=== PATIENT | male | born 1985 | race Caucasian/White ===

== ENCOUNTER 2017-11-24 07:09 | Emergency (ER) | payer BC, OTHER ==
[~2017-11-24] VITALS: Ht 177.8 cm; Wt 104.3 kg
[~2017-11-24 07:09] MED LIST: ACHD5005; ALBU17AE3 IH; ALBUTEROL MDI; AMOX500C2 PO; AZIT-21 PO; BENZ200C25 PO; CIPR-225 PO; CYCL10TA9 PO; GUAI-555 PO; HYDR-3456 PO; HYDR-690 PO; HYDR-757 PO; MELO-195 PO; MELO7.5T PO; METH4TAB PO; NAPR-243 PO; ONDA4TAB8 SL; ONDA8TAB6 PO; OXYC-197 PO; OXYC1TAB87 PO; PRD20T PO; PROM25TA14 PO; SUMA50TA2 PO; TMSL.4C
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
--- OUTSIDE RECORDS SUMMARY | 2017-11-24 07:18 | XMS REPORT | Continuity of Care Document ---
Author Author [facility] Address Unknown Phone Unavailable Allergies Active Description Code Type Severity Reaction Onset Reported/Identified Relationship to Patient Clinical Status Yes NKANo Known Allergies NKA Miscellaneous Allergy Unknown N/A 07/05/2006 Medications There is no data. Problems Date Dx Coded Attending Type Code Diagnosis Diagnosed By 05/29/2008 528.9 MOUTH PAIN 05/29/2008 528.9 MOUTH PAIN 05/29/2008 528.9 MOUTH PAIN 05/29/2008 528.9 Mouth Pain 05/29/2008 528.9 Mouth Pain 05/29/2008 528.9 Mouth Pain 05/29/2008 528.9 Mouth Pain 05/29/2008 528.9 Mouth Pain 05/29/2008 528.9 Mouth Pain 05/29/2008 528.9 Mouth Pain 05/29/2008 AUSTIN PEREZ APRN 528.9 Mouth Pain 05/29/2008 MARYLIN HILL APRN 528.9 Mouth Pain 05/29/2008 AUSTIN PEREZ APRN 528.9 Mouth Pain 05/29/2008 TUYET DOS SANTOS MD 528.9 Mouth Pain 05/29/2008 JAI HEATH MD 528.9 Mouth Pain 05/29/2008 IGNACIO ALBARADO APRN R 528.9 Mouth Pain 05/29/2008 RADHA TINOCO APRN L 528.9 Mouth Pain 05/29/2008 JANET TREJO APRN S 528.9 Mouth Pain 05/29/2008 MARYLIN HILL APRN 528.9 Mouth Pain 05/29/2008 AUSTIN PEREZ APRN 528.9 Mouth Pain 08/12/2008 558.9 GASTROENTERITIS NONINFECTIOUS 08/12/2008 558.9 GASTROENTERITIS NONINFECTIOUS 08/12/2008 558.9 GASTROENTERITIS NONINFECTIOUS 08/12/2008 558.9 Gastroenteritis Noninfectious 08/12/2008 558.9 Gastroenteritis Noninfectious 08/12/2008 558.9 Gastroenteritis Noninfectious 08/12/2008 558.9 Gastroenteritis Noninfectious 08/12/2008 558.9 Gastroenteritis Noninfectious 08/12/2008 558.9 Gastroenteritis Noninfectious 08/12/2008 558.9 Gastroenteritis Noninfectious 08/12/2008 AUSTIN PEREZ APRN 558.9 Gastroenteritis Noninfectious 08/12/2008 MARYLIN HILL APRN 558.9 Gastroenteritis Noninfectious 08/12/2008 AUSTIN PEREZ APRN 558.9 Gastroenteritis Noninfectious 08/12/2008 TUYET DOS SANTOS MD 558.9 Gastroenteritis Noninfectious 08/12/2008 IVANA LIVINGSTON, JAI Anton 558.9 Gastroenteritis Noninfectious 08/12/2008 PER JOHN[place]ON IGNACIO R 558.9 Gastroenteritis Noninfectious 08/12/2008 EARNEST JOHNSTON, RADHA L 558.9 Gastroenteritis Noninfectious 08/12/2008 NEIL JOHNSTON, JANET S 558.9 Gastroenteritis Noninfectious 08/12/2008 MARYLIN HILL APRN 558.9 Gastroenteritis Noninfectious 08/12/2008 AUSTIN PEREZ APRN 558.9 Gastroenteritis Noninfectious 10/18/2009 465.9 ACUTE UPPER RESPIRATORY INFECTIONS OF UNSPECIFIED SITE 10/18/2009 465.9 ACUTE UPPER RESPIRATORY INFECTIONS OF UNSPECIFIED SITE 10/18/2009 465.9 ACUTE UPPER RESPIRATORY INFECTIONS OF UNSPECIFIED SITE 10/18/2009 465.9 Acute Upper Respiratory Infections Of Unspecified Site 10/18/2009 465.9 Acute Upper Respiratory Infections Of Unspecified Site 10/18/2009 465.9 Acute Upper Respiratory Infections Of Unspecified Site 10/18/2009 465.9 Acute Upper Respiratory Infections Of Unspecified Site 10/18/2009 465.9 Acute Upper Respiratory Infections Of Unspecified Site 10/18/2009 465.9 Acute Upper Respiratory Infections Of Unspecified Site 10/18/2009 465.9 Acute Upper Respiratory Infections Of Unspecified Site 10/18/2009 AUSTIN PEREZ APRN 465.9 Acute Upper Respiratory Infections Of Unspecified Site 10/18/2009 MARYLIN HILL APRN 465.9 Acute Upper Respiratory Infections Of Unspecified Site 10/18/2009 AUSTIN PEREZ APRN 465.9 Acute Upper Respiratory Infections Of Unspecified Site 10/18/2009 TUYET DOS SANTOS MD 465.9 Acute Upper Respiratory Infections Of Unspecified Site 10/18/2009 JAI HEATH MD 465.9 Acute Upper Respiratory Infections Of Unspecified Site 10/18/2009 PER [place] IGNACIO R 465.9 Acute Upper Respiratory Infections Of Unspecified Site 10/18/2009 EARNEST JOHN[place]ON, RADHA L 465.9 Acute Upper Respiratory Infections Of Unspecified Site 10/18/2009 NOEMY TREJO APRNA S 465.9 Acute Upper Respiratory Infections Of Unspecified Site 10/18/2009 MARYLIN HILL APRN R 465.9 Acute Upper Respiratory Infections Of Unspecified Site 10/18/2009 AUSTIN PEREZ APRN 465.9 Acute Upper Respiratory Infections Of Unspecified Site 02/22/2010 729.5 PAIN IN LIMB 02/22/2010 729.5 PAIN IN LIMB 02/22/2010 729.5 PAIN IN LIMB 02/22/2010 729.5 Pain In Limb 02/22/2010 729.5 Pain In Limb 02/22/2010 729.5 Pain In Limb 02/22/2010 729.5 Pain In Limb 02/22/2010 729.5 Pain In Limb 02/22/2010 729.5 Pain In Limb 02/22/2010 729.5 Pain In Limb 02/22/2010 AUSTIN PEREZ APRN 729.5 Pain In Limb 02/22/2010 MARYLIN HILL APRN R 729.5 Pain In Limb 02/22/2010 AUSTIN PEREZ APRN 729.5 Pain In Limb 02/22/2010 TUYET DOS SANTOS MD 729.5 Pain In Limb 02/22/2010 JAI HEATH MD 729.5 Pain In Limb 02/22/2010 PER [place] IGNACIO R 729.5 Pain In Limb 02/22/2010 ROBYN TINOCO APRNA L 729.5 Pain In Limb 02/22/2010 JANET TREJO APRN S 729.5 Pain In Limb 02/22/2010 MARYLIN HILL APRN R 729.5 Pain In Limb 02/22/2010 AUSTIN PREEZ APRN 729.5 Pain In Limb 02/12/2011 380.10 OTITIS EXTERNA 02/12/2011 380.10 OTITIS EXTERNA 02/12/2011 380.10 OTITIS EXTERNA 02/12/2011 380.10 Otitis Externa 02/12/2011 380.10 Otitis Externa 02/12/2011 380.10 Otitis Externa 02/12/2011 380.10 Otitis Externa 02/12/2011 380.10 Otitis Externa 02/12/2011 380.10 Otitis Externa 02/12/2011 380.10 Otitis Externa 02/12/2011 AUSTIN PEREZ APRN 380.10 Otitis Externa 02/12/2011 MARYLIN HILL APRN R 380.10 Otitis Externa 02/12/2011 AUSTIN PEREZ APRN 380.10 Otitis Externa 02/12/2011 TUYET DOS SANTOS MD 380.10 Otitis Externa 02/12/2011 JAI HEATH MD 380.10 Otitis Externa 02/12/2011 PER [place] IGNACIO R 380.10 Otitis Externa 02/12/2011 ELIZABETH TINOCO APRNNYA L 380.10 Otitis Externa 02/12/2011 JANET TREJO APRN S 380.10 Otitis Externa 02/12/2011 MARYLIN HILL APRN R 380.10 Otitis Externa 02/12/2011 AUSTIN PEREZ APRN 380.10 Otitis Externa 03/24/2011 477.9 ALLERGIC RHINITIS 03/24/2011 477.9 ALLERGIC RHINITIS 03/24/2011 477.9 ALLERGIC RHINITIS 03/24/2011 477.9 ALLERGIC RHINITIS 03/24/2011 477.9 ALLERGIC RHINITIS 03/24/2011 477.9 ALLERGIC RHINITIS 03/24/2011 477.9 ALLERGIC RHINITIS 03/24/2011 477.9 ALLERGIC RHINITIS 03/24/2011 477.9 ALLERGIC RHINITIS 03/24/2011 477.9 ALLERGIC RHINITIS 03/24/2011 AUSTIN PEREZ APRN 477.9 ALLERGIC RHINITIS 03/24/2011 MARYLIN HILL APRN R 477.9 ALLERGIC RHINITIS 03/24/2011 AUSTIN PEREZ APRN 477.9 ALLERGIC RHINITIS 03/24/2011 TUYET DOS SANTOS MD 477.9 ALLERGIC RHINITIS 03/24/2011 JAI HEATH MD 477.9 ALLERGIC RHINITIS 03/24/2011 PER [place] IGNACIO R 477.9 ALLERGIC RHINITIS 03/24/2011 EARNEST [place] RADHA L 477.9 ALLERGIC RHINITIS 03/24/2011 NEIL BALDWINN, JANET S 477.9 ALLERGIC RHINITIS 03/24/2011 MARYLIN HILL APRN R 477.9 ALLERGIC RHINITIS 03/24/2011 AUSTIN PEREZ APRN 477.9 ALLERGIC RHINITIS 06/02/2011 Ot 493.90 06/02/2011 Ot 786.05 06/02/2011 Ot 786.07 08/13/2011 053.9 HERPES ZOSTER WITHOUT COMPLICATION 08/13/2011 053.9 HERPES ZOSTER WITHOUT COMPLICATION 08/13/2011 053.9 HERPES ZOSTER WITHOUT COMPLICATION 08/13/2011 053.9 HERPES ZOSTER WITHOUT COMPLICATION 08/13/2011 053.9 HERPES ZOSTER WITHOUT COMPLICATION 08/13/2011 053.9 HERPES ZOSTER WITHOUT COMPLICATION 08/13/2011 053.9 HERPES ZOSTER WITHOUT COMPLICATION 08/13/2011 053.9 HERPES ZOSTER WITHOUT COMPLICATION 08/13/2011 053.9 HERPES ZOSTER WITHOUT COMPLICATION 08/13/2011 053.9 HERPES ZOSTER WITHOUT COMPLICATION 08/13/2011 AUSTIN PEREZ APRN 053.9 HERPES ZOSTER WITHOUT COMPLICATION 08/13/2011 MARYLIN HILL APRN R 053.9 HERPES ZOSTER WITHOUT COMPLICATION 08/13/2011 AUSTIN PEREZ APRN 053.9 HERPES ZOSTER WITHOUT COMPLICATION 08/13/2011 TUYET DOS SANTOS MD 053.9 HERPES ZOSTER WITHOUT COMPLICATION 08/13/2011 IVANA LIVINGSTON, JAI Anton 053.9 HERPES ZOSTER WITHOUT COMPLICATION 08/13/2011 PER BALDWINNIGNACIO R 053.9 HERPES ZOSTER WITHOUT COMPLICATION 08/13/2011 EARNEST CLARIFIER OPERATOR HELPER, RADHA L 053.9 HERPES ZOSTER WITHOUT COMPLICATION 08/13/2011 NEIL BALDWINNJANET S 053.9 HERPES ZOSTER WITHOUT COMPLICATION 08/13/2011 MARYLIN HILL APRN R 053.9 HERPES ZOSTER WITHOUT COMPLICATION 08/13/2011 AUSTIN PEREZ APRN 053.9 HERPES ZOSTER WITHOUT COMPLICATION 09/05/2011 079.99 UNSPECIFIED VIRAL INFECTION 09/05/2011 079.99 UNSPECIFIED VIRAL INFECTION 09/05/2011 079.99 UNSPECIFIED VIRAL INFECTION 09/05/2011 079.99 Unspecified Viral Infection 09/05/2011 079.99 Unspecified Viral Infection 09/05/2011 079.99 Unspecified Viral Infection 09/05/2011 079.99 Unspecified Viral Infection 09/05/2011 079.99 Unspecified Viral Infection 09/05/2011 079.99 Unspecified Viral Infection 09/05/2011 079.99 Unspecified Viral Infection 09/05/2011 AUSTIN PEREZ APRN 079.99 Unspecified Viral Infection 09/05/2011 MARYLIN HILL APRN 079.99 Unspecified Viral Infection 09/05/2011 AUSTIN PEREZ APRN 079.99 Unspecified Viral Infection 09/05/2011 TUYET DOS SANTOS MD 079.99 Unspecified Viral Infection 09/05/2011 JAI HEATH MD 079.99 Unspecified Viral Infection 09/05/2011 IGNACIO ALBARADO APRN R 079.99 Unspecified Viral Infection 09/05/2011 ROBYN TINOCO APRNA L 079.99 Unspecified Viral Infection 09/05/2011 NEIL [place]ON JANET S 079.99 Unspecified Viral Infection 09/05/2011 MARYLIN HILL APRN R 079.99 Unspecified Viral Infection 09/05/2011 AUSTIN PEREZ APRN 079.99 Unspecified Viral Infection 09/09/2011 Ot 924.3 09/09/2011 Ot 959.7 09/09/2011 Ot E000.8 09/09/2011 Ot E001.0 09/09/2011 Ot E849.0 09/09/2011 Ot E928.9 11/27/2011 724.2 LUMBAGO 11/27/2011 724.2 LUMBAGO 11/27/2011 724.2 LUMBAGO 11/27/2011 724.2 LUMBAGO 11/27/2011 724.2 LUMBAGO 11/27/2011 724.2 LUMBAGO 11/27/2011 724.2 LUMBAGO 11/27/2011 724.2 LUMBAGO 11/27/2011 724.2 LUMBAGO 11/27/2011 724.2 LUMBAGO 11/27/2011 AUSTIN PEREZ APRN 724.2 LUMBAGO 11/27/2011 MARYLIN HILL APRN 724.2 LUMBAGO 11/27/2011 AUSTIN PEREZ APRN 724.2 LUMBAGO 11/27/2011 TUYET DOS SANTOS MD 724.2 LUMBAGO 11/27/2011 AJI HEATH MD 724.2 LUMBAGO 11/27/2011 IGNACIO ALBARADO APRN R 724.2 LUMBAGO 11/27/2011 RADHA TINOCO APRN L 724.2 LUMBAGO 11/27/2011 JANET TREJO APRN S 724.2 LUMBAGO 11/27/2011 MARYLIN HILL APRN R 724.2 LUMBAGO 11/27/2011 AUSTIN PEREZ APRN 724.2 LUMBAGO 12/05/2011 Ot 473.9 12/05/2011 Ot 784.0 02/15/2012 719.46 PAIN IN JOINT INVOLVING LOWER LEG 02/15/2012 719.46 PAIN IN JOINT INVOLVING LOWER LEG 02/15/2012 719.46 PAIN IN JOINT INVOLVING LOWER LEG 02/15/2012 719.46 Pain In Joint Involving Lower Leg 02/15/2012 719.46 Pain In Joint Involving Lower Leg 02/15/2012 719.46 Pain In Joint Involving Lower Leg 02/15/2012 719.46 Pain In Joint Involving Lower Leg 02/15/2012 719.46 Pain In Joint Involving Lower Leg 02/15/2012 719.46 Pain In Joint Involving Lower Leg 02/15/2012 719.46 Pain In Joint Involving Lower Leg 02/15/2012 AUSTIN PEREZ APRN 719.46 Pain In Joint Involving Lower Leg 02/15/2012 MARYLIN HILL APRN 719.46 Pain In Joint Involving Lower Leg 02/15/2012 AUSTIN PEREZ APRN 719.46 Pain In Joint Involving Lower Leg 02/15/2012 TUYET DOS SANTOS MD 719.46 Pain In Joint Involving Lower Leg 02/15/2012 JAI HEATH MD 719.46 Pain In Joint Involving Lower Leg 02/15/2012 IGNACIO ALBARADO APRN R 719.46 Pain In Joint Involving Lower Leg 02/15/2012 RADHA TINOCO APRN L 719.46 Pain In Joint Involving Lower Leg 02/15/2012 JANET TREJO APRN S 719.46 Pain In Joint Involving Lower Leg 02/15/2012 MARYLIN HILL APRN 719.46 Pain In Joint Involving Lower Leg 02/15/2012 UASTIN PEREZ APRN 719.46 Pain In Joint Involving Lower Leg 03/28/2012 Ot 592.1 11/21/2012 462 sore throat 11/21/2012 462 sore throat 11/21/2012 462 sore throat 11/21/2012 462 Sore Throat 11/21/2012 462 Sore Throat 11/21/2012 462 Sore Throat 11/21/2012 462 Sore Throat 11/21/2012 462 Sore Throat 11/21/2012 462 Sore Throat 11/21/2012 462 Sore Throat 11/21/2012 AUSTIN PEREZ APRN 462 Sore Throat 11/21/2012 MARYLIN HILL APRN R 462 Sore Throat 11/21/2012 AUSTIN PEREZ APRN 462 Sore Throat 11/21/2012 TUYET DOS SANTOS MD 462 Sore Throat 11/21/2012 IVANA LIVINGSTON, JAI N 462 Sore Throat 11/21/2012 PER [place] IGNACIO R 462 Sore Throat 11/21/2012 MADL VICKIE RADHA L 462 Sore Throat 11/21/2012 NEILALEJANDRO [place] JANET S 462 Sore Throat 11/21/2012 MARYLIN HILL APRN 462 Sore Throat 11/21/2012 AUSTIN PEREZ APRN 462 Sore Throat 11/28/2012 461.9 SINUSITIS ACUTE 11/28/2012 461.9 SINUSITIS ACUTE 11/28/2012 461.9 SINUSITIS ACUTE 11/28/2012 461.9 SINUSITIS ACUTE 11/28/2012 461.9 SINUSITIS ACUTE 11/28/2012 461.9 SINUSITIS ACUTE 11/28/2012 461.9 SINUSITIS ACUTE 11/28/2012 461.9 SINUSITIS ACUTE 11/28/2012 461.9 SINUSITIS ACUTE 11/28/2012 UASTIN PEREZ APRN 461.9 SINUSITIS ACUTE 11/28/2012 MARYLIN HILL APRN R 461.9 SINUSITIS ACUTE 11/28/2012 AUSTIN PEREZ APRN 461.9 SINUSITIS ACUTE 11/28/2012 TUYET DOS SANTOS MD 461.9 SINUSITIS ACUTE 11/28/2012 JAI HEATH MD 461.9 SINUSITIS ACUTE 11/28/2012 IGNACIO ALBARADO APRN R 461.9 SINUSITIS ACUTE 11/28/2012 EARNEST JOHNSTON, RADHA L 461.9 SINUSITIS ACUTE 11/28/2012 NEIL JOHNSTON, JANET S 461.9 SINUSITIS ACUTE 11/28/2012 MARYLIN HILL APRN R 461.9 SINUSITIS ACUTE 11/28/2012 AUSTIN PEREZ APRN T 461.9 SINUSITIS ACUTE 12/16/2012 698.9 UNSPECIFIED PRURITIC DISORDER 12/16/2012 782.1 RASH 12/16/2012 698.9 UNSPECIFIED PRURITIC DISORDER 12/16/2012 782.1 RASH 12/16/2012 698.9 UNSPECIFIED PRURITIC DISORDER 12/16/2012 782.1 RASH 12/16/2012 698.9 UNSPECIFIED PRURITIC DISORDER 12/16/2012 782.1 RASH 12/16/2012 698.9 UNSPECIFIED PRURITIC DISORDER 12/16/2012 782.1 RASH 12/16/2012 698.9 UNSPECIFIED PRURITIC DISORDER 12/16/2012 782.1 RASH 12/16/2012 698.9 UNSPECIFIED PRURITIC DISORDER 12/16/2012 782.1 RASH 12/16/2012 698.9 UNSPECIFIED PRURITIC DISORDER 12/16/2012 782.1 RASH 12/16/2012 AUSTIN PEREZ APRN 698.9 UNSPECIFIED PRURITIC DISORDER 12/16/2012 AUSTIN PEREZ APRN 782.1 RASH 12/16/2012 MARYLIN HILL APRN R 698.9 UNSPECIFIED PRURITIC DISORDER 12/16/2012 MARYLIN HILL APRN R 782.1 RASH 12/16/2012 AUSTIN PEREZ APRN 698.9 UNSPECIFIED PRURITIC DISORDER 12/16/2012 AUSTIN PEREZ APRN 782.1 RASH 12/16/2012 TUYET DOS SANTOS MD 698.9 UNSPECIFIED PRURITIC DISORDER 12/16/2012 TUYET DOS SANTOS MD 782.1 RASH 12/16/2012 JAI HEAHT MD 698.9 UNSPECIFIED PRURITIC DISORDER 12/16/2012 JAI HEATH MD 782.1 RASH 12/16/2012 PER CLARIFIER OPERATOR HELPER, IGNACIO R 698.9 UNSPECIFIED PRURITIC DISORDER 12/16/2012 PER CLARIFIER OPERATOR HELPER, IGNACIO R 782.1 RASH 12/16/2012 MADL CLARIFIER OPERATOR HELPER, RADHA L 698.9 UNSPECIFIED PRURITIC DISORDER 12/16/2012 MADL CLARIFIER OPERATOR HELPER, RADHA L 782.1 RASH 12/16/2012 NEIL CLARIFIER OPERATOR HELPER, JANET S 698.9 UNSPECIFIED PRURITIC DISORDER 12/16/2012 NEIL CLARIFIER OPERATOR HELPER, JANET S 782.1 RASH 12/16/2012 SERGIO CLARIFIER OPERATOR HELPER, MARYLIN R 698.9 UNSPECIFIED PRURITIC DISORDER 12/16/2012 SERGIO BALDWINN, MARYLIN R 782.1 RASH 12/16/2012 AUSTIN PEREZ APRN 698.9 UNSPECIFIED PRURITIC DISORDER 12/16/2012 AUSTIN PEREZ APRN 782.1 RASH 01/05/2013 462 PHARYNGITIS ACUTE 01/05/2013 462 Pharyngitis Acute 01/05/2013 462 Pharyngitis Acute 01/05/2013 462 Pharyngitis Acute 01/05/2013 462 Pharyngitis Acute 01/05/2013 462 Pharyngitis Acute 01/05/2013 AUSTIN PEREZ APRN 462 Pharyngitis Acute 01/05/2013 MARYLIN HILL APRN R 462 Pharyngitis Acute 01/05/2013 AUSTIN PEREZ APRN 462 Pharyngitis Acute 01/05/2013 RAYA LIVINGSTON, TUYET 462 Pharyngitis Acute 01/05/2013 IVANA LIVINGSTON, JAI N 462 Pharyngitis Acute 01/05/2013 PER CLARIFIER OPERATOR HELPER, IGNACIO R 462 Pharyngitis Acute 01/05/2013 EARNEST CLARIFIER OPERATOR HELPER, RADHA L 462 Pharyngitis Acute 01/05/2013 NOEMY TREJO APRNA S 462 Pharyngitis Acute 01/05/2013 MARYLIN HILL APRN R 462 Pharyngitis Acute 01/05/2013 AUSTIN PEREZ APRN 462 Pharyngitis Acute 02/06/2013 Ot 780.2 03/25/2013 FANNIE LIVINGSTON, GWYN T Ot 466.0 03/25/2013 FANNIE LIVINGSTON, GWYN T Ot 786.30 04/23/2013 311 DEPRESSIVE DISORDER NOT ELSEWHERE CLASSIFIED 04/23/2013 790.6 ABNORMAL BLOOD CHEMISTRY 04/23/2013 311 DEPRESSIVE DISORDER NOT ELSEWHERE CLASSIFIED 04/23/2013 790.6 ABNORMAL BLOOD CHEMISTRY 04/23/2013 311 DEPRESSIVE DISORDER NOT ELSEWHERE CLASSIFIED 04/23/2013 790.6 ABNORMAL BLOOD CHEMISTRY 04/23/2013 311 DEPRESSIVE DISORDER NOT ELSEWHERE CLASSIFIED 04/23/2013 790.6 ABNORMAL BLOOD CHEMISTRY 04/23/2013 AUSTIN PEREZ APRN 311 DEPRESSIVE DISORDER NOT ELSEWHERE CLASSIFIED 04/23/2013 AUSTIN PEREZ APRN 790.6 ABNORMAL BLOOD CHEMISTRY 04/23/2013 JAMARCUS HILL APRNIA R 311 DEPRESSIVE DISORDER NOT ELSEWHERE CLASSIFIED 04/23/2013 JAMARCUS HILL APRNIA R 790.6 ABNORMAL BLOOD CHEMISTRY 04/23/2013 AUSTIN PEREZ APRN 311 DEPRESSIVE DISORDER NOT ELSEWHERE CLASSIFIED 04/23/2013 AUSTIN PEREZ APRN 790.6 ABNORMAL BLOOD CHEMISTRY 04/23/2013 TUYET DOS SANTOS MD 311 DEPRESSIVE DISORDER NOT ELSEWHERE CLASSIFIED 04/23/2013 TUYET DOS SANTOS MD 790.6 ABNORMAL BLOOD CHEMISTRY 04/23/2013 JAI HEATH MD N 311 DEPRESSIVE DISORDER NOT ELSEWHERE CLASSIFIED 04/23/2013 JAI HEATH MD 790.6 ABNORMAL BLOOD CHEMISTRY 04/23/2013 PER [place] IGNACIO R 311 DEPRESSIVE DISORDER NOT ELSEWHERE CLASSIFIED 04/23/2013 PER [place] IGNACIO R 790.6 ABNORMAL BLOOD CHEMISTRY 04/23/2013 ROBYN TINOCO APRNA L 311 DEPRESSIVE DISORDER NOT ELSEWHERE CLASSIFIED 04/23/2013 ROBYN TINOCO APRNA L 790.6 ABNORMAL BLOOD CHEMISTRY 04/23/2013 NOEMY TREJO APRNA S 311 DEPRESSIVE DISORDER NOT ELSEWHERE CLASSIFIED 04/23/2013 NOEMY TREJO APRNA S 790.6 ABNORMAL BLOOD CHEMISTRY 04/23/2013 JAMARCUS HILL APRNIA R 311 DEPRESSIVE DISORDER NOT ELSEWHERE CLASSIFIED 04/23/2013 JAMARCUS HILL APRNIA R 790.6 ABNORMAL BLOOD CHEMISTRY 04/23/2013 AUSTIN PEREZ APRN 311 DEPRESSIVE DISORDER NOT ELSEWHERE CLASSIFIED 04/23/2013 AUSTIN PEREZ APRN 790.6 ABNORMAL BLOOD CHEMISTRY 09/28/2013 CHRIS CLARIFIER OPERATOR HELPER, AUSTIN T 383.00 ACUTE MASTOIDITIS WITHOUT COMPLICATIONS 09/28/2013 AUSTIN PEREZ APRN T 719.42 PAIN- ELBOW 09/28/2013 SHAN HILL APRNRICIA R 383.00 ACUTE MASTOIDITIS WITHOUT COMPLICATIONS 09/28/2013 SHAN HILL APRNRICIA R 719.42 PAIN- ELBOW 09/28/2013 AUSTIN PEREZ APRN T 383.00 ACUTE MASTOIDITIS WITHOUT COMPLICATIONS 09/28/2013 AUSTIN PEREZ APRN T 719.42 PAIN- ELBOW 09/28/2013 TUYET DOS SANTOS MD 383.00 ACUTE MASTOIDITIS WITHOUT COMPLICATIONS 09/28/2013 TUYET DOS SANTOS MD 719.42 PAIN- ELBOW 09/28/2013 JAI HEATH MD N 383.00 ACUTE MASTOIDITIS WITHOUT COMPLICATIONS 09/28/2013 JAI HEATH MD N 719.42 PAIN- ELBOW 09/28/2013 PER [place]ST[place], IGNACIO R 383.00 ACUTE MASTOIDITIS WITHOUT COMPLICATIONS 09/28/2013 PER [place] IGNACIO R 719.42 PAIN- ELBOW 09/28/2013 EARNEST [place], RADHA L 383.00 ACUTE MASTOIDITIS WITHOUT COMPLICATIONS 09/28/2013 EARNEST [place], RADHA L 719.42 PAIN- ELBOW 09/28/2013 NEIL [place] JANET S 383.00 ACUTE MASTOIDITIS WITHOUT COMPLICATIONS 09/28/2013 NEIL [place] JANET S 719.42 PAIN- ELBOW 09/28/2013 JAMARCUS HILL APRNIA R 383.00 ACUTE MASTOIDITIS WITHOUT COMPLICATIONS 09/28/2013 MARYLIN HILL APRN R 719.42 PAIN- ELBOW 09/28/2013 AUSTIN PEREZ APRN T 383.00 ACUTE MASTOIDITIS WITHOUT COMPLICATIONS 09/28/2013 AUSTIN PEREZ APRN T 719.42 PAIN- ELBOW 10/08/2013 MARYLIN HILL APRN R 380.4 CERUMEN IMPACTION 10/08/2013 MARYLIN HILL APRN R 787.03 VOMITING ALONE 10/08/2013 AUSTIN PEREZ APRN 380.4 CERUMEN IMPACTION 10/08/2013 AUSTIN PEREZ APRN 787.03 VOMITING ALONE 10/08/2013 TUYET DOS SANTOS MD 380.4 CERUMEN IMPACTION 10/08/2013 TUYET DOS SANTOS MD 787.03 VOMITING ALONE 10/08/2013 JAI HEATH MD N 380.4 CERUMEN IMPACTION 10/08/2013 JAI HEATH MD 787.03 VOMITING ALONE 10/08/2013 PER [place], IGNACIO R 380.4 CERUMEN IMPACTION 10/08/2013 PER [place], IGNACIO R 787.03 VOMITING ALONE 10/08/2013 EARNEST CLARIFIER OPERATOR HELPER, RADHA L 380.4 CERUMEN IMPACTION 10/08/2013 TYL CLARIFIER OPERATOR HELPER, RADHA L 787.03 VOMITING ALONE 10/08/2013 CARINA TREJO APRNNDA S 380.4 CERUMEN IMPACTION 10/08/2013 NOEMY TREJO APRNA S 787.03 VOMITING ALONE 10/08/2013 SHAN HILL APRNRICIA R 380.4 CERUMEN IMPACTION 10/08/2013 JAMARCUS HILL APRNIA R 787.03 VOMITING ALONE 10/08/2013 AUSTIN PEREZ APRN T 380.4 CERUMEN IMPACTION 10/08/2013 AUSTIN PEREZ APRN T 787.03 VOMITING ALONE 11/30/2013 TUYET DOS SANTOS MD 079.99 VIRAL SYNDROME 11/30/2013 JAI HEATH MD N 079.99 VIRAL SYNDROME 11/30/2013 JANELLE ALBARADO APRNINA R 079.99 VIRAL SYNDROME 11/30/2013 RADHA TINOCO APRN L 079.99 VIRAL SYNDROME 11/30/2013 JANET TREJO APRN S 079.99 VIRAL SYNDROME 11/30/2013 JAMARCUS HILL APRNIA R 079.99 VIRAL SYNDROME 11/30/2013 AUSTIN PEREZ APRN 079.99 VIRAL SYNDROME 01/08/2014 JAI HEATH MD N 782.9 OTHER SYMPTOMS INVOLVING SKIN AND INTEGUMENTARY TISSUES 01/08/2014 JAI HEATH MD 784.0 HEADACHE 01/08/2014 JANELLE ALBARADO APRNINA R 782.9 OTHER SYMPTOMS INVOLVING SKIN AND INTEGUMENTARY TISSUES 01/08/2014 JANELLE ALBARADO APRNINA R 784.0 HEADACHE 01/08/2014 RADHA TINOCO APRN L 782.9 OTHER SYMPTOMS INVOLVING SKIN AND INTEGUMENTARY TISSUES 01/08/2014 MADL CLARIFIER OPERATOR HELPER, RADHA L 784.0 HEADACHE 01/08/2014 NEILCARINA BRISENO APRNNDA S 782.9 OTHER SYMPTOMS INVOLVING SKIN AND INTEGUMENTARY TISSUES 01/08/2014 CARINA TREJO APRNNDA S 784.0 HEADACHE 01/08/2014 SHAN HILL APRNRICIA R 782.9 OTHER SYMPTOMS INVOLVING SKIN AND INTEGUMENTARY TISSUES 01/08/2014 MARYLIN HILL APRN R 784.0 HEADACHE 01/08/2014 AUSTIN PEREZ APRN 782.9 OTHER SYMPTOMS INVOLVING SKIN AND INTEGUMENTARY TISSUES 01/08/2014 AUSTIN PEREZ APRN 784.0 HEADACHE 02/05/2014 MOHIT MUNIZ MD Ot 724.5 02/11/2014 JANELLE ALBARADO APRNINA R 847.1 SPRAIN THORACIC REGION 02/11/2014 ROBYN TINOCO APRNA L 847.1 SPRAIN THORACIC REGION 02/11/2014 NOEMY TREJO APRNA S 847.1 SPRAIN THORACIC REGION 02/11/2014 JAMARCUS HILL APRNIA R 847.1 SPRAIN THORACIC REGION 02/11/2014 AUSTIN PEREZ APRN 847.1 SPRAIN THORACIC REGION 04/14/2014 ROBYN TINOCO APRNA L 008.8 INTESTINAL INFECTION DUE TO OTHER ORGANISM NOT ELSEWHERE CLASSIFIED 04/14/2014 NOEMY TREJO APRNA S 008.8 INTESTINAL INFECTION DUE TO OTHER ORGANISM NOT ELSEWHERE CLASSIFIED 04/14/2014 MARYLIN HILL APRN R 008.8 INTESTINAL INFECTION DUE TO OTHER ORGANISM NOT ELSEWHERE CLASSIFIED 04/14/2014 AUSTIN PEREZ APRN 008.8 INTESTINAL INFECTION DUE TO OTHER ORGANISM NOT ELSEWHERE CLASSIFIED 05/22/2014 CARINA TREJO APRNNDA S 462 ACUTE PHARYNGITIS 05/22/2014 JAMARCUS HILL APRNIA R 462 ACUTE PHARYNGITIS 05/22/2014 AUSTIN PEREZ APRN 462 ACUTE PHARYNGITIS 11/22/2014 MARYLIN HILL APRN R 786.2 COUGH 11/22/2014 AUSTIN PEREZ APRN 786.2 COUGH 11/25/2014 MOHIT MUNIZ MD Ot 490 11/25/2014 MOHIT MUNIZ MD Ot 786.2 01/25/2015 Ot 354.2 01/25/2015 Ot 719.41 01/25/2015 Ot 840.9 01/25/2015 Ot E000.8 01/25/2015 Ot E928.9 01/27/2015 AUSTIN PEREZ APRN 461.0 SINUSITIS, ACUTE MAXILLARY 02/07/2015 AUSTIN PEREZ APRN 473.9 SINUSITIS (CHRONIC) 03/05/2015 CATHIE VALENTIN APRN Ot 521.00 03/05/2015 CATHIE VALENTIN APRN Ot 525.9 07/16/2015 Ot 592.1 07/16/2015 Ot 592.9 07/16/2015 IGNACIO ALBARADO CLARIFIER OPERATOR HELPER Ot 724.1 07/16/2015 IGNACIO ALBARADO CLARIFIER OPERATOR HELPER Ot 793.7 07/16/2015 BERTA TORRES LUIZ K Ot 276.52 07/16/2015 LUIZ HAMPTON DO Ot 780.2 07/16/2015 Ot 592.1 07/16/2015 Ot 592.9 07/16/2015 IGNACIO ALBARADO R CLARIFIER OPERATOR HELPER Ot 724.1 07/16/2015 IGNACIO ALBARADO R CLARIFIER OPERATOR HELPER Ot 793.7 08/24/2015 Ot 592.1 08/24/2015 Ot 592.9 08/24/2015 IGNACIO ALBARADO R CLARIFIER OPERATOR HELPER Ot 724.1 08/24/2015 IGNACIO ALBARADO R CLARIFIER OPERATOR HELPER Ot 793.7 09/16/2016 FANNIE LIVINGSTON, GWYN T Ot G43.909 MIGRAINE, UNSP, NOT INTRACTABLE, WITHOUT 09/16/2016 FANNIE LIVINGSTON, GWYN T Ot R11.0 NAUSEA 09/16/2016 FANNIE LIVINGSTON, GWYN T Ot R42 DIZZINESS AND GIDDINESS 09/19/2016 FANNIE LIVINGSTON, GWYN Block Ot G43.909 MIGRAINE, UNSP, NOT INTRACTABLE, WITHOUT 09/19/2016 FANNIE LIVINGSTON, GWYN T Ot R11.0 NAUSEA 09/19/2016 GWYN GRECO MD T Ot R42 DIZZINESS AND GIDDINESS 10/20/2016 CATHIE VALENTIN APRN Ot R51 HEADACHE 10/20/2016 VALENTIN, PETER J CLARIFIER OPERATOR HELPER Ot R55 SYNCOPE AND COLLAPSE 10/25/2016 CATHIE VALENTIN APRN Ot R51 HEADACHE 10/25/2016 CATHIE VALENTIN APRN Ot R55 SYNCOPE AND COLLAPSE 10/07/2017 FANNIE LIVINGSTON, GWYN Block Ot G43.909 MIGRAINE, UNSP, NOT INTRACTABLE, WITHOUT 10/07/2017 GWYN GRECO MD, Ot J45.909 UNSPECIFIED ASTHMA, UNCOMPLICATED 10/07/2017 GWYN GRECO MD, Ot N13.2 HYDRONEPHROSIS WITH RENAL AND URETERAL C 10/07/2017 GWYN GRECO MD, Ot R10.30 LOWER ABDOMINAL PAIN, UNSPECIFIED 10/07/2017 GWYN GRECO MD, Ot Z87.442 PERSONAL HISTORY OF URINARY CALCULI 10/07/2017 GWYN GRECO MD, Ot Z96.0 PRESENCE OF UROGENITAL IMPLANTS Procedures Code Description [place] [id number] STREP A (IN-HOUSE) 11/21/2012 50285 ROUTINE VENIPUNCTURE 04/23/2013 [id number] CMP 04/23/2013 [id number] GFR CALC (RESULT ONLY) 04/23/2013 36492 TSH 04/23/2013 51884 ROUTINE VENIPUNCTURE 05/08/2013 29363 LIPID PANEL 05/08/2013 69153 HEPATITIS PROFILE 05/09/2013 09116 ROUTINE VENIPUNCTURE 05/22/2013 48487 LIVER PANEL (LFT) 05/22/2013 33767 THERAPUTIC INJ SQ/IM 01/08/2014 J1885 TORADOL PER 15 MG, INJ KETOROLAC TROMETHAMINE 01/08/2014 27494 MRI SPINE (THORACIC) W/O CONTRAST 02/11/2014 46637 MRI SPINE (THORACIC) W/ CONTRAST 02/11/2014 13173 INFLUENZA A & B (IN-HOUSE) 11/22/2014 95490 OXIMETRY 11/26/2014 Results Test Result Range Complete blood count (CBC) with automated white blood cell (WBC) differential - 10/20/16 19:11 Blood leukocytes automated count (number/volume) 7.5 10*3/uL 4.3-11.0 Blood erythrocytes automated count (number/volume) 5.89 10*6/uL 4.35-5.85 Venous blood hemoglobin measurement (mass/volume) 15.8 g/dL 13.3-17.7 Blood hematocrit (volume fraction) 47 % 40-54 Automated erythrocyte mean corpuscular volume 81 [foz_us] 80-99 Automated erythrocyte mean corpuscular hemoglobin (mass per erythrocyte) 27 pg 25-34 Automated erythrocyte mean corpuscular hemoglobin concentration measurement ( mass/volume) 33 g/dL 32-36 Automated erythrocyte distribution width ratio 13.7 % 10.0-14.5 Automated blood platelet count (count/volume) 278 10*3/uL 130-400 Automated blood platelet mean volume measurement 10.6 [foz_us] 7.4-10.4 Automated blood neutrophils/100 leukocytes 66 % 42-75 Automated blood lymphocytes/100 leukocytes 23 % 12-44 Blood monocytes/100 leukocytes 9 % 0-12 Automated blood eosinophils/100 leukocytes 2 % 0-10 Automated blood basophils/100 leukocytes 1 % 0-10 Blood neutrophils automated count (number/volume) 5.0 10*3 1.8-7.8 Blood lymphocytes automated count (number/volume) 1.7 10*3 1.0-4.0 Blood monocytes automated count (number/volume) 0.7 10*3 0.0-1.0 Automated eosinophil count 0.1 10*3/uL 0.0-0.3 Automated blood basophil count (count/volume) 0.1 10*3/uL 0.0-0.1 Fibrin D-dimer FEU measurement in platelet poor plasma (mass/volume) - 19:11 Fibrin D-dimer FEU measurement in platelet poor plasma (mass/volume) < ug/mL 0.00-0.49 Comprehensive metabolic panel - 10/20/16 19:11 Serum or plasma sodium measurement (moles/volume) 140 mmol/L 135-145 Serum or plasma potassium measurement (moles/volume) 4.2 mmol/L 3.6-5.0 Serum or plasma chloride measurement (moles/volume) 109 mmol/L 98-107 Carbon dioxide 22 mmol/L 21-32 Serum or plasma anion gap determination (moles/volume) 9 mmol/L 5-14 Serum or plasma urea nitrogen measurement (mass/volume) 12 mg/dL 7-18 Serum or plasma creatinine measurement (mass/volume) 1.04 mg/dL 0.60-1.30 Serum or plasma urea nitrogen/creatinine mass ratio 12 NRG Serum or plasma creatinine measurement with calculation of estimated glomerular filtration rate > NRG Serum or plasma glucose measurement (mass/volume) 106 mg/dL 70-105 Serum or plasma calcium measurement (mass/volume) 9.0 mg/dL 8.5-10.1 Serum or plasma total bilirubin measurement (mass/volume) 0.6 mg/dL 0.1-1.0 Serum or plasma alkaline phosphatase measurement (enzymatic activity/volume) 95 U/L 40-136 Serum or plasma aspartate aminotransferase measurement (enzymatic activity/ volume) 42 U/L 5-34 Serum or plasma alanine aminotransferase measurement (enzymatic activity/volume ) 52 U/L 0-55 Serum or plasma protein measurement (mass/volume) 6.5 g/dL 6.4-8.2 Serum or plasma albumin measurement (mass/volume) 4.2 g/dL 3.2-4.5 Urine drug screening test - 10/20/16 20:35 Urine phencyclidine detection by screening method NEGATIVE NEGATIVE Urine benzodiazepines detection by screening method NEGATIVE NEGATIVE Urine cocaine detection NEGATIVE NEGATIVE Urine amphetamines detection by screening method NEGATIVE NEGATIVE Urine methamphetamine detection by screening method NEGATIVE NEGATIVE Urine cannabinoids detection by screening method NEGATIVE NEGATIVE Urine opiates detection by screening method NEGATIVE NEGATIVE Urine barbiturates detection NEGATIVE NEGATIVE Screening urine tricyclic antidepressants detection NEGATIVE NEGATIVE Urine methadone detection by screening method NEGATIVE NEGATIVE Urine oxycodone detection NEGATIVE NEGATIVE Urine propoxyphene detection NEGATIVE NEGATIVE Complete urinalysis with reflex to culture - 10/20/16 20:35 Urine color determination YELLOW NRG Urine clarity determination CLEAR NRG Urine pH measurement by test strip 8 5-9 Specific gravity of urine by test strip 1.015 1.016- 1.022 Urine protein assay by test strip, semi-quantitative NEGATIVE NEGATIVE Urine glucose detection by automated test strip NEGATIVE NEGATIVE Erythrocytes detection in urine sediment by light microscopy NEGATIVE NEGATIVE Urine ketones detection by automated test strip NEGATIVE NEGATIVE Urine nitrite detection by test strip NEGATIVE NEGATIVE Urine total bilirubin detection by test strip NEGATIVE NEGATIVE Urine urobilinogen measurement by automated test strip (mass/volume) NORMAL NORMAL Urine leukocyte esterase detection by dipstick NEGATIVE NEGATIVE Automated urine sediment erythrocyte count by microscopy (number/high power field) NONE NRG Automated urine sediment leukocyte count by microscopy (number/high power field ) RARE NRG Bacteria detection in urine sediment by light microscopy NEGATIVE NRG Crystals detection in urine sediment by light microscopy NONE NRG Casts detection in urine sediment by light microscopy NONE NRG Mucus detection in urine sediment by light microscopy SMALL NRG Complete urinalysis with reflex to culture NO NRG Complete urinalysis with reflex to culture - 10/04/17 03:06 Urine color determination YELLOW NRG Urine clarity determination CLEAR NRG Urine pH measurement by test strip 6.5 5-9 Specific gravity of urine by test strip 1.010 1.016- 1.022 Urine protein assay by test strip, semi-quantitative 1+ NEGATIVE Urine glucose detection by automated test strip NEGATIVE NEGATIVE Erythrocytes detection in urine sediment by light microscopy 2+ NEGATIVE Urine ketones detection by automated test strip NEGATIVE NEGATIVE Urine nitrite detection by test strip NEGATIVE NEGATIVE Urine total bilirubin detection by test strip NEGATIVE NEGATIVE Urine urobilinogen measurement by automated test strip (mass/volume) NORMAL NORMAL Urine leukocyte esterase detection by dipstick 1+ NEGATIVE Automated urine sediment erythrocyte count by microscopy (number/high power field) [HPF] NRG Automated urine sediment leukocyte count by microscopy (number/high power field ) [HPF] NRG Bacteria detection in urine sediment by light microscopy NEGATIVE NRG Squamous epithelial cells detection in urine sediment by light microscopy RARE NRG Crystals detection in urine sediment by light microscopy NONE NRG Casts detection in urine sediment by light microscopy NONE NRG Mucus detection in urine sediment by light microscopy MODERATE NRG Complete urinalysis with reflex to culture NO NRG Complete blood count (CBC) with automated white blood cell (WBC) differential - 10/04/17 03:14 Blood leukocytes automated count (number/volume) 9.5 10*3/uL 4.3-11.0 Blood erythrocytes automated count (number/volume) 5.35 10*6/uL 4.35-5.85 Venous blood hemoglobin measurement (mass/volume) 14.6 g/dL 13.3-17.7 Blood hematocrit (volume fraction) 44 % 40-54 Automated erythrocyte mean corpuscular volume 82 [foz_us] 80-99 Automated erythrocyte mean corpuscular hemoglobin (mass per erythrocyte) 27 pg 25-34 Automated erythrocyte mean corpuscular hemoglobin concentration measurement ( mass/volume) 34 g/dL 32-36 Automated erythrocyte distribution width ratio 13.5 % 10.0-14.5 Automated blood platelet count (count/volume) 285 10*3/uL 130-400 Automated blood platelet mean volume measurement 10.6 [foz_us] 7.4-10.4 Automated blood neutrophils/100 leukocytes 63 % 42-75 Automated blood lymphocytes/100 leukocytes 25 % 12-44 Blood monocytes/100 leukocytes 11 % 0-12 Automated blood eosinophils/100 leukocytes 2 % 0-10 Automated blood basophils/100 leukocytes 0 % 0-10 Blood neutrophils automated count (number/volume) 5.9 10*3 1.8-7.8 Blood lymphocytes automated count (number/volume) 2.4 10*3 1.0-4.0 Blood monocytes automated count (number/volume) 1.0 10*3 0.0-1.0 Automated eosinophil count 0.2 10*3/uL 0.0-0.3 Automated blood basophil count (count/volume) 0.0 10*3/uL 0.0-0.1 Comprehensive metabolic panel - 10/04/17 03:14 Serum or plasma sodium measurement (moles/volume) 142 mmol/L 135-145 Serum or plasma potassium measurement (moles/volume) 3.5 mmol/L 3.6-5.0 Serum or plasma chloride measurement (moles/volume) 108 mmol/L 98-107 Carbon dioxide 22 mmol/L 21-32 Serum or plasma anion gap determination (moles/volume) 12 mmol/L 5-14 Serum or plasma urea nitrogen measurement (mass/volume) 10 mg/dL 7-18 Serum or plasma creatinine measurement (mass/volume) 1.17 mg/dL 0.60-1.30 Serum or plasma urea nitrogen/creatinine mass ratio 9 NRG Serum or plasma creatinine measurement with calculation of estimated glomerular filtration rate > NRG Serum or plasma glucose measurement (mass/volume) 123 mg/dL 70-105 Serum or plasma calcium measurement (mass/volume) 8.8 mg/dL 8.5-10.1 Serum or plasma total bilirubin measurement (mass/volume) 0.6 mg/dL 0.1-1.0 Serum or plasma alkaline phosphatase measurement (enzymatic activity/volume) 89 U/L 40-136 Serum or plasma aspartate aminotransferase measurement (enzymatic activity/ volume) 22 U/L 5-34 Serum or plasma alanine aminotransferase measurement (enzymatic activity/volume ) 33 U/L 0-55 Serum or plasma protein measurement (mass/volume) 6.7 g/dL 6.4-8.2 Serum or plasma albumin measurement (mass/volume) 4.0 g/dL 3.2-4.5 Lipase - 10/04/17 03:14 Lipase 22 U/L 8-78 Encounters ACCT No. Visit Date/Time Discharge Status Pt. Type Provider Facility Loc./Unit Complaint [id number] 02/07/2015 15:33:00 02/07/2015 23:59:59 CLS Outpatient AUSTIN PEREZ APRN [id number] 11/22/2014 15:34:00 11/22/2014 23:59:59 CLS Outpatient SERGIO JOHNSTON MARYLIN Rodney [id number] 05/22/2014 14:01:00 05/22/2014 23:59:59 CLS Outpatient NOEMY TREJO APRNA S [id number] 04/14/2014 14:02:00 04/14/2014 23:59:59 CLS Outpatient RADHA TINOCO APRN Jessica [id number] 02/11/2014 14:34:00 02/11/2014 23:59:59 CLS Outpatient PER VICKIE IGNACIO Rodney [id number] 01/08/2014 09:39:00 01/08/2014 23:59:59 CLS Outpatient JAI HEATH MD [id number] 11/30/2013 13:56:00 11/30/2013 23:59:59 CLS Outpatient TUYET DOS SANTOS MD [id number] 10/26/2013 11:37:00 10/26/2013 23:59:59 CLS Outpatient AUSTIN PEREZ APRN Umair [id number] 10/08/2013 12:25:00 10/08/2013 23:59:59 CLS Outpatient SERGIO JOHNSTONMARYLIN [id number] 09/28/2013 09:20:00 09/28/2013 23:59:59 CLS Outpatient CHRIS BALDWINN AUSTIN Block [id number] 01/29/2013 13:46:00 01/29/2013 23:59:59 CLS Outpatient [id number] 01/05/2013 11:07:00 01/05/2013 23:59:59 CLS Outpatient [id number] 01/02/2013 10:00:00 01/02/2013 23:59:59 CLS Outpatient [id number] 12/16/2012 16:50:00 12/16/2012 23:59:59 CLS Outpatient [id number] 11/28/2012 15:47:00 11/28/2012 23:59:59 CLS Outpatient [id number] 11/21/2012 13:45:00 11/21/2012 23:59:59 CLS Outpatient [id number] 07/31/2013 14:34:00 Document Registration [id number] 05/22/2013 13:10:00 Document Registration [id number] 05/08/2013 15:08:00 Document Registration [id number] 04/23/2013 13:15:00 Document Registration [id number] 10/04/2017 02:46:00 10/04/2017 07:10:00 DIS Outpatient GWYN GRECO MD [facility] ER KIDNEY PAIN,VOMITING ,ABD PAIN [id number] 10/20/2016 18:58:00 10/20/2016 21:00:00 DIS Emergency CATHIE VALENTIN CLARIFIER OPERATOR HELPER [facility] ER SYNCOPE [id number] 09/16/2016 21:30:00 09/16/2016 23:02:00 DIS Emergency GWYN GRECO MD [facility] ER MIGRAINE, NAUSEA, DIZZY [id number] 07/16/2015 18:02:00 07/16/2015 21:19:00 DIS Emergency LUIZ HAMPTON DO [facility] ER [id number] 03/05/2015 21:22:00 03/05/2015 22:13:00 DIS Emergency CATHIE VALENTIN CLARIFIER OPERATOR HELPER [facility] ER [id number] 11/25/2014 18:01:00 11/25/2014 20:13:00 DIS Emergency MOHIT MUNIZ MD [facility] ER [id number] 02/17/2014 09:10:00 02/17/2014 23:59:59 CLS Outpatient IGNACIO ALBARADO CLARIFIER OPERATOR HELPER [facility] RAD [id number] 02/05/2014 20:34:00 02/05/2014 21:31:00 DIS Emergency MOHIT MUNIZ MD [facility] ER [id number] 03/25/2013 20:11:00 03/25/2013 21:42:00 DIS Emergency GWYN GRECO MD [facility] ER [id number] 07/16/2015 18:01:00 Document Registration [id number] 01/25/2015 20:39:00 Document Registration [id number] 02/06/2013 19:14:00 Document Registration [id number] 04/28/2012 16:12:00 Document Registration [id number] 03/31/2012 13:22:00 Document Registration [id number] 03/27/2012 09:00:00 Document Registration [id number] 12/05/2011 20:52:00 Document Registration [id number] 06/02/2011 01:28:00 Document Registration
[2017-11-24] MEDS ORDERED: cefTRIAXone INJECTION 1,000 MG in NS (IVPB) 50 ML IV ONE (07:45)
[2017-11-24] MEDS ORDERED: LIDOCAINE 1% INJ 50 ML (XYLOCAINE) VIAL ONE (07:52)
--- NOTE | 2017-11-24 07:55 | ED EENT ---
History of Present Illness General Chief Complaint: Ear Problems Stated Complaint: R EAR PAIN Nursing Triage Note: PT CO OF R EAR DRUM FEELS LIKE IT IS GOING TO BUST Source: patient Exam Limitations: no limitations History of Present Illness Time seen by provider: 07:50 Initial Comments The patient is a 31-year-old white male who presents with complaints of the acute onset of right ear pain. He states that he was awakened from sleep this morning with this pain. He has had something of a sore throat. He states that he has acutely lost hearing. He has had ear problems as an adult before. Timing/Duration: abrupt Location: ear (R) Prearrival Treatment: no prearrival treatment Allergies and Home Medications Allergies Coded Allergies: NKANo Known Allergies (Verified Allergy, Unknown, 07/05/06) Home Medications Ciprofloxacin HCl 500 Mg Tablet, 500 MG PO BID, #14 Prescribed by: GWYN العلي on 10/04/17518 Ondansetron 4 Mg Tab.rapdis, 4 MG SL Q4H PRN for NAUSEA/VOMITING-1ST LINE, #10 Prescribed by: GWYN العلي on 10/04/17518 Oxycodone HCl/Acetaminophen 1 Each Tablet, 1 EACH PO Q4H PRN for PAIN-MODERATE TO SEVERE, #14 Prescribed by: GWYN العلي on 10/04/17518 Promethazine HCl 25 Mg Tablet, 25 MG PO Q6H PRN for NAUSEA/VOMITING, #10 Prescribed by: GWYN العلي on 10/04/17518 Review of Systems Constitutional: see HPI Eyes: No Symptoms Reported Ears: See HPI Nose: no symptoms reported Mouth: no symptoms reported Throat: no symptoms reported Respiratory: no symptoms reported Cardiovascular: no symptoms reported Gastrointestinal: no symptoms reported Musculoskeletal: no symptoms reported Skin: no symptoms reported Neurological: No Symptoms Reported Hematologic/Lymphatic: No Symptoms Reported Immunological/Allergic: no symptoms reported Past Ogzjqho-Kdltgb-Tzdtko Hx Patient Social History Alcohol Use: Denies Use Recreational Drug Use: No (SMOKER IN THE HOME) Smoking Status: Never a Smoker Recent Foreign Travel: No Contact w/Someone Who Travel: No Recent Infectious Disease Expo: No Recent Hopitalizations: No Physical Abuse: No Sexual Abuse: No Immunizations Up To Date Tetanus Booster (TDap): Unknown Seasonal Allergies Seasonal Allergies: No Surgeries History of Surgeries: Yes (INGROWN TOENAIL REMOVAL; KIDNEY STONE REMOVAL W/ URETERAL STENT & REMOVAL) Surgeries: Renal Respiratory History of Respiratory Disorde: Yes Respiratory Disorders: Asthma Cardiovascular History of Cardiac Disorders: No Neurological History of Neurological Disord: Yes Neurological Disorders: Headaches /Migraines Reproductive System Hx Reproductive Disorders: No Sexually Transmitted Disease: No HIV/AIDS: No Genitourinary History of Genitourinary Disor: Yes Genitourinary Disorders: Kidney Stones Gastrointestinal History of Gastrointestinal Di: No Musculoskeletal History of Musculoskeletal Dis: No Endocrine History of Endocrine Disorders: No HEENT History of HEENT Disorders: No Cancer History of Cancer: No Psychosocial History of Psychiatric Problem: No Suicide Risk Score: 0 Integumentary History of Skin or Integumenta: No Blood Transfusions History of Blood Disorders: No Adverse Reaction to a Blood Tr: No Family Medical History Significant Family History: Diabetes, Psychiatric Problems Physical Exam Vital Signs Vital Sign - Last 12Hours 11/24/17 07:31 Temp 96.2 Pulse 85 Resp 18 B/P (MAP) 147/94 (111) Pulse Ox 98 General Appearance: WD/WN, no apparent distress, mild distress, moderate distress, severe distress, cachetic Eyes: bilateral eye normal inspection Ears: right ear erythema, right ear swelling, right ear tenderness, right ear TM dull, right ear TM red, right ear TM bulging Nose: normal inspection Mouth/Throat: normal mouth inspection, pharynx normal Neck: full range of motion Cardiovascular: normal peripheral pulses, regular rate, rhythm, no edema, no gallop, no JVD, no murmur Respiratory: chest non-tender, lungs clear, normal breath sounds, no respiratory distress, no accessory muscle use Neurologic/Psychiatric: 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 Decision time for Depature: 08:00 Referrals: [facility] (PCP/Family) Primary Care Physician Patient Instructions: Ear Infections (Otitis Media) (DC) Add. Discharge Instructions: All discharge instructions reviewed with patient and/or family. Voiced understanding. Take Augmentin as directed. Use skan-cke-ldhzqjp decongestant such as Zyrtec to decrease swelling and improved drainage BONITA NUNN MD Nov 24, 2017 07:55
[2017-11-24] MEDS ORDERED: AMOX-358 PO (08:05)
[2017-11-24 08:09] VITALS: BP 147/94
[2017-11-24] MEDS ORDERED: LIDOCAINE 1% INJ 20 ML (XYLOCAINE) VIAL INJ ONE (08:15)
[2017-11-24] MEDS ORDERED: cefTRIAXone 1 GM (ROCEPHIN) VIAL IM SCH (09:00)
== END 2017-11-24 08:09 | disposition home or self-care (01) ==
LOC: EDUNIT# 07:09 → ER 07:11
DX: H66.91 Otitis media, unspecified, right ear (principal); J45.909 Unspecified asthma, uncomplicated; G43.909 Migraine, unspecified, not intractable, without status migrainosus; Z96.0 Presence of urogenital implants; Z87.442 Personal history of urinary calculi
CPT/HCPCS: 99284

== ENCOUNTER 2018-01-02 02:02 | Emergency (ER) | payer BC ==
[~2018-01-02] VITALS: Ht 177.8 cm; Wt 108.0 kg
[~2018-01-02 02:02] MED LIST changes: +AMOX-358 PO
--- NOTE | 2018-01-02 02:20 | ED EENT ---
History of Present Illness General Stated Complaint: BUG IN EAR Source: patient Exam Limitations: no limitations History of Present Illness Date Seen by Provider: Jan 02, 2018 Time Seen by Provider: 02:10 Initial Comments This 32-year-old man presents to the emergency room with what he believes to be an insect or bug of some kind in the right ear. He thinks it may have fallen out in route to the hospital. However, he still has a sensation of something in the ear and wishes to have it evaluated. Allergies and Home Medications Allergies Coded Allergies: PETERANo Known Allergies (Verified Allergy, Unknown, 07/05/06) Home Medications Amoxicillin/Potassium Clav 1 Each Tablet, 1 EACH PO ttwice a day, #14 Prescribed by: BONITA NUNN on 11/24/17 0805 Ciprofloxacin HCl 500 Mg Tablet, 500 MG PO BID, #14 Prescribed by: GWYN العلي on 10/04/17 0519 Ondansetron 4 Mg Tab.rapdis, 4 MG SL Q4H PRN for NAUSEA/VOMITING-1ST LINE, #10 Prescribed by: GWYN العلي on 10/04/17 0519 Oxycodone HCl/Acetaminophen 1 Each Tablet, 1 EACH PO Q4H PRN for PAIN-MODERATE TO SEVERE, #14 Prescribed by: GWYN العلي on 10/04/17 0519 Promethazine HCl 25 Mg Tablet, 25 MG PO Q6H PRN for NAUSEA/VOMITING, #10 Prescribed by: GWYN العلي on 10/04/17 0519 Review of Systems Constitutional: no symptoms reported Eyes: No Symptoms Reported Ears: See HPI Nose: no symptoms reported Mouth: no symptoms reported Throat: no symptoms reported Neurological: No Symptoms Reported Past Zsclcqy-Qhfgzz-Ijnonc Hx Patient Social History Recent Foreign Travel: No Contact w/Someone Who Travel: No Recent Hopitalizations: No Immunizations Up To Date Tetanus Booster (TDap): Unknown Seasonal Allergies Seasonal Allergies: No Surgeries History of Surgeries: Yes (INGROWN TOENAIL REMOVAL; KIDNEY STONE REMOVAL W/ URETERAL STENT & REMOVAL) Surgeries: Renal Respiratory History of Respiratory Disorde: Yes Respiratory Disorders: Asthma Cardiovascular History of Cardiac Disorders: No Neurological History of Neurological Disord: Yes Neurological Disorders: Headaches /Migraines Reproductive System Hx Reproductive Disorders: No Sexually Transmitted Disease: No HIV/AIDS: No Genitourinary History of Genitourinary Disor: Yes Genitourinary Disorders: Kidney Stones Gastrointestinal History of Gastrointestinal Di: No Musculoskeletal History of Musculoskeletal Dis: No Endocrine History of Endocrine Disorders: No HEENT History of HEENT Disorders: No Cancer History of Cancer: No Psychosocial History of Psychiatric Problem: No Integumentary History of Skin or Integumenta: No Blood Transfusions History of Blood Disorders: No Adverse Reaction to a Blood Tr: No Family Medical History Significant Family History: Diabetes, Psychiatric Problems Physical Exam Vital Signs Vital Signs - First Documented 01/02/18 02:05 Temp 98.0 Pulse 96 Resp 20 B/P (MAP) 116/82 (93) Pulse Ox 97 O2 Delivery Room Air General Appearance: WD/WN, no apparent distress Ears: right ear TM normal, left ear other (left TM obscured by cerumen impaction), bilateral ear auricle normal, bilateral ear canal normal 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 There was no significant inflammation or irritation noted. Left ear was noted to have cerumen impaction. Departure Impression Impression: Primary Impression: Ear foreign body Qualified Codes: T16.1XXA - Foreign body in right ear, initial encounter Additional Impression: Cerumen impaction Qualified Codes: H61.22 - Impacted cerumen, left ear Disposition: 01 HOME, SELF-CARE Condition: Improved Departure-Patient Inst. Decision time for Depature: :18 Referrals: [facility] [place] Primary Care Physician Patient Instructions: Ear Wax Impaction Add. Discharge Instructions: There are no foreign bodies in your right ear at this time. Please allow the ear to rest and do not place anything in the ear. Symptoms should gradually improve. If symptoms worsen, return to care with your primary care provider or an ENT provider. You may use an pscs-vmm-rqlztpj earwax removal products such as Debrox for removal of the wax in your left ear. Alternatively, you may have your primary care provider or ENT provider flush the wax out in the clinic. GWYN GRECO MD Jan 02, 2018 02:20
[2018-01-02 02:25] VITALS: BP 116/82
--- OUTSIDE RECORDS SUMMARY | 2018-01-05 04:19 | XMS REPORT | Continuity of Care Document ---
Author Author [facility] of [facility] C[facility] of [facility] Address Unknown Phone Unavailable Allergies Active Description [...] AUSTIN PEREZ APRN 729.5 Pain In Limb 02/12/2011 380.10 [...] HILL APRN R 380.10 Otitis Externa 02/12/2011 ASUTIN PEREZ APRN 380.10 Otitis Externa 03/24/2011 477.9 [...] 053.9 HERPES ZOSTER WITHOUT COMPLICATION 08/13/2011 EARNEST SURGEON/PRESIDENT, RADHA L 053.9 HERPES ZOSTER WITHOUT COMPLICATION [...] TUYET DOS SANTOS MD 724.2 LUMBAGO 11/27/2011 JAI HEATH MD 724.2 LUMBAGO 11/27/2011 IGNACIO ALBARADO [...] SINUSITIS ACUTE 11/28/2012 461.9 SINUSITIS ACUTE 11/28/2012 AUSTIN PEREZ APRN 461.9 SINUSITIS ACUTE 11/28/2012 MARYLIN [...] DOS SANTOS MD 782.1 RASH 12/16/2012 JAI HEATH MD 698.9 UNSPECIFIED PRURITIC DISORDER 12/16/2012 JAI HEATH MD 782.1 RASH 12/16/2012 PER SURGEON/PRESIDENT, IGNACIO R 698.9 UNSPECIFIED PRURITIC DISORDER 12/16/2012 PER SURGEON/PRESIDENT, IGNACIO R 782.1 RASH 12/16/2012 MADL SURGEON/PRESIDENT, RADHA L 698.9 UNSPECIFIED PRURITIC DISORDER 12/16/2012 MADL SURGEON/PRESIDENT, RADHA L 782.1 RASH 12/16/2012 NEIL SURGEON/PRESIDENT, JANET S 698.9 UNSPECIFIED PRURITIC DISORDER 12/16/2012 NEIL SURGEON/PRESIDENT, JANET S 782.1 RASH 12/16/2012 SERGIO SURGEON/PRESIDENT, MARYLIN R 698.9 UNSPECIFIED PRURITIC DISORDER 12/16/2012 [...] JAI N 462 Pharyngitis Acute 01/05/2013 PER SURGEON/PRESIDENT, IGNACIO R 462 Pharyngitis Acute 01/05/2013 EARNEST SURGEON/PRESIDENT, RADHA L 462 Pharyngitis Acute 01/05/2013 NOEMY [...] APRN 790.6 ABNORMAL BLOOD CHEMISTRY 09/28/2013 CHRIS SURGEON/PRESIDENT, AUSTIN T 383.00 ACUTE MASTOIDITIS WITHOUT COMPLICATIONS [...] IGNACIO R 787.03 VOMITING ALONE 10/08/2013 EARNEST SURGEON/PRESIDENT, RADHA L 380.4 CERUMEN IMPACTION 10/08/2013 TYL SURGEON/PRESIDENT, RADHA L 787.03 VOMITING ALONE 10/08/2013 CARINA TREJO APRNNDA S 380.4 CERUMEN IMPACTION 10/08/2013 NOEMY TREJO APRNA S 787.03 VOMITING ALONE 10/08/2013 SHAN HILL APRNRICIA R 380.4 CERUMEN IMPACTION 10/08/2013 JAMARCSU HILL APRNIA R 787.03 VOMITING ALONE 10/08/2013 [...] INVOLVING SKIN AND INTEGUMENTARY TISSUES 01/08/2014 MADL SURGEON/PRESIDENT, RDAHA L 784.0 HEADACHE 01/08/2014 NEILCARINA BRISENO APRNNDA [...] 592.1 07/16/2015 Ot 592.9 07/16/2015 IGNACIO ALBARADO SURGEON/PRESIDENT Ot 724.1 07/16/2015 IGNACIO ALBARADO SURGEON/PRESIDENT Ot 793.7 07/16/2015 BERTA TORRES LUIZ K Ot 276.52 07/16/2015 LUIZ HAMPTON DO Ot 780.2 07/16/2015 Ot 592.1 07/16/2015 Ot 592.9 07/16/2015 IGNACIO ALBARDAO R SURGEON/PRESIDENT Ot 724.1 07/16/2015 IGNACIO ALBARADO R SURGEON/PRESIDENT Ot 793.7 08/24/2015 Ot 592.1 08/24/2015 Ot 592.9 08/24/2015 IGNACIO ALBARADO R SURGEON/PRESIDENT Ot 724.1 08/24/2015 IGNACIO ALBARADO R SURGEON/PRESIDENT Ot 793.7 09/16/2016 FANNIE LIVINGSTON, GWYN T [...] Ot R51 HEADACHE 10/20/2016 VALENTIN, PETER J SURGEON/PRESIDENT Ot R55 SYNCOPE AND COLLAPSE 10/25/2016 CATHIE VALENTIN SURGEON/PRESIDENT Ot R51 HEADACHE 10/25/2016 CATHIE VALENTIN SURGEON/PRESIDENT Ot R55 SYNCOPE AND COLLAPSE 10/04/2017 GWYN GRECO MD Ot G43.909 MIGRAINE, UNSP, NOT INTRACTABLE, WITHOUT 10/04/2017 GWYN GRECO MD Ot J45.909 UNSPECIFIED ASTHMA, UNCOMPLICATED 10/04/2017 GWYN GRECO MD Ot N13.2 HYDRONEPHROSIS WITH RENAL AND URETERAL C 10/04/2017 GWYN GRECO MD Ot R10.30 LOWER ABDOMINAL PAIN, UNSPECIFIED 10/04/2017 GWYN GRECO MD Ot Z87.442 PERSONAL HISTORY OF URINARY CALCULI 10/04/2017 GWYN GRECO MD Ot Z96.0 PRESENCE OF UROGENITAL IMPLANTS 10/07/2017 GWYN GRECO MD Ot G43.909 MIGRAINE, UNSP, NOT INTRACTABLE, WITHOUT 10/07/2017 GWYN GRECO MD Ot J45.909 UNSPECIFIED ASTHMA, UNCOMPLICATED 10/07/2017 GWYN GRECO MD Ot N13.2 HYDRONEPHROSIS WITH RENAL AND URETERAL C 10/07/2017 GWYN GRECO MD Ot R10.30 LOWER ABDOMINAL PAIN, UNSPECIFIED 10/07/2017 GWYN GRECO MD Ot Z87.442 PERSONAL HISTORY OF URINARY CALCULI 10/07/2017 GWYN GRECO MD Ot Z96.0 PRESENCE OF UROGENITAL IMPLANTS 11/24/2017 BONITA NUNN MD Ot G43.909 MIGRAINE, UNSP, NOT INTRACTABLE, WITHOUT 11/24/2017 BONITA NUNN MD Ot H66.91 OTITIS MEDIA, UNSPECIFIED, RIGHT EAR 11/24/2017 BONITA NUNN MD Ot H92.01 OTALGIA, RIGHT EAR 11/24/2017 BNOITA NUNN MD Ot J45.909 UNSPECIFIED ASTHMA, UNCOMPLICATED 11/24/2017 BONITA NUNN MD Ot Z87.442 PERSONAL HISTORY OF URINARY CALCULI 11/24/2017 BONITA NUNN MD Ot Z96.0 PRESENCE OF UROGENITAL IMPLANTS 12/01/2017 BONITA NUNN MD Ot G43.909 MIGRAINE, UNSP, NOT INTRACTABLE, WITHOUT 12/01/2017 BONITA NUNN MD Ot H66.91 OTITIS MEDIA, UNSPECIFIED, RIGHT EAR 12/01/2017 BONITA NUNN MD Ot H92.01 OTALGIA, RIGHT EAR 12/01/2017 BONITA NUNN MD Ot J45.909 UNSPECIFIED ASTHMA, UNCOMPLICATED 12/01/2017 BONITA NUNN MD Ot Z87.442 PERSONAL HISTORY OF URINARY CALCULI 12/01/2017 BONITA NUNN MD Ot Z96.0 PRESENCE OF UROGENITAL IMPLANTS Procedures Code Description [place] [address] STREP A (IN-HOUSE) 11/21/2012 72617 ROUTINE VENIPUNCTURE 04/23/2013 09113 CMP 04/23/2013 7995767 GFR CALC (RESULT ONLY) 04/23/2013 77337 TSH 04/23/2013 65669 ROUTINE VENIPUNCTURE 05/08/2013 05513 LIPID PANEL 05/08/2013 59953 HEPATITIS PROFILE 05/09/2013 99629 ROUTINE VENIPUNCTURE 05/22/2013 17970 LIVER PANEL (LFT) 05/22/2013 36824 THERAPUTIC INJ SQ/IM 01/08/2014 J1885 TORADOL PER 15 MG, INJ KETOROLAC TROMETHAMINE 01/08/2014 25318 MRI SPINE (THORACIC) W/O CONTRAST 02/11/2014 39020 MRI SPINE (THORACIC) W/ CONTRAST 02/11/2014 50459 INFLUENZA A & B (IN-HOUSE) 11/22/2014 59470 OXIMETRY 11/26/2014 Results Test Result Range Complete [...] Status Pt. Type Provider Facility Loc./Unit Complaint [id number] 02/07/2015 15:33:00 02/07/2015 23:59:59 CLS Outpatient AUSTIN PEREZ APRN [id number] 11/22/2014 15:34:00 11/22/2014 23:59:59 CLS Outpatient MARYLIN HILL APRN Rashaun [id number] 05/22/2014 14:01:00 05/22/2014 23:59:59 CLS Outpatient JANET TREJO APRN S [id number] 04/14/2014 14:02:00 04/14/2014 23:59:59 CLS Outpatient RADHA TINOCO APRN [id number] 02/11/2014 14:34:00 02/11/2014 23:59:59 CLS Outpatient PER VICKIE IGNACIO Rodney [id number] 01/08/2014 09:39:00 01/08/2014 23:59:59 CLS Outpatient JAI HEATH MD [id number] 11/30/2013 13:56:00 11/30/2013 23:59:59 CLS Outpatient TUYET DOS SANTOS MD [id number] 10/26/2013 11:37:00 10/26/2013 23:59:59 CLS Outpatient AUSTIN PEREZ APRN [id number] 10/08/2013 12:25:00 10/08/2013 23:59:59 CLS Outpatient MARYLIN HILL APRN Rashaun [id number] 09/28/2013 09:20:00 09/28/2013 23:59:59 CLS Outpatient AUSTIN PEREZ APRN [id number] 01/29/2013 13:46:00 01/29/2013 23:59:59 CLS Outpatient [id number] 01/05/2013 11:07:00 01/05/2013 23:59:59 CLS Outpatient [id number] 01/02/2013 10:00:00 01/02/2013 23:59:59 CLS Outpatient [id number] 12/16/2012 16:50:00 12/16/2012 23:59:59 CLS Outpatient [id number] 11/28/2012 15:47:00 11/28/2012 23:59:59 CLS Outpatient [id number] 11/21/2012 13:45:00 11/21/2012 23:59:59 CLS Outpatient [id number] 07/31/2013 14:34:00 Document Registration [id number] 05/22/2013 13:10:00 Document Registration [id number] 05/08/2013 15:08:00 Document Registration [id number] 04/23/2013 13:15:00 Document Registration [id number] 01/02/2018 02:04:00 01/02/2018 02:25:00 DIS Emergency GWYN GRECO MD [facility] ER BUG IN EAR [id number] 11/24/2017 07:11:00 11/24/2017 08:09:00 DIS Emergency BONITA NUNN MD [facility] ER R EAR PAIN [id number] 10/04/2017 02:46:00 10/04/2017 07:10:00 DIS Emergency GWYN GRECO MD [facility] ER KIDNEY PAIN,VOMITING, ABD PAIN [id number] 10/20/2016 18:58:00 10/20/2016 21:00:00 DIS Emergency CATHIE VALENTIN APRN [facility] ER SYNCOPE [id number] 09/16/2016 21:30:00 09/16/2016 23:02:00 DIS Emergency GWYN GRECO MD [facility] ER MIGRAINE, NAUSEA, DIZZY [id number] 07/16/2015 18:02:00 07/16/2015 21:19:00 DIS Emergency LUIZ HAMPTON DO [facility] ER [id number] 03/05/2015 21:22:00 03/05/2015 22:13:00 DIS Emergency CATHIE VALENTIN APRN [facility] ER [id number] 11/25/2014 18:01:00 11/25/2014 20:13:00 DIS Emergency MOHIT MUNIZ MD [facility] ER [id number] 02/17/2014 09:10:00 02/17/2014 23:59:59 CLS Outpatient IGNACIO ALBARADO APRN [facility] RAD [id number] 02/05/2014 20:34:00 02/05/2014 21:31:00 DIS Emergency MOHIT MUNIZ MD [facility] ER [id number] 03/25/2013 20:11:00 03/25/2013 21:42:00 DIS Emergency FANNIE LIVINGSTON, GWYN [facility] [id number] 07/16/2015 18:01:00 Document Registration [id number] 01/25/2015 20:39:00 Document Registration [id number] 02/06/2013 19:14:00 Document Registration [id number] 04/28/2012 16:12:00 Document Registration [id number] 03/31/2012 13:22:00 Document Registration [id number] 03/27/2012 09:00:00 Document Registration [id number] 12/05/2011 20:52:00 Document Registration [id number] 06/02/2011 01:28:00 Document Registration
== END 2018-01-02 02:25 | disposition home or self-care (01) ==
LOC: EDUNIT# 02:02 → ER 02:04
DX: T16.1XXA Foreign body in right ear, initial encounter (principal); H61.22 Impacted cerumen, left ear; J45.909 Unspecified asthma, uncomplicated; Z96.0 Presence of urogenital implants; Z88.1 Allergy status to other antibiotic agents; Z87.442 Personal history of urinary calculi
CPT/HCPCS: 99282

== ENCOUNTER 2020-05-16 10:49 | Emergency (ER) | payer BC ==
[~2020-05-16] VITALS: Ht 177 cm; Wt 117.0 kg
[~2020-05-16 10:49] MED LIST changes: -OXYC-197 PO
--- NOTE | 2020-05-16 11:01 | ED Cough/URI ---
General Stated Complaint: SOA Source: patient Exam Limitations: no limitations History of Present Illness Date Seen by Provider: May 16, 2020 Time Seen by Provider: 11:01 Initial Comments 34-year-old male presents with some shortness of breath. Patient reports he feels that he is having a hard time catching his breath this morning patient reports a history of asthma. They tried inhaler this morning with no relief. Patient reports COVID exposure couple weeks ago and has been tested but is unsure of the result. Patient has some mild cough with expiration. He denies any fever, chills, nausea, vomiting, loss of smell, chest pain or any other systemic complaints. Allergies and Home Medications Allergies Coded Allergies: PETERANo Known Allergies (Verified Allergy, Unknown, 07/05/06) Home Medications Albuterol Sulfate 1 Puff Puff, 2 PUFF INH Q4H 1 PUFF = 90 MCG Prescribed by: JAN VIGIL on 05/16/20 1234 Dexamethasone 4 Mg Tablet, 10 MG PO ONCE please take on evening of 05/17/2020 Prescribed by: JAN VIGIL on 05/16/20 1234 Patient Home Medication List Home Medication List Reviewed: Yes Review of Systems Review of Systems Constitutional: No chills, No fever, No weakness Respiratory: cough, short of breath, wheezing Cardiovascular: No chest pain, No palpitations Gastrointestinal: No abdominal pain, No nausea, No vomiting Musculoskeletal: no symptoms reported Skin: no symptoms reported Past Kzclyhz-Giwmma-Iyzzkd Hx Past Med/Social Hx: Reviewed Nursing Past Med/Soc Hx Patient Social History Recent Hopitalizations: No Immunizations Up To Date Tetanus Booster (TDap): Unknown Seasonal Allergies Seasonal Allergies: No Past Medical History Surgeries: Yes (INGROWN TOENAIL REMOVAL; KIDNEY STONE REMOVAL W/ URETERAL STENT & REMOVAL) Renal Respiratory: Yes Asthma Cardiac: No Neurological: Yes Headaches /Migraines Reproductive Disorders: No Sexually Transmitted Disease: No HIV/AIDS: No Genitourinary: Yes Kidney Stones Gastrointestinal: No Musculoskeletal: No Endocrine: No HEENT: No Cancer: No Psychosocial: No Integumentary: No Blood Disorders: No Adverse Reaction/Blood Tranf: No Family Medical History Diabetes, Psychiatric Problems Physical Exam Vital Signs - First Documented 05/16/20 10:53 Temp 36.5 Pulse 83 Resp 18 B/P (MAP) 154/106 (122) Pulse Ox 98 Capillary Refill : Height: 5'10.00" Weight: 238lbs. 0oz. 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 as tested, alert, normal mood/affect, oriented x 3 Skin: normal color, warm/dry Focused Exam Lactate Level 05/16/20 11:35: Lactic Acid Level 1.03 Lactic Acid Level Laboratory Tests Test 05/16/20 11:35 Lactic Acid Level 1.03 MMOL/L (0.50-2.00) Progress/Results/Core Measures Suspected Sepsis SIRS Temperature: Pulse: Respiratory Rate: Laboratory Tests 05/16/20 11:35: White Blood Count 7.2 Blood Pressure / Mean: 05/16/20 11:35: Lactic Acid Level 1.03 Laboratory Tests 05/16/20 11:35: Creatinine 1.04, INR Comment 0.9, Platelet Count 215, Total Bilirubin 0.5 Results/Orders Lab Results Laboratory Tests Test 05/16/20 11:35 Range/Units White Blood Count 7.2 4.3-11.0 10^3/uL Red Blood Count 5.32 4.35-5.85 10^6/uL Hemoglobin 14.4 13.3-17.7 G/DL Hematocrit 43 40-54 % Mean Corpuscular Volume 82 80-99 FL Mean Corpuscular Hemoglobin 27 25-34 PG Mean Corpuscular Hemoglobin Concent 33 32-36 G/DL Red Cell Distribution Width 14.1 10.0-14.5 % Platelet Count 215 130-400 10^3/uL Mean Platelet Volume 10.1 7.4-10.4 FL Neutrophils (%) (Auto) 57 42-75 % Lymphocytes (%) (Auto) 28 12-44 % Monocytes (%) (Auto) 11 0-12 % Eosinophils (%) (Auto) 4 0-10 % Basophils (%) (Auto) 0 0-10 % Neutrophils # (Auto) 4.1 1.8-7.8 X 10^3 Lymphocytes # (Auto) 2.0 1.0-4.0 X 10^3 Monocytes # (Auto) 0.8 0.0-1.0 X 10^3 Eosinophils # (Auto) 0.3 0.0-0.3 10^3/uL Basophils # (Auto) 0.0 0.0-0.1 10^3/uL Prothrombin Time 12.9 12.2-14.7 SEC INR Comment 0.9 0.8-1.4 Activated Partial Thromboplast Time 30 24-35 SEC Fibrinogen 306 221-496 MG/DL Sodium Level 140 135-145 MMOL/L Potassium Level 4.0 3.6-5.0 MMOL/L Chloride Level 107 98-107 MMOL/L Carbon Dioxide Level 24 21-32 MMOL/L Anion Gap 9 5-14 MMOL/L Blood Urea Nitrogen 13 7-18 MG/DL Creatinine 1.04 0.60-1.30 MG/DL Estimat Glomerular Filtration Rate > 60 BUN/Creatinine Ratio 13 Glucose Level 97 70-105 MG/DL Lactic Acid Level 1.03 0.50-2.00 MMOL/L Calcium Level 9.0 8.5-10.1 MG/DL Corrected Calcium 8.6 8.5-10.1 MG/DL Total Bilirubin 0.5 0.1-1.0 MG/DL Aspartate Amino Transf (AST/SGOT) 53 H 5-34 U/L Alanine Aminotransferase (ALT/SGPT) 84 H 0-55 U/L Alkaline Phosphatase 112 40-136 U/L Lactate Dehydrogenase 190 125-220 U/L Troponin I < 0.028 <0.028 NG/ML C-Reactive Protein High Sensitivity 0.34 0.00-0.50 MG/DL Total Protein 7.9 6.4-8.2 GM/DL Albumin 4.5 3.2-4.5 GM/DL My Orders Orders - VIGIL,JAN L DO Vital Signs: Every 4 Hours (Or (05/16/20 11:03) Monitor-Rhythm Ecg Trace Only (05/16/20 11:03) Cbc With Automated Diff (05/16/20 11:03) Comprehensive Metabolic Panel (05/16/20 11:03) Ferritin (05/16/20 11:03) LDH (05/16/20 11:03) Hs C Reactive Protein (05/16/20 11:03) Troponin I (05/16/20 11:03) Lactic Acid Analyzer (05/16/20 11:03) Protime With Inr (05/16/20 11:03) Partial Thromboplastin Time (05/16/20 11:03) Fibrinogen (05/16/20 11:03) Ekg Tracing (05/16/20 11:03) Chest 1 View, Ap/Pa Only (05/16/20 11:03) Acetaminophen Tablet/Caplet (Tylenol T (05/16/20 11:15) Albuterol/Ipra Inhalation Soln (Duoneb I (05/16/20 11:15) Magnesium 1 Gm/100 Ml Ivpb (Magnesium Tomlinson (05/16/20 11:15) Dexamethasone Injection (Decadron Inject (05/16/20 11:30) Medications Given in ED Current Medications Medications Dose Ordered Sig/Kalpesh Route Start Time Stop Time Status Last Admin Dose Admin Acetaminophen 650 mg ONCE ONCE PO 05/16/20 11:15 05/16/20 11:16 DC 05/16/20 11:44 650 MG Albuterol/ Ipratropium 3 ml ONCE PRN IH 05/16/20 11:15 05/16/20 12:52 DC 05/16/20 11:25 3 ML Dexamethasone Sodium Phosphate 10 mg ONCE ONCE IV 05/16/20 11:30 05/16/20 11:31 DC 05/16/20 11:44 10 MG Vital Signs/I&O 05/16/20 05/16/20 10:53 12:52 Temp 36.5 Pulse 83 73 Resp 18 18 B/P (MAP) 154/106 (122) 136/89 Pulse Ox 98 97 Capillary Refill : Progress Note : Progress Note Patient's outpatient COVID testing was negative. His symptoms seem much more consistent with an early onset of acute asthma exacerbation. I will give him a new inhaler since his other one was over a year old. Also give him dexamethasone 10 mg that he should take tomorrow evening since he was given a previous dose in the ER. Patient is stable and discharged home. He should follow-up with her primary care provider in a couple days for recheck and return to the ER as n eeded Diagnostic Imaging Diagonstic Imaging: Xray Plain Films/CT/US/NM/MRI: chest Comments [facility] [place], [place] NAME: [facility] REC#: [id number] PT STATUS: REG ER : 1985 PHYSICIAN: JAN VIGIL DO ADMIT DATE: 05/16/20/ER Signed Date of Exam:05/16/20 CHEST 1 VIEW, AP/PA ONLY EXAMINATION: Chest 1 view HISTORY: Shortness of breath COMPARISON: None available. FINDINGS: The lungs are clear without edema or pneumonia. No pleural effusion or pneumothorax. Heart size is normal. IMPRESSION: 1. Clear lungs. Dictated by: Departure Impression Primary Impression: Asthma exacerbation Qualified Codes: J45.901 - Unspecified asthma with (acute) exacerbation Disposition: HOME, SELF-CARE Condition: Stable Departure-Patient Inst. Referrals: [facility] [place] (PCP/Family) Primary Care Physician Patient Instructions: Avoiding Asthma Triggers, Asthma, Adult (DC) Add. Discharge Instructions: Follow-up with your primary care provider in 3-4 days for recheck of symptoms Scripts Dexamethasone (Dexamethasone) 4 Mg Tablet 10 MG PO ONCE, #3 TAB please take on evening of 05/17/2020 Prov: JAN VIGIL DO 05/16/20 Albuterol Sulfate (VENTOLIN HFA) 1 Puff Puff 2 PUFF INH Q4H, #1 INHALER 1 PUFF = 90 MCG Prov: JAN VIGIL DO 05/16/20 JAN VIGIL DO May 16, 2020 11:01
[2020-05-16] MEDS ORDERED: ACETAMINOPHEN 325 MG TABLET PO ONE (11:15)
[2020-05-16] MEDS ORDERED: RT-ALBUTEROL/IPRATROPIUM 3 ML (DUONEB) VIAL IH PRN (11:15)
[2020-05-16] MEDS ORDERED: DEXAMETHASONE 4 MG/ML SDV (DECADRON) IV ONE (11:30)
[2020-05-16 11:46] LABS: BASOPHILS % (AUTO) 0 % (0-10); EOSINOPHILS # (AUTO) 0.3 10^3/uL (0.0-0.3); EOSINOPHILS % (AUTO) 4 % (0-10); HEMATOCRIT 43 % (40-54); HEMOGLOBIN 14.4 G/DL (13.3-17.7); LYMPHOCYTES % (AUTO) 28 % (12-44); MEAN CORPUSCULAR HEMOGLOBIN 27 PG (25-34); MEAN CORPUSCULAR HGB CONC 33 G/DL (32-36); MEAN CORPUSCULAR VOLUME 82 FL (80-99); MEAN PLATELET VOLUME 10.1 FL (7.4-10.4); MONOCYTES # (AUTO) 0.8 X 10^3 (0.0-1.0); MONOCYTES % (AUTO) 11 % (0-12); NEUTROPHILS # (AUTO) 4.1 X 10^3 (1.8-7.8); NEUTROPHILS % (AUTO) 57 % (42-75); PLATELET COUNT 215 10^3/uL (130-400); RED CELL DISTRIBUTION WIDTH 14.1 % (10.0-14.5); WHITE BLOOD COUNT 7.2 10^3/uL (4.3-11.0)
[2020-05-16] MEDS: MAGNESIUM 1 GM/100 ML IVPB 100 ML IV SCH ×2 (11:54→12:05)
--- OUTSIDE RECORDS SUMMARY | 2020-05-16 11:58 | XMS REPORT ---
Author Author [place] patient care associate [facility] pick[facility] Address [address] [address] Care Team Providers Care Staff Radiation Therapist Name Role Phone AUSTIN PEREZ Unavailable Unavailable NEIL, JANET Unavailable Unavailable TUYET DOS SANTOS Unavailable Unavailable AUSTIN PEREZ Unavailable NO, LOCAL PHYSICIAN Unavailable Unavailable SANDRA BERNAL Unavailable Unavailable ALENA OMER Unavailable Unavailable RENETTA BURNETT Unavailable Unavailable NO, LOCAL PHYSICIAN Unavailable Unavailable NANDA TURCIOS Unavailable TUYET DOS SANTOS Unavailable NEIL, JANET Unavailable MADL, RADHA Unavailable MADL, RADHA Unavailable PHILIPP WELLS Unavailable NEIL, JANET Unavailable TUYET DOS SANTOS Unavailable [facility] Unavailable [facility] Unavailable TUYET DOS SANTOS Unavailable AUSTIN PEREZ Unavailable MADL, RADHA Unavailable NEIL, JANET Unavailable TUYET DOS SANTOS Unavailable MADL, RADHA Unavailable AUSTIN PEREZ Unavailable KELSY JASON Unavailable AUSTIN PEREZ Unavailable MADL, RADHA Unavailable PHILIPP [place] Unavailable AUSTIN PEREZ Unavailable TUYET DOS SANTOS Unavailable NAA RENEE BERNARD Unavailable KELSY JASON Unavailable KELSY JASON Unavailable NAA RENEEBERNARD Unavailable CHRIS AUSTIN Unavailable FANNIE LIVINGSTON, GWYN Block Unavailable Unavailable AUSTIN PEREZ Unavailable Migration, Doctor Unavailable Unavailable Migration, Doctor Unavailable Unavailable Migration, Doctor Unavailable Unavailable Migration, Doctor Unavailable Unavailable AUSTIN PEREZ Unavailable Unavailable Migration, Doctor Unavailable Unavailable Migration, Doctor Unavailable Unavailable EDOUARD LIVINGSTON, BONITA Majano Unavailable Unavailable NEIL, JANET Unavailable AUSTIN PEREZ Unavailable NEIL, JANET Unavailable MADCARINA LopezRADHA Unavailable zzSANCHEZ, IGNACIO Unavailable NEIL, JNAET Unavailable JAI HEATH Unavailable zzSANCHEZ, IGNACIO Unavailable zzRAJOTTE, LOULOU Unavailable SHAN HILLRICIA Unavailable NANDA TURCIOS Unavailable Unavailable TUYET DOS SANTOS Unavailable zzRAJOTTE, LOULOU Unavailable SHAN HILLRICIA Unavailable Unavailable Unavailable SERGIO MARYLIN Unavailable Unavailable Unavailable Unavailable Unavailable Unavailable Unavailable Unavailable Unavailable Unavailable Unavailable Allergies Normalized Allergy Reported Date of Reaction(s) Care Provider Facility Allergy Type classification allergen Allergy Onset MA (2 Unclassified NKANo Known 07-05-2006 - no information ARABELLA NICHOLS Not Available sources.) Allergies FANNIE ([id number]) Medications Current Medications Medication Ingredient Drug Dose Dates Status Sig Sig Care Class(es) (Normalized) (Original) Provid er erythromyci erythromyci Macrolide, 06-03-20 Active no Erythr omycin no n 0.005 n Macrolide 18 - information 5 MG/GM name mg/mg Translation Antimicrobi 06-13-20 Ophthalmic ophthalmic s: [ al 18 Four times a ointment (1 Erythromyci day 1 source.) n 5 MG/GM] application 6h May, May, 10 day(s) Active no Flonase 50 no 1 02-08-20 Active take 1 Flonase 5 0 no information mcg/actuati information spray( 15 spray(s) mcg/ac tuatio name (1 source.) on s) nasal route n 1 sprays twice daily by Nasal route 2 times per day in each nostril Jan, Active gentamicin gentamicin Aminoglycos 0.3 % 01-24-20 Active no Gentak 0.3 % no sulfate sulfate joshua 18 - information Ophthalmic name (long-term) 0.003 (long-term) Antibacteri 01-31-20 Twice a day mg/mg Translation al 18 1 ophthalmic s: [ Gentak application ointment (1 0.3 %] 12h Jan, source.) 2017Jan, 07 days Active no Gentamicin no 0.3 % 05-19-20 Active no Gentamici n no information Sulfate 0.3 information 18 information Sulfat e 0.3 name (2 % % Ophthalmic sources.) Twice a day 1 application 12h Apr, 7 days Active 0.3 % 05-19-2018 Active no Gentamic no name inform in ation Sulfate 0.3 % Ophthalm ic Twice a day 1 applicat ion h Apr, 07 days Active no Neomycin-Po no 10-26-20 Active no Neomycin-Dhruv no information lymyxin-HC information 13 information ymyxin- HC name (1 source.) 3.5-10,000- 3.5-10,000-1 1 mg-unit/mL-% mg-unit/mL- 2 drop by % Otic route 4 times per day for 7 day(s) Oct, Active silver silver Sulfonamide 10 05-21-20 Active no Silvaden e 1 no sulfADIAZIN sulfADIAZIN Antibacteri mg/mL 17 - information % E xternally name E 10 mg/ml E al 05-31-20 Once a day 1 topical Translation 17 application cream (1 s: [ to affected source.) Silvadene 1 area 24h 27 %] Apr, 2017 7 May, 2017 10 days Active sulfamethox sulfamethox Dihydrofola 01-24-20 Active no Bactr im DS no azole 800 azole / te 18 - information 800-160 MG nam e mg / trimethopri Reductase 01-29-20 Orally Twice trimethopri m Inhibitor 18 a day 1 m 160 mg Translation Antibacteri tablet 12h oral tablet s: [ al, Jan, (1 source.) Bactrim DS Sulfonamide Jan, 800-160 MG] Antimicrobi 05 days al Active Completed/Discontinued Medications Medication Ingredient Drug Dose Dates Status Sig Sig Care Class(es) (Normalized) (Original) Provid er amitriptyli amitriptyli Tricyclic 50 mg 01-20-20 Suspende no Amitriptylin no ne ne Antidepress 18 d information e HCl 50 mg name hydrochlori Translation ant Orally Once de 50 mg s: [ a day 1 oral tablet Amitriptyli tablet 24h (8 ne HCl 50 Dec, sources.) mg, 30 day(s) Amitriptyli Not-Taking ne HCl 50 mg] Problems Active Problems Problem Normalized Date Last Normalized Normalized Provider Fa cility Classification Problem(s) Recorded Problem Problem Sta tus Duration Other upper Allergic Chronic Active [facility] respiratory rhinitis due [facility] disease (20 to pollen [address] of [facility] sources.) Translations: [place] ([address]) [ - Seasonal allergic rhinitis due to pollen J30.1, - Seasonal allergic rhinitis due to pollen J30.1] Other upper Allergic Chronic Active [facility] respiratory rhinitis, [facility] disease (20 unspecified [address] of [facility] sources.) Translations: [place] ([address]) [ - Allergic rhinitis J30.9, - Allergic rhinitis J30.9] Other and Benign Episodic Active [facility] unspecified lipomatous [facility] [place] [address] of [facility] neoplasm (20 skin and [place] ([address]26) sources.) subcutaneous tissue of trunk Translations: [ - Lipoma of torso D17.1, - Lipoma of torso D17.1] Genitourinary Dysuria Episodic Active JANET NEIL Comm bokeelia symptoms and Translations: [address] [place] [address] ill-defined [ - Dysuria of [facility] conditions (12 R30.0] [place] ([address]) sources.) Other ear and Impacted Episodic Active JANET NEIL Comm unity sense organ cerumen, [id number] disorders (16 ear of [facility] sources.) Translations: [place] () [ - Impacted cerumen of left ear H61.22] Abdominal pain Lower Episodic Active JANET NEIL Com munity (13 sources.) abdominal [address] [place] [address] pain, of [facility] unspecified [place] ([address]) Translations: [ - Abdominal pain R10.9] Other and Melanocytic Episodic Active [facility] unspecified nevi of trunk [facility] benign Translations: [address] of [facility] neoplasm (20 [ - [place] ([address]) sources.) Melanocytic nevus of trunk D22.5, - Melanocytic nevus of trunk D22.5] NEGATED Migraine, Chronic Active no name no informati on no unspecified, information (1 not source.) intractable, without status migrainosus Other ear and Otalgia, right Episodic Active BONITA ODGERS [facility] Via sense organ ear , [facility] [place] disorders (20 Translations: Hospital - sources.) [ - Otalgia of [place] right ear () H92.01, - Otalgia of right ear H92.01] Residual Other general Episodic Active JAI IVANA Comm unity codes; symptoms and [address] [place] [address] unclassified signs of [facility] (8 sources.) Translations: [place] ([address]) [ - Flu-like symptoms R68.89] Other upper Other seasonal Chronic Active KELSY Commu nity respiratory allergic [facility] disease (20 rhinitis [address] of [facility] sources.) Translations: [place] ([address]) [ - Acute seasonal allergic rhinitis, unspecified trigger J30.2, - Acute seasonal allergic rhinitis, unspecified trigger J30.2] Genitourinary Presence of Chronic Active BONITA [facility]ERS [facility] Via symptoms and urogenital , [facility] [place] ill-defined implants Hospital - conditions (9 [place] sources.) ([address]) NEGATED Presence of Chronic Active no name no informa tion no urogenital information (1 implants source.) Other upper Seasonal Chronic Active [facility] respiratory allergic [facility] disease (4 rhinitis [address] of [facility] sources.) Translations: [place] (07826) [ Acute seasonal allergic rhinitis, unspecified trigger, Acute seasonal allergic rhinitis, unspecified trigger] Other Sunburn, Episodic Active [facility] inflammatory unspecified [facility] condition of Translations: [address] of [facility] skin (20 [ - Sunburn [place] ([address]) sources.) L55.9, - Sunburn L55.9] NEGATED Unspecified Chronic Active no name no informa tion no asthma, information (1 uncomplicated source.) Past or Other Problems Problem Normalized Date Last Normalized Normalized Provider Fa cility Classification Problem(s) Recorded Problem Problem Sta tus Duration Other injuries Foreign body no information no information no na me no information and conditions in right ear, due to initial external encounter causes (4 sources.) Other diseases Hydronephrosis Episodic Completed GWYN No t Available of kidney and with renal and BRUEGGEMANN , (22186) ureters (1 ureteral MD source.) calculous obstruction NEGATED Hydronephrosis Episodic Completed no name no info rmation no with renal and information (1 ureteral source.) calculous obstruction NEGATED Lower Episodic Completed no name no informatio n no abdominal information (1 pain, source.) unspecified NEGATED Personal Episodic Completed no name no informatio n no history of information (1 urinary source.) calculi Procedures Procedure Normalized Procedure Procedure Result Performer Facility Date 11-22-2014 Iaadiadoo influenza no information no name [facility] (14818) 12-18-2017 Ketorolac tromethamine no information no name [facility] (34534) 01-08-2014 Ketorolac tromethamine no information no name [facility] (39295) 02-24-2014 Mri spinal canal no information no name [facility] thoracic w/contrast [facility] (47737) 02-11-2014 Mri spinal canal no information no name [facility] thoracic w/o contrast [facility] (25654) 11-22-2014 Noninvasive ear/pulse no information [facility] single deter [facility] (67282) 12-18-2017 Ther/proph/diag inj, no information no name [facility] hospital sc/im [facility] (32169) 01-08-2014 Therapeutic no information no name [facility] H ealth prophylactic/dx [facility] injection subq/[facility] (02456) Immunizations Normalized Immunization Date Notes Care Provider Facili ty Immunization TORADOL (IM) 60 12-18-2017 - no information KELSY Velasco [facility] MG/2ML (UP TO 15 MG) 12-18-2017 [id number] [facility] Translations: [ [place] () TORADOL (IM) 60 MG/2ML (UP TO 15 MG)] Results Test Name Value Interpretation Reference Range Date Time Fa cility (Normalized) (Normalized) (Medline Reference) not yet categorized on 2020-04-04 Control neg~neg~+ (no code) [facility] (00870) Exp date 02/22/2021 (no code) [facility] (23848) Exp date neg~+~410c11~03/ (no code) [facility] (60932) Lot # [id number] (no code) [facility] (47348) not yet categorized on 2019-07-06 BLO Negative (no code) [facility] (32996) KET 07/2019~sl (no code) [facility] cloudy~yellow~no [facility] ne~negative~nega [facility] tive~negative (45976) Lot # [id number] (no code) [facility] (46231) SG 1.025 (no code) [facility] (84958) URO 0.2 (no code) [facility] (06213) laboratory on 2019-07-06 Bacteria SEE NOTE (no code) [facility] identified Cx [facility] Nom (U) [facility] (55314) pH (Bld) 5.5 [pH] (no code) 7.38 - 7.42 [pH] [facility] (51947) Protein (U) Negative (no code) 0 - 20 mg/dL [facility] [Mass/Vol] [facility] (69862) Vital Signs Vital Sign Value Interpretation Reference Date Time Care Prov ider Facility (Normalized) (Normalized) Range BMI (Body Mass 34.75 kg/m2 (no code) 15 - 25 kg/m2 10-23-2018 W HELEN PEREZ Community Index) 11:00-[address] [place] [address] (23588) BMI (Body Mass 34.52 kg/m2 (no code) 15 - 25 kg/m2 05-19-2018 N CATHERINE SONMORE Community Index) 20:35-[address] ([address]676) BMI (Body Mass 33.97 kg/m2 (no code) 15 - 25 kg/m2 05-05-2018 KR ISTIN Community Index) 17:00-[address] ([address]14) BMI (Body Mass 34.46 kg/m2 (no code) 15 - 25 kg/m2 04-01-2018 KR ISTIN Community Index) 20:40-[address] (58586) BMI (Body Mass 34.26 kg/m2 (no code) 15 - 25 kg/m2 03-13-2018 N CATHERINE JACOME Community Index) 15:10-[address] (61853) BMI (Body Mass 33.97 kg/m2 (no code) 15 - 25 kg/m2 02-10-2018 D YAW DOS SANTOS Community Index) 12:20-[address] [place] [address] (89447) BMI (Body Mass 34.29 kg/m2 (no code) 15 - 25 kg/m2 01-23-2018 TA LOWELL TINOCO Community Index) 08:10-[address] [place] [address] (52097) BMI (Body Mass 35.01 kg/m2 (no code) 15 - 25 kg/m2 01-20-2018 W HELEN PEREZ Community Index) 17:20-[address] [place] [address] (11237) BMI (Body Mass 33.72 kg/m2 (no code) 15 - 25 kg/m2 12-18-2017 KR ISTIN Community Index) 15:15-[address] (34521) BMI (Body Mass 34.98 kg/m2 (no code) 15 - 25 kg/m2 05-21-2017 LY NNETTE Community Index) 18:15-[address] (32724) Body height 177.8 cm (no code) cm 11-22-2014 MARYLIN Com munity 15:34-[address] [place] [address] (62025) Body height 177.8 cm (no code) cm 04-14-2014 RADHA TINOCO Community 16:02-[address] [place] [address] (60798) Body height 177.8 cm (no code) cm 02-11-2014 IGNACIO Com munity 15:34-[address] (15096) Body height 177.8 cm (no code) cm 01-08-2014 JAI HEATH [facility] 10:39-[address] [place] [address] (64238) Body height 177.8 cm (no code) cm 11-30-2013 LOULOU Com munity 13:56-[address] (31647) Body height 177.8 cm (no code) cm 10-08-2013 MARYLIN Com munity 12:25-[address] [place] [address] (Other Phone: of [facility] ) [place] (22407) Body 98.1 [degF] (no code) 97.8 - 99.0 10-23-2018 AUSTIN DAN Community Temperature [degF] 11:00-[address] [place] [address] (50395) Body 98 [degF] (no code) 97.8 - 99.0 05-19-2018 BERNARD Garcia Community Temperature [degF] 20:35-[address] [place] [address] (49938) Body 97.7 [degF] (no code) 97.8 - 99.0 05-05-2018 KELSY Community Temperature [degF] 17:00-0400 CAS[place] [phone] [facility] (22920) Body 97.9 [degF] (no code) 97.8 - 99.0 04-01-2018 [facility] [degF] 20:40-0400 [facility] [address] [facility] (53398) Body 97.5 [degF] (no code) 97.8 - 99.0 03-13-2018 BERNARD [facility] Community Temperature [degF] 15:10-0400 [facility] [address] [facility] (91682) Body 97.9 [degF] (no code) 97.8 - 99.0 02-10-2018 TUYET BAKER [facility] Community Temperature [degF] 12:20-0400 62386 [facility] (48762) Body 96.8 [degF] (no code) 97.8 - 99.0 01-23-2018 RADHALOWELL CRAWFORD Community Temperature [degF] 08:10-0500 13759 [facility] (62055) Body 97.9 [degF] (no code) 97.8 - 99.0 01-20-2018 [facility] Community Temperature [degF] 17:20-0500 07364 [facility] (50396) Body 97.9 [degF] (no code) 97.8 - 99.0 12-18-2017 [facility] Temperature [degF] 15:15-0500 [facility] [address] [facility] (69006) Body 98 [degF] (no code) 97.8 - 99.0 05-21-2017 PHILIPP Velasco [facility] Temperature [degF] 18:15-0400 [facility] [address] [facility] (18004) Body 98.1 [degF] (no code) 97.8 - 99.0 02-07-2015 [facility] Community Temperature [degF] 16:33-0400 [address] [facility] (86106) Body 97.9 [degF] (no code) 97.8 - 99.0 01-27-2015 JANET BRISENO Community Temperature [degF] 18:19-0500 45865 [facility] (12046) Body 98.9 [degF] (no code) 97.8 - 99.0 11-22-2014 MARYLIN [facility] temperature [degF] 15:34-0500 SERGIO [address] [facility] (53637) Body 98.3 [degF] (no code) 97.8 - 99.0 05-22-2014 JANET BRISENO [facility] Temperature [degF] 16:01-0400 [address] [facility] (38455) Body 98 [degF] (no code) 97.8 - 99.0 04-14-2014 [facility] temperature [degF] 16:02-0400 02306 Health Cente r [facility] (15837) Body 97.5 [degF] (no code) 97.8 - 99.0 02-11-2014 IGNACIO [facility] temperature [degF] 15:34-0400 [facility] [address] [facility] (44770) Body 97.5 [degF] (no code) 97.8 - 99.0 01-08-2014 JAI EN [facility] temperature [degF] 10:39-0500 93595 Health Cente r [facility] (01454) Body 98.4 [degF] (no code) 97.8 - 99.0 11-30-2013 LOULOU [facility] temperature [degF] 13:56-0500 [facility] Health Cente r [id number] [place] [address] (96305) Body 97.8 [degF] (no code) 97.8 - 99.0 10-08-2013 [facility] temperature [degF] 12:25-0500 SERGIO 14785 Health Ce nter (Other Phone: of [facility] (96887) Body weight 110.82 kg (no code) kg 02-07-2015 [facility] 16:33-0400 [address] [facility] (88817) Body weight 113.4 kg (no code) kg 01-27-2015 JANET DAHL [facility] 18:19-0500 054[address] [facility] (03982) Body weight 109.82 kg (no code) kg 11-22-2014 MARYLIN Co mmunity 15:34-[address] [place] [address] (48606) Body weight 106.96 kg (no code) kg 05-22-2014 JANET ALLEN Community 16:010400 97455 Health Center [facility] (80037) Body weight 105.69 kg (no code) kg 04-14-2014 RADHA TINOCO Community 16:02040 08059 Health [facility] (88334) Body weight 106.6 kg (no code) kg 02-11-2014 IGNACIO Com munity 15:34-[address] (13514) Body weight 103.42 kg (no code) kg 01-08-2014 JAI Jeffrey Community 10:39-[address] [place] [address] (53502) Body weight 104.89 kg (no code) kg 11-30-2013 LOULOU Co mmunity 13:56-[address] (19853) Body weight 101.06 kg (no code) kg 10-08-2013 MARYLIN Co mmunity 12:25-[address] [place] [address] (Other Phone: of [facility] (11889) Height 177.8 cm (no code) cm 10-23-2018 AUSTIN PEREZ Co mmunity 11:000500 [address] [place] [address] (02105) Height 177.8 cm (no code) cm 05-19-2018 BERNARD Mack ommunity 20:35-0400 VÍCTOR [address] [place] [address] (52108) Height 177.8 cm (no code) cm 05-05-2018 KELSY Commun ity 17:00-[address] [place] [id number] ([address]) Height 177.8 cm (no code) cm 04-01-2018 KELSY Commun ity 20:40-[address] (84626) Height 177.8 cm (no code) cm 03-13-2018 BERNARD NAA Mack ommunity 15:10-[address] (65930) Height 177.8 cm (no code) cm 02-10-2018 TUYET Mack ommunity 12:20-[address] [place] [address] (85714) Height 177.8 cm (no code) cm 01-23-2018 RADHA TINOCO [facility] munity 08:10-[address] [place] [address] (20061) Height 177.8 cm (no code) cm 01-20-2018 AUSTIN Velasco mmunity 17:20-[address] [place] [address] (54037) Height 177.8 cm (no code) cm 12-18-2017 KELSY [facility] ity 15:15-0500 [place] [id number] [facility] (42796) Height 177.8 cm (no code) cm 05-21-2017 PHILIPP [facility] ity 18:15-[address] (39278) Height 177.8 cm (no code) cm 02-07-2015 AUSTIN Velasco mmunity 16:33-[address] [place] [address] (76355) Height 177.8 cm (no code) cm 01-27-[address] [facility] 18:19-[address] [place] [address] (12598) Height 177.8 cm (no code) cm 05-22-[address] [facility] 16:01-[address] [place] [address] (64539) Pulse Oximetry 95 % (no code) 95 - 100 % 10-23-2018 AUSTIN PEREZ [facility] 11:00-[address] [place] [address] (53295) Pulse Oximetry 0 % (no code) 95 - 100 % 02-10-2018 TUYET HECK [facility] 12:20-[address] [place] [address] (74689) Weight 109.86 kg (no code) kg 10-23-2018 AUSTIN Mack ommunity 11:00-[address] [place] [address] (62534) Weight 109.14 kg (no code) kg 05-19-2018 [facility] 20:35-[address] (44601) Weight 107.41 kg (no code) kg 05-05-2018 KELSY Commu nity 17:00-[address] (93120) Weight 108.95 kg (no code) kg 04-01-2018 KELSY Commu nity 20:40-[address] (15771) Weight 108.32 kg (no code) kg 03-13-2018 [facility] 15:10-[address] (60968) Weight 107.41 kg (no code) kg 02-10-2018 [facility] 12:20-[address] [place] [address] (67380) Weight 108.41 kg (no code) kg 01-23-2018 RADHA TINOCO Co mmunity 08:100500 [address] [place] [address] (76374) Weight 110.68 kg (no code) kg 01-20-2018 AUSTIN [facility] 17:20-[address] [place] [address] (36944) Weight 106.6 kg (no code) kg 12-18-2017 KELSY Aguilera ity 15:15-[address] (86065) Weight 110.59 kg (no code) kg 05-21-2017 PHILIPP Ginette nity 18:15-[address] (54092) Interventions No Information Plan of Treatment The data below is from unstructured sources Discharge Date 09/16/16 11:02pm Disposition 01 HOME, SELF-CARE Condition at Discharge Improved Instructions/Education Provided Migr feng Headache (ED) Prescriptions See Medication Section Referrals NO,LOCAL PHYSICIAN - [facility] Physician Additional Instructions/Education Di ssolve Zofran under your tongue every 4 hours as needed for nausea. Drink plenty of clear liquids. You may take ibuprofen up to 800 mg 8 hours and Benadryl (diphenhydramine) to aid with headache control. Rest in a quiet, calm dark environment for the rest of the night. Return to care if symptoms worsen. All discharge instructions reviewed with patient and/or family. Voiced understanding. Discharge Date 07/16/15 9:19pm Disposition 01 HOME, SELF-CARE Condition at Discharge Improved Instructions/Education Provided Dehy dration (ED) Syncope (ED) Forms Provided Work/School Release F orm Prescriptions See Medication Section Referrals NO,LOCAL PHYSICIAN - [facility] Additional Instructions/Education LO TS OF CLEAR LIQUIDS--WATER, BROTH, JELLO, GATORADE SLOW POSITION CHANGES FOLLOW UP WITH YOUR DR ON SATURDAY IF NO BETTER RETURN TO ER IF SYMPTOMS WORSEN All discharge instructions reviewed with patient and/or family. Voiced understanding. Activity Details Follow Up prn Reason: Activity Details Follow Up if not improving with PCP or reg follow up Reason: Activity Details Follow Up regular appt with Gordo Akins son: Discharge Date 11/24/17 8:09am Disposition 01 HOME, SELF-CARE Condition at Discharge Stable/Unchan ged Instructions/Education Provided Ear Infections (Otitis Media) (DC) Prescriptions See Medication Section Referrals [facility] Order Date: Primary Care Physician Address: [address] [address] Additional Instructions/Education Al l discharge instructions reviewed with patient and/or family. Voiced understanding. Take Augmentin as directed. Use [id number] decongestant such as Zyrtec to decrease swelling and improved drainage Discharge Date 10/04/17 7:10am Disposition 01 HOME, SELF-CARE Condition at Discharge Improved Instructions/Education Provided Juliana sosa Stones in Adults Forms Provided Work Release Form Prescriptions See Medication Section Referrals [facility] Order Date: Primary Care Physician Address: [address] [place] [address] Additional Instructions/Education Fo llow-up with your primary care provider or a urologist soon as possible. Drink plenty of clear liquids. Strain your urine and bring any stones collected with you to your follow-up appointment. Use your pain medication as prescribed. Dissolve Zofran (ondansetron) under the tongue as prescribed for primary control of nausea and vomiting. Use Phenergan (promethazine) as prescribed for backup nausea control. Complete your antibiotics as prescribed to prevent urinary tract infection. Return to the emergency room if symptoms worsen. All discharge instructions reviewed with patient and/or family. Voiced understanding. Discharge Date 01/02/18 2:25am Disposition 01 HOME, SELF-CARE Condition at Discharge Improved Instructions/Education Provided Ear Wax Impaction Prescriptions See Medication Section Referrals [facility] Order Date: Primary Care Physician Address: [facility] [address] [place] [address] Additional Instructions/Education Th ere are no foreign bodies in your right ear at this time. Please allow the ear to rest and do not place anything in the ear. Symptoms should gradually improve. If symptoms worsen, return to care with your primary care provider or an ENT provider. You may use an dhon-ufp-eglkisp earwax removal products such as Debrox for removal of the wax in your left ear. Alternatively, you may have your primary care provider or ENT provider flush the wax out in the clinic. Activity Details Follow Up 1 Week, prn Reason: Goals No Information Social History The data below is from unstructured sources History Response Recorde d Date/Time Hx Family Cancer N 03/27 9:00am History Response Recorde d Date/Time Alcohol Use Denies Use 0 03/25/13 8:13pm Recreational Drug Use N 03/25/13 8:13pm Functional Status The data below is from unstructured sources Query Response Date Atif rded Patient Orientation Person Place Time Situation September 16, 2016 9:33pm

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
--- OUTSIDE RECORDS SUMMARY | 2020-05-16 11:59 | XMS REPORT ---
Author Author Juan DOS SANTOS Organization [facility] Address [address] [place] [address] Care Team Providers Care Painter Supervisor Name Role Phone TUYET DOS SANTOS Unavailable PROBLEMS Type Condition ICD9-CM Code RCS65-TX Code Onset Dates Condition S tatus SNOMED Code Problem Migraine headache G43.909 Active 37 396356 Problem Seasonal allergic rhinitis due to pollen J30.1 Active 67312848 Problem History of kidney stones Z87.442 Activ e [id number] Problem Mild intermittent asthma without complication J45. 20 Active 680269083 Problem Depressive disorder F32.9 Active 90412096 ALLERGIES No Information ENCOUNTERS Encounter Location Date Diagnosis [facility] [address] [place] [id number] Jan, Viral gastroenteritis A08.4 [facility] [address] [place] [address] Dec, Flu-like symptoms R68.89 [facility] [address] [place] [address] Dec, Viral gastroenteritis A08.4 [facility] [address] [place] [address] Nov, Hordeolum externum of left l ower eyelid H00.015 [facility] [address] [place] [address] Sep, Viral upper respiratory trac t infection J06.9 and Impacted cerumen of left ear H61.22 [facility] [address] [place], [place] [id number] [address] [place] [address] Sep, Non-recurrent acute suppurat venkata otitis media of right ear without spontaneous rupture of tympanic membrane H66.001 [facility] [address] [address] 13 Jun, 2019 Diarrhea, unspecified type R 19.7 [facility] [address] [address] Jun, Abdominal pain R10.9 and Dys uria R30.0 [facility] [address] [address] Apr, Diarrhea of presumed infecti ous origin R19.7 [facility] [address] [address] Apr, Gastroenteritis and colitis, viral A08.4 [facility] [address] [address] March, Non-intractable vomiting wit h nausea, unspecified vomiting type R11.2 [facility] [address] [address] Feb, Viral gastroenteritis A08.4 [facility] [address] [address] Dec, Viral upper respiratory trac t infection J06.9 [facility] [address] [address] Nov, Acute gastroenteritis K52.9 [facility] [address] [address] Nov, Migraine headache G43.909 an d Acute seasonal allergic rhinitis, unspecified trigger J30.2 [facility] [address] [address] Oct, Stye, left H00.016 [place] [address] [address] Sep, Viral URI J06.9 [facility] [address] [address] May, [facility] [place] [address] [address] Apr, Hordeolum externum of left l ower eyelid H00.015 [facility] [place] [address] [address] Apr, Viral gastroenteritis A08.4 [facility] [place] [address] [address] March, Viral illness B34.9 [facility] [place] [address] [address] Feb, Vomiting, intractability of vomiting not specified, presence of nausea not specified, unspecified vomiting type R11.10 [place] [address] [address] Jan, Acute nasopharyngitis J00 [facility] [place] [address] [address] Jan, Acute follicular conjunctivi tis of left eye H10.012 [place] [address] [address] Dec, Migraine without aura and wi thout status migrainosus, not intractable G43.009 [facility] [place] [address] [address] Nov, Migraine without aura and wi thout status migrainosus, not intractable G43.009 [place] [address] [address] Nov, Otalgia of right ear H92.01 [place] [address] [address] Oct, Migraine headache G43.909 an d Acute non-recurrent maxillary sinusitis J01.00 [place] [address] [place] [address] [place] [address] Sep, Other viral agents as the ca use of diseases classified elsewhere B97.89 and Acute upper respiratory infection, unspecified J06.9 [place] [address] [address] [place] [id number] [address] [place] [address] Sep, Swelling of left eyelid H02. 846 [place] [address] [address] Sep, Migraine headache G43.909 an d Migraine without aura and without status migrainosus, not intractable G43.009 [facility] [address] [address] Aug, Pharyngitis due to other org anism J02.8 and Oral candidiasis B37.[address] [address] Aug, Sore throat J02.9 and Acute seasonal allergic rhinitis, unspecified trigger J30.2 [place] [address] [address] Jul, Acute upper respiratory infe ction, unspecified J06.9 [place] [address] [address] Jun, Seasonal allergic rhinitis d ue to pollen J30.1 and Dysfunction of left eustachian tube H69.82 [facility] [place] [address] [address] Jun, Strain of right shoulder, in itial encounter S46.911A [place] [address] [address] May, Migraine with aura and witho ut status migrainosus, not intractable G43.109 [facility] [place] [address] [address] Apr, Sunburn L55.9 [facility] [address] [id number] [address] [place] [address] 19 Apr, 2017 Gastroenteritis K52.9 [facility] [address] [facility] [id number] [address] [place] [address] Apr, Acute left-sided thoracic ba ck pain M54.6 [facility] [address] [facility] [id number] [address] [place] [address] March, Migraine without aura and wi thout status migrainosus, not intractable G43.009 [facility] [address] [facility] [id number] [address] [place] [address] March, Intractable migraine without aura and with status migrainosus G43.011 [facility] [address] [facility] [id number] [address] [place] [address] Feb, Depressive disorder F32.9 an d Gastroenteritis K52.9 [facility] [address] [facility] [id number] [address] [place] [address] Jan, Migraine headache G43.909 [facility] [address] [facility] [id number] [address] [place] [address] Jan, Migraine without aura and wi thout status migrainosus, not intractable G43.009 [facility] [address] [facility] [id number] [address] [place] [address] 07 Dec, 2016 Migraine without aura and wi thout status migrainosus, not intractable G43.009 [facility] [address] [facility] [id number] [address] [place] [address] Nov, Diarrhea, unspecified type R 19.7 [facility] [address] [facility] [id number] [address] [place] [address] Nov, Asthma with acute exacerbati on in adult J45.901 and Upper respiratory tract infection, unspecified type J06.9 [facility] [address] [facility] [id number] [address] [place] [address] Nov, [facility] [address] [address] 10 Nov, 2016 Acute non-recurrent maxillar y sinusitis J01.00 [place] [address] [address] 04 Nov, 2016 Viral syndrome B34.9 [place] [address] [address] Nov, Dermatitis L30.9 [facility] [place] [address] [address] Oct, Gastroenteritis K52.9 [place] [address] [address] 07 Oct, 2016 Sore throat (viral) J02.9 an d Migraine without aura and without status migrainosus, not intractable G43.009 [place] [address] [address] Sep, Frequent headaches R51 and 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 [facility] [place] [address] [address] Sep, Seasonal allergic rhinitis d ue to pollen J30.1 and Acute non-recurrent maxillary sinusitis J01.00 [place] [address] [address] Aug, Migraine headache G43.909 [place] [address] [address] Aug, Encounter to establish care Z76.89 ; Migraine without aura and without status migrainosus, not intractable G43.009 and Melanocytic nevus of trunk D22.5 [place] [address] [address] Aug, [place] [address] [address] Jul, Chronic gastritis without bl eeding, unspecified gastritis type K29.50 [place] [address] [facility] [id number] [address] [place] [address] Jul, Cough R05 [facility] [address] [facility] [id number] [address] [place] [address] May, Gastritis without bleeding, unspecified chronicity, unspecified gastritis type K29.70 [facility] [address] [facility] [id number] [address] [place] [address] May, Gastroenteritis K52.9 [facility] [address] [facility] [id number] [address] [place] [address] May, Left acute otitis media H66. 92 [place] [address] [address] [facility] [id number] [address] [place] [address] Apr, Depressive disorder F32.9 [place] [address] [address] [place] [id number] [address] [place] [address] Apr, Otitis media with effusion, left H65.92 [place] [address] [place] [id number] [address] [place] [address] Apr, Migraine headache G43.909 [place] [address] [address] [place] [id number] [address] [place] [address] Apr, Depressive disorder F32.9 an d Adjustment disorder with depressed mood F43.21 [place] [address] [address] [place] [id number] [address] [place] [address] March, Depressive disorder F32.9 an d Adjustment disorder with depressed mood F43.21 [place] [address] [address] [place] [id number] [address] [place] [address] March, Adjustment disorder with dep ressed mood F43.21 [place] [address] [address] [place] [id number] [address] [place] [address] March, Adjustment disorder with dep ressed mood F43.21 [place] [address] [address] [place] [id number] [address] [place] [address] Dec, Migraine headache G43.909 [facility] [address] [facility] [id number] [address] [place] [address] Oct, Middle ear effusion H65.90 a nd Migraine headache G43.909 [facility] [address] [id number] [address] [place] [address] Oct, Allergic rhinitis J30.9 [facility] [address] [facility] [id number] [address] [place] [address] Oct, URI (upper respiratory infec tion) J06.9 [facility] [address] [facility] [id number] [address] [place] [address] Jul, Major depression 296.20 ; An xiety, generalized 300.02 and No condition on [place] II V71.09 [facility] [address] [place] [id number] [address] [place] [address] Jun, Routine adult health [facility] V70.0 [facility] [address] [facility] [id number] [place] [address] Jun, Major depression 296.20 ; No condition on [place] II V71.09 and No condition on axis III V71.09 [facility] [address] [facility] [id number] [address] [place] [address] May, Major depressive disorder, r ecurrent episode, severe 296.33 [facility] [id number] [place] [id number] Apr, Dental examination V72.2 [facility] [address] [facility] [id number] [place] [id number] Apr, Dental examination V72.2 [facility] [address] [facility] [id number] [address] [place] [address] 14 Feb, 2015 [facility] [address] [facility] [id number] [address] [place] [address] Feb, [facility] [address] [place] [id number] [place] [address] Jan, [facility] [address] [id number] [address] [place] [address], [place] [address] Jan, [facility] [address] [id number] [address] [place] [address], [place] [address] Jan, [facility] [address] [id number] [address] [place] [address], [place] [address] Jan, [facility] [address] [id number] [address] [place] [address], [place] [address] Oct, [facility] [address] [id number] [address] [place] [address], [place] [address] Oct, [facility] [address] [id number] [address] [place] [address], [place] [address] Apr, [facility] [address] [id number] [address] [place] [address], [place] [address] Apr, [facility] [address] [id number] [address] [place] [address], [place] [address] March, [facility] [address] [id number] [address] [place] [address], [place] [address] March, [facility] [address] [id number] [address] [place] [address], [place] [address] Feb, [facility] [address] [id number] [address] [place] [address], [place] [address] Feb, [facility] [address] [id number] [address] [place] [address], [place] [address] Feb, [facility] [address] [id number] [address] [place] [address], [place] [address] Feb, [facility] [address] [id number] [address] [place] [address], [place] [address] Feb, [facility] [address] [id number] [address] [place] [address], [place] [address] Jan, [facility] [address] [id number] [address] [place] [address], [place] [address] Jan, [facility] [address] [id number] [address] [place] [address], [place] [address] Dec, [facility] [address] [id number] [address] [place] [address], [place] [address] Dec, [facility] [address] [id number] [address] [place] [address], [place] [address] Nov, [facility] [address] [id number] [address] [place] [address], [place] [address] Nov, [facility] [address] [id number] [address] [place] [address], [place] [address] Nov, [facility] [address] [id number] [address] [place] [address], [place] [address] Nov, [facility] [address] [id number] [address] [place] [address], [place] [address] Nov, [facility] [address] [id number] [address] [place] [address], [place] [address] Nov, [facility] [address] [id number] [address] [place] [address], [place] [address] Oct, [facility] [address] [id number] [address] [place] [address], [place] [address] Oct, [facility] [address] [id number] [address] [place] [address], [place] [address] Sep, [facility] [address] [id number] [address] [place] [address], [place] [address] Sep, [facility] [address] [id number] [address] [place] [address], [place] [address] Sep, [facility] [address] [id number] [address] [place] [address], [place] [address] Sep, [facility] [address] [id number] [address] [place] [address] [address] Jul, [facility] [address] [id number] [address] [place] [address], [place] [address] May, [facility] [address] [id number] [address] [place] [address], [place] [address] May, [facility] [address] [id number] [address] [place] [address], [place] [address] Apr, [facility] [address] [id number] [address] [place] [address], [place] [address] Apr, [facility] [address] [id number] [address] [place] [address], [place] [address] Apr, [facility] [address] [id number] [address] [place] [address], [place] [address] Apr, [facility] [address] [id number] [address] [place] [address], [place] [address] March, [facility] [address] [id number] [address] [place] [address], [place] [address] Jan, [facility] [address] [id number] [address] [place] [address], [place] [address] Dec, [facility] [address] [id number] [address] [place] [address], [place] [address] Dec, [facility] [address] [id number] [address] [place] [address], [place] [address] Nov, [facility] [address] [id number] [address] [place] [address], [place] [address] Nov, [facility] [address] [id number] [address] [place] [address], [place] [address] Oct, [facility] [address] [id number] [address] [place] [address], [place] [address] Oct, [facility] [address] [id number] [address] [place] [address], [place] [address] Sep, [facility] [address] [id number] [address] [place] [address] Jan, [facility] [address] [facility] [id number] [address] [place] [address] Nov, [facility] [address] [facility] [id number] [address] [place] [address] Aug, [facility] [address] [facility] [id number] [address] [place] [address] Aug, [facility] [address] [facility] [id number] [address] [place] [address] Jul, [facility] [address] [facility] [id number] [address] [place] [address] Sep, IMMUNIZATIONS No Known Immunizations SOCIAL HISTORY Never Assessed REASON FOR VISIT PLAN OF CARE VITAL SIGNS MEDICATIONS No Known Medications RESULTS No Results PROCEDURES No Known [...]
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
--- OUTSIDE RECORDS SUMMARY | 2020-05-16 11:59 | XMS REPORT ---
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 20 Active 561941480 Problem Depressive disorder F32.9 Active 16373176 ALLERGIES No Information ENCOUNTERS Encounter Location Date Diagnosis [facility] [address] [place] [address] Jan, Viral gastroenteritis A08.4 [facility] [address] [place] [address] Dec, Flu-like symptoms R68.89 [facility] [address] [place] [address] Dec, Viral gastroenteritis A08.4 [facility] [address] [place] [address] Nov, Hordeolum externum of left l ower eyelid H00.015 [facility] [address] [place] [address] Sep, Viral upper respiratory trac t infection J06.9 and Impacted cerumen of left ear H61.22 [facility] [address] [place], [place] [id number] [address] [place] [address] Sep, Non-recurrent acute suppurat venkata otitis media of right ear without spontaneous rupture of tympanic membrane H66.001 [facility] Formerly named [facility] [address] [address] Jun, Diarrhea, unspecified type R 19.7 [facility] Formerly named [facility] [address] [address] Jun, Abdominal pain R10.9 and Dys uria R30.0 [facility] Formerly named [facility] [address] [address] Apr, Diarrhea of presumed infecti ous origin R19.7 [facility] Formerly named [facility] [address] [address] Apr, Gastroenteritis and colitis, viral A08.4 [facility] Formerly named [facility] [address] [address] March, Non-intractable vomiting wit h nausea, unspecified vomiting type R11.2 [facility] Formerly named [facility] [address] [address] Feb, Viral gastroenteritis A08.4 [facility] Formerly named [facility] [address] [address] Dec, Viral upper respiratory trac t infection J06.9 [facility] [place] [address] [address] Nov, Acute gastroenteritis K52.9 [facility] Formerly named [facility] [address] [address] Nov, Migraine headache G43.909 an d Acute seasonal allergic rhinitis, unspecified trigger J30.2 [facility] Formerly named [facility] [address] [address] Oct, Stye, left H00.016 [place] [address] [address] [id number] [place] [address] Sep, Viral URI J06.9 [place] [address] [address] May, [facility] [place] [address] [address] Apr, Hordeolum externum of left l ower eyelid H00.015 [facility] WALK IN [place] [address] [address] Apr, Viral gastroenteritis A08.4 [facility] WALK IN [place] [address] [address] March, Viral illness B34.9 [facility] WALK IN [address] [address] Feb, Vomiting, intractability of vomiting not specified, presence of nausea not specified, unspecified vomiting type R11.10 [place] [address] [address] Jan, Acute nasopharyngitis J00 [facility] WALK [place] [address] [address] Jan, Acute follicular conjunctivi tis of left eye H10.012 [place] [address] [address] Dec, Migraine without aura and without status migrainosus, not intractable G43.009 [facility] WALK [place] [address] [address] Nov, Migraine without aura and wi thout status migrainosus, not intractable G43.009 [place] [address] [address] Nov, Otalgia of right ear H92.01 [place] [address] [address] Oct, Migraine headache G43.909 and Acute non- recurrent maxillary sinusitis J01.00 [place] [address] [address] Sep, Other viral agents as the cause of disea ses classified elsewhere B97.89 and Acute upper respiratory infection, unspecified J06.[address] [address] Sep, Swelling of left eyelid H02.846 [place] [address] [address] 07 Sep, 2017 Migraine headache G43.909 and Migraine w ithout aura and without status migrainosus, not intractable G43.009 [facility] [address] [address] Aug, Pharyngitis due to other org anism J02.8 and Oral candidiasis B37.[address] [address] Aug, Sore throat J02.9 and Acute seasonal all ergic rhinitis, unspecified trigger J30.[address] [address] Jul, Acute upper respiratory infection, unspe cified J06.[address] [address] Jun, Seasonal allergic rhinitis due to pollen J30.1 and Dysfunction of left eustachian tube H69.82 [facility] WALK IN [place] [id number] [place] [address] Jun, Strain of right shoulder, in itial encounter S46.911A [address] [address] May, Migraine with aura and without status mi grainosus, not intractable G43.109 [facility] [address] [address] Apr, Sunburn L55.9 [facility] WALK IN [address] [address] Apr, Gastroenteritis K52.9 [place] [address] [address] Apr, Acute left-sided thoracic back pain M54. 6 [place] [address] [address] March, Migraine without aura and without status migrainosus, not intractable G43.009 [place] [address] [address] March, Intractable migraine without aura and wi th status migrainosus G43.011 [place] [address] [address] Feb, Depressive disorder F32.9 and Gastroente ritis K52.9 [place] [address] [address] Jan, Migraine headache G43.909 [place] [address] [address] Jan, Migraine without aura and without status migrainosus, not intractable G43.009 [place] [address] [address] Dec, Migraine without aura and without status migrainosus, not intractable G43.009 [place] [address] [address] Nov, Diarrhea, unspecified type R19.7 [place] [address] [address] Nov, Asthma with acute exacerbation in adult J45.901 and Upper respiratory tract infection, unspecified type J06.9 [place] [address] [address] Nov, [place] [address] [address] Nov, Acute non-recurrent maxillary sinusitis J01.00 [place] [address] [address] Nov, Viral syndrome B34.9 [place] [address] [address] Nov, Dermatitis L30.9 [facility] [address] [facility] [id number] [address] [place] [address] Oct, Gastroenteritis K52.9 [place] [address] [address] Oct, Sore throat (viral) J02.9 [facility] without status migrainosus, not intractable G43.009 [place] [address] [address] Sep, Frequent headaches R51 and 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 [facility] WALK IN [facility] [address] [facility] [id number] [address] [place] [address] Sep, Seasonal allergic rhinitis d ue to pollen J30.1 and Acute non-recurrent maxillary sinusitis J01.00 [place] [address] [address] Aug, Migraine headache G43.909 [place] [address] [address] Aug, Encounter to establish care Z76.89 ; Prashanth sudhakar without aura and without status migrainosus, not intractable G43.009 and Melanocytic nevus of trunk D22.5 [place] [address] [address] Aug, [place] [address] [address] Jul, Chronic gastritis without bleeding, unsp ecified gastritis type K29.50 [place] [address] [address] Jul, Cough R05 [place] [address] [address] May, Gastritis without bleeding, unspecified chronicity, unspecified gastritis type K29.70 [facility] [address] [facility] [id number] [place] [address] 14 May, 2016 Gastroenteritis K52.9 [facility] WALK IN [facility] [address] [facility] [id number] [address] [place] [address] May, Left acute otitis media H66. 92 [place] [address] [address] Apr, Depressive disorder F32.9 [facility] [address] [address] Apr, Otitis media with effusion, left H65.92 [place] [address] [address] Apr, Migraine headache G43.909 [place] [address] [address] Apr, Depressive disorder F32.9 and Adjustment disorder with depressed mood F43.21 [place] [address] [address] March, Depressive disorder F32.9 and Adjustment disorder with depressed mood F43.21 [place] [address] [address] March, Adjustment disorder with depressed mood F43.21 [place] [address] [address] March, Adjustment disorder with depressed mood F43.21 [place] [address] [address] Dec, Migraine headache G43.909 [place] [address] [address] Oct, Middle ear effusion H65.90 and Migraine headache G43.909 [facility]ARE [address] [place] [id number] [address] [place] [address] Oct, Allergic rhinitis J30.9 [facility] [address] [address] Oct, URI (upper respiratory infection) J06.9 [facility] [address] [address] Jul, Major depression 296.20 ; Anxiety, gener alized 300.02 and No condition on Col[place] II V71.09 [facility] [address] [address] Jun, Routine adult health maintenance V70.0 [facility] [address] [address] Jun, Major depression 296.20 ; No condition o n Col[place] II V71.09 and No condition on axis III V71.09 [facility] [address] [address] May, Major depressive disorder, recurrent epi sode, severe 296.33 [facility] [address] [id number] Apr, Dental examination V72.2 [facility] [address] [id number] Apr, Dental examination V72.2 [facility] [address] [address] 14 Feb, 2015 [facility] [address] [address] Feb, [facility] [address] [address] Jan, [facility] [address] [address] Jan, [facility] [address] [address] Jan, [facility] [address] [address] Jan, [facility] [address] [address] Oct, [facility] [address] [facility] [place] [address] Oct, [facility] [address] [id number] [place] [address] Apr, [facility] [address] [id number] [place] [address] Apr, [facility] [address] [id number] [place] [address] March, [facility] [address] [id number] [place] [address] March, [facility] [address] [id number] [place] [address] Feb, [facility] [address] [id number] [place] [address] Feb, [facility] [address] [id number] [place] [address] Feb, [facility] [address] [id number] [place] [address] Feb, [facility] [address] [id number] [place] [address] Feb, [facility] [address] [id number] [place] [address] Jan, [facility] [address] [id number] [place] [address] Jan, [facility] [address] [id number] [place] [address] Dec, [facility] [address] [id number] [place] [address] Dec, [facility] [address] [id number] [place] [address] Nov, [facility] [address] [id number] [place] [address] Nov, [facility] [address] [id number] [place] [address] Nov, [facility] [address] [id number] [place] [address] Nov, [facility] [address] [id number] [place] [address] Nov, [facility] [address] [id number] [place] [address] Nov, [facility] [address] [id number] [place] [address] Oct, [facility] [address] [id number] [place] [address] Oct, [facility] [address] [id number] [place] [address] Sep, [facility] [address] [id number] [place] [address] Sep, [facility] [address] [id number] [place] [address] Sep, [facility] [address] [id number] [place] [address] Sep, [facility] [address] [id number] [place] [address] Jul, [facility] [address] [id number] [place] [address] May, [facility] [address] [id number] [place] [address] May, [facility] [address] [id number] [place] [address] Apr, [facility] [address] [id number] [place] [address] Apr, [facility] [address] [id number] [place] [address] Apr, [facility] [address] [id number] [place] [address] Apr, [facility] [address] [place] [id number] [place] [address] March, [facility] [address] [place] [id number] [place] [address] Jan, [facility] [address] [place] [id number] [place] [address] Dec, [facility] [address] [place] [id number] [place] [address] Dec, [facility] [address] [place] [id number] [place] [address] Nov, [facility] [address] [place] [id number] [place] [address] Nov, [facility] [address] [place] [id number] [place] [address] Oct, [facility] [address] [place] [id number] [place] [address] Oct, [facility] [address] [place] [id number] [place] [address] Sep, [facility] [address] [place] [id number] [place] [address] Jan, [facility] [address] [place] [id number] [place] [address] Nov, [facility] [address] [place] [id number] [place] [address] Aug, [facility] [address] [place] [id number] [place] [address] Aug, [facility] [address] [place] [id number] [place] [address] Jul, [facility] [address] [place] [id number] [place] [address] Sep, IMMUNIZATIONS No Known Immunizations SOCIAL HISTORY [...]
--- OUTSIDE RECORDS SUMMARY | 2020-05-16 11:59 | XMS REPORT ---
Author Author Juan Miller Organization [facility] Address [address] [place] [address] Care Team Providers Care Property Utilization Manager Name Role Phone LOULOU Miller Unavailable PROBLEMS Type Condition ICD9-CM Code VCO47-XH Code Onset Dates Condition S tatus SNOMED Code Problem Migraine headache G43.909 Active 37 754040 Problem Seasonal allergic rhinitis due to pollen J30.1 Active 81945245 Problem History of kidney stones Z87.442 Activ e 415132496 Problem Mild intermittent asthma without complication J45. 20 Active 175212248 Problem Depressive disorder F32.9 Active [id number] ALLERGIES No Information ENCOUNTERS Encounter Location Date Diagnosis [facility] [address] [place], [place] [id number] [address] [place] [address] Jan, Viral gastroenteritis A08.4 [facility] [address] [place] [address] Dec, Flu-like symptoms R68.89 [facility] [address] [place] [address] Dec, Viral gastroenteritis A08.4 [facility] [address] [place] [address] Nov, Hordeolum externum of left l ower eyelid H00.015 [facility] [address] [place] [address] Sep, Viral upper respiratory trac t infection J06.9 and Impacted cerumen of left ear H61.22 [facility] [address] [place], [place] [id number] [address] [place] [address] Sep, Non-recurrent acute suppurat venkata otitis media of right ear without spontaneous rupture of tympanic membrane H66.001 [facility] [address] [address] 13 Jun, 2019 Diarrhea, unspecified type R 19.7 [facility] [address] [address] Jun, Abdominal pain R10.9 and Dys uria R30.0 [facility] [address] [place] [address] Apr, Diarrhea of presumed infecti ous origin R19.7 [facility] [address] [place] [address] Apr, Gastroenteritis and colitis, viral A08.4 [facility] [address] [place] [address] March, Non-intractable vomiting wit h nausea, unspecified vomiting type R11.2 [facility] [address] [address] Feb, Viral gastroenteritis A08.4 [facility] [address] [place] [address] Dec, Viral upper respiratory trac t infection J06.9 [facility] [address] [address] Nov, Acute gastroenteritis K52.9 [facility] [address] [address] Nov, Migraine headache G43.909 an d Acute seasonal allergic rhinitis, unspecified trigger J30.2 [facility] [address] [place] [address] Oct, Stye, left H00.016 [place] [address] [address] Sep, Viral URI J06.9 [place] [address] [address] May, [facility] [place] [address] [address] Apr, Hordeolum externum of left l ower eyelid H00.015 [facility] [place] [address] [address] Apr, Viral gastroenteritis A08.4 [facility] IN [place] [address] [address] March, Viral illness B34.9 [facility] [place] [address] [address] Feb, Vomiting, intractability of vomiting not specified, presence of nausea not specified, unspecified vomiting type R11.10 [place] [address] [address] Jan, Acute nasopharyngitis J00 [facility] [place] [address] [address] Jan, Acute follicular conjunctivi tis of left eye H10.012 [place] [address] [address] Dec, Migraine without aura and wi thout status migrainosus, not intractable G43.009 [facility] [place] [address] [address] Nov, Migraine without aura and wi thout status migrainosus, not intractable G43.009 [place] [address] [address] Nov, Otalgia of right ear H92.01 [place] [address] [address] Oct, Migraine headache G43.909 an d Acute non-recurrent maxillary sinusitis J01.00 [place] [address] [address] [place] [id number] [address] [place] [address] Sep, Other viral agents as the ca use of diseases classified elsewhere B97.89 and Acute upper respiratory infection, unspecified J06.9 [place] [address] [address] [place] [id number] [address] [place] [address] Sep, Swelling of left eyelid H02. 846 [place] [address] [address] Sep, Migraine headache G43.909 an d Migraine without aura and without status migrainosus, not intractable G43.009 [facility] [address] [address] Aug, Pharyngitis due to other org anism J02.8 and Oral candidiasis B37.[address] [address] Aug, Sore throat J02.9 and Acute seasonal allergic rhinitis, unspecified trigger J30.2 [place] [address] [address] Jul, Acute upper respiratory infe ction, unspecified J06.9 [place] [address] [address] Jun, Seasonal allergic rhinitis d ue to pollen J30.1 and Dysfunction of left eustachian tube H69.82 [facility] [place] [address] [address] Jun, Strain of right shoulder, in itial encounter S46.911A [place] [address] [address] May, Migraine with aura and witho ut status migrainosus, not intractable G43.109 [facility] [place] [address] [address] Apr, Sunburn L55.9 [facility] [address] [facility] [id number] [address] [place] [address] Apr, Gastroenteritis K52.9 [facility] [address] [facility] [id number] [address] [place] [address] Apr, Acute left-sided thoracic ba ck pain M54.6 [facility] [address] [facility] [id number] [address] [place] [address] March, Migraine without aura and wi thout status migrainosus, not intractable G43.009 [facility] [address] [facility] [id number] [address] [place] [address] March, Intractable migraine without aura and with status migrainosus G43.011 [facility] [address] [facility] [id number] [address] [place] [address] Feb, Depressive disorder F32.9 an d Gastroenteritis K52.9 [facility] [address] [facility] [id number] [address] [place] [address] Jan, Migraine headache G43.909 [facility] [address] [facility] [id number] [address] [place] [address] Jan, Migraine without aura and wi thout status migrainosus, not intractable G43.009 [facility] [address] [facility] [id number] [address] [place] [address] Dec, Migraine without aura and wi thout status migrainosus, not intractable G43.009 [facility] [address] [facility] [id number] [address] [place] [address] Nov, Diarrhea, unspecified type R 19.7 [facility] [address] [facility] [id number] [address] [place] [address] Nov, Asthma with acute exacerbati on in adult J45.901 and Upper respiratory tract infection, unspecified type J06.9 [facility] [address] [facility] [id number] [address] [place] [address] Nov, [place] [address] [id number] [place] [address] Nov, Acute non-recurrent maxillar y sinusitis J01.00 [place] [address] [id number] [place] [address] 04 Nov, 2016 Viral syndrome B34.9 [place] [address] [address] Nov, Dermatitis L30.9 [facility] [place] [address] [address] Oct, Gastroenteritis K52.9 [place] [address] [address] 07 Oct, 2016 Sore throat (viral) J02.9 an d Migraine without aura and without status migrainosus, not intractable G43.009 [place] [address] [address] Sep, Frequent headaches R51 and 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 [facility] [place] [address] [address] Sep, Seasonal allergic rhinitis d ue to pollen J30.1 and Acute non-recurrent maxillary sinusitis J01.00 [place] [address] [address] Aug, Migraine headache G43.909 [place] [address] [address] Aug, Encounter to [facility] care Z76.89 ; Migraine without aura and without status migrainosus, not intractable G43.009 and Melanocytic nevus of trunk D22.5 [place] [address] [address] Aug, [place] [address] [address] Jul, Chronic gastritis without bl eeding, unspecified gastritis type K29.50 [facility] [address] [facility] [id number] [address] [place] [address] Jul, Cough R05 [facility] [address] [facility] [id number] [address] [place] [address] May, Gastritis without bleeding, unspecified chronicity, unspecified gastritis type K29.70 [facility] [address] [facility] [id number] [address] [place] [address] May, Gastroenteritis K52.9 [facility] [address] [facility] [id number] [address] [place] [address] May, Left acute otitis media H66. 92 [place] [address] [address] [facility] [id number] [address] [place] [address] Apr, Depressive disorder F32.9 [place] [address] [address] [place] [id number] [address] [place] [address] Apr, Otitis media with effusion, left H65.92 [place] [address] [address] [place] [id number] [address] [place] [address] Apr, Migraine headache G43.909 [place] [address] [address] [place] [id number] [address] [place] [address] Apr, Depressive disorder F32.9 an d Adjustment disorder with depressed mood F43.21 [place] [address] [address] [place] [id number] [address] [place] [address] March, Depressive disorder F32.9 an d Adjustment disorder with depressed mood F43.21 [place] [address] [address] [facility] [id number] [address] [place] [address] March, Adjustment disorder with dep ressed mood F43.21 [place] [address] [address] [place] [id number] [address] [place] [address] March, Adjustment disorder with dep ressed mood F43.21 [place] [address] [address] [place] [id number] [address] [place] [address] 10 Dec, 2015 Migraine headache G43.909 [facility] [address] [facility] [id number] [address] [place] [address] Oct, Middle ear effusion H65.90 a nd Migraine headache G43.909 [facility] [address] [facility] [id number] [address] [place] [address] Oct, Allergic rhinitis J30.9 [facility] [address] [facility] [id number] [address] [place] [address] Oct, URI (upper respiratory infec tion) J06.9 [facility] [address] [place] [id number] [place] [address] Jul, Major depression 296.20 ; An xiety, generalized 300.02 and No condition on Kimper II V71.09 [facility] [address] [place] [id number] [address] [place] [address] Jun, [facility] V70.0 [facility] [address] [facility] [id number] [place] [address] Jun, Major depression 296.20 ; No condition on Kimper II V71.09 and No condition on axis III V71.09 [facility] [address] [place] [id number] [address] [place] [address] May, Major depressive disorder, r ecurrent episode, severe 296.33 [facility] [address] [place] [id number] [address] [place] [id number] Apr, Dental examination V72.2 [facility] [address] [facility] [id number] [address] [place] [id number] Apr, Dental examination V72.2 [facility] [address] [facility] [id number] [address] [place] [address] Feb, [facility] [address] [facility] [id number] [address] [place] [address] Feb, [facility] [address] [id number] [address] [place] [address], [place] [address] 16 Jan, 2015 [facility] [address] [id number] [address] [place] [address], [place] [address] 16 Jan, 2015 [facility] [address] [id number] [address] [place] [address], [place] [address] Jan, [facility] [address] [id number] [address] [place] [address], [place] [address] Jan, [facility] [address] [id number] [address] [place] [address], [place] [address] Oct, [facility] [address] [id number] [address] [place] [address], [place] [address] Oct, [facility] [address] [id number] [address] [place] [address], [place] [address] Apr, [facility] [address] [id number] [address] [place] [address], [place] [address] Apr, [facility] [address] [id number] [address] [place] [address], [place] [address] March, [facility] [address] [id number] [address] [place] [address], [place] [address] March, [facility] [address] [id number] [address] [place] [address], [place] [address] Feb, [facility] [address] [id number] [address] [place] [address], [place] [address] Feb, [facility] [address] [id number] [address] [place] [address], [place] [address] Feb, [facility] [address] [id number] [address] [place] [address], [place] [address] Feb, [facility] [address] [id number] [address] [place] [address], [place] [address] Feb, [facility] [address] [id number] [address] [place] [address], [place] [address] Jan, [facility] [address] [id number] [address] [place] [address], [place] [address] Jan, [facility] [address] [id number] [address] [place] [address], [place] [address] Dec, [facility] [address] [id number] [address] [place] [address], [place] [address] Dec, [facility] [address] [id number] [address] [place] [address], [place] [address] Nov, [facility] [address] [id number] [address] [place] [address], [place] [address] Nov, [facility] [address] [id number] [address] [place] [address], [place] [address] Nov, [facility] [address] [id number] [address] [place] [address], [place] [address] Nov, [facility] [address] [id number] [address] [place] [address], [place] [address] Nov, [facility] [address] [id number] [address] [place] [address], [place] [address] Nov, [facility] [address] [id number] [address] [place] [address] Oct, [facility] [address] [id number] [address] [place] [address] Oct, [facility] [address] [id number] [address] [place] [address] Sep, [facility] [address] [id number] [address] [place] [address], [place] [address] Sep, [facility] [address] [id number] [address] [place] [address], [place] [address] Sep, [facility] [address] [id number] [address] [place] [address] Sep, [facility] [address] [id number] [address] [place] [address] 06 Jul, 2013 [facility] [address] [id number] [address] [place] [address], [place] [address] May, [facility] [address] [id number] [address] [place] [address], [place] [address] May, [facility] [address] [id number] [address] [place] [address], [place] [address] Apr, [facility] [address] [id number] [address] [place] [address], [place] [address] Apr, [facility] [address] [id number] [address] [place] [address], [place] [address] Apr, [facility] [address] [id number] [address] [place] [address], [place] [address] Apr, [facility] [address] [id number] [address] [place] [address], [place] [address] March, [facility] [address] [id number] [address] [place] [address], [place] [address] Jan, [facility] [address] [id number] [address] [place] [address], [place] [address] Dec, [facility] [address] [id number] [address] [place] [address], [place] [address] Dec, [facility] [address] [id number] [address] [place] [address], [place] [address] Nov, [facility] [address] [id number] [address] [place] [address], [place] [address] Nov, [facility] [address] [id number] [address] [place] [address], [place] [address] Oct, [facility] [address] [id number] [address] [place] [address], [place] [address] Oct, [facility] [address] [id number] [address] [place] [address], [place] [address] Sep, [facility] [address] [facility] [id number] [address] [place] [address] Jan, [facility] [address] [facility] [id number] [address] [place] [address] Nov, [facility] [address] [facility] [id number] [address] [place] [address] Aug, [facility] [address] [facility] [id number] [address] [place] [address] Aug, [facility] [address] [facility] [id number] [address] [place] [address] Jul, [facility] [address] [facility] [id number] [address] [place] [address] Sep, IMMUNIZATIONS No Known Immunizations SOCIAL HISTORY Never Assessed REASON FOR VISIT PLAN OF CARE VITAL SIGNS Height 70 in 2013-11-30 Weight 231.25 lbs 2013-11-30 Temperature 98.4 degrees Fahrenheit 2013-11-30 Heart Rate 80 bpm 2013-11-30 Respiratory Rate 20 2013-11-30 Blood pressure systolic 110 mmHg 2013-11-30 Blood pressure diastolic 61 mmHg 2013-11-30 MEDICATIONS No Known Medications RESULTS No Results [...]
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
--- OUTSIDE RECORDS SUMMARY | 2020-05-16 12:00 | XMS REPORT ---
Author Author Juan TRJEO Organization [facility] Address [address] [place] [address] Care Team Providers Care Pier Hand Helper Name Role Phone JANET TREJO Unavailable PROBLEMS Type Condition ICD9-CM Code SZH04-WQ Code Onset Dates Condition S tatus SNOMED Code Problem Migraine headache G43.909 Active 37 097532 Problem Seasonal allergic rhinitis due to pollen J30.1 Active 05075311 Problem History of kidney stones Z87.442 Activ e 452264543 Problem Mild intermittent asthma without complication J45. 20 Active 542918024 Problem Depressive disorder F32.9 Active [id number] ALLERGIES No Information ENCOUNTERS Encounter Location Date Diagnosis [facility] [address] [place] [address] 05 Dec, 2019 Viral gastroenteritis A08.4 [facility] [address] [place] [address] Nov, Hordeolum externum of left l ower eyelid H00.015 [facility] [address] [place], [place] [id number] [address] [place] [address] Sep, Viral upper respiratory trac t infection J06.9 and Impacted cerumen of left ear H61.22 [facility] [address] [place], [place] [id number] [address] [place] [address] 18 Sep, 2019 Non-recurrent acute suppurat venkata otitis media of right ear without spontaneous rupture of tympanic membrane H66.001 [facility] [address] [place] [id number] [address] [place] [address] Jun, Diarrhea, unspecified type R 19.7 [facility] [address] [place] [id number] [address] [place] [address] Jun, Abdominal pain R10.9 and Dys uria R30.0 [facility] [address] [place] [address] Apr, Diarrhea of presumed infecti ous origin R19.7 [facility] [address] [place] [address] Apr, Gastroenteritis and colitis, viral A08.4 [facility] [address] [place] [address] March, Non-intractable vomiting wit h nausea, unspecified vomiting type R11.2 [facility] [address] [place] [address] Feb, Viral gastroenteritis A08.4 [facility] [address] [address] Dec, Viral upper respiratory trac t infection J06.9 [facility] [address] [place] [address] Nov, Acute gastroenteritis K52.9 [facility] [address] [address] Nov, Migraine headache G43.909 an d Acute seasonal allergic rhinitis, unspecified trigger J30.2 [facility] [address] [address] Oct, Stye, left H00.016 [place] [address] [address] [place] [id number] [place] [address] Sep, Viral URI J06.[address] [address] May, [facility] [address] [address] Apr, Hordeolum externum of left l ower eyelid H00.015 [facility] [address] [place] [id number] [address] [place] [address] Apr, Viral gastroenteritis A08.4 [facility] [place] [address] [address] March, Viral illness B34.9 [facility] [place] [address] [address] Feb, Vomiting, intractability of vomiting not specified, presence of nausea not specified, unspecified vomiting type R11.10 [place] [address] [address] Jan, Acute nasopharyngitis J00 [facility] [place] [address] [address] Jan, Acute follicular conjunctivi tis of left eye H10.012 [place] [address] [address] Dec, Migraine without aura and without status migrainosus, not intractable G43.009 [facility] [place] [address] [address] Nov, Migraine without aura and wi thout status migrainosus, not intractable G43.009 [place] [address] [address] Nov, Otalgia of right ear H92.01 [place] [address] [address] Oct, Migraine headache G43.909 and Acute non- recurrent maxillary sinusitis J01.00 [place] [address] [address] Sep, Other viral agents as the cause of disea ses classified elsewhere B97.89 and Acute upper respiratory infection, unspecified J06.9 [place] [address] [address] Sep, Swelling of left eyelid H02.846 [place] [address] [address] 07 Sep, 2017 Migraine headache G43.909 and Migraine w ithout aura and without status migrainosus, not intractable G43.009 [facility] [address] [address] 18 Aug, 2017 Pharyngitis due to other org anism J02.8 and Oral candidiasis B37.0 [place] [address] [address] Aug, Sore throat J02.9 and Acute seasonal all ergic rhinitis, unspecified trigger J30.[address] [address] Jul, Acute upper respiratory infection, unspe cified J06.[address] [address] Jun, Seasonal allergic rhinitis due to pollen J30.1 and Dysfunction of left eustachian tube H69.82 [facility] [address] [address] Jun, Strain of right shoulder, in itial encounter S46.911A [address] [address] May, Migraine with aura and without status mi grainosus, not intractable G43.109 [facility] [address] [address] Apr, Sunburn L55.9 [facility] [address] [address] Apr, Gastroenteritis K52.9 [place] [address] [address] Apr, Acute left-sided thoracic back pain M54. 6 [place] [address] [address] March, Migraine without aura and without status migrainosus, not intractable G43.009 [facility] [address] [address] March, Intractable migraine without aura and wi th status migrainosus G43.011 [facility] [address] [address] Feb, Depressive disorder F32.9 and Gastroente ritis K52.9 [place] [address] [address] Jan, Migraine headache G43.909 [place] [address] [address] Jan, Migraine without aura and without status migrainosus, not intractable G43.009 [place] [address] [address] Dec, Migraine without aura and without status migrainosus, not intractable G43.009 [facility] [address] [address] Nov, Diarrhea, unspecified type R19.7 [place] [address] [address] Nov, Asthma with acute exacerbation in adult J45.901 and Upper respiratory tract infection, unspecified type J06.9 [place] [address] [address] Nov, [facility] [address] [address] Nov, Acute non-recurrent maxillary sinusitis J01.00 [place] [address] [address] Nov, Viral syndrome B34.9 [facility] [address] [address] Nov, Dermatitis L30.9 [facility] [address] [facility] [id number] [address] [place] [address] Oct, Gastroenteritis K52.9 [place] [address] [address] Oct, Sore throat (viral) J02.9 and Migraine w ithout aura and without status migrainosus, not intractable G43.009 [place] [address] [address] Sep, Frequent headaches R51 and 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 [facility] [address] [address] Sep, Seasonal allergic rhinitis d ue to pollen J30.1 and Acute non-recurrent maxillary sinusitis J01.00 [place] [address] [address] Aug, Migraine headache G43.[address] [address] Aug, Encounter to establish care Z76.89 ; Prashanth sudhakar without aura and without status migrainosus, not intractable G43.009 and Melanocytic nevus of trunk D22.5 [place] [address] [address] Aug, [place] [address] [address] Jul, Chronic gastritis without bleeding, unsp ecified gastritis type K29.50 [place] [address] [address] Jul, Cough R05 [place] [address] [address] May, Gastritis without bleeding, unspecified chronicity, unspecified gastritis type K29.70 [facility] [place] [id number] [place] [address] May, Gastroenteritis K52.9 [facility] [address] [address] May, Left acute otitis media H66. 92 [facility] [address] [address] Apr, Depressive disorder F32.9 [facility] [address] [address] Apr, Otitis media with effusion, left H65.92 [facility] [address] [address] Apr, Migraine headache G43.909 [place] [address] [address] Apr, Depressive disorder F32.9 and Adjustment disorder with depressed mood F43.21 [place] [address] [address] March, Depressive disorder F32.9 and Adjustment disorder with depressed mood F43.21 [place] [address] [address] March, Adjustment disorder with depressed mood F43.21 [place] [address] [address] March, Adjustment disorder with depressed mood F43.21 [place] [address] [address] Dec, Migraine headache G43.909 [facility] [address] [address] Oct, Middle ear effusion H65.90 and Migraine headache G43.909 [facility] IN [facility] [address] [facility] [id number] [address] [place] [address] Oct, Allergic rhinitis J30.9 [facility] [address] [address] Oct, URI (upper respiratory infection) J06.9 [facility] [address] [address] Jul, Major depression 296.20 ; Anxiety, gener alized 300.02 and No condition on Edmond II V71.09 [facility] [address] [address] Jun, Routine adult health maintenance V70.0 [facility] [address] [address] Jun, Major depression 296.20 ; No condition o n Edmond II V71.09 and No condition on axis III V71.09 [facility] [address] [address] May, Major depressive disorder, recurrent epi sode, severe 296.33 [facility] [address] [id number] Apr, 2015 Dental examination V72.2 [facility] [address] [id number] Apr, Dental examination V72.2 [facility] [address] [address] 14 Feb, 2015 [facility] [address] [address] 13 Feb, 2015 [facility] [address] [address] 16 Jan, 2015 [facility] [address] [address] 16 Jan, 2015 [facility] [address] [address] Jan, [facility] [address] [address] 05 Jan, 2015 [facility] [address] [address] Oct, [facility] [address] [address] Oct, [facility] [address] [address] Apr, [facility] [address] [address] Apr, [facility] [address] [facility] [id number] [place] [address] March, [facility] [address] [id number] [place] [address] March, [facility] [address] [id number] [place] [address] Feb, [facility] [address] [id number] [place] [address] Feb, [facility] [address] [id number] [place] [address] Feb, [facility] [address] [id number] [place] [address] Feb, [facility] [address] [id number] [place] [address] Feb, [facility] [address] [id number] [place] [address] Jan, [facility] [address] [id number] [place] [address] Jan, [facility] [address] [id number] [place] [address] Dec, [facility] [address] [id number] [place] [address] Dec, [facility] [address] [id number] [place] [address] Nov, [facility] [address] [id number] [place] [address] Nov, [facility] [address] [id number] [place] [address] Nov, [facility] [address] [id number] [place] [address] Nov, [facility] [address] [id number] [place] [address] Nov, [facility] [address] [id number] [place] [address] Nov, [facility] [address] [id number] [place] [address] Oct, [facility] [address] [id number] [place] [address] Oct, [facility] [address] [id number] [place] [address] Sep, [facility] [address] [id number] [place] [address] Sep, [facility] [address] [id number] [place] [address] Sep, [facility] [address] [id number] [place] [address] Sep, [facility] [address] [id number] [place] [address] Jul, [facility] [address] [id number] [place] [address] May, [facility] [address] [id number] [place] [address] May, [facility] [address] [id number] [place] [address] Apr, [facility] [address] [id number] [place] [address] Apr, [facility] [address] [id number] [place] [address] Apr, [facility] [address] [id number] [place] [address] Apr, [facility] [address] [id number] [place] [address] March, [facility] [address] [id number] [place] [address] Jan, [facility] [address] [id number] [place] [address] Dec, [facility] [address] [id number] [place] [address] Dec, [facility] [address] [id number] [place] [address] Nov, [facility] [address] [id number] [place] [address] Nov, [facility] [address] [place] [id number] [place] [address] Oct, [facility] [address] [id number] [place] [address] Oct, [facility] [address] [place] [id number] [place] [address] Sep, [facility] [address] [id number] [place] [address] Jan, [facility] [address] [place] [id number] [place] [address] Nov, [facility] [address] [id number] [place] [address] Aug, [facility] [address] [place] [id number] [place] [address] Aug, [facility] [address] [id number] [place] [address] Jul, [facility] [address] [place] [id number] [place] [address] Sep, IMMUNIZATIONS No Known Immunizations SOCIAL HISTORY [...]
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
--- OUTSIDE RECORDS SUMMARY | 2020-05-16 12:00 | XMS REPORT ---
Author Author EARNEST Juanwander LIMRADHA Organization [facility] Address [address] [place] [address] Care Team Providers Care Rug Sample Beveler Name Role Phone RADHA TINOCO Unavailable PROBLEMS Type Condition ICD9-CM Code [id number] Code Onset Dates Condition S tatus SNOMED Code Problem Migraine headache G43.909 Active 37 484851 Problem Seasonal allergic rhinitis due to pollen J30.1 Active 01083710 Problem History of kidney stones Z87.442 Activ e 534377760 Problem Mild intermittent asthma without complication J45. 20 Active 445363576 Problem Depressive disorder F32.9 Active 66581360 ALLERGIES No Information ENCOUNTERS Encounter Location Date Diagnosis [facility] [address] [place] [id number] Nov, Hordeolum externum of left l ower eyelid H00.015 [facility] [address] [place] [address] Sep, Viral upper respiratory trac t infection J06.9 and Impacted cerumen of left ear H61.22 [facility] [address] [place], [place] [id number] [address] [place] [address] 18 Sep, 2019 Non-recurrent acute suppurat venkata otitis media of right ear without spontaneous rupture of tympanic membrane H66.001 [facility] [address] [place] [address] Jun, Diarrhea, unspecified type R 19.7 [facility] [address] [place] [address] 12 Jun, 2019 Abdominal pain R10.9 and Dys uria R30.0 [facility] [address] [place] [address] Apr, Diarrhea of presumed infecti ous origin R19.7 [facility] [address] [address] Apr, Gastroenteritis and colitis, viral A08.4 [facility] [address] [address] March, Non-intractable vomiting wit h nausea, unspecified vomiting type R11.2 [facility] [address] [address] Feb, Viral gastroenteritis A08.4 [facility] [address] [address] Dec, Viral upper respiratory trac t infection J06.9 [facility] [address] [place] [address] Nov, Acute gastroenteritis K52.9 [facility] [address] [address] Nov, Migraine headache G43.909 an d Acute seasonal allergic rhinitis, unspecified trigger J30.2 [facility] [address] [address] Oct, Stye, left H00.016 [place] [address] [address] Sep, Viral URI J06.9 [place] [address] [address] May, [facility] [address] [address] Apr, Hordeolum externum of left l ower eyelid H00.015 [facility] [address] [address] Apr, Viral gastroenteritis A08.4 [facility] N [place] [id number] [place] [address] March, Viral illness B34.9 [facility] [place] [address] [address] Feb, Vomiting, intractability of vomiting not specified, presence of nausea not specified, unspecified vomiting type R11.10 [place] [address] [address] Jan, Acute nasopharyngitis J00 [facility] [place] [address] [address] [place] [id number] [place] [address] Jan, Acute follicular conjunctivi tis of left eye H10.012 [place] [address] [address] Dec, Migraine without aura and without status migrainosus, not intractable G43.009 [facility] [place] [address] [address] Nov, Migraine without aura and wi thout status migrainosus, not intractable G43.009 [place] [address] [address] Nov, Otalgia of right ear H92.01 [place] [address] [address] Oct, Migraine headache G43.909 and Acute non- recurrent maxillary sinusitis J01.00 [place] [address] [address] Sep, Other viral agents as the cause of disea ses classified elsewhere B97.89 and Acute upper respiratory infection, unspecified J06.9 [place] [address] [address] Sep, Swelling of left eyelid H02.846 [place] [address] [address] 07 Sep, 2017 Migraine headache G43.909 and Migraine w ithout aura and without status migrainosus, not intractable G43.009 [facility] [place] [address] [address] [place] [id number] [place] [address] Aug, Pharyngitis due to other org anism J02.8 and Oral candidiasis B37.0 [place] [address] [address] Aug, Sore throat J02.9 and Acute seasonal all ergic rhinitis, unspecified trigger J30.2 [place] [address] [address] Jul, Acute upper respiratory infection, unspe cified J06.9 [place] [address] [address] Jun, Seasonal allergic rhinitis due to pollen J30.1 and Dysfunction of left eustachian tube H69.82 [facility] [place] [address] [address] Jun, Strain of right shoulder, in itial encounter S46.911A [place] [address] [address] May, Migraine with aura and without status mi grainosus, not intractable G43.109 [facility] [place] [address] [address] Apr, Sunburn L55.9 [facility] [place] [address] [address] Apr, Gastroenteritis K52.9 [place] [address] [address] Apr, Acute left-sided thoracic back pain M54. 6 [place] [address] [address] March, Migraine without aura and without status migrainosus, not intractable G43.009 [place] [address] [address] March, Intractable migraine without aura and wi th status migrainosus G43.011 [place] [address] [address] Feb, Depressive disorder F32.9 and Gastroente ritis K52.9 [place] [address] [address] Jan, Migraine headache G43.909 [place] [address] [address] Jan, Migraine without aura and without status migrainosus, not intractable G43.009 [place] [address] [address] Dec, Migraine without aura and without status migrainosus, not intractable G43.009 [place] [address] [address] Nov, Diarrhea, unspecified type R19.7 [place] [address] [address] Nov, Asthma with acute exacerbation in adult J45.901 and Upper respiratory tract infection, unspecified type J06.9 [place] [address] [address] Nov, [place] [address] [address] Nov, Acute non-recurrent maxillary sinusitis J01.00 [place] [address] [address] Nov, Viral syndrome B34.9 [facility] [address] [address] Nov, Dermatitis L30.9 [facility] [address] [facility] [id number] [address] [place] [address] Oct, Gastroenteritis K52.9 [facility] [address] [address] Oct, Sore throat (viral) J02.9 and Migraine w ithout aura and without status migrainosus, not intractable G43.009 [place] [address] [address] Sep, Frequent headaches R51 and 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 [facility] N [address] [address] Sep, Seasonal allergic rhinitis d ue to pollen J30.1 and Acute non-recurrent maxillary sinusitis J01.00 [place] [address] [address] Aug, Migraine headache G43.909 [place] [address] [address] Aug, Encounter to establish care Z76.89 ; Prashanth sudhakar without aura and without status migrainosus, not intractable G43.009 and Melanocytic nevus of trunk D22.5 [place] [address] [address] Aug, [place] [address] [address] Jul, Chronic gastritis without bleeding, unsp ecified gastritis type K29.50 [place] [address] [address] Jul, Cough R05 [place] [address] [address] May, Gastritis without bleeding, unspecified chronicity, unspecified gastritis type K29.70 [facility] N [place] [id number] [place] [address] May, Gastroenteritis K52.9 [facility] [place] [address] [address] [place] [id number] [place] [address] 05 May, 2016 Left acute otitis media H66. 92 [place] [address] [address] Apr, Depressive disorder F32.9 [place] [address] [address] Apr, Otitis media with effusion, left H65.92 [place] [address] [address] Apr, Migraine headache G43.909 [place] [address] [address] Apr, Depressive disorder F32.9 and Adjustment disorder with depressed mood F43.21 [place] [address] [address] March, Depressive disorder F32.9 and Adjustment disorder with depressed mood F43.21 [place] [address] [address] March, Adjustment disorder with depressed mood F43.21 [place] [address] [address] March, Adjustment disorder with depressed mood F43.21 [place] [address] [address] Dec, Migraine headache G43.909 [place] [address] [address] Oct, Middle ear effusion H65.90 and Migraine headache G43.909 [facility] IN [facility] [address] [facility] [id number] [address] [place] [address] Oct, Allergic rhinitis J30.9 [facility] [address] [address] Oct, URI (upper respiratory infection) J06.9 [place] [address] [address] Jul, Major depression 296.20 ; Anxiety, gener alized 300.02 and No condition on [place] II V71.09 [place] [address] [address] Jun, Routine adult health maintenance V70.0 [facility] [address] [place] [id number] [place] [address] Jun, Major depression 296.20 ; No condition o n [place] II V71.09 and No condition on axis III V71.09 [facility] [address] [place] [id number] [place] [address] May, Major depressive disorder, recurrent epi sode, severe 296.33 [facility] [address] [id number] Apr, 2015 Dental examination V72.2 [facility] [address] [id number] Apr, Dental examination V72.2 [facility] [address] [address] Feb, [facility] [address] [address] Feb, [facility] [address] [address] Jan, [facility] [address] [address] Jan, [facility] [address] [address] Jan, [facility] [address] [address] Jan, [facility] [address] [address] Oct, [facility] [address] [address] Oct, [facility] [address] [address] Apr, [facility] [address] [address] Apr, [facility] [address] [address] March, [facility] [address] [id number] [place] [address] March, [facility] [address] [id number] [place] [address] Feb, [facility] [address] [id number] [place] [address] Feb, [facility] [address] [id number] [place] [address] Feb, [facility] [address] [facility] [id number] [place] [address] Feb, [facility] [address] [id number] [place] [address] Feb, [facility] [address] [id number] [place] [address] Jan, [facility] [address] [id number] [place] [address] Jan, [facility] [address] [id number] [place] [address] Dec, [facility] [address] [id number] [place] [address] Dec, [facility] [address] [id number] [place] [address] Nov, [facility] [address] [id number] [place] [address] Nov, [facility] [address] [id number] [place] [address] Nov, [facility] [address] [id number] [place] [address] Nov, [facility] [address] [id number] [place] [address] Nov, [facility] [address] [id number] [place] [address] Nov, [facility] [address] [id number] [place] [address] Oct, [facility] [address] [id number] [place] [address] Oct, [facility] [address] [id number] [place] [address] Sep, [facility] [address] [id number] [place] [address] Sep, [facility] [address] [id number] [place] [address] Sep, [facility] [address] [id number] [place] [address] Sep, [facility] [address] [id number] [place] [address] Jul, [facility] [address] [id number] [place] [address] May, [facility] [address] [id number] [place] [address] May, [facility] [address] [id number] [place] [address] Apr, [facility] [address] [id number] [place] [address] Apr, [facility] [address] [id number] [place] [address] Apr, [facility] [address] [id number] [place] [address] Apr, [facility] [address] [id number] [place] [address] March, [facility] [address] [id number] [place] [address] Jan, [facility] [address] [id number] [place] [address] Dec, [facility] [address] [id number] [place] [address] 08 Dec, 2012 [facility] [address] [id number] [place] [address] Nov, [facility] [address] [id number] [place] [address] Nov, [facility] [address] [id number] [place] [address] Oct, [facility] [address] [id number] [place] [address] Oct, [facility] [address] [place] [id number] [place] [address] Sep, [facility] [address] [id number] [place] [address] Jan, [facility] [address] [id number] [place] [address] Nov, [facility] [address] [id number] [place] [address] Aug, [facility] [address] [place] [id number] [place] [address] Aug, [facility] [address] [id number] [place] [address] Jul, [facility] [address] [id number] [place] [address] Sep, IMMUNIZATIONS No Known Immunizations SOCIAL HISTORY Never Assessed REASON FOR VISIT PLAN OF CARE VITAL SIGNS Height 70 in 2014-04-14 Weight 233 lbs 2014-04-14 Temperature 98 degrees Fahrenheit 2014-04-14 Heart Rate 80 bpm 2014-04-14 Respiratory Rate 18 2014-04-14 Blood pressure systolic 138 mmHg 2014-04-14 Blood pressure diastolic 80 mmHg 2014-04-14 MEDICATIONS No Known Medications RESULTS No Results [...]
--- NOTE | 2020-05-16 12:01 | Diagnostic Imaging Report ---
EXAMINATION: Chest 1 view HISTORY: Shortness of breath COMPARISON: None available. FINDINGS: The lungs are clear without edema or pneumonia. No pleural effusion or pneumothorax. Heart size is normal. IMPRESSION: 1. Clear lungs. Dictated by: Dictated on workstation # [id number]
--- OUTSIDE RECORDS SUMMARY | 2020-05-16 12:01 | XMS REPORT ---
Author Author Juan Gomez Doctor Organization [facility] Address Unknown Phone Unavailable Care Team Providers Care Bounty Hunter Name Role Phone Migration, Doctor Unavailable Unavailable PROBLEMS Type Condition ICD9-CM Code BSA43-DU Code Onset Dates Condition S tatus SNOMED Code Problem Migraine headache G43.909 Active 37 046967 Problem Seasonal allergic rhinitis due to pollen J30.1 Active 77216186 Problem History of kidney stones Z87.442 Activ e 350303436 Problem Mild intermittent asthma without complication J45. 20 Active 114569386 Problem Depressive disorder F32.9 Active [id number] ALLERGIES No Information ENCOUNTERS Encounter Location Date Diagnosis [facility] [address] [address] March, Non-intractable vomiting wit h nausea, unspecified vomiting type R11.2 [facility] [address] [address] Feb, Viral gastroenteritis A08.4 [facility] [address] [address] Dec, Viral upper respiratory trac t infection J06.9 [facility] [address] [place] [address] Nov, Acute gastroenteritis K52.9 [facility] [address] [address] Nov, Migraine headache G43.909 an d Acute seasonal allergic rhinitis, unspecified trigger J30.2 [facility] [address] [address] Oct, Stye, left H00.016 [facility] [address] [address] Sep, Viral URI J06.9 [place] [address] [address] May, [facility] [place] [address] [address] Apr, Hordeolum externum of left l ower eyelid H00.015 [facility] IN [place] [address] [address] Apr, Viral gastroenteritis A08.4 [facility] [place] [address] [address] March, Viral illness B34.9 [facility] [place] [address] [address] Feb, Vomiting, intractability of vomiting not specified, presence of nausea not specified, unspecified vomiting type R11.10 [place] [address] [address] Jan, Acute nasopharyngitis J00 [facility] [place] [address] [address] Jan, Acute follicular conjunctivi tis of left eye H10.012 [place] [address] [address] Dec, Migraine without aura and wi thout status migrainosus, not intractable G43.009 [facility] [place] [address] [address] Nov, Migraine without aura and wi thout status migrainosus, not intractable G43.009 [place] [address] [address] Nov, Otalgia of right ear H92.01 [place] [address] [address] Oct, Migraine headache G43.909 an d Acute non-recurrent maxillary sinusitis J01.00 [place] [address] [address] [facility] [id number] [address] [place] [address] Sep, Other viral agents as the ca use of diseases classified elsewhere B97.89 and Acute upper respiratory infection, unspecified J06.9 [place] [address] [address] [facility] [id number] [address] [place] [address] Sep, Swelling of left eyelid H02. 846 [place] [address] [address] Sep, Migraine headache G43.909 an d Migraine without aura and without status migrainosus, not intractable G43.009 [facility] [place] [address] [address] Aug, Pharyngitis due to other org anism J02.8 and Oral candidiasis B37.0 [place] [address] [address] Aug, Sore throat J02.9 and Acute seasonal allergic rhinitis, unspecified trigger J30.2 [place] [address] [address] Jul, Acute upper respiratory infe ction, unspecified J06.9 [place] [address] [address] Jun, Seasonal allergic rhinitis d ue to pollen J30.1 and Dysfunction of left eustachian tube H69.82 [facility] [place] [address] [address] [place] [id number] [address] [place] [address] Jun, Strain of right shoulder, in itial encounter S46.911A [place] [address] [address] May, Migraine with aura and witho ut status migrainosus, not intractable G43.109 [facility] [place] [address] [address] [place] [id number] [place] [address] Apr, Sunburn L55.9 [facility] [address] [facility] [id number] [address] [place] [address] Apr, Gastroenteritis K52.9 [facility] [address] [facility] [id number] [address] [place] [address] Apr, Acute left-sided thoracic ba ck pain M54.6 [facility] [address] [facility] [id number] [address] [place] [address] March, Migraine without aura and wi thout status migrainosus, not intractable G43.009 [facility] [address] [facility] [id number] [address] [place] [address] March, Intractable migraine without aura and with status migrainosus G43.011 [facility] [address] [facility] [id number] [address] [place] [address] Feb, Depressive disorder F32.9 an d Gastroenteritis K52.9 [facility] [address] [facility] [id number] [address] [place] [address] Jan, Migraine headache G43.909 [facility] [address] [facility] [id number] [address] [place] [address] Jan, Migraine without aura and wi thout status migrainosus, not intractable G43.009 [facility] [address] [facility] [id number] [address] [place] [address] 07 Dec, 2016 Migraine without aura and wi thout status migrainosus, not intractable G43.009 [facility] [address] [facility] [id number] [address] [place] [address] Nov, Diarrhea, unspecified type R 19.7 [facility] [address] [facility] [id number] [address] [place] [address] 18 Nov, 2016 Asthma with acute exacerbati on in adult J45.901 and Upper respiratory tract infection, unspecified type J06.9 [facility] [address] [place] [id number] [address] [place] [address] Nov, [facility] [id number] [place] [address] Nov, Acute non-recurrent maxillar y sinusitis J01.00 [place] [address] [address] [place] [id number] [address] [place] [address] 04 Nov, 2016 Viral syndrome B34.9 [place] [address] [address] Nov, Dermatitis L30.9 [facility] [address] [address] Oct, Gastroenteritis K52.9 [place] [address] [address] 07 Oct, 2016 Sore throat (viral) J02.9 an d Migraine without aura and without status migrainosus, not intractable G43.009 [place] [address] [address] Sep, Frequent headaches R51 and 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 [facility] [place] [address] [address] Sep, Seasonal allergic rhinitis d ue to pollen J30.1 and Acute non-recurrent maxillary sinusitis J01.00 [place] [address] [address] Aug, Migraine headache G43.909 [place] [address] [address] Aug, Encounter to establish care Z76.89 ; Migraine without aura and without status migrainosus, not intractable G43.009 and Melanocytic nevus of trunk D22.5 [place] [address] [address] [place] [id number] [address] [place] [address] Aug, [place] [address] [address] Jul, Chronic gastritis without bl eeding, unspecified gastritis type K29.50 [facility] [address] [id number] [address] [place] [address] Jul, Cough R05 [facility] [address] [id number] [address] [place] [address] May, Gastritis without bleeding, unspecified chronicity, unspecified gastritis type K29.70 [facility] IN [facility] [address] [id number] [address] [place] [address] May, Gastroenteritis K52.9 [facility] IN [facility] [address] [facility] [id number] [address] [place] [address] May, Left acute otitis media H66. 92 [place] [address] [address] [facility] [id number] [address] [place] [address] Apr, Depressive disorder F32.9 [place] [address] [address] [facility] [id number] [address] [place] [address] Apr, Otitis media with effusion, left H65.92 [place] [address] [facility] [id number] [address] [place] [address] 16 Apr, 2016 Migraine headache G43.909 [place] [address] [address] [facility] [id number] [address] [place] [address] Apr, Depressive disorder F32.9 an d Adjustment disorder with depressed mood F43.21 [place] [address] [id number] [address] [place] [address] March, Depressive disorder F32.9 an d Adjustment disorder with depressed mood F43.21 [place] [address] [id number] [address] [place] [address] March, Adjustment disorder with dep ressed mood F43.21 [place] [address] [address] [facility] [id number] [address] [place] [address] March, Adjustment disorder with dep ressed mood F43.21 [place] [address] [address] [facility] [id number] [address] [place] [address] 10 Dec, 2015 Migraine headache G43.909 [facility] [address] [facility] [id number] [address] [place] [address] Oct, Middle ear effusion H65.90 a nd Migraine headache G43.909 [facility] [address] [facility] [id number] [address] [place] [address] Oct, Allergic rhinitis J30.9 [facility] [address] [facility] [id number] [address] [place] [address] Oct, URI (upper respiratory infec tion) J06.9 [facility] [address] [place] [id number] [place] [address] Jul, Major depression 296.20 ; An xiety, generalized 300.02 and No condition on Hazen II V71.09 [facility] [address] [place] [id number] [place] [address] Jun, Routine adult health [facility] ance V70.0 [facility] [address] [place] [id number] [place] [address] Jun, Major depression 296.20 ; No condition on Hazen II V71.09 and No condition on axis III V71.09 [facility] [address] [place] [id number] [address] [place] [address] May, Major depressive disorder, r ecurrent episode, severe 296.33 [facility] [id number] [place] [id number] Apr, Dental examination V72.2 [facility] [address] [facility] [id number] [place] [id number] Apr, Dental examination V72.2 [facility] [address] [facility] [id number] [address] [place] [address] Feb, [facility] [address] [facility] [id number] [address] [place] [address] Feb, [facility] [address] [id number] [facility] [place] [address] 16 Jan, 2014 [facility] [address] [id number] [address] [place] [address], [place] [address] 16 Jan, 2015 [facility] [address] [id number] [address] [place] [address], [place] [address] 05 Jan, 2014 [facility] [address] [id number] [address] [place] [address], [place] [address] 05 Jan, 2014 [facility] [address] [id number] [address] [place] [address], [place] [address] Oct, [facility] [address] [id number] [address] [place] [address], [place] [address] Oct, [facility] [address] [id number] [address] [place] [address], [place] [address] Apr, [facility] [address] [id number] [address] [place] [address], [place] [address] Apr, [facility] [address] [id number] [address] [place] [address], [place] [address] March, [facility] [address] [id number] [address] [place] [address], [place] [address] March, [facility] [address] [id number] [address] [place] [address], [place] [address] Feb, [facility] [address] [id number] [address] [place] [address], [place] [address] Feb, [facility] [address] [id number] [address] [place] [address], [place] [address] Feb, [facility] [address] [id number] [address] [place] [address], [place] [address] Feb, [facility] [address] [id number] [address] [place] [address], [place] [address] Feb, [facility] [address] [id number] [address] [place] [address], [place] [address] Jan, [facility] [address] [id number] [address] [place] [address], [place] [address] Jan, [facility] [address] [id number] [address] [place] [address], [place] [address] Dec, [facility] [address] [id number] [address] [place] [address], [place] [address] Dec, [facility] [address] [id number] [address] [place] [address], [place] [address] Nov, [facility] [address] [id number] [address] [place] [address], [place] [address] Nov, [facility] [address] [id number] [address] [place] [address], [place] [address] Nov, [facility] [address] [id number] [address] [place] [address], [place] [address] Nov, [facility] [address] [id number] [address] [place] [address], [place] [address] Nov, [facility] [address] [id number] [address] [place] [address], [place] [address] Nov, [facility] [address] [id number] [address] [place] [address], [place] [address] Oct, [facility] [address] [id number] [address] [place] [address], [place] [address] Oct, [facility] [address] [id number] [address] [place] [address], [place] [address] Sep, [facility] [address] [id number] [address] [place] [address], [place] [address] Sep, [facility] [address] [id number] [address] [place] [address], [place] [address] Sep, [facility] [address] [id number] [address] [place] [address], [place] [address] Sep, [facility] [address] [id number] [address] [place] [address], [place] [address] 06 Jul, 2013 [facility] [address] [id number] [address] [place] [address], [place] [address] May, [facility] [address] [id number] [address] [place] [address], [place] [address] May, [facility] [address] [id number] [address] [place] [address], [place] [address] Apr, [facility] [address] [id number] [address] [place] [address], [place] [address] Apr, [facility] [address] [id number] [address] [place] [address], [place] [address] Apr, [facility] [address] [id number] [address] [place] [address], [place] [address] Apr, [facility] [address] [id number] [address] [place] [address], [place] [address] March, [facility] [address] [id number] [address] [place] [address], [place] [address] Jan, [facility] [address] [id number] [address] [place] [address], [place] [address] Dec, [facility] [address] [id number] [address] [place] [address], [place] [address] Dec, [facility] [address] [id number] [address] [place] [address], [place] [address] Nov, [facility] [address] [id number] [address] [place] [address], [place] [address] Nov, [facility] [address] [id number] [address] [place] [address], [place] [address] Oct, [facility] [address] [id number] [address] [place] [address], [place] [address] Oct, [facility] [address] [id number] [address] [place] [address], [place] [address] Sep, [facility] [address] [facility] [id number] [address] [place] [address] Jan, [facility] [address] [facility] [id number] [address] [place] [address] Nov, [facility] [address] [facility] [id number] [address] [place] [address] Aug, [facility] [address] [facility] [id number] [address] [place] [address] Aug, [facility] [address] [facility] [id number] [address] [place] [address] Jul, [facility] [address] [facility] [id number] [address] [place] [address] Sep, IMMUNIZATIONS No Known Immunizations SOCIAL HISTORY Never Assessed REASON FOR VISIT EMR-[facility] PLAN OF CARE VITAL SIGNS MEDICATIONS No [...]
--- OUTSIDE RECORDS SUMMARY | 2020-05-16 12:01 | XMS REPORT ---
Author Author Juan Gomez Doctor Organization [facility] Address Unknown Phone Unavailable Care Team Providers Care Database Administrator Name Role Phone Migration, Doctor Unavailable Unavailable PROBLEMS Type Condition ICD9-CM Code [id number] Code Onset Dates Condition S tatus SNOMED Code Problem Migraine headache G43.909 Active 37 942910 Problem Seasonal allergic rhinitis due to pollen J30.1 Active 85396596 Problem History of kidney stones Z87.442 Activ e 142139152 Problem Mild intermittent asthma without complication J45. 20 Active 822757309 Problem Depressive disorder F32.9 Active [id number] ALLERGIES No Information ENCOUNTERS Encounter Location Date Diagnosis [facility] [address] [address] March, Non-intractable vomiting wit h nausea, unspecified vomiting type R11.2 [facility] [address] [address] Feb, Viral gastroenteritis A08.4 [facility] [address] [address] Dec, Viral upper respiratory trac t infection J06.9 [facility] [address] [place] [address] Nov, Acute gastroenteritis K52.9 [facility] [address] [address] Nov, Migraine headache G43.909 an d Acute seasonal allergic rhinitis, unspecified trigger J30.2 [facility] [address] [address] Oct, Stye, left H00.016 [facility] [address] [address] Sep, Viral URI J06.9 [place] [address] [address] May, [facility] [place] [address] [address] Apr, Hordeolum externum of left l ower eyelid H00.015 [facility] [place] [address] [address] Apr, Viral gastroenteritis A08.4 [facility] [place] [address] [address] March, Viral illness B34.9 [facility] [place] [address] [address] Feb, Vomiting, intractability of vomiting not specified, presence of nausea not specified, unspecified vomiting type R11.10 [place] [address] [address] Jan, Acute nasopharyngitis J00 [facility] [place] [address] [address] Jan, Acute follicular conjunctivi tis of left eye H10.012 [place] [address] [address] Dec, Migraine without aura and wi thout status migrainosus, not intractable G43.009 [facility] [place] [address] [address] Nov, Migraine without aura and wi thout status migrainosus, not intractable G43.009 [place] [address] [address] Nov, Otalgia of right ear H92.01 [place] [address] [address] Oct, Migraine headache G43.909 an d Acute non-recurrent maxillary sinusitis J01.00 [place] [address] [facility] [id number] [address] [place] [address] Sep, Other viral agents as the ca use of diseases classified elsewhere B97.89 and Acute upper respiratory infection, unspecified J06.9 [place] [address] [facility] [id number] [address] [place] [address] Sep, Swelling of left eyelid H02. 846 [place] [address] [address] Sep, Migraine headache G43.909 an d Migraine without aura and without status migrainosus, not intractable G43.009 [facility] [place] [address] [address] Aug, Pharyngitis due to other org anism J02.8 and Oral candidiasis B37.0 [place] [address] [address] Aug, Sore throat J02.9 and Acute seasonal allergic rhinitis, unspecified trigger J30.2 [place] [address] [address] Jul, Acute upper respiratory infe ction, unspecified J06.9 [place] [address] [address] Jun, Seasonal allergic rhinitis d ue to pollen J30.1 and Dysfunction of left eustachian tube H69.82 [facility] [place] [address] [address] [place] [id number] [address] [place] [address] Jun, Strain of right shoulder, in itial encounter S46.911A [place] [address] [address] May, Migraine with aura and witho ut status migrainosus, not intractable G43.109 [facility] [place] [address] [address] [place] [id number] [place] [address] Apr, Sunburn L55.9 [facility] [address] [facility] [id number] [address] [place] [address] Apr, Gastroenteritis K52.9 [facility] [address] [facility] [id number] [address] [place] [address] Apr, Acute left-sided thoracic ba ck pain M54.6 [facility] [address] [facility] [id number] [address] [place] [address] March, Migraine without aura and wi thout status migrainosus, not intractable G43.009 [facility] [address] [facility] [id number] [address] [place] [address] March, Intractable migraine without aura and with status migrainosus G43.011 [facility] [address] [facility] [id number] [address] [place] [address] Feb, Depressive disorder F32.9 an d Gastroenteritis K52.9 [facility] [address] [facility] [id number] [address] [place] [address] Jan, Migraine headache G43.909 [facility] [address] [facility] [id number] [address] [place] [address] Jan, Migraine without aura and wi thout status migrainosus, not intractable G43.009 [facility] [address] [facility] [id number] [address] [place] [address] 07 Dec, 2016 Migraine without aura and wi thout status migrainosus, not intractable G43.009 [facility] [address] [facility] [id number] [address] [place] [address] Nov, Diarrhea, unspecified type R 19.7 [facility] [address] [facility] [id number] [address] [place] [address] 18 Nov, 2016 Asthma with acute exacerbati on in adult J45.901 and Upper respiratory tract infection, unspecified type J06.9 [facility] [address] [place] [id number] [address] [place] [address] Nov, [facility] [id number] [place] [address] Nov, Acute non-recurrent maxillar y sinusitis J01.00 [place] [address] [address] [place] [id number] [address] [place] [address] 04 Nov, 2016 Viral syndrome B34.9 [place] [address] [address] Nov, Dermatitis L30.9 [facility] [address] [address] Oct, Gastroenteritis K52.9 [place] [address] [address] 07 Oct, 2016 Sore throat (viral) J02.9 an d Migraine without aura and without status migrainosus, not intractable G43.009 [place] [address] [address] Sep, Frequent headaches R51 and 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 [facility] [place] [address] [address] Sep, Seasonal allergic rhinitis d ue to pollen J30.1 and Acute non-recurrent maxillary sinusitis J01.00 [place] [address] [address] Aug, Migraine headache G43.909 [place] [address] [address] Aug, Encounter to establish care Z76.89 ; Migraine without aura and without status migrainosus, not intractable G43.009 and Melanocytic nevus of trunk D22.5 [place] [address] [address] [place] [id number] [address] [place] [address] Aug, [place] [address] [address] Jul, Chronic gastritis without bl eeding, unspecified gastritis type K29.50 [facility] [address] [id number] [address] [place] [address] Jul, Cough R05 [facility] [address] [id number] [address] [place] [address] May, Gastritis without bleeding, unspecified chronicity, unspecified gastritis type K29.70 [facility] [address] [id number] [address] [place] [address] May, Gastroenteritis K52.9 [facility] [address] [facility] [id number] [address] [place] [address] May, Left acute otitis media H66. 92 [place] [address] [address] [facility] [id number] [address] [place] [address] Apr, Depressive disorder F32.9 [place] [address] [address] [facility] [id number] [address] [place] [address] Apr, Otitis media with effusion, left H65.92 [place] [address] [facility] [id number] [address] [place] [address] 16 Apr, 2016 Migraine headache G43.909 [place] [address] [address] [facility] [id number] [address] [place] [address] Apr, Depressive disorder F32.9 an d Adjustment disorder with depressed mood F43.21 [place] [address] [id number] [address] [place] [address] March, Depressive disorder F32.9 an d Adjustment disorder with depressed mood F43.21 [place] [address] [id number] [address] [place] [address] March, Adjustment disorder with dep ressed mood F43.21 [place] [address] [facility] [id number] [address] [place] [address] March, Adjustment disorder with dep ressed mood F43.21 [place] [address] [address] [facility] [id number] [address] [place] [address] 10 Dec, 2015 Migraine headache G43.909 [facility] [address] [facility] [id number] [address] [place] [address] Oct, Middle ear effusion H65.90 a nd Migraine headache G43.909 [facility] [address] [facility] [id number] [address] [place] [address] Oct, Allergic rhinitis J30.9 [facility] [address] [facility] [id number] [address] [place] [address] Oct, URI (upper respiratory infec tion) J06.9 [facility] [address] [place] [id number] [place] [address] Jul, Major depression 296.20 ; An xiety, generalized 300.02 and No condition on Verona II V71.09 [facility] [address] [place] [id number] [place] [address] Jun, Routine adult health [facility] ance V70.0 [facility] [address] [place] [id number] [place] [address] Jun, Major depression 296.20 ; No condition on Verona II V71.09 and No condition on axis III V71.09 [facility] [address] [place] [id number] [address] [place] [address] May, Major depressive disorder, r ecurrent episode, severe 296.33 [facility] [id number] [place] [id number] Apr, Dental examination V72.2 [facility] [address] [facility] [id number] [place] [id number] Apr, Dental examination V72.2 [facility] [address] [facility] [id number] [address] [place] [address] Feb, [facility] [address] [facility] [id number] [address] [place] [address] Feb, [facility] [address] [id number] [facility] [place] [address] 16 Jan, 2014 [facility] [address] [id number] [address] [place] [address], [place] [address] 16 Jan, 2015 [facility] [address] [id number] [address] [place] [address], [place] [address] 05 Jan, 2014 [facility] [address] [id number] [address] [place] [address], [place] [address] 05 Jan, 2014 [facility] [address] [id number] [address] [place] [address], [place] [address] Oct, [facility] [address] [id number] [address] [place] [address], [place] [address] Oct, [facility] [address] [id number] [address] [place] [address], [place] [address] Apr, [facility] [address] [id number] [address] [place] [address], [place] [address] Apr, [facility] [address] [id number] [address] [place] [address], [place] [address] March, [facility] [address] [id number] [address] [place] [address], [place] [address] March, [facility] [address] [id number] [address] [place] [address], [place] [address] Feb, [facility] [address] [id number] [address] [place] [address], [place] [address] Feb, [facility] [address] [id number] [address] [place] [address], [place] [address] Feb, [facility] [address] [id number] [address] [place] [address], [place] [address] Feb, [facility] [address] [id number] [address] [place] [address], [place] [address] Feb, [facility] [address] [id number] [address] [place] [address], [place] [address] Jan, [facility] [address] [id number] [address] [place] [address], [place] [address] Jan, [facility] [address] [id number] [address] [place] [address], [place] [address] Dec, [facility] [address] [id number] [address] [place] [address], [place] [address] Dec, [facility] [address] [id number] [address] [place] [address], [place] [address] Nov, [facility] [address] [id number] [address] [place] [address], [place] [address] Nov, [facility] [address] [id number] [address] [place] [address], [place] [address] Nov, [facility] [address] [id number] [address] [place] [address], [place] [address] Nov, [facility] [address] [id number] [address] [place] [address], [place] [address] Nov, [facility] [address] [id number] [address] [place] [address], [place] [address] Nov, [facility] [address] [id number] [address] [place] [address], [place] [address] Oct, [facility] [address] [id number] [address] [place] [address], [place] [address] Oct, [facility] [address] [id number] [address] [place] [address], [place] [address] Sep, [facility] [address] [id number] [address] [place] [address], [place] [address] Sep, [facility] [address] [id number] [address] [place] [address], [place] [address] Sep, [facility] [address] [id number] [address] [place] [address], [place] [address] Sep, [facility] [address] [id number] [address] [place] [address], [place] [address] 06 Jul, 2013 [facility] [address] [id number] [address] [place] [address], [place] [address] May, [facility] [address] [id number] [address] [place] [address], [place] [address] May, [facility] [address] [id number] [address] [place] [address], [place] [address] Apr, [facility] [address] [id number] [address] [place] [address], [place] [address] Apr, [facility] [address] [id number] [address] [place] [address], [place] [address] Apr, [facility] [address] [id number] [address] [place] [address], [place] [address] Apr, [facility] [address] [id number] [address] [place] [address], [place] [address] March, [facility] [address] [id number] [address] [place] [address], [place] [address] Jan, [facility] [address] [id number] [address] [place] [address], [place] [address] Dec, [facility] [address] [id number] [address] [place] [address], [place] [address] Dec, [facility] [address] [id number] [address] [place] [address], [place] [address] Nov, [facility] [address] [id number] [address] [place] [address], [place] [address] Nov, [facility] [address] [id number] [address] [place] [address], [place] [address] Oct, [facility] [address] [id number] [address] [place] [address], [place] [address] Oct, [facility] [address] [id number] [address] [place] [address], [place] [address] Sep, [facility] [address] [facility] [id number] [address] [place] [address] Jan, [facility] [address] [facility] [id number] [address] [place] [address] Nov, [facility] [address] [facility] [id number] [address] [place] [address] Aug, [facility] [address] [facility] [id number] [address] [place] [address] Aug, [facility] [address] [facility] [id number] [address] [place] [address] Jul, [facility] [address] [facility] [id number] [address] [place] [address] Sep, IMMUNIZATIONS No Known Immunizations SOCIAL HISTORY Never Assessed REASON FOR VISIT EMR-[facility] PLAN OF CARE VITAL SIGNS MEDICATIONS No [...]
--- OUTSIDE RECORDS SUMMARY | 2020-05-16 12:01 | XMS REPORT ---
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 20 Active 477812662 Problem Depressive disorder F32.9 Active 84681517 ALLERGIES No Information ENCOUNTERS Encounter Location Date Diagnosis [facility] [address] [place] [address] Nov, Hordeolum externum of left l ower eyelid H00.015 [facility] [address] [place] [address] Sep, Viral upper respiratory trac t infection J06.9 and Impacted cerumen of left ear H61.22 [facility] [address] [place], [place] [id number] [address] [place] [address] 18 Sep, 2019 Non-recurrent acute suppurat venkata otitis media of right ear without spontaneous rupture of tympanic membrane H66.001 [facility] [address] [place], [place] [id number] [address] [place] [address] Jun, Diarrhea, unspecified type R 19.7 [facility] [address] [place] [address] Jun, Abdominal pain R10.9 and Dys uria R30.0 [facility] [address] [place] [address] Apr, Diarrhea of presumed infecti ous origin R19.7 [facility] [address] [address] Apr, Gastroenteritis and colitis, viral A08.4 [facility] [address] [address] March, Non-intractable vomiting wit h nausea, unspecified vomiting type R11.2 [facility] [address] [address] Feb, Viral gastroenteritis A08.4 [facility] [address] [address] Dec, Viral upper respiratory trac t infection J06.9 [facility] [address] [place] [address] Nov, Acute gastroenteritis K52.9 [facility] [address] [address] Nov, Migraine headache G43.909 an d Acute seasonal allergic rhinitis, unspecified trigger J30.2 [facility] [address] [address] Oct, Stye, left H00.016 [place] [address] [address] Sep, Viral URI J06.9 [place] [address] [address] May, [facility] [address] [address] Apr, Hordeolum externum of left l ower eyelid H00.015 [facility] [address] [address] Apr, Viral gastroenteritis A08.4 [facility] N [place] [id number] [address] [place] [address] March, Viral illness B34.9 [facility] [place] [address] [address] Feb, Vomiting, intractability of vomiting not specified, presence of nausea not specified, unspecified vomiting type R11.10 [place] [address] [address] Jan, Acute nasopharyngitis J00 [facility] [place] [address] [address] [place] [id number] [address] [place] [address] Jan, Acute follicular conjunctivi tis of left eye H10.012 [place] [address] [address] Dec, Migraine without aura and without status migrainosus, not intractable G43.009 [facility] [place] [address] [address] Nov, Migraine without aura and wi thout status migrainosus, not intractable G43.009 [place] [address] [address] Nov, Otalgia of right ear H92.01 [place] [address] [address] Oct, Migraine headache G43.909 and Acute non- recurrent maxillary sinusitis J01.00 [place] [address] [address] Sep, Other viral agents as the cause of disea ses classified elsewhere B97.89 and Acute upper respiratory infection, unspecified J06.9 [place] [address] [address] Sep, Swelling of left eyelid H02.846 [place] [address] [address] 07 Sep, 2017 Migraine headache G43.909 and Migraine w ithout aura and without status migrainosus, not intractable G43.009 [facility] [place] [address] [address] [place] [id number] [place] [address] Aug, Pharyngitis due to other org anism J02.8 and Oral candidiasis B37.0 [place] [address] [address] Aug, Sore throat J02.9 and Acute seasonal all ergic rhinitis, unspecified trigger J30.2 [place] [address] [address] Jul, Acute upper respiratory infection, unspe cified J06.9 [place] [address] [address] Jun, Seasonal allergic rhinitis due to pollen J30.1 and Dysfunction of left eustachian tube H69.82 [facility] [place] [address] [address] Jun, Strain of right shoulder, in itial encounter S46.911A [place] [address] [address] May, Migraine with aura and without status mi grainosus, not intractable G43.109 [facility] [place] [address] [address] Apr, Sunburn L55.9 [facility] [place] [address] [address] Apr, Gastroenteritis K52.9 [place] [address] [address] Apr, Acute left-sided thoracic back pain M54. 6 [place] [address] [address] March, Migraine without aura and without status migrainosus, not intractable G43.009 [place] [address] [address] March, Intractable migraine without aura and wi th status migrainosus G43.011 [place] [address] [address] Feb, Depressive disorder F32.9 and Gastroente ritis K52.9 [place] [address] [address] Jan, Migraine headache G43.909 [place] [address] [address] Jan, Migraine without aura and without status migrainosus, not intractable G43.009 [place] [address] [address] Dec, Migraine without aura and without status migrainosus, not intractable G43.009 [place] [address] [address] Nov, Diarrhea, unspecified type R19.7 [place] [address] [address] Nov, Asthma with acute exacerbation in adult J45.901 and Upper respiratory tract infection, unspecified type J06.9 [place] [address] [address] Nov, [place] [address] [address] Nov, Acute non-recurrent maxillary sinusitis J01.00 [place] [address] [address] Nov, Viral syndrome B34.9 [facility] [address] [address] Nov, Dermatitis L30.9 [facility] [address] [facility] [id number] [address] [place] [address] Oct, Gastroenteritis K52.9 [facility] [address] [address] Oct, Sore throat (viral) J02.9 and Migraine w ithout aura and without status migrainosus, not intractable G43.009 [place] [address] [address] Sep, Frequent headaches R51 and 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 [address] [address] Sep, Seasonal allergic rhinitis d ue to pollen J30.1 and Acute non-recurrent maxillary sinusitis J01.00 [place] [address] [address] Aug, Migraine headache G43.909 [place] [address] [address] Aug, Encounter to establish care Z76.89 ; Prashanth sudhakar without aura and without status migrainosus, not intractable G43.009 and Melanocytic nevus of trunk D22.5 [place] [address] [address] Aug, [place] [address] [address] Jul, Chronic gastritis without bleeding, unsp ecified gastritis type K29.50 [place] [address] [address] Jul, Cough R05 [place] [address] [address] May, Gastritis without bleeding, unspecified chronicity, unspecified gastritis type K29.70 [facility] N [place] [id number] [place] [address] May, Gastroenteritis K52.9 [facility] [place] [address] [address] [place] [id number] [place] [address] 05 May, 2016 Left acute otitis media H66. 92 [place] [address] [address] Apr, Depressive disorder F32.9 [place] [address] [address] Apr, Otitis media with effusion, left H65.92 [place] [address] [address] Apr, Migraine headache G43.909 [place] [address] [address] Apr, Depressive disorder F32.9 and Adjustment disorder with depressed mood F43.21 [place] [address] [address] March, Depressive disorder F32.9 and Adjustment disorder with depressed mood F43.21 [place] [address] [address] March, Adjustment disorder with depressed mood F43.21 [place] [address] [address] March, Adjustment disorder with depressed mood F43.21 [place] [address] [address] Dec, Migraine headache G43.909 [place] [address] [address] Oct, Middle ear effusion H65.90 and Migraine headache G43.909 [facility] [address] [facility] [id number] [address] [place] [address] Oct, Allergic rhinitis J30.9 [facility] [address] [address] Oct, URI (upper respiratory infection) J06.9 [place] [address] [address] Jul, Major depression 296.20 ; Anxiety, gener alized 300.02 and No condition on [place] II V71.09 [place] [address] [address] Jun, Routine adult health maintenance V70.0 [facility] [address] [place] [id number] [place] [address] Jun, Major depression 296.20 ; No condition o n [place] II V71.09 and No condition on axis III V71.09 [facility] [address] [place] [id number] [place] [address] May, Major depressive disorder, recurrent epi sode, severe 296.33 [facility] [address] [id number] Apr, 2015 Dental examination V72.2 [facility] [address] [id number] Apr, Dental examination V72.2 [facility] [address] [address] Feb, [facility] [address] [address] Feb, [facility] [address] [address] Jan, [facility] [address] [address] Jan, [facility] [address] [address] Jan, [facility] [address] [address] Jan, [facility] [address] [address] Oct, [facility] [address] [address] Oct, [facility] [address] [address] Apr, [facility] [address] [address] Apr, [facility] [address] [address] March, [facility] [address] [id number] [place] [address] March, [facility] [address] [id number] [place] [address] Feb, [facility] [address] [id number] [place] [address] Feb, [facility] [address] [id number] [place] [address] Feb, [facility] [address] [facility] [id number] [place] [address] Feb, [facility] [address] [id number] [place] [address] Feb, [facility] [address] [id number] [place] [address] Jan, [facility] [address] [id number] [place] [address] Jan, [facility] [address] [id number] [place] [address] Dec, [facility] [address] [id number] [place] [address] Dec, [facility] [address] [id number] [place] [address] Nov, [facility] [address] [id number] [place] [address] Nov, [facility] [address] [id number] [place] [address] Nov, [facility] [address] [id number] [place] [address] Nov, [facility] [address] [id number] [place] [address] Nov, [facility] [address] [id number] [place] [address] Nov, [facility] [address] [id number] [place] [address] Oct, [facility] [address] [id number] [place] [address] Oct, [facility] [address] [id number] [place] [address] Sep, [facility] [address] [id number] [place] [address] Sep, [facility] [address] [id number] [place] [address] Sep, [facility] [address] [id number] [place] [address] Sep, [facility] [address] [id number] [place] [address] Jul, [facility] [address] [id number] [place] [address] May, [facility] [address] [id number] [place] [address] May, [facility] [address] [id number] [place] [address] Apr, [facility] [address] [id number] [place] [address] Apr, [facility] [address] [id number] [place] [address] Apr, [facility] [address] [id number] [place] [address] Apr, [facility] [address] [id number] [place] [address] March, [facility] [address] [id number] [place] [address] Jan, [facility] [address] [id number] [place] [address] Dec, [facility] [address] [id number] [place] [address] 08 Dec, 2012 [facility] [address] [id number] [place] [address] Nov, [facility] [address] [id number] [place] [address] Nov, [facility] [address] [id number] [place] [address] Oct, [facility] [address] [id number] [place] [address] Oct, [facility] [address] [place] [id number] [place] [address] Sep, [facility] [address] [id number] [place] [address] Jan, [facility] [address] [id number] [place] [address] Nov, [facility] [address] [id number] [place] [address] Aug, [facility] [address] [place] [id number] [place] [address] Aug, [facility] [address] [id number] [place] [address] Jul, [facility] [address] [id number] [place] [address] Sep, IMMUNIZATIONS No Known Immunizations SOCIAL HISTORY Never Assessed REASON FOR VISIT PLAN OF CARE VITAL SIGNS Height 70 in 2014-05-22 Weight 235.8 lbs 2014-05-22 Temperature 98.3 degrees Fahrenheit 2014-05-22 Heart Rate 72 bpm 2014-05-22 Respiratory Rate 18 2014-05-22 Blood pressure systolic 130 mmHg 2014-05-22 Blood pressure diastolic 84 mmHg 2014-05-22 MEDICATIONS No Known Medications RESULTS No Results [...]
--- OUTSIDE RECORDS SUMMARY | 2020-05-16 12:01 | XMS REPORT ---
Author Author Juan Gomez Doctor Organization [facility] Address Unknown Phone Unavailable Care Team Providers Care Color Receiver Name Role Phone Migration, Doctor Unavailable Unavailable PROBLEMS Type Condition ICD9-CM Code AQG84-IP Code Onset Dates Condition S tatus SNOMED Code Problem Migraine headache G43.909 Active 37 597025 Problem Seasonal allergic rhinitis due to pollen J30.1 Active 60485815 Problem History of kidney stones Z87.442 Activ e 585688107 Problem Mild intermittent asthma without complication J45. 20 Active 862377424 Problem Depressive disorder F32.9 Active 51787051 ALLERGIES No Information ENCOUNTERS Encounter Location Date Diagnosis [facility] [address] [address] Feb, Viral gastroenteritis A08.4 [facility] [address] [address] Dec, Viral upper respiratory trac t infection J06.9 [facility] [address] [place] [id number] [address] [place] [address] Nov, Acute gastroenteritis K52.9 [facility] [address] [place] [id number] [address] [place] [address] Nov, Migraine headache G43.909 an d Acute seasonal allergic rhinitis, unspecified trigger J30.2 [facility] [address] [place] [id number] [address] [place] [address] Oct, Stye, left H00.016 [facility] [address] [place] [id number] [address] [place] [address] Sep, Viral URI J06.9 [facility] [address] [place] [id number] [address] [place] [address] May, [facility] [address] [address] Apr, Hordeolum externum of left l ower eyelid H00.015 [facility] [place] [address] [address] Apr, Viral gastroenteritis A08.4 [facility] [place] [address] [address] March, Viral illness B34.9 [facility] [place] [address] [address] Feb, Vomiting, intractability of vomiting not specified, presence of nausea not specified, unspecified vomiting type R11.10 [place] [address] [address] Jan, Acute nasopharyngitis J00 [facility] [place] [address] [address] Jan, Acute follicular conjunctivi tis of left eye H10.012 [place] [address] [address] Dec, Migraine without aura and wi thout status migrainosus, not intractable G43.009 [facility] [place] [address] [address] Nov, Migraine without aura and wi thout status migrainosus, not intractable G43.009 [place] [address] [address] Nov, Otalgia of right ear H92.01 [place] [address] [address] Oct, Migraine headache G43.909 an d Acute non-recurrent maxillary sinusitis J01.00 [place] [address] [address] Sep, Other viral agents as the ca use of diseases classified elsewhere B97.89 and Acute upper respiratory infection, unspecified J06.9 [place] [address] [address] Sep, Swelling of left eyelid H02. 846 [place] [address] [address] 07 Sep, 2017 Migraine headache G43.909 an d Migraine without aura and without status migrainosus, not intractable G43.009 [facility] [place] [address] [address] Aug, Pharyngitis due to other org anism J02.8 and Oral candidiasis B37.0 [place] [address] [address] Aug, Sore throat J02.9 and Acute seasonal allergic rhinitis, unspecified trigger J30.2 [place] [address] [address] Jul, Acute upper respiratory infe ction, unspecified J06.9 [place] [address] [address] Jun, Seasonal allergic rhinitis d ue to pollen J30.1 and Dysfunction of left eustachian tube H69.82 [facility] [place] [address] [address] Jun, Strain of right shoulder, in itial encounter S46.911A [place] [address] [address] May, Migraine with aura and witho ut status migrainosus, not intractable G43.109 [facility] [place] [address] [address] Apr, Sunburn L55.9 [facility] [place] [address] [address] Apr, Gastroenteritis K52.9 [place] [address] [address] [facility] [place] [place] [id number] [address] [place] [address] 12 Apr, 2017 Acute left-sided thoracic ba ck pain M54.6 [place] [address] [address] [facility] [place] [id number] [address] [place] [address] March, Migraine without aura and wi thout status migrainosus, not intractable G43.009 [place] [address] [address] [facility] [place] [id number] [address] [place] [address] March, Intractable migraine without aura and with status migrainosus G43.011 [place] [address] [address] [facility] [place] [id number] [address] [place] [address] Feb, Depressive disorder F32.9 an d Gastroenteritis K52.9 [place] [address] [place] [id number] [address] [place] [address] Jan, Migraine headache G43.909 [place] [address] [place] [id number] [address] [place] [address] Jan, Migraine without aura and wi thout status migrainosus, not intractable G43.009 [place] [address] [place] [id number] [address] [place] [address] 07 Dec, 2016 Migraine without aura and wi thout status migrainosus, not intractable G43.009 [place] [address] [place] [id number] [address] [place] [address] Nov, Diarrhea, unspecified type R 19.7 [place] [address] [place] [id number] [address] [place] [address] Nov, Asthma with acute exacerbati on in adult J45.901 and Upper respiratory tract infection, unspecified type J06.9 [place] [address] [facility] [place] [id number] [address] [place] [address] Nov, [place] [address] [place] [id number] [address] [place] [address] Nov, Acute non-recurrent maxillar y sinusitis J01.00 [facility] [address] [facility] [place] [id number] [address] [place] [address] Nov, Viral syndrome B34.9 [place] [address] [place] [id number] [address] [place] [address] Nov, Dermatitis L30.9 [facility] [address] [place] [id number] [place] [address] Oct, Gastroenteritis K52.9 [place] [address] [address] Oct, Sore throat (viral) J02.9 an d Migraine without aura and without status migrainosus, not intractable G43.009 [place] [address] [address] Sep, Frequent headaches R51 and 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 [facility] [address] [address] Sep, Seasonal allergic rhinitis d ue to pollen J30.1 and Acute non-recurrent maxillary sinusitis J01.00 [place] [address] [address] Aug, Migraine headache G43.909 [place] [address] [address] Aug, Encounter to establish care Z76.89 ; Migraine without aura and without status migrainosus, not intractable G43.009 and Melanocytic nevus of trunk D22.5 [place] [address] [place] [address] Aug, [place] [address] [address] Jul, Chronic gastritis without bl eeding, unspecified gastritis type K29.50 [place] [address] [address] Jul, Cough R05 [facility] [address] [facility] [place] [place] [id number] [address] [place] [address] May, Gastritis without bleeding, unspecified chronicity, unspecified gastritis type K29.70 [facility] [address] [facility] [place] [place] [id number] [address] [place] [address] 14 May, 2016 Gastroenteritis K52.9 [facility] [address] [facility] [place] [place] [id number] [address] [place] [address] 05 May, 2016 Left acute otitis media H66. 92 [facility] [address] [facility] [place] [id number] [address] [place] [address] Apr, Depressive disorder F32.9 [place] [address] [facility] [place] [id number] [address] [place] [address] Apr, Otitis media with effusion, left H65.92 [place] [address] [place] [id number] [address] [place] [address] 16 Apr, 2016 Migraine headache G43.909 [place] [address] [facility] [place] [id number] [address] [place] [address] Apr, Depressive disorder F32.9 an d Adjustment disorder with depressed mood F43.21 [place] [address] [facility] [place] [id number] [address] [place] [address] March, Depressive disorder F32.9 an d Adjustment disorder with depressed mood F43.21 [place] [address] [facility] [place] [id number] [address] [place] [address] March, Adjustment disorder with dep ressed mood F43.21 [place] [address] [facility] [place] [id number] [address] [place] [address] March, Adjustment disorder with dep ressed mood F43.21 [place] [address] [place] [id number] [address] [place] [address] Dec, Migraine headache G43.909 [place] [address] [place] [id number] [address] [place] [address] Oct, Middle ear effusion H65.90 a nd Migraine headache G43.909 [facility] [address] [facility] [place] [place] [id number] [address] [place] [address] Oct, Allergic rhinitis J30.9 [facility] [address] [facility] [place] [place] [id number] [address] [place] [address] Oct, URI (upper respiratory infec tion) J06.9 [facility] [address] [facility] [place] [place] [id number] [address] [place] [address] Jul, Major depression 296.20 ; An xiety, generalized 300.02 and No condition on Kennard II V71.09 [facility] [address] [place] [id number] [place] [address] Jun, Routine [facility] ance V70.0 [facility] [address] [address] Jun, Major depression 296.20 ; No condition on Kennard II V71.09 and No condition on axis III V71.09 [facility] [address] [address] May, Major depressive disorder, r ecurrent episode, severe 296.33 [facility] [id number] [place] [id number] Apr, Dental examination V72.2 [facility] [address] [id number] Apr, Dental examination V72.2 [facility] [address] [place] [address] Feb, [facility] [address] [place] [id number] [place] [address] Feb, [facility] [address] [place] [id number] [address] [place] [address] 16 Jan, 2015 [facility] [address] [place] [id number] [place] [address] Jan, [facility] [address] [id number] [address] [place] [address], [place] [address] Jan, [facility] [address] [id number] [address] [place] [address], [place] [address] Jan, [facility] [address] [id number] [address] [place] [address], [place] [address] Oct, [facility] [address] [id number] [address] [place] [address], [place] [address] Oct, [facility] [address] [id number] [address] [place] [address], [place] [address] Apr, [facility] [address] [id number] [address] [place] [address], [place] [address] Apr, [facility] [address] [id number] [address] [place] [address], [place] [address] March, [facility] [address] [id number] [address] [place] [address], [place] [address] March, [facility] [address] [id number] [address] [place] [address], [place] [address] Feb, [facility] [address] [id number] [address] [place] [address], [place] [address] Feb, [facility] [address] [id number] [address] [place] [address], [place] [address] Feb, [facility] [address] [id number] [address] [place] [address], [place] [address] Feb, [facility] [address] [id number] [address] [place] [address], [place] [address] Feb, [facility] [address] [id number] [address] [place] [address], [place] [address] Jan, [facility] [address] [id number] [address] [place] [address], [place] [address] Jan, [facility] [address] [id number] [address] [place] [address], [place] [address] 14 Dec, 2013 [facility] [address] [id number] [address] [place] [address], [place] [address] 14 Dec, 2013 [facility] [address] [id number] [address] [place] [address], [place] [address] Nov, [facility] [address] [id number] [address] [place] [address], [place] [address] Nov, [facility] [address] [id number] [address] [place] [address], [place] [address] Nov, [facility] [address] [id number] [address] [place] [address], [place] [address] Nov, [facility] [address] [id number] [address] [place] [address], [place] [address] Nov, [facility] [address] [id number] [address] [place] [address], [place] [address] Nov, [facility] [address] [id number] [address] [place] [address], [place] [address] Oct, [facility] [address] [id number] [address] [place] [address], [place] [address] Oct, [facility] [address] [id number] [address] [place] [address], [place] [address] Sep, [facility] [address] [id number] [address] [place] [address], [place] [address] Sep, [facility] [address] [id number] [address] [place] [address], [place] [address] Sep, [facility] [address] [id number] [address] [place] [address], [place] [address] Sep, [facility] [address] [id number] [address] [place] [address], [place] [address] Jul, [facility] [address] [id number] [address] [place] [address], [place] [address] May, [facility] [address] [id number] [address] [place] [address], [place] [address] May, [facility] [address] [id number] [address] [place] [address], [place] [address] Apr, [facility] [address] [id number] [address] [place] [address], [place] [address] 15 Apr, 2013 [facility] [address] [id number] [address] [place] [address], [place] [address] 14 Apr, 2013 [facility] [address] [id number] [address] [place] [address], [place] [address] Apr, [facility] [address] [id number] [address] [place] [address], [place] [address] March, [facility] [address] [id number] [address] [place] [address], [place] [address] Jan, [facility] [address] [id number] [address] [place] [address], [place] [address] Dec, [facility] [address] [id number] [address] [place] [address], [place] [address] Dec, [facility] [address] [id number] [address] [place] [address], [place] [address] Nov, [facility] [address] [id number] [address] [place] [address], [place] [address] Nov, [facility] [address] [id number] [address] [place] [address], [place] [address] Oct, [facility] [address] [id number] [address] [place] [address], [place] [address] Oct, [facility] [address] [id number] [address] [place] [address], [place] [address] Sep, [facility] [address] [id number] [address] [place] [address], [place] [address] Jan, [facility] [address] [id number] [address] [place] [address] Nov, [facility] [address] [facility] [place] [place] [id number] [address] [place] [address] Aug, [facility] [address] [facility] [id number] [address] [place] [address] Aug, [facility] [address] [facility] [id number] [address] [place] [address] Jul, [facility] [address] [facility] [id number] [address] [place] [address] Sep, IMMUNIZATIONS No Known Immunizations SOCIAL HISTORY Never Assessed REASON FOR VISIT EMR-[facility] [place] PLAN OF CARE VITAL SIGNS MEDICATIONS No [...]
--- OUTSIDE RECORDS SUMMARY | 2020-05-16 12:01 | XMS REPORT ---
Author Author Juan TREJO Organization [facility] Address [address] [place] [address] Care Team Providers Care Tack Welder Name Role Phone JANET TREJO Unavailable PROBLEMS Type Condition ICD9-CM Code BQR67-IC Code Onset Dates Condition S tatus SNOMED Code Problem Migraine headache G43.909 Active 37 569342 Problem Seasonal allergic rhinitis due to pollen J30.1 Active 82167614 Problem History of kidney stones Z87.442 Activ e 331063033 Problem Mild intermittent asthma without complication J45. 20 Active 464577320 Problem Depressive disorder F32.9 Active 70442303 ALLERGIES No Information ENCOUNTERS Encounter Location Date Diagnosis [facility] [address] [place] [address] Apr, Diarrhea of presumed infecti ous origin R19.7 [facility] [address] [place] [address] Apr, Gastroenteritis and colitis, viral A08.4 [facility] [address] [place] [address] March, Non-intractable vomiting wit h nausea, unspecified vomiting type R11.2 [facility] [address] [place] [address] Feb, Viral gastroenteritis A08.4 [facility] [address] [place] [address] Dec, Viral upper respiratory trac t infection J06.9 [facility] [address] [place], [place] [address] [place] [address] Nov, Acute gastroenteritis K52.9 [facility] [address] [address] Nov, Migraine headache G43.909 an d Acute seasonal allergic rhinitis, unspecified trigger J30.2 [facility] [address] [address] Oct, Stye, left H00.016 [place] [address] [address] Sep, Viral URI J06.9 [place] [address] [address] May, [facility] [address] [address] Apr, Hordeolum externum of left l ower eyelid H00.015 [facility] [address] [address] Apr, Viral gastroenteritis A08.4 [facility] [place] [address] [address] March, Viral illness B34.9 [facility] IN [address] [address] Feb, Vomiting, intractability of vomiting not specified, presence of nausea not specified, unspecified vomiting type R11.10 [place] [address] [address] Jan, Acute nasopharyngitis J00 [facility] N [address] [address] Jan, Acute follicular conjunctivi tis of left eye H10.012 [place] [address] [address] Dec, Migraine without aura and wi thout status migrainosus, not intractable G43.009 [facility] [place] [address] [address] Nov, Migraine without aura and wi thout status migrainosus, not intractable G43.009 [place] [address] [address] Nov, Otalgia of right ear H92.01 [place] [address] [place] [id number] [place] [address] Oct, Migraine headache G43.909 an d Acute non-recurrent maxillary sinusitis J01.00 [place] [address] [address] Sep, Other viral agents as the ca use of diseases classified elsewhere B97.89 and Acute upper respiratory infection, unspecified J06.9 [place] [address] [address] Sep, Swelling of left eyelid H02. 846 [place] [address] [address] Sep, Migraine headache G43.909 an d Migraine without aura and without status migrainosus, not intractable G43.009 [facility] [address] [address] Aug, Pharyngitis due to other org anism J02.8 and Oral candidiasis B37.0 [place] [address] [address] Aug, Sore throat J02.9 and Acute seasonal allergic rhinitis, unspecified trigger J30.2 [place] [address] [address] Jul, Acute upper respiratory infe ction, unspecified J06.9 [place] [address] [place] [id number] [place] [address] Jun, Seasonal allergic rhinitis d ue to pollen J30.1 and Dysfunction of left eustachian tube H69.82 [facility]ALK IN [facility] [address] [place] [address] [place] [address] 08 Jun, 2017 Strain of right shoulder, in itial encounter S46.911A [facility] [address] [facility] [id number] [address] [place] [address] May, Migraine with aura and witho ut status migrainosus, not intractable G43.109 [facility] [address] [facility] [id number] [address] [place] [address] Apr, Sunburn L55.9 [facility] [address] [id number] [address] [place] [address] Apr, Gastroenteritis K52.9 [facility] [address] [facility] [id number] [address] [place] [address] Apr, Acute left-sided thoracic ba ck pain M54.6 [place] [address] [facility] [id number] [address] [place] [address] March, Migraine without aura and wi thout status migrainosus, not intractable G43.009 [facility] [address] [facility] [id number] [address] [place] [address] March, Intractable migraine without aura and with status migrainosus G43.011 [facility] [address] [facility] [id number] [address] [place] [address] Feb, Depressive disorder F32.9 an d Gastroenteritis K52.9 [facility] [address] [facility] [id number] [address] [place] [address] Jan, Migraine headache G43.909 [facility] [address] [facility] [id number] [address] [place] [address] Jan, Migraine without aura and wi thout status migrainosus, not intractable G43.009 [facility] [address] [facility] [id number] [address] [place] [address] 07 Dec, 2016 Migraine without aura and wi thout status migrainosus, not intractable G43.009 [facility] [address] [address] Nov, Diarrhea, unspecified type R 19.7 [place] [address] [address] 18 Nov, 2016 Asthma with acute exacerbati on in adult J45.901 and Upper respiratory tract infection, unspecified type J06.9 [place] [address] [address] Nov, [place] [address] [address] Nov, Acute non-recurrent maxillar y sinusitis J01.00 [place] [address] [address] Nov, Viral syndrome B34.9 [place] [address] [address] Nov, Dermatitis L30.9 [facility] WALK IN [place] [address] [address] Oct, Gastroenteritis K52.9 [place] [address] [address] Oct, Sore throat (viral) J02.9 an d Migraine without aura and without status migrainosus, not intractable G43.009 [place] [address] [address] Sep, Frequent headaches R51 and 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 [facility] WALK IN [place] [address] [address] Sep, Seasonal allergic rhinitis d ue to pollen J30.1 and Acute non-recurrent maxillary sinusitis J01.00 [place] [address] [place] [id number] [place] [address] Aug, Migraine headache G43.909 [place] [address] [place] [address] 18 Aug, 2016 Encounter to establish care Z76.89 ; Migraine without aura and without status migrainosus, not intractable G43.009 and Melanocytic nevus of trunk D22.5 [place] [address] [place] [id number] [address] [place] [address] Aug, [place] [address] [address] Jul, Chronic gastritis without bl eeding, unspecified gastritis type K29.50 [place] [address] [address] Jul, Cough R05 [place] [address] [address] May, Gastritis without bleeding, unspecified chronicity, unspecified gastritis type K29.70 [facility] WALK IN [place] [address] [address] 14 May, 2016 Gastroenteritis K52.9 [facility] WALK IN [place] [address] [address] 05 May, 2016 Left acute otitis media H66. 92 [place] [address] [address] 23 Apr, 2016 Depressive disorder F32.9 [place] [address] [address] Apr, Otitis media with effusion, left H65.92 [place] [address] [address] 16 Apr, 2016 Migraine headache G43.909 [place] [address] [address] 09 Apr, 2016 Depressive disorder F32.9 an d Adjustment disorder with depressed mood F43.21 [place] [address] [place] [id number] [address] [place] [address] March, Depressive disorder F32.9 an d Adjustment disorder with depressed mood F43.21 [facility] [address] [place] [address] March, Adjustment disorder with dep ressed mood F43.21 [facility] [address] [place] [id number] [address] [place] [address] March, Adjustment disorder with dep ressed mood F43.21 [facility] [address] [address] 10 Dec, [address] [facility] [address] [address] Oct, Middle ear effusion H65.90 a nd Migraine headache G43.909 [facility] WALK IN [facility] [address] [address] Oct, Allergic rhinitis J30.9 [facility] [address] [address] Oct, URI (upper respiratory infec tion) J06.9 [facility] [address] [address] Jul, Major depression 296.20 ; An xiety, generalized 300.02 and No condition on [place] II V71.09 [facility] [address] [address] Jun, Routine adult health mainten ance V70.0 [facility] [address] [address] Jun, Major depression 296.20 ; No condition on [place] II V71.09 and No condition on axis III V71.09 [facility] [address] [place] [id number] [address] [place] [address] May, Major depressive disorder, r ecurrent episode, severe 296.33 [facility] [address] [place] [id number] Apr, Dental examination V72.2 [facility] [address] [id number] [address] [place] [id number] 10 Apr, 2015 Dental examination V72.2 [facility] [address] [id number] [address] [place] [address] 14 Feb, 2015 [facility] [address] [id number] [address] [place] [address], [place] [address] 13 Feb, 2015 [facility] [address] [id number] [address] [place] [address], [place] [address] 16 Jan, 2015 [facility] [address] [id number] [address] [place] [address], [place] [address] Jan, [facility] [address] [id number] [address] [place] [address], [place] [address] Jan, [facility] [address] [id number] [address] [place] [address] Jan, [facility] [address] [id number] [address] [place] [address] Oct, [facility] [address] [id number] [address] [place] [address], [place] [address] Oct, [facility] [address] [id number] [address] [place] [address], [place] [address] Apr, [facility] [address] [id number] [address] [place] [address], [place] [address] Apr, [facility] [address] [id number] [address] [place] [address] March, [facility] [address] [id number] [address] [place] [address] March, [facility] [address] [id number] [address] [place] [address] Feb, [facility] [address] [id number] [address] [place] [address] Feb, [facility] [place] [facility] [address] [id number] [address] [place] [address], [place] [address] Feb, [facility] [address] [id number] [address] [place] [address], [place] [address] Feb, [facility] [place] [facility] [address] [id number] [address] [place] [address], [place] [address] Feb, [facility] [address] [id number] [address] [place] [address], [place] [address] Jan, [facility] [address] [id number] [address] [place] [address], [place] [address] Jan, [facility] [address] [id number] [address] [place] [address], [place] [address] Dec, [facility] [address] [id number] [address] [place] [address], [place] [address] Dec, [facility] [address] [id number] [address] [place] [address], [place] [address] Nov, [facility] [address] [id number] [address] [place] [address], [place] [address] Nov, [facility] [address] [id number] [address] [place] [address], [place] [address] Nov, [facility] [address] [id number] [address] [place] [address], [place] [address] Nov, [facility] [address] [id number] [address] [place] [address], [place] [address] Nov, [facility] [address] [id number] [address] [place] [address], [place] [address] Nov, [facility] [place] [facility] [address] [id number] [address] [place] [address], [place] [address] Oct, [facility] [place] [facility] [address] [id number] [address] [place] [address], [place] [address] Oct, [facility] [place] [facility] [address] [id number] [address] [place] [address], [place] [address] 14 Sep, 2013 [facility] [address] [id number] [address] [place] [address], [place] [address] 14 Sep, 2013 [facility] [address] [id number] [address] [place] [address], [place] [address] 04 Sep, 2013 [facility] [address] [id number] [address] [place] [address], [place] [address] Sep, [facility] [address] [id number] [address] [place] [address], [place] [address] 06 Jul, 2013 [facility] [address] [id number] [address] [place] [address], [place] [address] May, [facility] [address] [id number] [address] [place] [address], [place] [address] May, [facility] [address] [id number] [address] [place] [address], [place] [address] Apr, [facility] [address] [id number] [address] [place] [address], [place] [address] 15 Apr, 2013 [facility] [address] [id number] [address] [place] [address], [place] [address] Apr, [facility] [address] [id number] [address] [place] [address], [place] [address] Apr, [facility] [address] [id number] [address] [place] [address], [place] [address] March, [facility] [address] [id number] [address] [place] [address], [place] [address] Jan, [facility] [address] [id number] [address] [place] [address], [place] [address] Dec, [facility] [place] [facility] [address] [id number] [address] [place] [address], [place] [address] 08 Dec, 2012 [facility] [address] [id number] [address] [place] [address], [place] [address] Nov, [facility] [place] [facility] [address] [id number] [address] [place] [address] Nov, [facility] [address] [id number] [address] [place] [address] Oct, [facility] [address] [id number] [address] [place] [address] Oct, [facility] [address] [id number] [address] [place] [address] Sep, [facility] [address] [id number] [address] [place] [address] Jan, [facility] [address] [id number] [address] [place] [address] Nov, [facility] [address] [id number] [address] [place] [address] Aug, [facility] [address] [id number] [address] [place] [address] Aug, [facility] [address] [id number] [address] [place] [address] Jul, [facility] [address] [id number] [address] [place] [address] Sep, IMMUNIZATIONS No Known Immunizations SOCIAL HISTORY Never Assessed REASON FOR VISIT PLAN OF CARE VITAL SIGNS Height 70 in 2015-01-27 Weight 250 lbs 2015-01-27 Temperature 97.9 degrees Fahrenheit 2015-01-27 Heart Rate 90 bpm 2015-01-27 Respiratory Rate 18 2015-01-27 Blood pressure systolic 130 mmHg 2015-01-27 Blood pressure diastolic 74 mmHg 2015-01-27 MEDICATIONS No Known Medications RESULTS No Results [...]
--- OUTSIDE RECORDS SUMMARY | 2020-05-16 12:01 | XMS REPORT ---
Author Author Juan PEREZ Organization [facility] Address [address] [place] [address] Care Team Providers Care Bulb Assembler Name Role Phone AUSTIN PEREZ Unavailable PROBLEMS Type Condition ICD9-CM Code XRH15-TY Code Onset Dates Condition S tatus SNOMED Code Problem Migraine headache G43.909 Active 37 282266 Problem Seasonal allergic rhinitis due to pollen J30.1 Active 71556069 Problem History of kidney stones Z87.442 Activ e 239255562 Problem Mild intermittent asthma without complication J45. 20 Active 743646570 Problem Depressive disorder F32.9 Active 15270690 ALLERGIES No Information ENCOUNTERS Encounter Location Date Diagnosis [facility] [address] [place] [phone] Apr, Diarrhea of presumed infecti ous origin R19.7 [facility] [address] [place] [phone] Apr, Gastroenteritis and colitis, viral A08.4 [facility] [address] [place] [phone] March, Non-intractable vomiting wit h nausea, unspecified vomiting type R11.2 [facility] [address] [place] [address] Feb, Viral gastroenteritis A08.4 [facility] [address] [place] [phone] Dec, Viral upper respiratory trac t infection J06.9 [facility] [address] [place], [place] [id number] [address] [place] [phone] Nov, Acute gastroenteritis K52.9 [facility] [address] [place] [phone] Nov, Migraine headache G43.909 an d Acute seasonal allergic rhinitis, unspecified trigger J30.2 [facility] [address] [address] Oct, Stangi, left H00.016 [place] [address] [address] Sep, Viral URI J06.9 [place] [address] [address] May, [facility] [address] [address] Apr, Hordeolum externum of left l ower eyelid H00.015 [facility] [address] [address] Apr, Viral gastroenteritis A08.4 [facility] [place] [address] [address] March, Viral illness B34.9 [facility] [address] [address] Feb, Vomiting, intractability of vomiting not specified, presence of nausea not specified, unspecified vomiting type R11.10 [place] [address] [address] Jan, Acute nasopharyngitis J00 [facility] [place] [address] [address] Jan, Acute follicular conjunctivi tis of left eye H10.012 [place] [address] [address] Dec, Migraine without aura and wi thout status migrainosus, not intractable G43.009 [facility] [address] [address] Nov, Migraine without aura and wi thout status migrainosus, not intractable G43.009 [place] [address] [address] [place] [id number] [place] [address] Nov, Otalgia of right ear H92.01 [place] [address] [address] [place] [id number] [address] [place] [address] Oct, Migraine headache G43.909 an d Acute non-recurrent maxillary sinusitis J01.00 [place] [address] [address] Sep, Other viral agents as the ca use of diseases classified elsewhere B97.89 and Acute upper respiratory infection, unspecified J06.9 [place] [address] [address] Sep, Swelling of left eyelid H02. 846 [place] [address] [address] Sep, Migraine headache G43.909 an d Migraine without aura and without status migrainosus, not intractable G43.009 [facility] [address] [address] Aug, Pharyngitis due to other org anism J02.8 and Oral candidiasis B37.0 [place] [address] [address] [place] [id number] [place] [address] Aug, Sore throat J02.9 and Acute seasonal allergic rhinitis, unspecified trigger J30.2 [place] [address] [address] [place] [id number] [place] [phone] Jul, Acute upper respiratory infe ction, unspecified J06.9 [place] [address] [address] [place] [id number] [place] [address] Jun, Seasonal allergic rhinitis d ue to pollen J30.1 and Dysfunction of left eustachian tube H69.82 [facility] [address] [place] [id number] [place] [address] Jun, Strain of right shoulder, in itial encounter S46.911A [facility] [address] [id number] [address] [place] [address] May, Migraine with aura and witho ut status migrainosus, not intractable G43.109 [facility] [address] [id number] [address] [place] [address] Apr, Sunburn L55.9 [facility] [address] [id number] [address] [place] [phone] Apr, Gastroenteritis K52.9 [facility] [address] [facility] [id number] [address] [place] [address] Apr, Acute left-sided thoracic ba ck pain M54.6 [place] [address] [address] [facility] [id number] [address] [place] [address] March, Migraine without aura and wi thout status migrainosus, not intractable G43.009 [facility] [address] [id number] [address] [place] [phone] March, Intractable migraine without aura and with status migrainosus G43.011 [facility] [address] [facility] [id number] [address] [place] [phone] Feb, Depressive disorder F32.9 an d Gastroenteritis K52.9 [facility] [address] [facility] [id number] [address] [place] [address] Jan, Migraine headache G43.909 [facility] [address] [facility] [id number] [address] [place] [phone] Jan, Migraine without aura and wi thout status migrainosus, not intractable G43.009 [facility] [address] [facility] [id number] [address] [place] [id number] 07 Dec, 2016 Migraine without aura and wi thout status migrainosus, not intractable G43.009 [facility] [address] [facility] [id number] [address] [place] [address] Nov, Diarrhea, unspecified type R 19.7 [place] [address] [address] 18 Nov, 2016 Asthma with acute exacerbati on in adult J45.901 and Upper respiratory tract infection, unspecified type J06.9 [place] [address] [address] [place] [address] Nov, [place] [address] [address] Nov, Acute non-recurrent maxillar y sinusitis J01.00 [place] [address] [address] 04 Nov, 2016 Viral syndrome B34.9 [place] [address] [address] Nov, Dermatitis L30.9 [facility] [place] [address] [address] Oct, Gastroenteritis K52.9 [place] [address] [address] 07 Oct, 2016 Sore throat (viral) J02.9 an d Migraine without aura and without status migrainosus, not intractable G43.009 [place] [address] [address] Sep, Frequent headaches R51 and 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 [facility] [address] [place] [id number] [address] [place] [address] 07 Sep, 2016 Seasonal allergic rhinitis d ue to pollen J30.1 and Acute non-recurrent maxillary sinusitis J01.00 [place] [address] [address] [place] [id number] [address] [place] [id number] 27 Aug, 2016 Migraine headache G43.909 [place] [address] [address] Aug, Encounter to establish care Z76.89 ; Migraine without aura and without status migrainosus, not intractable G43.009 and Melanocytic nevus of trunk D22.5 [place] [address] [address] [facility] [id number] [address] [place] [phone] Aug, [place] [address] [address] [facility] [id number] [address] [place] [phone] Jul, Chronic gastritis without bl eeding, unspecified gastritis type K29.50 [place] [address] [address] [facility] [id number] [address] [place] [id number] 06 Jul, 2016 Cough R05 [place] [address] [address] [place] [id number] [address] [place] [address] May, Gastritis without bleeding, unspecified chronicity, unspecified gastritis type K29.70 [facility] [address] [place] [id number] [address] [place] [phone] 14 May, 2016 Gastroenteritis K52.9 [facility] [place] [address] [place] [id number] [address] [place] [phone] 05 May, 2016 Left acute otitis media H66. 92 [place] [address] [address] [place] [id number] [address] [place] [phone] 23 Apr, 2016 Depressive disorder F32.9 [place] [address] [address] [place] [id number] [address] [place] [phone] Apr, Otitis media with effusion, left H65.92 [place] [address] [address] [place] [id number] [address] [place] [id number] 16 Apr, 2016 Migraine headache G43.909 [place] [address] [address] [place] [id number] [address] [place] [id number] 09 Apr, 2016 Depressive disorder F32.9 an d Adjustment disorder with depressed mood F43.21 [place] [address] [address] [place] [id number] [address] [place] [address] March, Depressive disorder F32.9 an d Adjustment disorder with depressed mood F43.21 [facility] [address] [place] [id number] [address] [place] [phone] March, Adjustment disorder with dep ressed mood F43.21 [facility] [address] [place] [id number] [address] [place] [phone] March, Adjustment disorder with dep ressed mood F43.21 [facility] [address] [address] 10 Dec, 2015 Migraine headache G43.909 [facility] [address] [place] [id number] [place] [address] Oct, Middle ear effusion H65.90 a nd Migraine headache G43.909 [facility] [address] [place] [id number] [place] [address] Oct, Allergic rhinitis J30.9 [facility] [address] [address] Oct, URI (upper respiratory infec tion) J06.9 [facility] [address] [address] Jul, Major depression 296.20 ; An xiety, generalized 300.02 and No condition on Ucon II V71.09 [place] [address] [address] Jun, Routine adult health [facility] ance V70.0 [facility] [address] [address] Jun, Major depression 296.20 ; No condition on Ucon II V71.09 and No condition on axis III V71.09 [place] [address] [address] May, Major depressive disorder, r ecurrent episode, severe 296.33 [facility] [address] [place] [id number] [place] [id number] Apr, Dental examination V72.2 [facility] [address] [id number] [address] [place] [id number] 10 Apr, 2015 Dental examination V72.2 [facility] [address] [id number] [address] [place] [address], [place] [address] 14 Feb, 2015 [facility] [address] [id number] [address] [place] [address], [place] [address] Feb, [facility] [address] [id number] [address] [place] [id number] 16 Jan, 2015 [facility] [address] [id number] [address] [place] [address], [place] [address] Jan, [facility] [address] [id number] [address] [place] [address] Jan, [facility] [address] [id number] [address] [place] [address], [place] [address] Jan, [facility] [address] [id number] [address] [place] [phone] Oct, [facility] [address] [id number] [address] [place] [phone] Oct, [facility] [address] [id number] [address] [place] [phone] Apr, [facility] [address] [id number] [address] [place] [id number] Apr, [facility] [address] [id number] [address] [place] [phone] March, [facility] [address] [id number] [address] [place] [address], [place] [address] March, [facility] [address] [id number] [address] [place] [id number] Feb, [facility] [address] [id number] [address] [place] [address], [place] [address] Feb, [facility] [address] [id number] [address] [place] [address], [place] [address] Feb, [facility] [address] [id number] [address] [place] [address], [place] [address] Feb, [facility] [address] [id number] [address] [place] [address], [place] [address] Feb, [facility] [address] [id number] [address] [place] [address], [place] [address] Jan, [facility] [address] [id number] [address] [place] [address], [place] [address] Jan, [facility] [address] [id number] [address] [place] [address], [place] [address] Dec, [facility] [address] [id number] [address] [place] [address], [place] [address] Dec, [facility] [address] [id number] [address] [place] [address], [place] [address] Nov, [facility] [address] [id number] [address] [place] [address], [place] [address] Nov, [facility] [address] [id number] [address] [place] [address], [place] [address] Nov, [facility] [address] [id number] [address] [place] [address], [place] [address] Nov, [facility] [address] [id number] [address] [place] [address], [place] [address] Nov, [facility] [address] [id number] [address] [place] [address], [place] [address] Nov, [facility] [address] [id number] [address] [place] [address], [place] [address] Oct, [facility] [address] [id number] [address] [place] [address], [place] [address] Oct, [facility] [address] [id number] [address] [place] [address], [place] [address] Sep, [facility] [address] [id number] [address] [place] [address], [place] [address] 14 Sep, 2013 [facility] [address] [id number] [address] [place] [address], [place] [address] 04 Sep, 2013 [facility] [address] [id number] [address] [place] [address], [place] [address] 04 Sep, 2013 [facility] [address] [id number] [address] [place] [address], [place] [address] 06 Jul, 2013 [facility] [address] [id number] [address] [place] [address], [place] [address] May, [facility] [address] [id number] [address] [place] [address], [place] [address] May, [facility] [address] [id number] [address] [place] [address], [place] [address] Apr, [facility] [address] [id number] [address] [place] [address], [place] [address] 15 Apr, 2013 [facility] [address] [id number] [address] [place] [address], [place] [address] Apr, [facility] [address] [id number] [address] [place] [address], [place] [address] Apr, [facility] [address] [id number] [address] [place] [address], [place] [address] March, [facility] [address] [id number] [address] [place] [address], [place] [address] Jan, [facility] [address] [id number] [address] [place] [address], [place] [address] Dec, [facility] [address] [id number] [address] [place] [address], [place] [address] 08 Dec, 2012 [facility] [address] [id number] [address] [place] [address], [place] [address] Nov, [facility] [address] [id number] [address] [place] [address] Nov, [facility] [address] [id number] [address] [place] [address] Oct, [facility] [address] [id number] [address] [place] [phone] Oct, [facility] [address] [id number] [address] [place] [phone] Sep, [facility] [address] [id number] [address] [place] [phone] Jan, [facility] [address] [id number] [address] [place] [phone] Nov, [facility] [address] [id number] [address] [place] [id number] Aug, [facility] [address] [id number] [address] [place] [phone] Aug, [facility] [address] [id number] [address] [place] [phone] Jul, [facility] [address] [id number] [address] [place] [phone] Sep, IMMUNIZATIONS No Known Immunizations SOCIAL HISTORY Never Assessed REASON FOR VISIT PLAN OF CARE VITAL SIGNS Height 70 in 2015-02-07 Weight 244.31 lbs 2015-02-07 Temperature 98.1 degrees Fahrenheit 2015-02-07 Heart Rate 80 bpm 2015-02-07 Respiratory Rate 18 2015-02-07 Blood pressure systolic 124 mmHg 2015-02-07 Blood pressure diastolic 74 mmHg 2015-02-07 MEDICATIONS No Known Medications RESULTS No Results [...]
--- OUTSIDE RECORDS SUMMARY | 2020-05-16 12:02 | XMS REPORT ---
Author Author Juan Gomez Doctor Organization [facility] Address Unknown Phone Unavailable Care Team Providers Care Viscose Department Worker Name Role Phone Migration, Doctor Unavailable Unavailable PROBLEMS Type Condition ICD9-CM Code FGL80-CZ Code Onset Dates Condition S tatus SNOMED Code Problem Migraine headache G43.909 Active 37 670759 Problem Seasonal allergic rhinitis due to pollen J30.1 Active 19479605 Problem History of kidney stones Z87.442 Activ e [id number] Problem Mild intermittent asthma without complication J45. 20 Active [id number] Problem Depressive disorder F32.9 Active [id number] ALLERGIES No Information ENCOUNTERS Encounter Location Date Diagnosis [facility] [address] [address] Dec, Viral upper respiratory trac t infection J06.9 [facility] [address] [place] [id number] [address] [place] [address] Nov, Acute gastroenteritis K52.9 [facility] [address] [place] [id number] [address] [place] [address] Nov, Migraine headache G43.909 an d Acute seasonal allergic rhinitis, unspecified trigger J30.2 [facility] [address] [place] [id number] [place] [address] Oct, Stye, left H00.016 [facility] [address] [place] [id number] [address] [place] [address] Sep, Viral URI J06.9 [facility] [address] [place] [id number] [address] [place] [address] May, [facility] [address] [place] [id number] [address] [place] [address] Apr, Hordeolum externum of left l ower eyelid H00.015 [facility] [address] [address] Apr, Viral gastroenteritis A08.4 [facility] [place] [address] [address] March, Viral illness B34.9 [facility] [place] [address] [address] Feb, Vomiting, intractability of vomiting not specified, presence of nausea not specified, unspecified vomiting type R11.10 [place] [address] [address] Jan, Acute nasopharyngitis J00 [facility] [place] [address] [address] Jan, Acute follicular conjunctivi tis of left eye H10.012 [place] [address] [address] Dec, Migraine without aura and wi thout status migrainosus, not intractable G43.009 [facility] [place] [address] [address] Nov, Migraine without aura and wi thout status migrainosus, not intractable G43.009 [place] [address] [address] Nov, Otalgia of right ear H92.01 [place] [address] [address] Oct, Migraine headache G43.909 an d Acute non-recurrent maxillary sinusitis J01.00 [place] [address] [address] Sep, Other viral agents as the ca use of diseases classified elsewhere B97.89 and Acute upper respiratory infection, unspecified J06.9 [place] [address] [address] Sep, Swelling of left eyelid H02. 846 [place] [address] [place] [address] Sep, Migraine headache G43.909 an d Migraine without aura and without status migrainosus, not intractable G43.009 [facility] [place] [address] [address] Aug, Pharyngitis due to other org anism J02.8 and Oral candidiasis B37.0 [place] [address] [address] Aug, Sore throat J02.9 and Acute seasonal allergic rhinitis, unspecified trigger J30.2 [place] [address] [address] Jul, Acute upper respiratory infe ction, unspecified J06.9 [place] [address] [address] Jun, Seasonal allergic rhinitis d ue to pollen J30.1 and Dysfunction of left eustachian tube H69.82 [facility] [place] [address] [address] Jun, Strain of right shoulder, in itial encounter S46.911A [place] [address] [address] May, Migraine with aura and witho ut status migrainosus, not intractable G43.109 [facility] [place] [address] [address] Apr, Sunburn L55.9 [facility] [place] [address] [address] Apr, Gastroenteritis K52.9 [place] [address] [address] Apr, Acute left-sided thoracic ba ck pain M54.6 [facility] [address] [facility] [id number] [address] [place] [address] March, Migraine without aura and wi thout status migrainosus, not intractable G43.009 [facility] [address] [facility] [id number] [address] [place] [address] March, Intractable migraine without aura and with status migrainosus G43.011 [facility] [address] [facility] [id number] [address] [place] [address] Feb, Depressive disorder F32.9 an d Gastroenteritis K52.9 [facility] [address] [facility] [id number] [address] [place] [address] Jan, Migraine headache G43.909 [place] [address] [facility] [id number] [address] [place] [address] Jan, Migraine without aura and wi thout status migrainosus, not intractable G43.009 [facility] [address] [facility] [id number] [address] [place] [address] Dec, Migraine without aura and wi thout status migrainosus, not intractable G43.009 [facility] [address] [facility] [id number] [address] [place] [address] Nov, Diarrhea, unspecified type R 19.7 [place] [address] [facility] [id number] [address] [place] [address] Nov, Asthma with acute exacerbati on in adult J45.901 and Upper respiratory tract infection, unspecified type J06.9 [facility] [address] [facility] [id number] [address] [place] [address] Nov, [place] [address] [facility] [id number] [address] [place] [address] Nov, Acute non-recurrent maxillar y sinusitis J01.00 [place] [address] [address] 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 [facility] [place] [address] [address] 07 Sep, 2016 Seasonal allergic rhinitis d ue to pollen J30.1 and Acute non-recurrent maxillary sinusitis J01.00 [place] [address] [address] Aug, Migraine headache G43.909 [place] [address] [address] 18 Aug, 2016 Encounter to establish care Z76.89 ; Migraine without aura and without status migrainosus, not intractable G43.009 and Melanocytic nevus of trunk D22.5 [place] [address] [address] Aug, [place] [address] [address] Jul, Chronic gastritis without bl eeding, unspecified gastritis type K29.50 [place] [address] [address] [place] [id number] [address] [place] [address] Jul, Cough R05 [place] [address] [address] May, Gastritis without bleeding, unspecified chronicity, unspecified gastritis type K29.70 [facility] [address] [facility] [id number] [address] [place] [address] 14 May, 2016 Gastroenteritis K52.9 [facility] IN [facility] [address] [facility] [id number] [address] [place] [address] May, Left acute otitis media H66. 92 [facility] [address] [facility] [id number] [address] [place] [address] Apr, Depressive disorder F32.9 [facility] [address] [facility] [id number] [address] [place] [address] Apr, Otitis media with effusion, left H65.92 [facility] [address] [place] [id number] [place] [address] Apr, Migraine headache G43.909 [place] [address] [place] [id number] [place] [address] Apr, Depressive disorder F32.9 an d Adjustment disorder with depressed mood F43.21 [facility] [address] [facility] [id number] [address] [place] [address] March, Depressive disorder F32.9 an d Adjustment disorder with depressed mood F43.21 [place] [address] [facility] [id number] [address] [place] [address] March, Adjustment disorder with dep ressed mood F43.21 [place] [address] [facility] [id number] [address] [place] [address] March, Adjustment disorder with dep ressed mood F43.21 [place] [address] [facility] [id number] [address] [place] [address] Dec, Migraine headache G43.909 [facility] [address] [facility] [id number] [address] [place] [address] Oct, Middle ear effusion H65.90 a nd Migraine headache G43.909 [facility] IN [facility] [address] [facility] [id number] [address] [place] [address] 07 Oct, 2015 Allergic rhinitis J30.9 [facility] [address] [facility] [id number] [address] [place] [address] Oct, URI (upper respiratory infec tion) J06.9 [facility] [address] [facility] [id number] [address] [place] [address] 22 Jul, 2015 Major depression 296.20 ; An xiety, generalized 300.02 and No condition on Nubieber II V71.09 [facility] [address] [facility] [id number] [address] [place] [address] Jun, Routine adult health mainten ance V70.0 [facility] [address] [address] Jun, Major depression 296.20 ; No condition on Nubieber II V71.09 and No condition on axis III V71.09 [facility] [address] [address] May, Major depressive disorder, r ecurrent episode, severe 296.33 [facility] [address] [place] [id number] 17 Apr, 2015 Dental examination V72.2 [facility] [id number] [place] [id number] 10 Apr, 2015 Dental examination V72.2 [facility] [address] [place] [address] 14 Feb, 2015 [facility] [address] [place] [id number] [place] [address] Feb, [facility] [address] [address] 16 Jan, 2015 [facility] [address] [place] [id number] [address] [place] [address] 16 Jan, 2015 [facility] [address] [address] Jan, [facility] [address] [id number] [address] [place] [address], [place] [address] Jan, [facility] [address] [id number] [address] [place] [address], [place] [address] Oct, [facility] [address] [id number] [address] [place] [address], [place] [address] Oct, [facility] [address] [id number] [address] [place] [address], [place] [address] Apr, [facility] [address] [id number] [address] [place] [address], [place] [address] Apr, [facility] [address] [id number] [address] [place] [address], [place] [address] March, [facility] [address] [id number] [address] [place] [address], [place] [address] March, [facility] [address] [id number] [address] [place] [address], [place] [address] Feb, [facility] [address] [id number] [address] [place] [address], [place] [address] Feb, [facility] [address] [id number] [address] [place] [address], [place] [address] Feb, [facility] [address] [id number] [address] [place] [address], [place] [address] Feb, [facility] [address] [id number] [address] [place] [address], [place] [address] Feb, [facility] [address] [id number] [address] [place] [address], [place] [address] Jan, [facility] [address] [id number] [address] [place] [address], [place] [address] Jan, [facility] [address] [id number] [address] [place] [address], [place] [address] Dec, [facility] [address] [id number] [address] [place] [address], [place] [address] 14 Dec, 2013 [facility] [address] [id number] [address] [place] [address], [place] [address] Nov, [facility] [address] [id number] [address] [place] [address], [place] [address] Nov, [facility] [address] [id number] [address] [place] [address], [place] [address] Nov, [facility] [address] [id number] [address] [place] [address], [place] [address] Nov, [facility] [address] [id number] [address] [place] [address], [place] [address] Nov, [facility] [address] [id number] [address] [place] [address], [place] [address] Nov, [facility] [address] [id number] [address] [place] [address], [place] [address] Oct, [facility] [address] [id number] [address] [place] [address], [place] [address] Oct, [facility] [address] [id number] [address] [place] [address], [place] [address] Sep, [facility] [address] [id number] [address] [place] [address], [place] [address] Sep, [facility] [address] [id number] [address] [place] [address], [place] [address] Sep, [facility] [address] [id number] [address] [place] [address], [place] [address] Sep, [facility] [address] [id number] [address] [place] [address], [place] [address] Jul, [facility] [address] [id number] [address] [place] [address], [place] [address] May, [facility] [address] [id number] [address] [place] [address], [place] [address] May, [facility] [address] [id number] [address] [place] [address], [place] [address] 28 Apr, 2013 [facility] [address] [id number] [address] [place] [address], [place] [address] 15 Apr, 2013 [facility] [address] [id number] [address] [place] [address], [place] [address] 14 Apr, 2013 [facility] [address] [id number] [address] [place] [address], [place] [address] Apr, [facility] [address] [id number] [address] [place] [address], [place] [address] March, [facility] [address] [id number] [address] [place] [address], [place] [address] Jan, [facility] [address] [id number] [address] [place] [address], [place] [address] Dec, [facility] [address] [id number] [address] [place] [address], [place] [address] Dec, [facility] [address] [id number] [address] [place] [address], [place] [address] Nov, [facility] [address] [id number] [address] [place] [address], [place] [address] Nov, [facility] [address] [id number] [address] [place] [address], [place] [address] Oct, [facility] [address] [id number] [address] [place] [address], [place] [address] Oct, [facility] [address] [id number] [address] [place] [address], [place] [address] Sep, [facility] [address] [id number] [address] [place] [address], [place] [address] Jan, [facility] [address] [id number] [address] [place] [address], [place] [address] Nov, [facility] [address] [id number] [address] [address] Aug, [facility] [address] [facility] [id number] [address] [place] [address] Aug, [facility] [address] [facility] [id number] [address] [place] [address] Jul, [facility] [address] [facility] [id number] [address] [place] [address] Sep, IMMUNIZATIONS No Known Immunizations SOCIAL HISTORY Never Assessed REASON FOR VISIT EMR-[facility] [place] PLAN OF CARE VITAL SIGNS MEDICATIONS [...]
--- OUTSIDE RECORDS SUMMARY | 2020-05-16 12:02 | XMS REPORT ---
Author Author Juan Gomez Doctor Organization [facility] Address Unknown Phone Unavailable Care Team Providers Care Security Solutions Engineer Name Role Phone Migration, Doctor Unavailable Unavailable PROBLEMS Type Condition ICD9-CM Code MPY33-AR Code Onset Dates Condition S tatus SNOMED Code Problem Migraine headache G43.909 Active 37 912750 Problem Seasonal allergic rhinitis due to pollen J30.1 Active 52858577 Problem History of kidney stones Z87.442 Activ e 490676649 Problem Mild intermittent asthma without complication J45. 20 Active 769886187 Problem Depressive disorder F32.9 Active [id number] ALLERGIES No Information ENCOUNTERS Encounter Location Date Diagnosis [facility] [address] [address] Feb, Viral gastroenteritis A08.4 [facility] [address] [address] Dec, Viral upper respiratory trac t infection J06.9 [facility] [address] [place] [id number] [place] [address] Nov, Acute gastroenteritis K52.9 [facility] [address] [place] [id number] [place] [address] Nov, Migraine headache G43.909 an d Acute seasonal allergic rhinitis, unspecified trigger J30.2 [facility] [address] [place] [id number] [place] [address] Oct, Stye, left H00.016 [facility] [address] [place] [id number] [place] [address] Sep, Viral URI J06.9 [facility] [address] [place] [id number] [place] [address] May, [facility] [address] [address] Apr, Hordeolum externum of left l ower eyelid H00.015 [facility] [place] [address] [address] Apr, Viral gastroenteritis A08.4 [facility] [place] [address] [address] March, Viral illness B34.9 [facility] [place] [address] [address] Feb, Vomiting, intractability of vomiting not specified, presence of nausea not specified, unspecified vomiting type R11.10 [place] [address] [address] Jan, Acute nasopharyngitis J00 [facility] IN [place] [address] [address] Jan, Acute follicular conjunctivi tis of left eye H10.012 [place] [address] [address] Dec, Migraine without aura and wi thout status migrainosus, not intractable G43.009 [facility] [place] [address] [address] Nov, Migraine without aura and wi thout status migrainosus, not intractable G43.009 [place] [address] [address] Nov, Otalgia of right ear H92.01 [place] [address] [address] Oct, Migraine headache G43.909 an d Acute non-recurrent maxillary sinusitis J01.00 [place] [address] [address] Sep, Other viral agents as the ca use of diseases classified elsewhere B97.89 and Acute upper respiratory infection, unspecified J06.9 [place] [address] [address] Sep, Swelling of left eyelid H02. 846 [place] [address] [address] 07 Sep, 2017 Migraine headache G43.909 an d Migraine without aura and without status migrainosus, not intractable G43.009 [facility] [place] [address] [address] Aug, Pharyngitis due to other org anism J02.8 and Oral candidiasis B37.0 [place] [address] [address] Aug, Sore throat J02.9 and Acute seasonal allergic rhinitis, unspecified trigger J30.2 [place] [address] [address] Jul, Acute upper respiratory infe ction, unspecified J06.9 [place] [address] [address] Jun, Seasonal allergic rhinitis d ue to pollen J30.1 and Dysfunction of left eustachian tube H69.82 [facility] [place] [address] [address] Jun, Strain of right shoulder, in itial encounter S46.911A [place] [address] [address] May, Migraine with aura and witho ut status migrainosus, not intractable G43.109 [facility] [place] [address] [address] Apr, Sunburn L55.9 [facility] IN [place] [address] [address] Apr, Gastroenteritis K52.9 [place] [address] [address] [facility] [id number] [address] [place] [address] 12 Apr, 2017 Acute left-sided thoracic ba ck pain M54.6 [place] [address] [address] [facility] [id number] [address] [place] [address] March, Migraine without aura and wi thout status migrainosus, not intractable G43.009 [place] [address] [address] [facility] [id number] [address] [place] [address] March, Intractable migraine without aura and with status migrainosus G43.011 [place] [address] [address] [facility] [id number] [address] [place] [address] Feb, Depressive disorder F32.9 an d Gastroenteritis K52.9 [place] [address] [place] [id number] [place] [address] Jan, Migraine headache G43.909 [place] [address] [place] [id number] [place] [address] Jan, Migraine without aura and wi thout status migrainosus, not intractable G43.009 [place] [address] [place] [id number] [place] [address] 07 Dec, 2016 Migraine without aura and wi thout status migrainosus, not intractable G43.009 [place] [address] [place] [id number] [place] [address] Nov, Diarrhea, unspecified type R 19.7 [place] [address] [place] [id number] [place] [address] Nov, Asthma with acute exacerbati on in adult J45.901 and Upper respiratory tract infection, unspecified type J06.9 [place] [address] [facility] [id number] [address] [place] [address] Nov, [place] [address] [place] [id number] [place] [address] Nov, Acute non-recurrent maxillar y sinusitis J01.00 [facility] [address] [facility] [id number] [address] [place] [address] Nov, Viral syndrome B34.9 [place] [address] [place] [id number] [place] [address] Nov, Dermatitis L30.9 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 WALK IN [facility] [address] [address] Sep, Seasonal allergic rhinitis d ue to pollen J30.1 and Acute non-recurrent maxillary sinusitis J01.00 [place] [address] [address] Aug, Migraine headache G43.909 [place] [address] [address] Aug, Encounter to establish care Z76.89 ; Migraine without aura and without status migrainosus, not intractable G43.009 and Melanocytic nevus of trunk D22.5 [place] [address] [place] [address] Aug, [place] [address] [address] Jul, Chronic gastritis without bl eeding, unspecified gastritis type K29.50 [place] [address] [address] Jul, Cough R05 [facility] [address] [facility] [id number] [address] [place] [address] May, Gastritis without bleeding, unspecified chronicity, unspecified gastritis type K29.70 [facility] [address] [facility] [id number] [address] [place] [address] 14 May, 2016 Gastroenteritis K52.9 [facility] [address] [facility] [id number] [address] [place] [address] 05 May, 2016 Left acute otitis media H66. 92 [facility] [address] [facility] [id number] [address] [place] [address] Apr, Depressive disorder F32.9 [place] [address] [address] [facility] [id number] [address] [place] [address] Apr, Otitis media with effusion, left H65.92 [place] [address] [place] [id number] [place] [address] 16 Apr, 2016 Migraine headache G43.909 [place] [address] [facility] [id number] [address] [place] [address] Apr, Depressive disorder F32.9 an d Adjustment disorder with depressed mood F43.21 [place] [address] [address] [facility] [id number] [address] [place] [address] March, Depressive disorder F32.9 an d Adjustment disorder with depressed mood F43.21 [place] [address] [facility] [id number] [address] [place] [address] March, Adjustment disorder with dep ressed mood F43.21 [place] [address] [facility] [id number] [address] [place] [address] March, Adjustment disorder with dep ressed mood F43.21 [place] [address] [address] [place] [id number] [place] [address] Dec, Migraine headache G43.909 [place] [address] [place] [id number] [place] [address] Oct, Middle ear effusion H65.90 a nd Migraine headache G43.909 [facility] [address] [facility] [id number] [address] [place] [address] Oct, Allergic rhinitis J30.9 [facility] [address] [facility] [id number] [address] [place] [address] Oct, URI (upper respiratory infec tion) J06.9 [facility] [address] [facility] [id number] [address] [place] [address] Jul, Major depression 296.20 ; An xiety, generalized 300.02 and No condition on Phoenix II V71.09 [facility] [address] [place] [id number] [place] [address] Jun, Routine adult health [facility] ance V70.0 [facility] [address] [address] Jun, Major depression 296.20 ; No condition on Phoenix II V71.09 and No condition on axis III V71.09 [facility] [address] [address] May, Major depressive disorder, r ecurrent episode, severe 296.33 [facility] [address] [place] [id number] Apr, Dental examination V72.2 [facility] [address] [id number] Apr, Dental examination V72.2 [facility] [address] [place] [address] Feb, [facility] [address] [place] [id number] [place] [address] Feb, [facility] [address] [place] [id number] [place] [address] 16 Jan, 2015 [facility] [address] [place] [id number] [place] [address] Jan, [facility] [address] [id number] [address] [place] [address], [place] [address] Jan, [facility] [address] [id number] [address] [place] [address], [place] [address] Jan, [facility] [address] [id number] [address] [place] [address], [place] [address] Oct, [facility] [address] [id number] [address] [place] [address], [place] [address] Oct, [facility] [address] [id number] [address] [place] [address], [place] [address] Apr, [facility] [address] [id number] [address] [place] [address], [place] [address] Apr, [facility] [address] [id number] [address] [place] [address], [place] [address] March, [facility] [address] [id number] [address] [place] [address], [place] [address] March, [facility] [address] [id number] [address] [place] [address], [place] [address] Feb, [facility] [address] [id number] [address] [place] [address], [place] [address] Feb, [facility] [address] [id number] [address] [place] [address], [place] [address] Feb, [facility] [address] [id number] [address] [place] [address], [place] [address] Feb, [facility] [address] [id number] [address] [place] [address], [place] [address] Feb, [facility] [address] [id number] [address] [place] [address], [place] [address] Jan, [facility] [address] [id number] [address] [place] [address], [place] [address] Jan, [facility] [address] [id number] [address] [place] [address], [place] [address] 14 Dec, 2013 [facility] [address] [id number] [address] [place] [address], [place] [address] 14 Dec, 2013 [facility] [address] [id number] [address] [place] [address], [place] [address] Nov, [facility] [address] [id number] [address] [place] [address], [place] [address] Nov, [facility] [address] [id number] [address] [place] [address], [place] [address] Nov, [facility] [address] [id number] [address] [place] [address], [place] [address] Nov, [facility] [address] [id number] [address] [place] [address], [place] [address] Nov, [facility] [address] [id number] [address] [place] [address], [place] [address] Nov, [facility] [address] [id number] [address] [place] [address], [place] [address] Oct, [facility] [address] [id number] [address] [place] [address], [place] [address] Oct, [facility] [address] [id number] [address] [place] [address], [place] [address] Sep, [facility] [address] [id number] [address] [place] [address], [place] [address] Sep, [facility] [address] [id number] [address] [place] [address], [place] [address] Sep, [facility] [address] [id number] [address] [place] [address], [place] [address] Sep, [facility] [address] [id number] [address] [place] [address], [place] [address] Jul, [facility] [address] [id number] [address] [place] [address], [place] [address] May, [facility] [address] [id number] [address] [place] [address], [place] [address] May, [facility] [address] [id number] [address] [place] [address], [place] [address] Apr, [facility] [address] [id number] [address] [place] [address], [place] [address] 15 Apr, 2013 [facility] [address] [id number] [address] [place] [address], [place] [address] 14 Apr, 2013 [facility] [address] [id number] [address] [place] [address], [place] [address] Apr, [facility] [address] [id number] [address] [place] [address], [place] [address] March, [facility] [address] [id number] [address] [place] [address], [place] [address] Jan, [facility] [address] [id number] [address] [place] [address], [place] [address] Dec, [facility] [address] [id number] [address] [place] [address], [place] [address] Dec, [facility] [address] [id number] [address] [place] [address], [place] [address] Nov, [facility] [address] [id number] [address] [place] [address], [place] [address] Nov, [facility] [address] [id number] [address] [place] [address], [place] [address] Oct, [facility] [address] [id number] [address] [place] [address], [place] [address] Oct, [facility] [address] [id number] [address] [place] [address], [place] [address] Sep, [facility] [address] [id number] [address] [place] [address], [place] [address] Jan, [facility] [address] [id number] [address] [place] [address] Nov, [facility] [address] [facility] [id number] [address] [place] [address] Aug, [facility] [address] [facility] [id number] [address] [place] [address] Aug, [facility] [address] [facility] [id number] [address] [place] [address] Jul, [facility] [address] [facility] [id number] [address] [place] [address] Sep, IMMUNIZATIONS No Known Immunizations SOCIAL HISTORY Never Assessed REASON FOR VISIT [facility] PLAN OF CARE VITAL SIGNS MEDICATIONS Medication Instructions Dosage Frequency Start Date End Date Duration S tatus Flonase 50 mcg/actuation 1 sprays by Tony al route 2 times per day in each nostril Jan, Active Augmentin 875-125 mg take 1 tablet by oral route every 12 hours for 14 day(s) Nov, Active PredniSONE 20 mg 2 tablet by Oral route 1 time per day for 5 day(s) Jan, Active Proventil by Inhalation route PRN Oct, Active Amoxicillin 500 mg 1 capsule by Oral route 3 times per day for 10 days Dec, Active Eghvkxxw-Afzkyasck-OJ 3.5-10,000-1 mg-unit/mL-% 2 drop by Otic route 4 times per day for 7 day(s) Oct, Active RESULTS No Results PROCEDURES No Known procedures [...]
--- OUTSIDE RECORDS SUMMARY | 2020-05-16 12:02 | XMS REPORT ---
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 20 Active 085339316 Problem History of kidney stones Z87.442 Activ e 552617328 Problem Depressive disorder F32.9 Active 27260552 Problem Acute seasonal allergic rhinitis, unspecified trigger J30.2 Active 257085015 Problem Migraine with aura and without status migrainosu s, not intractable G43.109 Active 9079496 Problem Seasonal allergic rhinitis due to pollen J30.1 Active 78918279 Problem Migraine without aura and without status migrain osus, not intractable G43.009 Active 339947096 Problem Intractable migraine without aura and with status migr ainosus G43.011 Active 693556127 Problem Asthma with acute exacerbation in adult J45.901 Active 059064295 ALLERGIES No Known Allergies ENCOUNTERS Encounter Location Date Diagnosis [facility] [id number] [place] [address] May, [facility] [id number] [address] [place] [address] Apr, Hordeolum externum of left l ower eyelid H00.015 [facility] [address] [place] [address] Apr, Viral gastroenteritis A08.4 [facility] [address] [place], [place] [id number] [address] [place] [address] March, Viral illness B34.9 [facility] [id number] [place] [address] Feb, Vomiting, intractability of vomiting not specified, presence of nausea not specified, unspecified vomiting type R11.10 [place] [address] [address] Jan, Acute nasopharyngitis J00 [facility] [place] [address] [address] Jan, Acute follicular conjunctivi tis of left eye H10.012 [place] [address] [address] Dec, Migraine without aura and wi thout status migrainosus, not intractable G43.009 [facility] [place] [address] [address] Nov, Migraine without aura and wi thout status migrainosus, not intractable G43.009 [place] [address] [address] Nov, Otalgia of right ear H92.01 [place] [address] [address] Oct, Migraine headache G43.909 an d Acute non-recurrent maxillary sinusitis J01.00 [place] [address] [address] Sep, Other viral agents as the ca use of diseases classified elsewhere B97.89 and Acute upper respiratory infection, unspecified J06.9 [place] [address] [address] Sep, Swelling of left eyelid H02. 846 [place] [address] [address] 07 Sep, 2017 Migraine headache G43.909 an d Migraine without aura and without status migrainosus, not intractable G43.009 [facility] [place] [address] [place] [address] Aug, Pharyngitis due to other org anism J02.8 and Oral candidiasis B37.0 [place] [address] [place] [address] Aug, Sore throat J02.9 and Acute seasonal allergic rhinitis, unspecified trigger J30.2 [place] [address] [address] Jul, Acute upper respiratory infe ction, unspecified J06.9 [place] [address] [address] Jun, Seasonal allergic rhinitis d ue to pollen J30.1 and Dysfunction of left eustachian tube H69.82 [facility] [place] [address] [address] Jun, Strain of right shoulder, in itial encounter S46.911A [place] [address] [address] May, Migraine with aura and witho ut status migrainosus, not intractable G43.109 [facility] [place] [address] [address] Apr, Sunburn L55.9 [facility] [place] [address] [address] Apr, Gastroenteritis K52.9 [place] [address] [address] Apr, Acute left-sided thoracic ba ck pain M54.6 [place] [address] [address] March, Migraine without aura and wi thout status migrainosus, not intractable G43.009 [place] [address] [address] March, Intractable migraine without aura and with status migrainosus G43.011 [facility] [address] [facility] [id number] [address] [place] [address] Feb, Depressive disorder F32.9 an d Gastroenteritis K52.9 [facility] [address] [facility] [id number] [address] [place] [address] Jan, Migraine headache G43.909 [place] [address] [address] [facility] [id number] [address] [place] [address] Jan, Migraine without aura and wi thout status migrainosus, not intractable G43.009 [place] [address] [address] [facility] [id number] [address] [place] [address] 07 Dec, 2016 Migraine without aura and wi thout status migrainosus, not intractable G43.009 [place] [address] [place] [id number] [address] [place] [address] Nov, Diarrhea, unspecified type R 19.7 [place] [address] [place] [id number] [address] [place] [address] 18 Nov, 2016 Asthma with acute exacerbati on in adult J45.901 and Upper respiratory tract infection, unspecified type J06.9 [place] [address] [place] [id number] [address] [place] [address] 11 Nov, 2016 [place] [address] [place] [address] 10 Nov, 2016 Acute non-recurrent maxillar y sinusitis J01.00 [facility] [address] [place] [id number] [address] [place] [address] Nov, Viral syndrome B34.9 [place] [address] [place] [id number] [address] [place] [address] Nov, Dermatitis L30.9 [facility] [address] [id number] [address] [place] [address] Oct, Gastroenteritis K52.9 [facility] [address] [id number] [place] [address] Oct, Sore throat (viral) J02.9 an d Migraine without aura and without status migrainosus, not intractable G43.009 [place] [address] [place] [id number] [place] [address] Sep, Frequent headaches R51 and 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 [facility] [address] [address] Sep, Seasonal allergic rhinitis d ue to pollen J30.1 and Acute non-recurrent maxillary sinusitis J01.00 [place] [address] [address] Aug, Migraine headache G43.909 [place] [address] [address] Aug, Encounter to establish care Z76.89 ; Migraine without aura and without status migrainosus, not intractable G43.009 and Melanocytic nevus of trunk D22.5 [place] [address] [address] Aug, [place] [address] [address] Jul, Chronic gastritis without bl eeding, unspecified gastritis type K29.50 [place] [address] [address] Jul, Cough R05 [place] [address] [place] [id number] [place] [address] May, Gastritis without bleeding, unspecified chronicity, unspecified gastritis type K29.70 [facility] [address] [place] [id number] [place] [address] May, Gastroenteritis K52.9 [facility] N [address] [address] May, Left acute otitis media H66. 92 [facility] [address] [facility] [id number] [address] [place] [address] Apr, Depressive disorder F32.9 [facility] [address] [facility] [id number] [address] [place] [address] Apr, Otitis media with effusion, left H65.92 [facility] [address] [id number] [address] [place] [address] Apr, Migraine headache G43.909 [facility] [address] [facility] [id number] [address] [place] [address] Apr, Depressive disorder F32.9 an d Adjustment disorder with depressed mood F43.21 [facility] [address] [address] March, Depressive disorder F32.9 an d Adjustment disorder with depressed mood F43.21 [facility] [id number] [place] [address] March, Adjustment disorder with dep ressed mood F43.21 [facility] [address] [address] March, Adjustment disorder with dep ressed mood F43.21 [facility] [id number] [place] [address] Dec, Migraine headache G43.909 [facility] [address] [place] [address] Oct, Middle ear effusion H65.90 a nd Migraine headache G43.909 [facility] [address] [facility] [id number] [address] [place] [address] Oct, Allergic rhinitis J30.9 [facility] [address] [place] [id number] [address] [place] [address] Oct, URI (upper respiratory infec tion) J06.9 [facility] [id number] [place] [address] Jul, Major depression 296.20 ; An xiety, generalized 300.02 and No condition on [place] II V71.09 [facility] [address] [id number] [address] [place] [address] Jun, Routine adult health [facility] rajeev V70.0 [facility] [address] [id number] [address] [place] [address] Jun, Major depression 296.20 ; No condition on [place] II V71.09 and No condition on axis III V71.09 [facility] [address] [id number] [address] [place] [address] May, Major depressive disorder, r ecurrent episode, severe 296.33 [facility] [address] [id number] [address] [place] [id number] Apr, Dental examination V72.2 [facility] [address] [id number] [place] [id number] Apr, Dental examination V72.2 [facility] [address] [id number] [address] [place] [address] Feb, [facility] [address] [id number] [address] [place] [address] Feb, [facility] [address] [id number] [address] [place] [address] Jan, [facility] [address] [id number] [address] [place] [address] Jan, [facility] [address] [id number] [address] [place] [address] Jan, [facility] [address] [id number] [address] [place] [address] Jan, [facility] [address] [id number] [address] [place] [address] Oct, [facility] [address] [id number] [address] [place] [address] [place] [address] Oct, [facility] [address] [id number] [address] [place] [address], [place] [address] Apr, [facility] [address] [id number] [address] [place] [address], [place] [address] Apr, [facility] [address] [id number] [address] [place] [address], [place] [address] March, [facility] [address] [id number] [address] [place] [address], [place] [address] March, [facility] [address] [id number] [address] [place] [address], [place] [address] Feb, [facility] [address] [id number] [address] [place] [address], [place] [address] Feb, [facility] [address] [id number] [address] [place] [address], [place] [address] Feb, [facility] [address] [id number] [address] [place] [address], [place] [address] Feb, [facility] [address] [id number] [address] [place] [address], [place] [address] Feb, [facility] [address] [id number] [address] [place] [address], [place] [address] Jan, [facility] [address] [id number] [address] [place] [address], [place] [address] Jan, [facility] [address] [id number] [address] [place] [address], [place] [address] Dec, [facility] [address] [id number] [address] [place] [address], [place] [address] Dec, [facility] [address] [id number] [address] [place] [address], [place] [address] Nov, [facility] [address] [id number] [address] [place] [address], [place] [address] Nov, [facility] [address] [id number] [address] [place] [address], [place] [address] Nov, [facility] [address] [id number] [address] [place] [address], [place] [address] Nov, [facility] [address] [id number] [address] [place] [address], [place] [address] Nov, [facility] [address] [id number] [address] [place] [address], [place] [address] Nov, [facility] [address] [id number] [address] [place] [address], [place] [address] Oct, [facility] [address] [id number] [address] [place] [address], [place] [address] Oct, [facility] [address] [id number] [address] [place] [address], [place] [address] Sep, [facility] [address] [id number] [address] [place] [address], [place] [address] Sep, [facility] [address] [id number] [address] [place] [address], [place] [address] Sep, [facility] [address] [id number] [address] [place] [address], [place] [address] Sep, [facility] [address] [id number] [address] [place] [address], [place] [address] Jul, [facility] [address] [id number] [address] [place] [address], [place] [address] May, [facility] [address] [id number] [address] [place] [address], [place] [address] May, [facility] [address] [id number] [address] [place] [address], [place] [address] Apr, [facility] [address] [id number] [address] [place] [address], [place] [address] Apr, [facility] [address] [id number] [address] [place] [address], [place] [address] 14 Apr, 2013 [facility] [address] [id number] [address] [place] [address], [place] [address] Apr, [facility] [address] [id number] [address] [place] [address], [place] [address] March, [facility] [address] [id number] [address] [place] [address], [place] [address] Jan, [facility] [address] [id number] [address] [place] [address], [place] [address] Dec, [facility] [address] [id number] [address] [place] [address], [place] [address] Dec, [facility] [address] [id number] [address] [place] [address], [place] [address] Nov, [facility] [address] [id number] [address] [place] [address], [place] [address] Nov, [facility] [address] [id number] [address] [place] [address], [place] [address] Oct, [facility] [address] [id number] [address] [place] [address], [place] [address] Oct, [facility] [address] [id number] [address] [place] [address], [place] [address] Sep, [facility] [address] [id number] [address] [place] [address], [place] [address] Jan, [facility] [address] [id number] [address] [place] [address], [place] [address] Nov, [facility] [address] [id number] [address] [place] [address], [place] [address] Aug, [facility] [address] [id number] [address] [place] [address], [place] [address] Aug, [facility] [address] [id number] [address] [place] [address], [place] [address] Jul, [facility] [address] [id number] [address] [place] [address] Sep, IMMUNIZATIONS No Known Immunizations SOCIAL HISTORY Never Assessed REASON FOR VISIT red sore area on the left side of his eye for a week. kbullsusie PLAN OF CARE Activity Details Follow Up prn Reason: VITAL SIGNS Height 70 in 2018-05-19 Weight 240.6 lbs 2018-05-19 Temperature 98.0 degrees Fahrenheit 2018-05-19 Heart Rate 80 bpm 2018-05-19 Respiratory Rate 20 2018-05-19 BMI 34.52 kg/m2 2018-05-19 Blood pressure systolic 120 mmHg 2018-05-19 Blood pressure diastolic 68 mmHg 2018-05-19 MEDICATIONS Medication Instructions Dosage Frequency Start Date End Date Duration S tatus Amitriptyline HCl 50 mg Orally Once a day 1 tablet 24h Dec, 30 day(s) Not-Taking Imitrex 100 mg Orally Once a day 1 tablet as needed 24h Dec, Active ZyrTEC Active Gentamicin Sulfate 0.3 % Ophthalmic Twice a day 1 application 12h Apr, 07 days Active RESULTS No Results PROCEDURES No Known [...]
--- OUTSIDE RECORDS SUMMARY | 2020-05-16 12:02 | XMS REPORT ---
Author Author Juan JASON Organization [facility] Address [address] [place] [address] Care Team Providers Care Brewer Helper Name Role Phone KELSY JASON Unavailable PROBLEMS Type Condition ICD9-CM Code WFB14-VF Code Onset Dates Condition S tatus SNOMED Code Problem Migraine headache G43.909 Active 37 792244 Problem Mild intermittent asthma without complication J45. 20 Active 403659222 Problem History of kidney stones Z87.442 Activ e 124875836 Problem Depressive disorder F32.9 Active 30303711 Problem Acute seasonal allergic rhinitis, unspecified trigger J30.2 Active 165381378 Problem Migraine with aura and without status migrainosu s, not intractable G43.109 Active 1741205 Problem Seasonal allergic rhinitis due to pollen J30.1 Active 86787447 Problem Migraine without aura and without status migrain osus, not intractable G43.009 Active 624726766 Problem Intractable migraine without aura and with status migr ainosus G43.011 Active 854172338 Problem Asthma with acute exacerbation in adult J45.901 Active 798866790 ALLERGIES No Known Allergies ENCOUNTERS Encounter Location Date Diagnosis [facility] [place] [address] [place] [id number] [address] [place] [address] May, [facility] [id number] [address] [place] [address] Apr, Hordeolum externum of left l ower eyelid H00.015 [facility] [id number] [address] [place] [address] Apr, Viral gastroenteritis A08.4 [facility] [id number] [address] [place] [address] March, Viral illness B34.9 [facility] [address] [address] Feb, Vomiting, intractability of vomiting not specified, presence of nausea not specified, unspecified vomiting type R11.10 [place] [address] [address] Jan, Acute nasopharyngitis J00 [facility] [place] [address] [address] Jan, Acute follicular conjunctivi tis of left eye H10.012 [place] [address] [address] Dec, Migraine without aura and wi thout status migrainosus, not intractable G43.009 [facility] [place] [address] [address] Nov, Migraine without aura and wi thout status migrainosus, not intractable G43.009 [place] [address] [address] Nov, Otalgia of right ear H92.01 [place] [address] [address] Oct, Migraine headache G43.909 an d Acute non-recurrent maxillary sinusitis J01.00 [place] [address] [address] Sep, Other viral agents as the ca use of diseases classified elsewhere B97.89 and Acute upper respiratory infection, unspecified J06.9 [place] [address] [address] Sep, Swelling of left eyelid H02. 846 [place] [address] [address] 07 Sep, 2017 Migraine headache G43.909 an d Migraine without aura and without status migrainosus, not intractable G43.009 [facility] [place] [address] [place] [address] [place] [address] 18 Aug, 2017 Pharyngitis due to other org anism J02.8 and Oral candidiasis B37.0 [place] [address] [address] Aug, Sore throat J02.9 and Acute seasonal allergic rhinitis, unspecified trigger J30.2 [place] [address] [address] Jul, Acute upper respiratory infe ction, unspecified J06.9 [place] [address] [address] Jun, Seasonal allergic rhinitis d ue to pollen J30.1 and Dysfunction of left eustachian tube H69.82 [facility] [place] [address] [address] Jun, Strain of right shoulder, in itial encounter S46.911A [place] [address] [address] May, Migraine with aura and witho ut status migrainosus, not intractable G43.109 [facility] [place] [address] [address] Apr, Sunburn L55.9 [facility] [place] [address] [address] Apr, Gastroenteritis K52.9 [place] [address] [address] Apr, Acute left-sided thoracic ba ck pain M54.6 [place] [address] [address] March, Migraine without aura and wi thout status migrainosus, not intractable G43.009 [place] [address] [address] March, Intractable migraine without aura and with status migrainosus G43.011 [facility] [place] [address] [facility] [id number] [address] [place] [address] Feb, Depressive disorder F32.9 an d Gastroenteritis K52.9 [facility] [place] [address] [facility] [id number] [address] [place] [address] Jan, Migraine headache G43.909 [place] [address] [facility] [id number] [address] [place] [address] Jan, Migraine without aura and wi thout status migrainosus, not intractable G43.009 [place] [address] [facility] [id number] [address] [place] [address] 07 Dec, 2016 Migraine without aura and wi thout status migrainosus, not intractable G43.009 [place] [address] [place] [id number] [place] [address] Nov, Diarrhea, unspecified type R 19.7 [place] [address] [facility] [id number] [address] [place] [address] 18 Nov, 2016 Asthma with acute exacerbati on in adult J45.901 and Upper respiratory tract infection, unspecified type J06.9 [place] [address] [place] [id number] [place] [address] Nov, [place] [address] [place] [address] Nov, Acute non-recurrent maxillar y sinusitis J01.00 [facility] [place] [address] [facility] [id number] [address] [place] [address] Nov, Viral syndrome B34.9 [place] [address] [place] [id number] [place] [address] 02 Nov, 2016 Dermatitis L30.9 [facility] [address] [facility] [id number] [address] [place] [address] Oct, Gastroenteritis K52.9 [facility] [place] [address] [address] Oct, Sore throat (viral) J02.9 an d Migraine without aura and without status migrainosus, not intractable G43.009 [place] [address] [address] Sep, Frequent headaches R51 and 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 [facility] [address] [address] Sep, Seasonal allergic rhinitis d ue to pollen J30.1 and Acute non-recurrent maxillary sinusitis J01.00 [place] [address] [address] Aug, Migraine headache G43.909 [place] [address] [address] Aug, Encounter to establish care Z76.89 ; Migraine without aura and without status migrainosus, not intractable G43.009 and Melanocytic nevus of trunk D22.5 [place] [address] [address] Aug, [place] [address] [address] Jul, Chronic gastritis without bl eeding, unspecified gastritis type K29.50 [place] [address] [address] Jul, Cough R05 [place] [address] [place] [id number] [place] [address] May, Gastritis without bleeding, unspecified chronicity, unspecified gastritis type K29.70 [facility] N [address] [place] [address] May, Gastroenteritis K52.9 [facility] N [address] [address] 05 Yohannes, 2016 Left acute otitis media H66. 92 [facility] [place] [address] [facility] [id number] [address] [place] [address] 23 Apr, 2016 Depressive disorder F32.9 [facility] [place] [address] [facility] [id number] [address] [place] [address] Apr, Otitis media with effusion, left H65.92 [facility] [place] [address] [facility] [id number] [address] [place] [address] 16 Apr, 2016 Migraine headache G43.909 [facility] [place] [address] [facility] [id number] [address] [place] [address] Apr, Depressive disorder F32.9 an d Adjustment disorder with depressed mood F43.21 [facility] [place] [address] [id number] [place] [address] March, Depressive disorder F32.9 an d Adjustment disorder with depressed mood F43.21 [facility] [place] [address] [place] [address] March, Adjustment disorder with dep ressed mood F43.21 [facility] [place] [address] [place] [address] March, Adjustment disorder with dep ressed mood F43.21 [facility] [place] [address] [place] [id number] [address] [place] [address] Dec, Migraine headache G43.909 [facility] [place] [address] [place] [id number] [place] [address] Oct, Middle ear effusion H65.90 a nd Migraine headache G43.909 [facility] [address] [facility] [id number] [address] [place] [address] Oct, Allergic rhinitis J30.9 [facility] [place] [address] [facility] [id number] [address] [place] [address] Oct, URI (upper respiratory infec tion) J06.9 [facility] [place] [address] [id number] [place] [address] Jul, Major depression 296.20 ; An xiety, generalized 300.02 and No condition on [place] II V71.09 [facility] [place] [address] [id number] [address] [place] [address] Jun, Routine adult health [facility] rajeev V70.0 [facility] [place] [address] [id number] [address] [place] [address] Jun, Major depression 296.20 ; No condition on [place] II V71.09 and No condition on axis III V71.09 [facility] [place] [address] [id number] [address] [place] [address] May, Major depressive disorder, r ecurrent episode, severe 296.33 [facility] [address] [id number] [address] [place] [id number] Apr, Dental examination V72.2 [facility] [address] [id number] [address] [place] [id number] Apr, Dental examination V72.2 [facility] [place] [address] [id number] [address] [place] [address] Feb, [facility] [place] [address] [id number] [address] [place] [address] Feb, [facility] [place] [address] [id number] [address] [place] [address] Jan, [facility] [place] [address] [id number] [address] [place] [address] Jan, [facility] [place] [address] [id number] [address] [place] [address] Jan, [facility] [place] [address] [id number] [address] [place] [address] Jan, [facility] [place] [address] [id number] [address] [place] [address] Oct, [facility] [place] [address] [id number] [address] [place] [address] Oct, [facility] [address] [id number] [address] [place] [address], [place] [address] Apr, [facility] [address] [id number] [address] [place] [address], [place] [address] Apr, [facility] [address] [id number] [address] [place] [address], [place] [address] March, [facility] [address] [id number] [address] [place] [address], [place] [address] March, [facility] [address] [id number] [address] [place] [address], [place] [address] Feb, [facility] [address] [id number] [address] [place] [address], [place] [address] Feb, [facility] [address] [id number] [address] [place] [address], [place] [address] Feb, [facility] [address] [id number] [address] [place] [address], [place] [address] Feb, [facility] [address] [id number] [address] [place] [address], [place] [address] Feb, [facility] [address] [id number] [address] [place] [address], [place] [address] Jan, [facility] [address] [id number] [address] [place] [address], [place] [address] Jan, [facility] [address] [id number] [address] [place] [address], [place] [address] Dec, [facility] [address] [id number] [address] [place] [address], [place] [address] Dec, [facility] [address] [id number] [address] [place] [address], [place] [address] Nov, [facility] [address] [id number] [address] [place] [address], [place] [address] Nov, [facility] [address] [id number] [address] [place] [address], [place] [address] Nov, [facility] [address] [id number] [address] [place] [address], [place] [address] Nov, [facility] [address] [id number] [address] [place] [address], [place] [address] Nov, [facility] [address] [id number] [address] [place] [address], [place] [address] Nov, [facility] [address] [id number] [address] [place] [address], [place] [address] Oct, [facility] [address] [id number] [address] [place] [address], [place] [address] Oct, [facility] [address] [id number] [address] [place] [address], [place] [address] Sep, [facility] [address] [id number] [address] [place] [address], [place] [address] Sep, [facility] [address] [id number] [address] [place] [address], [place] [address] Sep, [facility] [address] [id number] [address] [place] [address], [place] [address] Sep, [facility] [address] [id number] [address] [place] [address], [place] [address] Jul, [facility] [address] [id number] [address] [place] [address], [place] [address] May, [facility] [address] [id number] [address] [place] [address], [place] [address] May, [facility] [address] [id number] [address] [place] [address], [place] [address] Apr, [facility] [address] [id number] [address] [place] [address], [place] [address] 15 Apr, 2013 [facility] [address] [id number] [address] [place] [address], [place] [address] 14 Apr, 2013 [facility] [address] [id number] [address] [place] [address], [place] [address] Apr, [facility] [address] [id number] [address] [place] [address], [place] [address] March, [facility] [address] [id number] [address] [place] [address], [place] [address] Jan, [facility] [address] [id number] [address] [place] [address], [place] [address] Dec, [facility] [address] [id number] [address] [place] [address], [place] [address] Dec, [facility] [address] [id number] [address] [place] [address], [place] [address] Nov, [facility] [address] [id number] [address] [place] [address], [place] [address] Nov, [facility] [address] [id number] [address] [place] [address], [place] [address] Oct, [facility] [address] [id number] [address] [place] [address], [place] [address] Oct, [facility] [address] [id number] [address] [place] [address], [place] [address] Sep, [facility] [address] [id number] [address] [place] [address], [place] [address] Jan, [facility] [address] [id number] [address] [place] [address], [place] [address] Nov, [facility] [address] [id number] [address] [place] [address], [place] [address] Aug, [facility] [address] [id number] [address] [place] [address], [place] [address] Aug, [facility] [address] [id number] [address] [place] [address], [place] [address] Jul, [facility] [address] [id number] [address] [place] [address] Sep, IMMUNIZATIONS No Known Immunizations SOCIAL HISTORY Never Assessed REASON FOR VISIT Vomiting Pt c/o vomiting since 3 AM, states he has been able to hold some water down [facility]ZZ[facility] Walker PLAN OF CARE Activity Details Follow Up prn Reason: VITAL SIGNS Height 70 in 2018-05-05 Weight 236.8 lbs 2018-05-05 Temperature 97.7 degrees Fahrenheit 2018-05-05 Heart Rate 88 bpm 2018-05-05 Respiratory Rate 20 2018-05-05 BMI 33.97 kg/m2 2018-05-05 Blood pressure systolic 118 mmHg 2018-05-05 Blood pressure diastolic 60 mmHg 2018-05-05 MEDICATIONS Medication Instructions Dosage Frequency Start Date End Date Duration S tatus Amitriptyline HCl 50 mg Orally Once a day 1 tablet 24h Dec, 30 day(s) Not-Taking Imitrex 100 mg Orally Once a day 1 tablet as needed 24h Dec, Active ZyrTEC Active RESULTS No Results PROCEDURES No Known [...]
--- OUTSIDE RECORDS SUMMARY | 2020-05-16 12:02 | XMS REPORT ---
Author Author Juan PEREZ Organization [facility] Address [address] [place] [address] Care Team Providers Care Sprinkler Helper Name Role Phone AUSTIN PEREZ Unavailable PROBLEMS Type Condition ICD9-CM Code EDH04-OO Code Onset Dates Condition S tatus SNOMED Code Problem Migraine headache G43.909 Active 37 395845 Problem Mild intermittent asthma without complication J45. 20 Active 367757888 Problem History of kidney stones Z87.442 Activ e 338344392 Problem Depressive disorder F32.9 Active 38255243 Problem Acute seasonal allergic rhinitis, unspecified trigger J30.2 Active 515144394 Problem Migraine with aura and without status migrainosu s, not intractable G43.109 Active 6702809 Problem Seasonal allergic rhinitis due to pollen J30.1 Active 73621341 Problem Migraine without aura and without status migrain osus, not intractable G43.009 Active 601734369 Problem Intractable migraine without aura and with status migr ainosus G43.011 Active 538033961 Problem Asthma with acute exacerbation in adult J45.901 Active 073005139 ALLERGIES No Information ENCOUNTERS Encounter Location Date Diagnosis [facility] [address] [place] [id number] [place] [id number] May, [facility] [address] [place] [address] Apr, Hordeolum externum of left l ower eyelid H00.015 [facility] WALK IN [facility] [address] [id number] [place] [address] Apr, Viral gastroenteritis A08.4 [facility] [address] [id number] [place] [address] March, Viral illness B34.9 [facility] WALK IN [facility] [address] [address] Feb, Vomiting, intractability of vomiting not specified, presence of nausea not specified, unspecified vomiting type R11.10 [place] [address] [address] Jan, Acute nasopharyngitis J00 [facility] WALK IN [place] [address] [address] Jan, Acute follicular conjunctivi tis of left eye H10.012 [place] [address] [address] Dec, Migraine without aura and wi thout status migrainosus, not intractable G43.009 [facility] IN [place] [address] [address] Nov, Migraine without aura and wi thout status migrainosus, not intractable G43.009 [place] [address] [address] Nov, Otalgia of right ear H92.01 [place] [address] [address] Oct, Migraine headache G43.909 an d Acute non-recurrent maxillary sinusitis J01.00 [place] [address] [address] Sep, Other viral agents as the ca use of diseases classified elsewhere B97.89 and Acute upper respiratory infection, unspecified J06.9 [place] [address] [address] Sep, Swelling of left eyelid H02. 846 [place] [address] [address] 07 Sep, 2017 Migraine headache G43.909 an d Migraine without aura and without status migrainosus, not intractable G43.009 [facility] [place] [address] [address] Aug, Pharyngitis due to other org anism J02.8 and Oral candidiasis B37.0 [place] [address] [place] [id number] [place] [address] Aug, Sore throat J02.9 and Acute seasonal allergic rhinitis, unspecified trigger J30.2 [place] [address] [address] Jul, Acute upper respiratory infe ction, unspecified J06.9 [place] [address] [place] [id number] [place] [address] Jun, Seasonal allergic rhinitis d ue to pollen J30.1 and Dysfunction of left eustachian tube H69.82 [facility] WALK IN [place] [address] [address] Jun, Strain of right shoulder, in itial encounter S46.911A [place] [address] [address] May, Migraine with aura and witho ut status migrainosus, not intractable G43.109 [facility] WALK IN [place] [address] [address] Apr, Sunburn L55.9 [facility]ALK IN [place] [address] [place] [id number] [place] [address] Apr, Gastroenteritis K52.9 [place] [address] [address] Apr, Acute left-sided thoracic ba ck pain M54.6 [place] [address] [place] [id number] [place] [address] March, Migraine without aura and wi thout status migrainosus, not intractable G43.009 [place] [address] [place] [id number] [place] [address] March, Intractable migraine without aura and with status migrainosus G43.011 [facility] [address] [facility] [id number] [address] [place] [address] 13 Feb, 2017 Depressive disorder F32.9 an d Gastroenteritis K52.9 [facility] [address] [facility] [id number] [address] [place] [address] 30 Jan, 2017 Migraine headache G43.909 [facility] [address] [facility] [id number] [address] [place] [address] 13 Jan, 2017 Migraine without aura and wi thout status migrainosus, not intractable G43.009 [facility] [address] [facility] [id number] [address] [place] [address] 07 Dec, 2016 Migraine without aura and wi thout status migrainosus, not intractable G43.009 [place] [address] [facility] [id number] [address] [place] [address] Nov, Diarrhea, unspecified type R 19.7 [facility] [address] [facility] [id number] [address] [place] [address] 18 Nov, 2016 Asthma with acute exacerbati on in adult J45.901 and Upper respiratory tract infection, unspecified type J06.9 [place] [address] [facility] [id number] [address] [place] [address] Nov, [place] [address] [facility] [id number] [address] [place] [phone] 10 Nov, 2016 Acute non-recurrent maxillar y sinusitis J01.00 [facility] [address] [facility] [id number] [address] [place] [id number] 04 Nov, 2016 Viral syndrome B34.9 [facility] [address] [place] [id number] [place] [address] 02 Nov, 2016 Dermatitis L30.9 [facility] [address] 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 [facility] [place] [address] [address] Sep, Seasonal allergic rhinitis d ue to pollen J30.1 and Acute non-recurrent maxillary sinusitis J01.00 [place] [address] [address] Aug, Migraine headache G43.909 [place] [address] [address] Aug, Encounter to [facility] care Z76.89 ; Migraine without aura and without status migrainosus, not intractable G43.009 and Melanocytic nevus of trunk D22.5 [place] [address] [address] Aug, [place] [address] [address] Jul, Chronic gastritis without bl eeding, unspecified gastritis type K29.50 [place] [address] [place] [id number] [place] [address] Jul, Cough R05 [place] [address] [place] [id number] [place] [address] May, Gastritis without bleeding, unspecified chronicity, unspecified gastritis type K29.70 [facility] [place] [address] [place] [id number] [place] [address] 14 May, 2016 Gastroenteritis K52.9 [facility] [address] [address] 05 May, 2016 Left acute otitis media H66. 92 [place] [address] [facility] [id number] [address] [place] [address] 23 Apr, 2016 Depressive disorder F32.9 [facility] [address] [facility] [id number] [address] [place] [address] Apr, Otitis media with effusion, left H65.92 [facility] [address] [facility] [id number] [address] [place] [address] 16 Apr, 2016 Migraine headache G43.909 [place] [address] [facility] [id number] [address] [place] [address] 09 Apr, 2016 Depressive disorder F32.9 an d Adjustment disorder with depressed mood F43.21 [place] [address] [facility] [id number] [address] [place] [address] March, Depressive disorder F32.9 an d Adjustment disorder with depressed mood F43.21 [place] [address] [place] [address] March, Adjustment disorder with dep ressed mood F43.21 [place] [address] [place] [id number] [place] [address] March, Adjustment disorder with dep ressed mood F43.21 [facility] [address] [place] [id number] [place] [address] 10 Dec, 2015 Migraine headache G43.909 [facility] [address] [place] [id number] [place] [address] Oct, Middle ear effusion H65.90 a nd Migraine headache G43.909 [facility] [address] [facility] [id number] [address] [place] [address] Oct, Allergic rhinitis J30.9 [facility] [address] [facility] [id number] [address] [place] [address] Oct, URI (upper respiratory infec tion) J06.9 [facility] [address] [facility] [id number] [address] [place] [address] Jul, Major depression 296.20 ; An xiety, generalized 300.02 and No condition on Elim II V71.09 [facility] [address] [id number] [address] [place] [phone] Jun, [facility] V70.0 [facility] [address] [id number] [address] [place] [address] Jun, Major depression 296.20 ; No condition on Elim II V71.09 and No condition on axis III V71.09 [facility] [address] [id number] [address] [place] [phone] May, Major depressive disorder, r ecurrent episode, severe 296.33 [facility] [address] [id number] [address] [place] [id number] Apr, Dental examination V72.2 [facility] [address] [id number] [address] [place] [id number] Apr, Dental examination V72.2 [facility] [address] [id number] [address] [place] [phone] Feb, [facility] [address] [id number] [address] [place] [phone] Feb, [facility] [address] [id number] [address] [place] [phone] Jan, [facility] [address] [id number] [address] [place] [phone] Jan, [facility] [address] [id number] [address] [place] [phone] Jan, [facility] [address] [id number] [address] [place] [id number] Jan, [facility] [address] [id number] [address] [place] [phone] Oct, [facility] [address] [id number] [address] [place] [id number] Oct, [facility] [address] [id number] [address] [place] [address], [place] [address] Apr, [facility] [address] [id number] [address] [place] [address], [place] [address] Apr, [facility] [address] [id number] [address] [place] [address], [place] [address] March, [facility] [address] [id number] [address] [place] [address], [place] [address] March, [facility] [address] [id number] [address] [place] [address], [place] [address] Feb, [facility] [address] [id number] [address] [place] [address], [place] [address] Feb, [facility] [address] [id number] [address] [place] [address], [place] [address] Feb, [facility] [address] [id number] [address] [place] [address], [place] [address] Feb, [facility] [address] [id number] [address] [place] [address], [place] [address] Feb, [facility] [address] [id number] [address] [place] [address], [place] [address] Jan, [facility] [address] [id number] [address] [place] [address], [place] [address] Jan, [facility] [address] [id number] [address] [place] [address], [place] [address] Dec, [facility] [address] [id number] [address] [place] [address], [place] [address] Dec, [facility] [address] [id number] [address] [place] [address], [place] [address] Nov, [facility] [address] [id number] [address] [place] [address], [place] [address] Nov, [facility] [address] [id number] [address] [place] [address], [place] [address] Nov, [facility] [address] [id number] [address] [place] [address], [place] [address] Nov, [facility] [address] [id number] [address] [place] [address], [place] [address] Nov, [facility] [address] [id number] [address] [place] [address], [place] [address] Nov, [facility] [address] [id number] [address] [place] [address], [place] [address] Oct, [facility] [address] [id number] [address] [place] [address], [place] [address] Oct, [facility] [address] [id number] [address] [place] [address], [place] [address] Sep, [facility] [address] [id number] [address] [place] [address], [place] [address] Sep, [facility] [address] [id number] [address] [place] [address], [place] [address] Sep, [facility] [address] [id number] [address] [place] [address], [place] [address] Sep, [facility] [address] [id number] [address] [place] [address], [place] [address] Jul, [facility] [address] [id number] [address] [place] [address], [place] [address] May, [facility] [address] [id number] [address] [place] [address], [place] [address] May, [facility] [address] [id number] [address] [place] [address], [place] [address] Apr, [facility] [address] [id number] [address] [place] [address], [place] [address] Apr, [facility] [address] [id number] [address] [place] [address], [place] [address] Apr, [facility] [address] [id number] [address] [place] [address], [place] [address] 10 Apr, 2013 [facility] [address] [id number] [address] [place] [address], [place] [address] March, [facility] [address] [id number] [address] [place] [address], [place] [address] Jan, [facility] [address] [id number] [address] [place] [address], [place] [address] Dec, [facility] [address] [id number] [address] [place] [address], [place] [address] Dec, [facility] [address] [id number] [address] [place] [address], [place] [address] Nov, [facility] [address] [id number] [address] [place] [address], [place] [address] Nov, [facility] [address] [id number] [address] [place] [address], [place] [address] Oct, [facility] [address] [id number] [address] [place] [address], [place] [address] Oct, [facility] [address] [id number] [address] [place] [address], [place] [address] Sep, [facility] [address] [id number] [address] [place] [address], [place] [address] Jan, [facility] [address] [id number] [address] [place] [address] Nov, [facility] [address] [id number] [address] [place] [address], [place] [address] Aug, [facility] [address] [id number] [address] [place] [address], [place] [address] Aug, [facility] [address] [id number] [address] [place] [address], [place] [address] Jul, [facility] [address] [id number] [address] [place] [address] Sep, IMMUNIZATIONS No Known Immunizations SOCIAL HISTORY Never Assessed REASON FOR VISIT Requests return call PLAN OF CARE VITAL SIGNS MEDICATIONS Medication Instructions Dosage Frequency Start Date End Date Duration S tatus Erythromycin 5 MG/GM Ophthalmic Four times a day 1 application 6h May, May, 10 day(s) Active RESULTS No Results PROCEDURES No Known [...]
--- OUTSIDE RECORDS SUMMARY | 2020-05-16 12:02 | XMS REPORT ---
Author Author Juan Gomez Doctor Organization [facility] Address Unknown Phone Unavailable Care Team Providers Care Aircraft Part Assembler Name Role Phone Migration, Doctor Unavailable Unavailable PROBLEMS Type Condition ICD9-CM Code IFI10-DH Code Onset Dates Condition S tatus SNOMED Code Problem Migraine headache G43.909 Active 37 624990 Problem Seasonal allergic rhinitis due to pollen J30.1 Active 14086478 Problem History of kidney stones Z87.442 Activ e 938110258 Problem Mild intermittent asthma without complication J45. 20 Active 710151163 Problem Depressive disorder F32.9 Active 13373326 ALLERGIES No Information ENCOUNTERS Encounter Location Date Diagnosis [facility] [address] [address] Feb, Viral gastroenteritis A08.4 [facility] [address] [address] Dec, Viral upper respiratory trac t infection J06.9 [facility] [address] [place] [id number] [place] [address] Nov, Acute gastroenteritis K52.9 [facility] [address] [place] [id number] [place] [address] Nov, Migraine headache G43.909 an d Acute seasonal allergic rhinitis, unspecified trigger J30.2 [facility] [address] [place] [id number] [address] [place] [address] Oct, Stye, left H00.016 [facility] [address] [place] [id number] [address] [place] [address] Sep, Viral URI J06.9 [facility] [address] [place] [id number] [address] [place] [address] May, [facility] [address] [address] Apr, Hordeolum externum of left l ower eyelid H00.015 [facility] WALK [place] [address] [address] Apr, Viral gastroenteritis A08.4 [facility] WALK IN [place] [address] [address] March, Viral illness B34.9 [facility] [place] [address] [address] Feb, Vomiting, intractability of vomiting not specified, presence of nausea not specified, unspecified vomiting type R11.10 [place] [address] [address] Jan, Acute nasopharyngitis J00 [facility] [place] [address] [address] Jan, Acute follicular conjunctivi tis of left eye H10.012 [place] [address] [address] Dec, Migraine without aura and wi thout status migrainosus, not intractable G43.009 [facility] [place] [address] [address] Nov, Migraine without aura and wi thout status migrainosus, not intractable G43.009 [place] [address] [address] Nov, Otalgia of right ear H92.01 [place] [address] [address] Oct, Migraine headache G43.909 an d Acute non-recurrent maxillary sinusitis J01.00 [place] [address] [address] Sep, Other viral agents as the ca use of diseases classified elsewhere B97.89 and Acute upper respiratory infection, unspecified J06.9 [place] [address] [address] Sep, Swelling of left eyelid H02. 846 [place] [address] [address] 07 Sep, 2017 Migraine headache G43.909 an d Migraine without aura and without status migrainosus, not intractable G43.009 [facility] [place] [address] [address] Aug, Pharyngitis due to other org anism J02.8 and Oral candidiasis B37.0 [place] [address] [address] Aug, Sore throat J02.9 and Acute seasonal allergic rhinitis, unspecified trigger J30.2 [place] [address] [address] Jul, Acute upper respiratory infe ction, unspecified J06.9 [place] [address] [address] Jun, Seasonal allergic rhinitis d ue to pollen J30.1 and Dysfunction of left eustachian tube H69.82 [facility] WALK IN [place] [address] [address] Jun, Strain of right shoulder, in itial encounter S46.911A [place] [address] [address] May, Migraine with aura and witho ut status migrainosus, not intractable G43.109 [facility] WALK [place] [address] [address] Apr, Sunburn L55.9 [facility] WALK IN [place] [address] [address] Apr, Gastroenteritis K52.9 [place] [address] [address] [facility] [id number] [address] [place] [address] 12 Apr, 2017 Acute left-sided thoracic ba ck pain M54.6 [place] [address] [address] [facility] [id number] [address] [place] [address] March, Migraine without aura and wi thout status migrainosus, not intractable G43.009 [place] [address] [address] [facility] [id number] [address] [place] [address] March, Intractable migraine without aura and with status migrainosus G43.011 [place] [address] [address] [facility] [id number] [address] [place] [address] Feb, Depressive disorder F32.9 an d Gastroenteritis K52.9 [place] [address] [place] [id number] [address] [place] [address] Jan, Migraine headache G43.909 [place] [address] [place] [id number] [place] [address] Jan, Migraine without aura and wi thout status migrainosus, not intractable G43.009 [place] [address] [place] [id number] [address] [place] [address] 07 Dec, 2016 Migraine without aura and wi thout status migrainosus, not intractable G43.009 [place] [address] [place] [id number] [address] [place] [address] Nov, Diarrhea, unspecified type R 19.7 [place] [address] [place] [id number] [address] [place] [address] Nov, Asthma with acute exacerbati on in adult J45.901 and Upper respiratory tract infection, unspecified type J06.9 [place] [address] [address] [facility] [id number] [address] [place] [address] Nov, [place] [address] [place] [id number] [address] [place] [address] Nov, Acute non-recurrent maxillar y sinusitis J01.00 [facility] [address] [facility] [id number] [address] [place] [address] Nov, Viral syndrome B34.9 [place] [address] [place] [id number] [place] [address] Nov, Dermatitis L30.9 [facility] WALK IN [facility] [address] [place] [id number] [place] [address] Oct, Gastroenteritis K52.9 [place] [address] [address] Oct, Sore throat (viral) J02.9 an d Migraine without aura and without status migrainosus, not intractable G43.009 [place] [address] [address] Sep, Frequent headaches R51 and 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 [facility] WALK IN [facility] [address] [address] Sep, Seasonal allergic rhinitis d ue to pollen J30.1 and Acute non-recurrent maxillary sinusitis J01.00 [place] [address] [address] Aug, Migraine headache G43.909 [place] [address] [address] Aug, Encounter to establish care Z76.89 ; Migraine without aura and without status migrainosus, not intractable G43.009 and Melanocytic nevus of trunk D22.5 [place] [address] [place] [address] Aug, [place] [address] [address] Jul, Chronic gastritis without bl eeding, unspecified gastritis type K29.50 [place] [address] [address] Jul, Cough R05 [facility] [address] [facility] [id number] [address] [place] [address] May, Gastritis without bleeding, unspecified chronicity, unspecified gastritis type K29.70 [facility] [address] [facility] [id number] [address] [place] [address] 14 May, 2016 Gastroenteritis K52.9 [facility] [address] [facility] [id number] [address] [place] [address] 05 May, 2016 Left acute otitis media H66. 92 [facility] [address] [facility] [id number] [address] [place] [address] Apr, Depressive disorder F32.9 [place] [address] [address] [facility] [id number] [address] [place] [address] Apr, Otitis media with effusion, left H65.92 [place] [address] [place] [id number] [place] [address] 16 Apr, 2016 Migraine headache G43.909 [place] [address] [facility] [id number] [address] [place] [address] Apr, Depressive disorder F32.9 an d Adjustment disorder with depressed mood F43.21 [place] [address] [facility] [id number] [address] [place] [address] March, Depressive disorder F32.9 an d Adjustment disorder with depressed mood F43.21 [place] [address] [facility] [id number] [address] [place] [address] March, Adjustment disorder with dep ressed mood F43.21 [place] [address] [facility] [id number] [address] [place] [address] March, Adjustment disorder with dep ressed mood F43.21 [place] [address] [place] [id number] [address] [place] [address] Dec, Migraine headache G43.909 [place] [address] [place] [id number] [address] [place] [address] Oct, Middle ear effusion H65.90 a nd Migraine headache G43.909 [facility] [address] [facility] [id number] [address] [place] [address] Oct, Allergic rhinitis J30.9 [facility] [address] [facility] [id number] [address] [place] [address] Oct, URI (upper respiratory infec tion) J06.9 [facility] [address] [facility] [id number] [address] [place] [address] Jul, Major depression 296.20 ; An xiety, generalized 300.02 and No condition on [place] II V71.09 [facility] [address] [place] [id number] [place] [address] Jun, Routine adult health [facility] ance V70.0 [facility] [address] [address] Jun, Major depression 296.20 ; No condition on [place] II V71.09 and No condition on axis III V71.09 [facility] [address] [address] May, Major depressive disorder, r ecurrent episode, severe 296.33 [facility] [id number] [place] [id number] Apr, Dental examination V72.2 [facility] [address] [id number] Apr, Dental examination V72.2 [facility] [address] [place] [address] Feb, [facility] [address] [place] [id number] [place] [address] Feb, [facility] [address] [place] [id number] [address] [place] [address] 16 Jan, 2015 [facility] [address] [place] [id number] [place] [address] Jan, [facility] [address] [id number] [address] [place] [address], [place] [address] Jan, [facility] [address] [id number] [address] [place] [address], [place] [address] Jan, [facility] [address] [id number] [address] [place] [address], [place] [address] Oct, [facility] [address] [id number] [address] [place] [address], [place] [address] Oct, [facility] [address] [id number] [address] [place] [address], [place] [address] Apr, [facility] [address] [id number] [address] [place] [address], [place] [address] Apr, [facility] [address] [id number] [address] [place] [address], [place] [address] March, [facility] [address] [id number] [address] [place] [address], [place] [address] March, [facility] [address] [id number] [address] [place] [address], [place] [address] Feb, [facility] [address] [id number] [address] [place] [address], [place] [address] Feb, [facility] [address] [id number] [address] [place] [address], [place] [address] Feb, [facility] [address] [id number] [address] [place] [address], [place] [address] Feb, [facility] [address] [id number] [address] [place] [address], [place] [address] Feb, [facility] [address] [id number] [address] [place] [address], [place] [address] Jan, [facility] [address] [id number] [address] [place] [address], [place] [address] Jan, [facility] [address] [id number] [address] [place] [address], [place] [address] 14 Dec, 2013 [facility] [address] [id number] [address] [place] [address], [place] [address] 14 Dec, 2013 [facility] [address] [id number] [address] [place] [address], [place] [address] Nov, [facility] [address] [id number] [address] [place] [address], [place] [address] Nov, [facility] [address] [id number] [address] [place] [address], [place] [address] Nov, [facility] [address] [id number] [address] [place] [address], [place] [address] Nov, [facility] [address] [id number] [address] [place] [address], [place] [address] Nov, [facility] [address] [id number] [address] [place] [address], [place] [address] Nov, [facility] [address] [id number] [address] [place] [address], [place] [address] Oct, [facility] [address] [id number] [address] [place] [address], [place] [address] Oct, [facility] [address] [id number] [address] [place] [address], [place] [address] Sep, [facility] [address] [id number] [address] [place] [address], [place] [address] Sep, [facility] [address] [id number] [address] [place] [address], [place] [address] Sep, [facility] [address] [id number] [address] [place] [address], [place] [address] Sep, [facility] [address] [id number] [address] [place] [address], [place] [address] Jul, [facility] [address] [id number] [address] [place] [address], [place] [address] May, [facility] [address] [id number] [address] [place] [address], [place] [address] May, [facility] [address] [id number] [address] [place] [address], [place] [address] Apr, [facility] [address] [id number] [address] [place] [address], [place] [address] 15 Apr, 2013 [facility] [address] [id number] [address] [place] [address], [place] [address] 14 Apr, 2013 [facility] [address] [id number] [address] [place] [address], [place] [address] Apr, [facility] [address] [id number] [address] [place] [address], [place] [address] March, [facility] [address] [id number] [address] [place] [address], [place] [address] Jan, [facility] [address] [id number] [address] [place] [address], [place] [address] Dec, [facility] [address] [id number] [address] [place] [address], [place] [address] Dec, [facility] [address] [id number] [address] [place] [address], [place] [address] Nov, [facility] [address] [id number] [address] [place] [address], [place] [address] Nov, [facility] [address] [id number] [address] [place] [address], [place] [address] Oct, [facility] [address] [id number] [address] [place] [address], [place] [address] Oct, [facility] [address] [id number] [address] [place] [address], [place] [address] Sep, [facility] [address] [id number] [address] [place] [address], [place] [address] Jan, [facility] [address] [id number] [address] [place] [address] Nov, [facility] [address] [facility] [id number] [address] [place] [address] Aug, [facility] [address] [facility] [id number] [address] [place] [address] Aug, [facility] [address] [facility] [id number] [address] [place] [address] Jul, [facility] [address] [facility] [id number] [address] [place] [address] Sep, IMMUNIZATIONS No Known Immunizations SOCIAL HISTORY Never Assessed REASON FOR [place]ISIT [place] [place] VITAL SIGNS MEDICATIONS No [...]
[2020-05-16 12:03] LABS: ALBUMIN 4.5 GM/DL (3.2-4.5); CHLORIDE 107 MMOL/L (98-107); SODIUM 140 MMOL/L (135-145)
--- OUTSIDE RECORDS SUMMARY | 2020-05-16 12:03 | XMS REPORT ---
Author Author Juan DOS SANTOS Organization [facility] Address [address] [place] [address] Care Team Providers Care Domestic Helper Name Role Phone TUYET DOS SANTOS Unavailable PROBLEMS Type Condition ICD9-CM Code HWC84-NA Code Onset Dates Condition S tatus SNOMED Code Problem Migraine headache G43.909 Active 37 318666 Problem Mild intermittent asthma without complication J45. 20 Active 576678273 Problem History of kidney stones Z87.442 Activ e 059601611 Problem Depressive disorder F32.9 Active 23885832 Problem Acute seasonal allergic rhinitis, unspecified trigger J30.2 Active 076748521 Problem Migraine with aura and without status migrainosu s, not intractable G43.109 Active 5766879 Problem Seasonal allergic rhinitis due to pollen J30.1 Active 54296948 Problem Migraine without aura and without status migrain osus, not intractable G43.009 Active 828637789 Problem Intractable migraine without aura and with status migr ainosus G43.011 Active 995755195 Problem Asthma with acute exacerbation in adult J45.901 Active 274143508 ALLERGIES No Known Allergies ENCOUNTERS Encounter Location Date Diagnosis [facility] [address] [id number] [address] [place] [address] May, [facility] [address] [id number] [address] [place] [address] Apr, Hordeolum externum of left l ower eyelid H00.015 [facility] [address] [id number] [address] [place] [address] Apr, Viral gastroenteritis A08.4 [facility] [address] [place] [id number] [address] [place] [address] March, Viral illness B34.9 [facility] [address] [address] Feb, Vomiting, intractability of vomiting not specified, presence of nausea not specified, unspecified vomiting type R11.10 [place] [address] [address] Jan, Acute nasopharyngitis J00 [facility] [place] [address] [address] Jan, Acute follicular conjunctivi tis of left eye H10.012 [place] [address] [address] Dec, Migraine without aura and wi thout status migrainosus, not intractable G43.009 [facility] [place] [address] [address] Nov, Migraine without aura and wi thout status migrainosus, not intractable G43.009 [place] [address] [address] Nov, Otalgia of right ear H92.01 [place] [address] [address] Oct, Migraine headache G43.909 an d Acute non-recurrent maxillary sinusitis J01.00 [place] [address] [address] Sep, Other viral agents as the ca use of diseases classified elsewhere B97.89 and Acute upper respiratory infection, unspecified J06.9 [place] [address] [address] Sep, Swelling of left eyelid H02. 846 [place] [address] [address] 07 Sep, 2017 Migraine headache G43.909 an d Migraine without aura and without status migrainosus, not intractable G43.009 [facility] [place] [address] [place] [address] 18 Aug, 2017 Pharyngitis due to other org anism J02.8 and Oral candidiasis B37.0 [place] [address] [address] [place] [id number] [place] [address] 03 Aug, 2017 Sore throat J02.9 and Acute seasonal allergic rhinitis, unspecified trigger J30.2 [place] [address] [address] Jul, Acute upper respiratory infe ction, unspecified J06.9 [place] [address] [address] Jun, Seasonal allergic rhinitis d ue to pollen J30.1 and Dysfunction of left eustachian tube H69.82 [facility] [place] [address] [address] Jun, Strain of right shoulder, in itial encounter S46.911A [place] [address] [address] May, Migraine with aura and witho ut status migrainosus, not intractable G43.109 [facility] [place] [address] [address] Apr, Sunburn L55.9 [facility] [place] [address] [place] [address] Apr, Gastroenteritis K52.9 [place] [address] [place] [id number] [place] [address] Apr, Acute left-sided thoracic ba ck pain M54.6 [place] [address] [place] [id number] [place] [address] March, Migraine without aura and wi thout status migrainosus, not intractable G43.009 [place] [address] [place] [id number] [place] [address] March, Intractable migraine without aura and with status migrainosus G43.011 [facility] [address] [facility] [id number] [address] [place] [address] Feb, Depressive disorder F32.9 an d Gastroenteritis K52.9 [facility] [address] [facility] [id number] [address] [place] [address] Jan, Migraine headache G43.909 [place] [address] [facility] [id number] [address] [place] [address] 13 Jan, 2017 Migraine without aura and wi thout status migrainosus, not intractable G43.009 [place] [address] [facility] [id number] [address] [place] [address] 07 Dec, 2016 Migraine without aura and wi thout status migrainosus, not intractable G43.009 [place] [address] [place] [id number] [address] [place] [address] Nov, Diarrhea, unspecified type R 19.7 [facility] [address] [place] [id number] [place] [address] Nov, Asthma with acute exacerbati on in adult J45.901 and Upper respiratory tract infection, unspecified type J06.9 [place] [address] [place] [id number] [address] [place] [address] Nov, [place] [address] [place] [id number] [address] [place] [address] Nov, Acute non-recurrent maxillar y sinusitis J01.00 [facility] [address] [facility] [id number] [address] [place] [address] Nov, Viral syndrome B34.9 [place] [address] [place] [id number] [address] [place] [address] Nov, Dermatitis L30.9 [facility] [address] [facility] [id number] [address] [place] [address] Oct, Gastroenteritis K52.9 [facility] [address] [id number] [address] [place] [address] Oct, Sore throat (viral) J02.9 an d Migraine without aura and without status migrainosus, not intractable G43.009 [place] [id number] [address] Sep, Frequent headaches R51 and 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 [facility] [address] [address] Sep, Seasonal allergic rhinitis d ue to pollen J30.1 and Acute non-recurrent maxillary sinusitis J01.00 [place] [address] [address] Aug, Migraine headache G43.909 [place] [address] [address] Aug, Encounter to establish care Z76.89 ; Migraine without aura and without status migrainosus, not intractable G43.009 and Melanocytic nevus of trunk D22.5 [place] [address] [address] Aug, [place] [address] [address] Jul, Chronic gastritis without bl eeding, unspecified gastritis type K29.50 [place] [address] [address] Jul, Cough R05 [place] [address] [address] May, Gastritis without bleeding, unspecified chronicity, unspecified gastritis type K29.70 [facility] [address] [address] May, Gastroenteritis K52.9 [facility] [address] 05 May, 2016 Left acute otitis media H66. 92 [facility] [address] [facility] [id number] [address] [place] [address] 23 Apr, 2016 Depressive disorder F32.9 [facility] [address] [facility] [id number] [address] [place] [address] 20 Apr, 2016 Otitis media with effusion, left H65.92 [facility] [address] [facility] [id number] [address] [place] [address] 16 Apr, 2016 Migraine headache G43.909 [facility] [address] [facility] [id number] [address] [place] [address] 09 Apr, 2016 Depressive disorder F32.9 an d Adjustment disorder with depressed mood F43.21 [facility] [address] [facility] [id number] [address] [place] [address] March, Depressive disorder F32.9 an d Adjustment disorder with depressed mood F43.21 [facility] [address] [place] [address] March, Adjustment disorder with dep ressed mood F43.21 [facility] [address] [place] [address] March, Adjustment disorder with dep ressed mood F43.21 [facility] [address] [place] [id number] [address] [place] [address] 10 Dec, 2015 Migraine headache G43.909 [facility] [address] [place] [id number] [address] [place] [address] Oct, Middle ear effusion H65.90 a nd Migraine headache G43.909 [facility] [address] [facility] [id number] [address] [place] [address] Oct, Allergic rhinitis J30.9 [facility] [address] [facility] [id number] [address] [place] [address] Oct, URI (upper respiratory infec tion) J06.9 [facility] [address] [place] [id number] [address] [place] [address] Jul, Major depression 296.20 ; An xiety, generalized 300.02 and No condition on Bethel II V71.09 [facility] [address] [id number] [address] [place] [address] Jun, Routine adult health [facility] rajeev V70.0 [facility] [address] [id number] [address] [place] [address] Jun, Major depression 296.20 ; No condition on Bethel II V71.09 and No condition on axis III V71.09 [facility] [address] [id number] [address] [place] [address] May, Major depressive disorder, r ecurrent episode, severe 296.33 [facility] [address] [id number] [address] [place] [id number] Apr, Dental examination V72.2 [facility] [address] [id number] [address] [place] [id number] Apr, Dental examination V72.2 [facility] [address] [id number] [address] [place] [address] Feb, [facility] [address] [id number] [address] [place] [address] Feb, [facility] [address] [id number] [address] [place] [address] Jan, [facility] [address] [id number] [address] [place] [address] Jan, [facility] [address] [id number] [address] [place] [address] Jan, [facility] [address] [id number] [address] [place] [address] Jan, [facility] [address] [id number] [address] [place] [address] Oct, [facility] [address] [id number] [address] [place] [address] Oct, [facility] [address] [id number] [address] [place] [address], [place] [address] Apr, [facility] [address] [id number] [address] [place] [address], [place] [address] Apr, [facility] [address] [id number] [address] [place] [address], [place] [address] March, [facility] [address] [id number] [address] [place] [address], [place] [address] March, [facility] [address] [id number] [address] [place] [address], [place] [address] Feb, [facility] [address] [id number] [address] [place] [address], [place] [address] Feb, [facility] [address] [id number] [address] [place] [address], [place] [address] Feb, [facility] [address] [id number] [address] [place] [address], [place] [address] Feb, [facility] [address] [id number] [address] [place] [address], [place] [address] Feb, [facility] [address] [id number] [address] [place] [address], [place] [address] Jan, [facility] [address] [id number] [address] [place] [address], [place] [address] Jan, [facility] [place] [facility] [address] [id number] [address] [place] [address], [place] [address] Dec, [facility] [address] [id number] [address] [place] [address], [place] [address] Dec, [facility] [place] [facility] [address] [id number] [address] [place] [address], [place] [address] Nov, [facility] [place] [facility] [address] [id number] [address] [place] [address], [place] [address] Nov, [facility] [place] [facility] [address] [id number] [address] [place] [address], [place] [address] Nov, [facility] [address] [id number] [address] [place] [address], [place] [address] Nov, [facility] [address] [id number] [address] [place] [address], [place] [address] Nov, [facility] [address] [id number] [address] [place] [address], [place] [address] Nov, [facility] [address] [id number] [address] [place] [address], [place] [address] Oct, [facility] [address] [id number] [address] [place] [address], [place] [address] Oct, [facility] [address] [id number] [address] [place] [address], [place] [address] Sep, [facility] [address] [id number] [address] [place] [address], [place] [address] Sep, [facility] [address] [id number] [address] [place] [address], [place] [address] Sep, [facility] [address] [id number] [address] [place] [address], [place] [address] Sep, [facility] [address] [id number] [address] [place] [address], [place] [address] Jul, [facility] [address] [id number] [address] [place] [address], [place] [address] May, [facility] [address] [id number] [address] [place] [address], [place] [address] May, [facility] [address] [id number] [address] [place] [address], [place] [address] Apr, [facility] [address] [id number] [address] [place] [address], [place] [address] Apr, [facility] [address] [id number] [address] [place] [address], [place] [address] 14 Apr, 2013 [facility] [address] [id number] [address] [place] [address], [place] [address] Apr, [facility] [address] [id number] [address] [place] [address], [place] [address] March, [facility] [address] [id number] [address] [place] [address], [place] [address] Jan, [facility] [address] [id number] [address] [place] [address], [place] [address] Dec, [facility] [address] [id number] [address] [place] [address], [place] [address] Dec, [facility] [address] [id number] [address] [place] [address], [place] [address] Nov, [facility] [address] [id number] [address] [place] [address], [place] [address] Nov, [facility] [address] [id number] [address] [place] [address], [place] [address] Oct, [facility] [address] [id number] [address] [place] [address], [place] [address] Oct, [facility] [address] [id number] [address] [place] [address], [place] [address] Sep, [facility] [address] [id number] [address] [place] [address], [place] [address] Jan, [facility] [address] [id number] [address] [place] [address], [place] [address] Nov, [facility] [address] [id number] [address] [place] [address], [place] [address] Aug, [facility] [place] [facility] [address] [id number] [address] [place] [address], [place] [address] Aug, [facility] [address] [id number] [address] [place] [address], [place] [address] Jul, [facility] [address] [id number] [facility] [place] [address] Sep, IMMUNIZATIONS No Known Immunizations SOCIAL HISTORY Never Assessed REASON FOR VISIT Cough, with nasal congestion, sore thrat and headache, sty on left eye and right shoulder pain-Malik PRECIADO PLAN OF CARE Activity Details Follow Up prn Reason: VITAL SIGNS Height 70 in 2018-02-10 Weight 236.8 lbs 2018-02-10 Temperature 97.9 degrees Fahrenheit 2018-02-10 Heart Rate 76 bpm 2018-02-10 Respiratory Rate 18 2018-02-10 Oximetry on room air:96 % 2018-02-10 BMI 33.97 kg/m2 2018-02-10 Blood pressure systolic 120 mmHg 2018-02-10 Blood pressure diastolic 82 mmHg 2018-02-10 MEDICATIONS Medication Instructions Dosage Frequency Start Date End Date Duration S tatus Imitrex 100 mg Orally Once a day 1 tablet as needed 24h Dec, Active Benzonatate 200 mg Orally Three times a day, prn cough 1 capsule Jan, Jan, 05 days Active Amitriptyline HCl 50 mg Orally Once a day 1 tablet 24h Dec, 30 day(s) Active RESULTS No Results PROCEDURES No [...]
--- OUTSIDE RECORDS SUMMARY | 2020-05-16 12:03 | XMS REPORT ---
Author Author Juan PEREZ Organization 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 20 Active 593820121 Problem History of kidney stones Z87.442 Activ e 571623847 Problem Depressive disorder F32.9 Active 45374773 Problem Acute seasonal allergic rhinitis, unspecified trigger J30.2 Active 824137212 Problem Migraine with aura and without status migrainosu s, not intractable G43.109 Active 7880584 Problem Seasonal allergic rhinitis due to pollen J30.1 Active 97372331 Problem Migraine without aura and without status migrain osus, not intractable G43.009 Active 425230414 Problem Intractable migraine without aura and with status migr ainosus G43.011 Active 009946560 Problem Asthma with acute exacerbation in adult J45.901 Active 035620827 ALLERGIES No Known Allergies ENCOUNTERS Encounter Location Date Diagnosis [facility] [address] [facility] [id number] [address] [place] [address] March, Viral illness B34.9 [facility] [address] [place] [id number] [address] [place] [address] Feb, Vomiting, intractability of vomiting not specified, presence of nausea not specified, unspecified vomiting type R11.10 [facility] [address] [facility] [id number] [address] [place] [address] Jan, Acute nasopharyngitis J00 [facility] [address] [place] [id number] [address] [place] [address] Jan, Acute follicular conjunctivi tis of left eye H10.012 [facility] [address] [place] [id number] [address] [place] [address] Dec, Migraine without aura and wi thout status migrainosus, not intractable G43.009 [facility] [address] [place] [id number] [address] [place] [address] Nov, Migraine without aura and wi thout status migrainosus, not intractable G43.009 [place] [address] [address] Nov, Otalgia of right ear H92.01 [place] [address] [address] Oct, Migraine headache G43.909 an d Acute non-recurrent maxillary sinusitis J01.00 [place] [address] [address] Sep, Other viral agents as the ca use of diseases classified elsewhere B97.89 and Acute upper respiratory infection, unspecified J06.9 [place] [address] [address] Sep, Swelling of left eyelid H02. 846 [place] [address] [address] Sep, Migraine headache G43.909 an d Migraine without aura and without status migrainosus, not intractable G43.009 [facility] [address] [address] Aug, Pharyngitis due to other org anism J02.8 and Oral candidiasis B37.0 [place] [address] [address] Aug, Sore throat J02.9 and Acute seasonal allergic rhinitis, unspecified trigger J30.2 [place] [address] [address] Jul, Acute upper respiratory infe ction, unspecified J06.9 [facility] [address] [facility] [id number] [address] [place] [address] Jun, Seasonal allergic rhinitis d ue to pollen J30.1 and Dysfunction of left eustachian tube H69.82 [facility] [address] [facility] [id number] [address] [place] [address] Jun, Strain of right shoulder, in itial encounter S46.911A [facility] [address] [facility] [id number] [address] [place] [address] May, Migraine with aura and witho ut status migrainosus, not intractable G43.109 [facility] [address] [place] [id number] [address] [place] [address] Apr, Sunburn L55.9 [facility] [place] [address] [place] [id number] [address] [place] [address] Apr, Gastroenteritis K52.9 [place] [address] [place] [id number] [address] [place] [address] Apr, Acute left-sided thoracic ba ck pain M54.6 [place] [address] [place] [id number] [address] [place] [address] March, Migraine without aura and wi thout status migrainosus, not intractable G43.009 [place] [address] [place] [address] March, Intractable migraine without aura and with status migrainosus G43.011 [place] [address] [place] [id number] [address] [place] [address] Feb, Depressive disorder F32.9 an d Gastroenteritis K52.9 [place] [address] [place] [id number] [address] [place] [address] Jan, Migraine headache G43.909 [place] [address] [place] [id number] [address] [place] [address] Jan, Migraine without aura and wi thout status migrainosus, not intractable G43.009 [place] [address] [address] 07 Dec, 2016 Migraine without aura and wi thout status migrainosus, not intractable G43.009 [place] [address] [place] [address] 31 Nov, 2016 Diarrhea, unspecified type R 19.7 [place] [address] [address] 18 Nov, 2016 Asthma with acute exacerbati on in adult J45.901 and Upper respiratory tract infection, unspecified type J06.9 [place] [address] [address] 11 Nov, 2016 [place] [address] [address] Nov, Acute non-recurrent maxillar y sinusitis J01.00 [place] [address] [address] 04 Nov, 2016 Viral syndrome B34.9 [place] [address] [address] Nov, Dermatitis L30.9 [facility] [place] [address] [address] Oct, Gastroenteritis K52.9 [place] [address] [address] 07 Oct, 2016 Sore throat (viral) J02.9 an d Migraine without aura and without status migrainosus, not intractable G43.009 [place] [address] [place] [id number] [address] [place] [address] Sep, Frequent headaches R51 and 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 [facility] [address] [address] Sep, Seasonal allergic rhinitis d ue to pollen J30.1 and Acute non-recurrent maxillary sinusitis J01.00 [place] [address] [place] [address] Aug, Migraine headache G43.909 [place] [address] [place] [id number] [address] [place] [address] Aug, Encounter to [facility] Z76.89 ; Migraine without aura and without status migrainosus, not intractable G43.009 and Melanocytic nevus of trunk D22.5 [place] [address] [place] [address] Aug, [place] [address] [place] [address] Jul, Chronic gastritis without bl eeding, unspecified gastritis type K29.50 [place] [address] [address] Jul, Cough R05 [place] [address] [place] [address] May, Gastritis without bleeding, unspecified chronicity, unspecified gastritis type K29.70 [facility] [address] [place] [id number] [address] [place] [address] 14 May, 2016 Gastroenteritis K52.9 [facility] [address] [place] [address] 05 May, 2016 Left acute otitis media H66. 92 [place] [address] [place] [id number] [address] [place] [address] Apr, Depressive disorder F32.9 [place] [address] [place] [id number] [address] [place] [address] Apr, Otitis media with effusion, left H65.92 [place] [address] [place] [id number] [address] [place] [address] 16 Apr, 2016 Migraine headache G43.909 [facility] [address] [facility] [id number] [address] [place] [address] Apr, Depressive disorder F32.9 an d Adjustment disorder with depressed mood F43.21 [facility] [address] [facility] [id number] [address] [place] [address] March, Depressive disorder F32.9 an d Adjustment disorder with depressed mood F43.21 [facility] [address] [place] [address] March, Adjustment disorder with dep ressed mood F43.21 [place] [address] [facility] [id number] [address] [place] [address] March, Adjustment disorder with dep ressed mood F43.21 [place] [address] [place] [address] Dec, Migraine headache G43.909 [place] [address] [place] [id number] [address] [place] [address] Oct, Middle ear effusion H65.90 a nd Migraine headache G43.909 [facility] [address] [place] [id number] [address] [place] [address] Oct, Allergic rhinitis J30.9 [facility] [address] [place] [id number] [address] [place] [address] Oct, URI (upper respiratory infec tion) J06.9 [facility] [address] [place] [address] Jul, Major depression 296.20 ; An xiety, generalized 300.02 and No condition on Pollock II V71.09 [place] [address] [place] [id number] [address] [place] [address] Jun, Routine [facility] ance V70.0 [facility] [address] [address] Jun, Major depression 296.20 ; No condition on Pollock II V71.09 and No condition on axis III V71.09 [facility] [address] [id number] [address] [place] [address] May, Major depressive disorder, r ecurrent episode, severe 296.33 [facility] [address] [id number] [address] [place] [address] [id number] 17 Apr, 2015 Dental examination V72.2 [facility] [address] [id number] [address] [place] [id number] 10 Apr, 2015 Dental examination V72.2 [facility] [address] [id number] [address] [place] [address] 14 Feb, 2015 [facility] [address] [id number] [address] [place] [address] Feb, [facility] [address] [id number] [address] [place] [address] 16 Jan, 2015 [facility] [address] [id number] [address] [place] [address] Jan, [facility] [address] [id number] [address] [place] [address] Jan, [facility] [address] [id number] [address] [place] [address] Jan, [facility] [address] [id number] [address] [place] [address] Oct, [facility] [address] [id number] [address] [place] [address] Oct, [facility] [address] [id number] [address] [place] [address] Apr, [facility] [address] [id number] [address] [place] [address] Apr, [facility] [address] [id number] [address] [place] [address] March, [facility] [address] [id number] [address] [place] [address] [place] [address] March, [facility] [address] [id number] [address] [place] [address], [place] [address] Feb, [facility] [address] [id number] [address] [place] [address], [place] [address] Feb, [facility] [address] [id number] [address] [place] [address], [place] [address] Feb, [facility] [address] [id number] [address] [place] [address], [place] [address] Feb, [facility] [address] [id number] [address] [place] [address], [place] [address] Feb, [facility] [address] [id number] [address] [place] [address], [place] [address] Jan, [facility] [address] [id number] [address] [place] [address], [place] [address] Jan, [facility] [address] [id number] [address] [place] [address], [place] [address] Dec, [facility] [address] [id number] [address] [place] [address], [place] [address] Dec, [facility] [address] [id number] [address] [place] [address], [place] [address] Nov, [facility] [address] [id number] [address] [place] [address], [place] [address] Nov, [facility] [address] [id number] [address] [place] [address], [place] [address] Nov, [facility] [address] [id number] [address] [place] [address], [place] [address] Nov, [facility] [address] [id number] [address] [place] [address], [place] [address] Nov, [facility] [address] [id number] [address] [place] [address], [place] [address] Nov, [facility] [address] [id number] [address] [place] [address], [place] [address] Oct, [facility] [address] [id number] [address] [place] [address], [place] [address] Oct, [facility] [address] [id number] [address] [place] [address], [place] [address] Sep, [facility] [address] [id number] [address] [place] [address], [place] [address] Sep, [facility] [address] [id number] [address] [place] [address], [place] [address] Sep, [facility] [address] [id number] [address] [place] [address], [place] [address] Sep, [facility] [address] [id number] [address] [place] [address], [place] [address] Jul, [facility] [address] [id number] [address] [place] [address], [place] [address] May, [facility] [address] [id number] [address] [place] [address], [place] [address] May, [facility] [address] [id number] [address] [place] [address], [place] [address] Apr, [facility] [address] [id number] [address] [place] [address], [place] [address] Apr, [facility] [address] [id number] [address] [place] [address], [place] [address] Apr, [facility] [address] [id number] [address] [place] [address], [place] [address] Apr, [facility] [address] [id number] [address] [place] [address], [place] [address] March, [facility] [address] [id number] [address] [place] [address], [place] [address] Jan, [facility] [address] [id number] [address] [address] Dec, [facility] [address] [id number] [address] [place] [address] Dec, [facility] [address] [id number] [address] [place] [address] Nov, [facility] [address] [id number] [address] [place] [address] Nov, [facility] [address] [id number] [address] [place] [address] Oct, [facility] [address] [id number] [address] [place] [address] Oct, [facility] [address] [id number] [address] [place] [address] Sep, [facility] [address] [id number] [address] [place] [address] Jan, [facility] [address] [id number] [address] [place] [address] Nov, [facility] [address] [id number] [address] [place] [address] Aug, [facility] [address] [id number] [address] [place] [address] Aug, [facility] [address] [id number] [address] [place] [address] Jul, [facility] [address] [id number] [address] [place] [address] Sep, IMMUNIZATIONS No Known Immunizations SOCIAL HISTORY Never Assessed REASON FOR VISIT sore throat started yesterday- has had one on and off for 2-3 months JStrasserRN PLAN OF CARE VITAL SIGNS Height 70 in 2017-09-11 Weight 231.8 lbs 2017-09-11 Temperature 97.2 degrees Fahrenheit 2017-09-11 Heart Rate 88 bpm 2017-09-11 Respiratory Rate 20 2017-09-11 BMI 33.26 kg/m2 2017-09-11 Blood pressure systolic 122 mmHg 2017-09-11 Blood pressure diastolic 80 mmHg 2017-09-11 MEDICATIONS Medication Instructions Dosage Frequency Start Date End Date Duration Donato edgar Fluconazole 100 mg Orally Once a day 1 tablet 24h Aug, Sep, 14 days Active RESULTS No Results PROCEDURES No [...]
--- OUTSIDE RECORDS SUMMARY | 2020-05-16 12:03 | XMS REPORT ---
Author Author Juan URIAS Organization [facility] Address [address] [place] [address] Care Team Providers Care Associate Professor Of Engineering Name Role Phone BERNARD URIAS Unavailable PROBLEMS Type Condition ICD9-CM Code YDT04-[id number] Code Onset Dates Condition S tatus SNOMED Code Problem Migraine headache G43.909 Active 37 376993 Problem Mild intermittent asthma without complication J45. 20 Active 233240286 Problem History of kidney stones Z87.442 Activ e 501892490 Problem Depressive disorder F32.9 Active 42638261 Problem Acute seasonal allergic rhinitis, unspecified trigger J30.2 Active 332941983 Problem Migraine with aura and without status migrainosu s, not intractable G43.109 Active 2364946 Problem Seasonal allergic rhinitis due to pollen J30.1 Active 19630695 Problem Migraine without aura and without status migrain osus, not intractable G43.009 Active 690765965 Problem Intractable migraine without aura and with status migr ainosus G43.011 Active 473440929 Problem Asthma with acute exacerbation in adult J45.901 Active 837069351 ALLERGIES No Known Allergies ENCOUNTERS Encounter Location Date Diagnosis [facility] [address] [id number] [address] [place] [address] May, [facility] [address] [place] [id number] [address] [place] [address] Apr, Hordeolum externum of left l ower eyelid H00.015 [facility] [address] [place] [address] Apr, Viral gastroenteritis A08.4 [facility] [address] [place], [place] [id number] [address] [place] [address] March, Viral illness B34.9 [facility] [id number] [place] [address] Feb, Vomiting, intractability of vomiting not specified, presence of nausea not specified, unspecified vomiting type R11.10 [place] [address] [address] Jan, Acute nasopharyngitis J00 [facility] IN [place] [address] [address] Jan, Acute follicular conjunctivi tis of left eye H10.012 [place] [address] [address] Dec, Migraine without aura and wi thout status migrainosus, not intractable G43.009 [facility] [place] [address] [address] Nov, Migraine without aura and wi thout status migrainosus, not intractable G43.009 [place] [address] [address] Nov, Otalgia of right ear H92.01 [place] [address] [address] Oct, Migraine headache G43.909 an d Acute non-recurrent maxillary sinusitis J01.00 [place] [address] [address] Sep, Other viral agents as the ca use of diseases classified elsewhere B97.89 and Acute upper respiratory infection, unspecified J06.9 [place] [address] [address] Sep, Swelling of left eyelid H02. 846 [place] [address] [address] 07 Sep, 2017 Migraine headache G43.909 an d Migraine without aura and without status migrainosus, not intractable G43.009 [facility] [place] [address] [place] [address] Aug, Pharyngitis due to other org anism J02.8 and Oral candidiasis B37.0 [place] [address] [place] [address] Aug, Sore throat J02.9 and Acute seasonal allergic rhinitis, unspecified trigger J30.2 [place] [address] [address] Jul, Acute upper respiratory infe ction, unspecified J06.9 [place] [address] [address] Jun, Seasonal allergic rhinitis d ue to pollen J30.1 and Dysfunction of left eustachian tube H69.82 [facility] [place] [address] [address] Jun, Strain of right shoulder, in itial encounter S46.911A [place] [address] [address] May, Migraine with aura and witho ut status migrainosus, not intractable G43.109 [facility] [place] [address] [address] Apr, Sunburn L55.9 [facility] IN [place] [address] [address] Apr, Gastroenteritis K52.9 [place] [address] [address] Apr, Acute left-sided thoracic ba ck pain M54.6 [place] [address] [address] March, Migraine without aura and wi thout status migrainosus, not intractable G43.009 [place] [address] [address] March, Intractable migraine without aura and with status migrainosus G43.011 [facility] [address] [facility] [id number] [address] [place] [address] Feb, Depressive disorder F32.9 an d Gastroenteritis K52.9 [facility] [address] [facility] [id number] [address] [place] [address] Jan, Migraine headache G43.909 [place] [address] [facility] [id number] [address] [place] [address] Jan, Migraine without aura and wi thout status migrainosus, not intractable G43.009 [place] [address] [facility] [id number] [address] [place] [address] 07 Dec, 2016 Migraine without aura and wi thout status migrainosus, not intractable G43.009 [place] [address] [place] [id number] [address] [place] [address] Nov, Diarrhea, unspecified type R 19.7 [place] [address] [place] [id number] [address] [place] [address] 18 Nov, 2016 Asthma with acute exacerbati on in adult J45.901 and Upper respiratory tract infection, unspecified type J06.9 [place] [address] [place] [id number] [address] [place] [address] 11 Nov, 2016 [place] [address] [place] [address] 10 Nov, 2016 Acute non-recurrent maxillar y sinusitis J01.00 [facility] [address] [place] [id number] [place] [address] Nov, Viral syndrome B34.9 [place] [address] [place] [id number] [address] [place] [address] Nov, Dermatitis L30.9 [facility] [address] [id number] [address] [place] [address] Oct, Gastroenteritis K52.9 [facility] [id number] [place] [address] Oct, Sore throat (viral) J02.9 an d Migraine without aura and without status migrainosus, not intractable G43.009 [place] [address] [place] [id number] [place] [address] Sep, Frequent headaches R51 and 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 [facility] N [address] [address] Sep, Seasonal allergic rhinitis d ue to pollen J30.1 and Acute non-recurrent maxillary sinusitis J01.00 [place] [address] [address] Aug, Migraine headache G43.909 [place] [address] [address] Aug, Encounter to establish care Z76.89 ; Migraine without aura and without status migrainosus, not intractable G43.009 and Melanocytic nevus of trunk D22.5 [place] [address] [address] Aug, [place] [address] [address] Jul, Chronic gastritis without bl eeding, unspecified gastritis type K29.50 [place] [address] [address] Jul, Cough R05 [place] [address] [place] [id number] [place] [address] May, Gastritis without bleeding, unspecified chronicity, unspecified gastritis type K29.70 [facility] [address] [place] [id number] [address] [place] [address] May, Gastroenteritis K52.9 [facility] N [address] [address] May, Left acute otitis media H66. 92 [facility] [address] [facility] [id number] [address] [place] [address] Apr, Depressive disorder F32.9 [facility] [address] [facility] [id number] [address] [place] [address] Apr, Otitis media with effusion, left H65.92 [facility] [address] [place] [id number] [address] [place] [address] Apr, Migraine headache G43.909 [facility] [address] [facility] [id number] [address] [place] [address] Apr, Depressive disorder F32.9 an d Adjustment disorder with depressed mood F43.21 [facility] [address] [address] March, Depressive disorder F32.9 an d Adjustment disorder with depressed mood F43.21 [facility] [id number] [place] [address] March, Adjustment disorder with dep ressed mood F43.21 [facility] [address] [address] March, Adjustment disorder with dep ressed mood F43.21 [facility] [id number] [place] [address] Dec, Migraine headache G43.909 [facility] [address] [place] [address] Oct, Middle ear effusion H65.90 a nd Migraine headache G43.909 [facility] [address] [facility] [id number] [address] [place] [address] Oct, Allergic rhinitis J30.9 [facility] [address] [place] [id number] [address] [place] [address] Oct, URI (upper respiratory infec tion) J06.9 [facility] [id number] [place] [address] Jul, Major depression 296.20 ; An xiety, generalized 300.02 and No condition on [place] II V71.09 [facility] [address] [id number] [address] [place] [address] Jun, Routine adult health [facility] rajeev V70.0 [facility] [address] [id number] [address] [place] [address] Jun, Major depression 296.20 ; No condition on [place] II V71.09 and No condition on axis III V71.09 [facility] [address] [id number] [address] [place] [address] May, Major depressive disorder, r ecurrent episode, severe 296.33 [facility] [address] [id number] [address] [place] [id number] Apr, Dental examination V72.2 [facility] [address] [id number] [place] [id number] Apr, Dental examination V72.2 [facility] [address] [id number] [address] [place] [address] Feb, [facility] [address] [id number] [address] [place] [address] Feb, [facility] [address] [id number] [address] [place] [address] Jan, [facility] [address] [id number] [address] [place] [address] Jan, [facility] [address] [id number] [address] [place] [address] Jan, [facility] [address] [id number] [address] [place] [address] Jan, [facility] [address] [id number] [address] [place] [address] Oct, [facility] [address] [id number] [address] [place] [address] [place] [address] Oct, [facility] [address] [id number] [address] [place] [address], [place] [address] Apr, [facility] [address] [id number] [address] [place] [address], [place] [address] Apr, [facility] [address] [id number] [address] [place] [address], [place] [address] March, [facility] [address] [id number] [address] [place] [address], [place] [address] March, [facility] [address] [id number] [address] [place] [address], [place] [address] Feb, [facility] [address] [id number] [address] [place] [address], [place] [address] Feb, [facility] [address] [id number] [address] [place] [address], [place] [address] Feb, [facility] [address] [id number] [address] [place] [address], [place] [address] Feb, [facility] [address] [id number] [address] [place] [address], [place] [address] Feb, [facility] [address] [id number] [address] [place] [address], [place] [address] Jan, [facility] [address] [id number] [address] [place] [address], [place] [address] Jan, [facility] [address] [id number] [address] [place] [address], [place] [address] Dec, [facility] [address] [id number] [address] [place] [address], [place] [address] Dec, [facility] [address] [id number] [address] [place] [address], [place] [address] Nov, [facility] [address] [id number] [address] [place] [address], [place] [address] Nov, [facility] [address] [id number] [address] [place] [address], [place] [address] Nov, [facility] [address] [id number] [address] [place] [address], [place] [address] Nov, [facility] [address] [id number] [address] [place] [address], [place] [address] Nov, [facility] [address] [id number] [address] [place] [address], [place] [address] Nov, [facility] [address] [id number] [address] [place] [address], [place] [address] Oct, [facility] [address] [id number] [address] [place] [address], [place] [address] Oct, [facility] [address] [id number] [address] [place] [address], [place] [address] Sep, [facility] [address] [id number] [address] [place] [address], [place] [address] Sep, [facility] [address] [id number] [address] [place] [address], [place] [address] Sep, [facility] [address] [id number] [address] [place] [address], [place] [address] Sep, [facility] [address] [id number] [address] [place] [address], [place] [address] Jul, [facility] [address] [id number] [address] [place] [address], [place] [address] May, [facility] [address] [id number] [address] [place] [address], [place] [address] May, [facility] [address] [id number] [address] [place] [address], [place] [address] Apr, [facility] [address] [id number] [address] [place] [address], [place] [address] Apr, [facility] [address] [id number] [address] [place] [address], [place] [address] 14 Apr, 2013 [facility] [address] [id number] [address] [place] [address], [place] [address] Apr, [facility] [address] [id number] [address] [place] [address], [place] [address] March, [facility] [address] [id number] [address] [place] [address], [place] [address] Jan, [facility] [address] [id number] [address] [place] [address], [place] [address] Dec, [facility] [address] [id number] [address] [place] [address], [place] [address] Dec, [facility] [address] [id number] [address] [place] [address], [place] [address] Nov, [facility] [address] [id number] [address] [place] [address], [place] [address] Nov, [facility] [address] [id number] [address] [place] [address], [place] [address] Oct, [facility] [address] [id number] [address] [place] [address], [place] [address] Oct, [facility] [address] [id number] [address] [place] [address], [place] [address] Sep, [facility] [address] [id number] [address] [place] [address], [place] [address] Jan, [facility] [address] [id number] [address] [place] [address], [place] [address] Nov, [facility] [address] [id number] [address] [place] [address], [place] [address] Aug, [facility] [address] [id number] [address] [place] [address], [place] [address] Aug, [facility] [address] [id number] [address] [place] [address], [place] [address] Jul, [facility] [address] [id number] [address] [place] [address] Sep, IMMUNIZATIONS No Known Immunizations SOCIAL HISTORY Never Assessed REASON FOR VISIT Vomiting Pt c/o vomiting since right after breakfast, has been able to keep flu ids down for about the last hour OZZY Walker PLAN OF CARE Activity Details Follow Up prn Reason: VITAL SIGNS Height 70 in 2018-03-13 Weight 238.8 lbs 2018-03-13 Temperature 97.5 degrees Fahrenheit 2018-03-13 Heart Rate 80 bpm 2018-03-13 Respiratory Rate 18 2018-03-13 BMI 34.26 kg/m2 2018-03-13 Blood pressure systolic 128 mmHg 2018-03-13 Blood pressure diastolic 80 mmHg 2018-03-13 MEDICATIONS Medication Instructions Dosage Frequency Start Date End Date Duration S tatus Amitriptyline HCl 50 mg Orally Once a day 1 tablet 24h Dec, 30 day(s) Active Imitrex 100 mg Orally Once a day 1 tablet as needed 24h Dec, Active RESULTS No Results PROCEDURES No Known [...]
--- OUTSIDE RECORDS SUMMARY | 2020-05-16 12:03 | XMS REPORT ---
Author Author Juan TINOCO Organization [facility] Address [address] [place] [address] Care Team Providers Care Equipment Operation Instructor Name Role Phone CARINA TINOCOWNYA Unavailable PROBLEMS Type Condition ICD9-CM Code KVM51-LV Code Onset Dates Condition S tatus SNOMED Code Problem Migraine headache G43.909 Active 37 360053 Problem Mild intermittent asthma without complication J45. 20 Active 382103442 Problem History of kidney stones Z87.442 Activ e 423435337 Problem Depressive disorder F32.9 Active 23958931 Problem Acute seasonal allergic rhinitis, unspecified trigger J30.2 Active 096501859 Problem Migraine with aura and without status migrainosu s, not intractable G43.109 Active 8964295 Problem Seasonal allergic rhinitis due to pollen J30.1 Active 89550049 Problem Migraine without aura and without status migrain osus, not intractable G43.009 Active 136041355 Problem Intractable migraine without aura and with status migr ainosus G43.011 Active 815970700 Problem Asthma with acute exacerbation in adult J45.901 Active 724158517 ALLERGIES No Known Allergies ENCOUNTERS Encounter Location Date Diagnosis [facility] [address] [place] [id number] [address] [place] [address] May, [facility] [address] [place] [id number] [address] [place] [address] Apr, Hordeolum externum of left l ower eyelid H00.015 [facility] [address] [place] [address] Apr, Viral gastroenteritis A08.4 [facility] [address] [place], [place] [id number] [address] [place] [address] March, Viral illness B34.9 [facility] [place] [address] [place] [id number] [place] [address] Feb, Vomiting, intractability of vomiting not specified, presence of nausea not specified, unspecified vomiting type R11.10 [place] [address] [address] Jan, Acute nasopharyngitis J00 [facility] [place] [address] [address] Jan, Acute follicular conjunctivi tis of left eye H10.012 [place] [address] [address] Dec, Migraine without aura and wi thout status migrainosus, not intractable G43.009 [facility] [place] [address] [address] Nov, Migraine without aura and wi thout status migrainosus, not intractable G43.009 [place] [address] [address] Nov, Otalgia of right ear H92.01 [place] [address] [address] Oct, Migraine headache G43.909 an d Acute non-recurrent maxillary sinusitis J01.00 [place] [address] [address] Sep, Other viral agents as the ca use of diseases classified elsewhere B97.89 and Acute upper respiratory infection, unspecified J06.9 [place] [address] [address] Sep, Swelling of left eyelid H02. 846 [place] [address] [address] 07 Sep, 2017 Migraine headache G43.909 an d Migraine without aura and without status migrainosus, not intractable G43.009 [facility] [place] [address] [place] [address] Aug, Pharyngitis due to other org anism J02.8 and Oral candidiasis B37.0 [place] [address] [place] [address] Aug, Sore throat J02.9 and Acute seasonal allergic rhinitis, unspecified trigger J30.2 [place] [address] [address] Jul, Acute upper respiratory infe ction, unspecified J06.9 [place] [address] [address] Jun, Seasonal allergic rhinitis d ue to pollen J30.1 and Dysfunction of left eustachian tube H69.82 [facility] [place] [address] [address] Jun, Strain of right shoulder, in itial encounter S46.911A [place] [address] [address] May, Migraine with aura and witho ut status migrainosus, not intractable G43.109 [facility] [place] [address] [address] Apr, Sunburn L55.9 [facility] [place] [address] [address] Apr, Gastroenteritis K52.9 [place] [address] [address] Apr, Acute left-sided thoracic ba ck pain M54.6 [place] [address] [address] March, Migraine without aura and wi thout status migrainosus, not intractable G43.009 [place] [address] [address] March, Intractable migraine without aura and with status migrainosus G43.011 [facility] [address] [facility] [id number] [address] [place] [address] Feb, Depressive disorder F32.9 an d Gastroenteritis K52.9 [facility] [address] [facility] [id number] [address] [place] [address] Jan, Migraine headache G43.909 [place] [address] [facility] [id number] [address] [place] [address] Jan, Migraine without aura and wi thout status migrainosus, not intractable G43.009 [place] [address] [facility] [id number] [address] [place] [address] 07 Dec, 2016 Migraine without aura and wi thout status migrainosus, not intractable G43.009 [place] [address] [place] [id number] [address] [place] [address] Nov, Diarrhea, unspecified type R 19.7 [place] [address] [place] [id number] [address] [place] [address] 18 Nov, 2016 Asthma with acute exacerbati on in adult J45.901 and Upper respiratory tract infection, unspecified type J06.9 [place] [address] [place] [id number] [address] [place] [address] 11 Nov, 2016 [place] [address] [place] [address] 10 Nov, 2016 Acute non-recurrent maxillar y sinusitis J01.00 [facility] [address] [place] [id number] [address] [place] [address] Nov, Viral syndrome B34.9 [place] [address] [place] [id number] [address] [place] [address] Nov, Dermatitis L30.9 [facility] [address] [place] [id number] [address] [place] [address] Oct, Gastroenteritis K52.9 [facility] [address] [place] [id number] [address] [place] [address] Oct, Sore throat (viral) J02.9 an d Migraine without aura and without status migrainosus, not intractable G43.009 [place] [address] [place] [id number] [place] [address] Sep, Frequent headaches R51 and 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 [facility] [address] [address] Sep, Seasonal allergic rhinitis d ue to pollen J30.1 and Acute non-recurrent maxillary sinusitis J01.00 [place] [address] [address] Aug, Migraine headache G43.909 [place] [address] [address] Aug, Encounter to establish care Z76.89 ; Migraine without aura and without status migrainosus, not intractable G43.009 and Melanocytic nevus of trunk D22.5 [place] [address] [address] Aug, [place] [address] [address] Jul, Chronic gastritis without bl eeding, unspecified gastritis type K29.50 [place] [address] [address] Jul, Cough R05 [place] [address] [place] [id number] [place] [address] May, Gastritis without bleeding, unspecified chronicity, unspecified gastritis type K29.70 [facility] [address] [place] [id number] [place] [address] May, Gastroenteritis K52.9 [facility] [address] [address] May, Left acute otitis media H66. 92 [facility] [address] [facility] [id number] [address] [place] [address] Apr, Depressive disorder F32.9 [facility] [address] [facility] [id number] [address] [place] [address] Apr, Otitis media with effusion, left H65.92 [facility] [address] [place] [id number] [address] [place] [address] Apr, Migraine headache G43.909 [facility] [address] [facility] [id number] [address] [place] [address] Apr, Depressive disorder F32.9 an d Adjustment disorder with depressed mood F43.21 [facility] [address] [address] March, Depressive disorder F32.9 an d Adjustment disorder with depressed mood F43.21 [facility] [address] [place] [id number] [place] [address] March, Adjustment disorder with dep ressed mood F43.21 [facility] [address] [address] March, Adjustment disorder with dep ressed mood F43.21 [facility] [address] [place] [id number] [place] [address] Dec, Migraine headache G43.909 [facility] [address] [place] [address] Oct, Middle ear effusion H65.90 a nd Migraine headache G43.909 [facility] [address] [facility] [id number] [address] [place] [address] Oct, Allergic rhinitis J30.9 [facility] [address] [place] [id number] [address] [place] [address] Oct, URI (upper respiratory infec tion) J06.9 [facility] [address] [place] [id number] [place] [address] Jul, Major depression 296.20 ; An xiety, generalized 300.02 and No condition on Hellier II V71.09 [facility] [address] [id number] [address] [place] [address] Jun, Routine adult health [facility] rajeev V70.0 [facility] [address] [id number] [address] [place] [address] Jun, Major depression 296.20 ; No condition on Hellier II V71.09 and No condition on axis III V71.09 [facility] [address] [id number] [address] [place] [address] May, Major depressive disorder, r ecurrent episode, severe 296.33 [facility] [address] [id number] [address] [place] [id number] Apr, Dental examination V72.2 [facility] [address] [id number] [place] [id number] Apr, Dental examination V72.2 [facility] [address] [id number] [address] [place] [address] Feb, [facility] [address] [id number] [address] [place] [address] Feb, [facility] [address] [id number] [address] [place] [address] Jan, [facility] [address] [id number] [address] [place] [address] Jan, [facility] [address] [id number] [address] [place] [address] Jan, [facility] [address] [id number] [address] [place] [address] Jan, [facility] [address] [id number] [address] [place] [address] Oct, [facility] [address] [id number] [address] [place] [address] [place] [address] Oct, [facility] [address] [id number] [address] [place] [address], [place] [address] Apr, [facility] [address] [id number] [address] [place] [address], [place] [address] Apr, [facility] [address] [id number] [address] [place] [address], [place] [address] March, [facility] [address] [id number] [address] [place] [address], [place] [address] March, [facility] [address] [id number] [address] [place] [address], [place] [address] Feb, [facility] [address] [id number] [address] [place] [address], [place] [address] Feb, [facility] [address] [id number] [address] [place] [address], [place] [address] Feb, [facility] [address] [id number] [address] [place] [address], [place] [address] Feb, [facility] [address] [id number] [address] [place] [address], [place] [address] Feb, [facility] [address] [id number] [address] [place] [address], [place] [address] Jan, [facility] [address] [id number] [address] [place] [address], [place] [address] Jan, [facility] [address] [id number] [address] [place] [address], [place] [address] Dec, [facility] [address] [id number] [address] [place] [address], [place] [address] Dec, [facility] [address] [id number] [address] [place] [address], [place] [address] Nov, [facility] [address] [id number] [address] [place] [address], [place] [address] Nov, [facility] [address] [id number] [address] [place] [address], [place] [address] Nov, [facility] [address] [id number] [address] [place] [address], [place] [address] Nov, [facility] [address] [id number] [address] [place] [address], [place] [address] Nov, [facility] [address] [id number] [address] [place] [address], [place] [address] Nov, [facility] [address] [id number] [address] [place] [address], [place] [address] Oct, [facility] [address] [id number] [address] [place] [address], [place] [address] Oct, [facility] [address] [id number] [address] [place] [address], [place] [address] Sep, [facility] [address] [id number] [address] [place] [address], [place] [address] Sep, [facility] [address] [id number] [address] [place] [address], [place] [address] Sep, [facility] [address] [id number] [address] [place] [address], [place] [address] Sep, [facility] [address] [id number] [address] [place] [address], [place] [address] Jul, [facility] [address] [id number] [address] [place] [address], [place] [address] May, [facility] [address] [id number] [address] [place] [address], [place] [address] May, [facility] [address] [id number] [address] [place] [address], [place] [address] Apr, [facility] [address] [id number] [address] [place] [address], [place] [address] Apr, [facility] [address] [id number] [address] [place] [address], [place] [address] 14 Apr, 2013 [facility] [address] [id number] [address] [place] [address], [place] [address] Apr, [facility] [address] [id number] [address] [place] [address], [place] [address] March, [facility] [address] [id number] [address] [place] [address], [place] [address] Jan, [facility] [address] [id number] [address] [place] [address], [place] [address] Dec, [facility] [address] [id number] [address] [place] [address], [place] [address] Dec, [facility] [address] [id number] [address] [place] [address], [place] [address] Nov, [facility] [address] [id number] [address] [place] [address], [place] [address] Nov, [facility] [address] [id number] [address] [place] [address], [place] [address] Oct, [facility] [address] [id number] [address] [place] [address], [place] [address] Oct, [facility] [address] [id number] [address] [place] [address], [place] [address] Sep, [facility] [address] [id number] [address] [place] [address], [place] [address] Jan, [facility] [address] [id number] [address] [place] [address], [place] [address] Nov, [facility] [address] [id number] [address] [place] [address], [place] [address] Aug, [facility] [address] [id number] [address] [place] [address], [place] [address] Aug, [facility] [address] [id number] [address] [place] [address], [place] [address] Jul, [facility] [address] [id number] [address] [place] [address] Sep, IMMUNIZATIONS No Known Immunizations SOCIAL HISTORY Never Assessed REASON FOR VISIT Left eye pain started 2 days ago JStrasserRN PLAN OF CARE Activity Details Follow Up if not improving with PCP or reg follow up Reason: VITAL SIGNS Height 70 in 2018-01-23 Weight 239.0 lbs 2018-01-23 Temperature 96.8 degrees Fahrenheit 2018-01-23 Heart Rate 66 bpm 2018-01-23 Respiratory Rate 18 2018-01-23 BMI 34.29 kg/m2 2018-01-23 Blood pressure systolic 118 mmHg 2018-01-23 Blood pressure diastolic 80 mmHg 2018-01-23 MEDICATIONS Medication Instructions Dosage Frequency Start Date End Date Duration S tatus Gentak 0.3 % Ophthalmic Twice a day 1 application 12h 01 Jan, 20 18 8 Jan, 2018 07 days Active Bactrim DS 800-160 MG Orally Twice a day 1 tablet 12h Jan, 2 018 6 Jan, 2018 05 days Active Amitriptyline HCl 50 mg [...]
--- OUTSIDE RECORDS SUMMARY | 2020-05-16 12:03 | XMS REPORT ---
Author Author Juan JASON Organization [facility] Address [address] [place] [address] Care Team Providers Care Can Solderer Name Role Phone KELSY JASON Unavailable PROBLEMS Type Condition ICD9-CM Code KZU10-CC Code Onset Dates Condition S tatus SNOMED Code Problem Migraine headache G43.909 Active 37 315809 Problem Mild intermittent asthma without complication J45. 20 Active 995704426 Problem History of kidney stones Z87.442 Activ e 806464769 Problem Depressive disorder F32.9 Active 07125094 Problem Acute seasonal allergic rhinitis, unspecified trigger J30.2 Active 334387692 Problem Migraine with aura and without status migrainosu s, not intractable G43.109 Active 3919689 Problem Seasonal allergic rhinitis due to pollen J30.1 Active 33159570 Problem Migraine without aura and without status migrain osus, not intractable G43.009 Active 106636092 Problem Intractable migraine without aura and with status migr ainosus G43.011 Active 204495759 Problem Asthma with acute exacerbation in adult J45.901 Active 128975048 ALLERGIES No Known Allergies ENCOUNTERS Encounter Location Date Diagnosis [facility] [id number] [address] [place] [address] May, [facility] [id number] [address] [place] [address] Apr, Hordeolum externum of left l ower eyelid H00.[address] [facility] [id number] [place] [address] Apr, Viral gastroenteritis A08.4 [facility] [id number] [address] [place] [address] March, Viral illness B34.9 [facility] [address] [address] Feb, Vomiting, intractability of vomiting not specified, presence of nausea not specified, unspecified vomiting type R11.10 [place] [address] [address] Jan, Acute nasopharyngitis J00 [facility] [place] [address] [address] Jan, Acute follicular conjunctivi tis of left eye H10.012 [place] [address] [address] Dec, Migraine without aura and wi thout status migrainosus, not intractable G43.009 [facility] [place] [address] [address] Nov, Migraine without aura and wi thout status migrainosus, not intractable G43.009 [place] [address] [address] Nov, Otalgia of right ear H92.01 [place] [address] [address] Oct, Migraine headache G43.909 an d Acute non-recurrent maxillary sinusitis J01.00 [place] [address] [address] Sep, Other viral agents as the ca use of diseases classified elsewhere B97.89 and Acute upper respiratory infection, unspecified J06.9 [place] [address] [address] Sep, Swelling of left eyelid H02. 846 [place] [address] [address] 07 Sep, 2017 Migraine headache G43.909 an d Migraine without aura and without status migrainosus, not intractable G43.009 [facility] [place] [address] [place] [address] [place] [address] 18 Aug, 2017 Pharyngitis due to other org anism J02.8 and Oral candidiasis B37.0 [place] [address] [address] Aug, Sore throat J02.9 and Acute seasonal allergic rhinitis, unspecified trigger J30.2 [place] [address] [address] Jul, Acute upper respiratory infe ction, unspecified J06.9 [place] [address] [address] Jun, Seasonal allergic rhinitis d ue to pollen J30.1 and Dysfunction of left eustachian tube H69.82 [facility] [place] [address] [address] Jun, Strain of right shoulder, in itial encounter S46.911A [place] [address] [address] May, Migraine with aura and witho ut status migrainosus, not intractable G43.109 [facility] [place] [address] [address] Apr, Sunburn L55.9 [facility] [place] [address] [address] Apr, Gastroenteritis K52.9 [place] [address] [address] Apr, Acute left-sided thoracic ba ck pain M54.6 [place] [address] [address] March, Migraine without aura and wi thout status migrainosus, not intractable G43.009 [place] [address] [address] March, Intractable migraine without aura and with status migrainosus G43.011 [facility] [address] [facility] [id number] [address] [place] [address] Feb, Depressive disorder F32.9 an d Gastroenteritis K52.9 [facility] [address] [facility] [id number] [address] [place] [address] Jan, Migraine headache G43.909 [place] [address] [facility] [id number] [address] [place] [address] Jan, Migraine without aura and wi thout status migrainosus, not intractable G43.009 [place] [address] [facility] [id number] [address] [place] [address] 07 Dec, 2016 Migraine without aura and wi thout status migrainosus, not intractable G43.009 [place] [address] [place] [id number] [place] [address] Nov, Diarrhea, unspecified type R 19.7 [place] [address] [facility] [id number] [address] [place] [address] 18 Nov, 2016 Asthma with acute exacerbati on in adult J45.901 and Upper respiratory tract infection, unspecified type J06.9 [place] [address] [place] [id number] [place] [address] Nov, [place] [address] [place] [address] Nov, Acute non-recurrent maxillar y sinusitis J01.00 [facility] [address] [facility] [id number] [address] [place] [address] Nov, Viral syndrome B34.9 [place] [address] [place] [id number] [place] [address] 02 Nov, 2016 Dermatitis L30.9 [facility] [address] [facility] [id number] [address] [place] [address] Oct, Gastroenteritis K52.9 [facility] [address] [address] Oct, Sore throat (viral) J02.9 an d Migraine without aura and without status migrainosus, not intractable G43.009 [place] [address] [address] Sep, Frequent headaches R51 and 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 [address] [address] Sep, Seasonal allergic rhinitis d ue to pollen J30.1 and Acute non-recurrent maxillary sinusitis J01.00 [place] [address] [address] Aug, Migraine headache G43.909 [place] [address] [address] Aug, Encounter to establish care Z76.89 ; Migraine without aura and without status migrainosus, not intractable G43.009 and Melanocytic nevus of trunk D22.5 [place] [address] [address] Aug, [place] [address] [address] Jul, Chronic gastritis without bl eeding, unspecified gastritis type K29.50 [place] [address] [address] Jul, Cough R05 [place] [address] [place] [id number] [place] [address] May, Gastritis without bleeding, unspecified chronicity, unspecified gastritis type K29.70 [facility] [address] [place] [address] May, Gastroenteritis K52.9 [facility] N [address] [address] 05 Yohannes, 2016 Left acute otitis media H66. 92 [facility] [address] [facility] [id number] [address] [place] [address] 23 Apr, 2016 Depressive disorder F32.9 [facility] [address] [facility] [id number] [address] [place] [address] Apr, Otitis media with effusion, left H65.92 [facility] [address] [facility] [id number] [address] [place] [address] 16 Apr, 2016 Migraine headache G43.909 [facility] [address] [facility] [id number] [address] [place] [address] Apr, Depressive disorder F32.9 an d Adjustment disorder with depressed mood F43.21 [facility] [id number] [place] [address] March, Depressive disorder F32.9 an d Adjustment disorder with depressed mood F43.21 [facility] [address] [place] [address] March, Adjustment disorder with dep ressed mood F43.21 [facility] [address] [place] [address] March, Adjustment disorder with dep ressed mood F43.21 [facility] [id number] [place] [address] Dec, Migraine headache G43.909 [facility] [id number] [place] [address] Oct, Middle ear effusion H65.90 a nd Migraine headache G43.909 [facility] [address] [facility] [id number] [address] [place] [address] Oct, Allergic rhinitis J30.9 [facility] [address] [facility] [id number] [address] [place] [address] Oct, URI (upper respiratory infec tion) J06.9 [facility] [id number] [place] [address] Jul, Major depression 296.20 ; An xiety, generalized 300.02 and No condition on Newell II V71.09 [facility] [address] [id number] [address] [place] [address] Jun, Routine adult health [facility] rajeev V70.0 [facility] [address] [id number] [address] [place] [address] Jun, Major depression 296.20 ; No condition on Newell II V71.09 and No condition on axis III V71.09 [facility] [address] [id number] [address] [place] [address] May, Major depressive disorder, r ecurrent episode, severe 296.33 [facility] [address] [id number] [address] [place] [id number] Apr, Dental examination V72.2 [facility] [address] [id number] [address] [place] [id number] Apr, Dental examination V72.2 [facility] [address] [id number] [address] [place] [address] Feb, [facility] [address] [id number] [address] [place] [address] Feb, [facility] [address] [id number] [address] [place] [address] Jan, [facility] [address] [id number] [address] [place] [address] Jan, [facility] [address] [id number] [address] [place] [address] Jan, [facility] [address] [id number] [address] [place] [address] Jan, [facility] [address] [id number] [address] [place] [address] Oct, [facility] [address] [id number] [address] [place] [address] Oct, [facility] [address] [id number] [address] [place] [address], [place] [address] Apr, [facility] [address] [id number] [address] [place] [address], [place] [address] Apr, [facility] [address] [id number] [address] [place] [address], [place] [address] March, [facility] [address] [id number] [address] [place] [address], [place] [address] March, [facility] [address] [id number] [address] [place] [address], [place] [address] Feb, [facility] [address] [id number] [address] [place] [address], [place] [address] Feb, [facility] [address] [id number] [address] [place] [address], [place] [address] Feb, [facility] [address] [id number] [address] [place] [address], [place] [address] Feb, [facility] [address] [id number] [address] [place] [address], [place] [address] Feb, [facility] [address] [id number] [address] [place] [address], [place] [address] Jan, [facility] [address] [id number] [address] [place] [address], [place] [address] Jan, [facility] [address] [id number] [address] [place] [address], [place] [address] Dec, [facility] [address] [id number] [address] [place] [address], [place] [address] Dec, [facility] [address] [id number] [address] [place] [address], [place] [address] Nov, [facility] [address] [id number] [address] [place] [address], [place] [address] Nov, [facility] [address] [id number] [address] [place] [address], [place] [address] Nov, [facility] [address] [id number] [address] [place] [address], [place] [address] Nov, [facility] [address] [id number] [address] [place] [address], [place] [address] Nov, [facility] [address] [id number] [address] [place] [address], [place] [address] Nov, [facility] [address] [id number] [address] [place] [address], [place] [address] Oct, [facility] [address] [id number] [address] [place] [address], [place] [address] Oct, [facility] [address] [id number] [address] [place] [address], [place] [address] Sep, [facility] [address] [id number] [address] [place] [address], [place] [address] Sep, [facility] [address] [id number] [address] [place] [address], [place] [address] Sep, [facility] [address] [id number] [address] [place] [address], [place] [address] Sep, [facility] [address] [id number] [address] [place] [address], [place] [address] Jul, [facility] [address] [id number] [address] [place] [address], [place] [address] May, [facility] [address] [id number] [address] [place] [address], [place] [address] May, [facility] [address] [id number] [address] [place] [address], [place] [address] Apr, [facility] [address] [id number] [address] [place] [address], [place] [address] 15 Apr, 2013 [facility] [address] [id number] [address] [place] [address], [place] [address] 14 Apr, 2013 [facility] [address] [id number] [address] [place] [address], [place] [address] Apr, [facility] [address] [id number] [address] [place] [address], [place] [address] March, [facility] [address] [id number] [address] [place] [address], [place] [address] Jan, [facility] [address] [id number] [address] [place] [address], [place] [address] Dec, [facility] [address] [id number] [address] [place] [address], [place] [address] Dec, [facility] [address] [id number] [address] [place] [address], [place] [address] Nov, [facility] [address] [id number] [address] [place] [address], [place] [address] Nov, [facility] [address] [id number] [address] [place] [address], [place] [address] Oct, [facility] [address] [id number] [address] [place] [address], [place] [address] Oct, [facility] [address] [id number] [address] [place] [address], [place] [address] Sep, [facility] [address] [id number] [address] [place] [address], [place] [address] Jan, [facility] [address] [id number] [address] [place] [address], [place] [address] Nov, [facility] [address] [id number] [address] [place] [address], [place] [address] Aug, [facility] [address] [id number] [address] [place] [address], [place] [address] Aug, [facility] [address] [id number] [address] [place] [address], [place] [address] Jul, [facility] [address] [id number] [address] [place] [address] Sep, IMMUNIZATIONS No Known Immunizations SOCIAL HISTORY Never Assessed REASON FOR VISIT Migraine yesterday since 1500 into this am. migraine has subsided. some nausea et is worried he might have a foodborne illness. [email or web address] PLAN OF CARE Activity Details Follow Up prn Reason: VITAL SIGNS Height 70 in 2018-04-01 Weight 240.2 lbs 2018-04-01 Temperature 97.9 degrees Fahrenheit 2018-04-01 Heart Rate 82 bpm 2018-04-01 Respiratory Rate 20 2018-04-01 BMI 34.46 kg/m2 2018-04-01 Blood pressure systolic 130 mmHg 2018-04-01 Blood pressure diastolic 74 mmHg 2018-04-01 MEDICATIONS Medication Instructions Dosage Frequency Start Date End Date Duration S tatus Amitriptyline HCl 50 mg Orally Once a day 1 tablet 24h Dec, 30 day(s) Not-Taking Imitrex 100 mg Orally Once a day 1 tablet as needed 24h Dec, Not-Taking RESULTS No Results PROCEDURES No Known procedures [...]
--- OUTSIDE RECORDS SUMMARY | 2020-05-16 12:03 | XMS REPORT ---
Author Author Juan Stockton Organization [facility] Address [address] [place] [address] Care Team Providers Care Technical Assistant Name Role Phone Kath PHILIPP Unavailable PROBLEMS Type Condition ICD9-CM Code LNP52-YF Code Onset Dates Condition S tatus SNOMED Code Problem Migraine headache G43.909 Active 37 541445 Problem Mild intermittent asthma without complication J45. 20 Active 422662639 Problem History of kidney stones Z87.442 Activ e 969967423 Problem Depressive disorder F32.9 Active 51006285 Problem Acute seasonal allergic rhinitis, unspecified trigger J30.2 Active 921070442 Problem Migraine with aura and without status migrainosu s, not intractable G43.109 Active 1644095 Problem Seasonal allergic rhinitis due to pollen J30.1 Active 68842970 Problem Migraine without aura and without status migrain osus, not intractable G43.009 Active 609650245 Problem Intractable migraine without aura and with status migr ainosus G43.011 Active 549213337 Problem Asthma with acute exacerbation in adult J45.901 Active 927342952 ALLERGIES No Known Allergies ENCOUNTERS Encounter Location Date Diagnosis [facility] [address] [place] [id number] [place] [address] May, [facility] [id number] [place] [address] Apr, Hordeolum externum of left l ower eyelid H00.015 [facility] [address] [place] [id number] [address] [place] [address] Apr, Viral gastroenteritis A08.4 [facility] [address] [id number] [address] [place] [address] March, Viral illness B34.9 [facility] [place] [address] [place] [id number] [place] [address] Feb, Vomiting, intractability of vomiting not specified, presence of nausea not specified, unspecified vomiting type R11.10 [place] [address] [place] [id number] [place] [address] Jan, Acute nasopharyngitis J00 [facility] [place] [address] [address] Jan, Acute follicular conjunctivi tis of left eye H10.012 [place] [address] [place] [id number] [place] [address] Dec, Migraine without aura and wi thout status migrainosus, not intractable G43.009 [place] [address] [address] Nov, Migraine without aura and wi thout status migrainosus, not intractable G43.009 [place] [address] [place] [id number] [place] [address] Nov, Otalgia of right ear H92.01 [place] [address] [address] Oct, Migraine headache G43.909 an d Acute non-recurrent maxillary sinusitis J01.00 [place] [address] [address] 29 Sep, 2017 Other viral agents as the ca use of diseases classified elsewhere B97.89 and Acute upper respiratory infection, unspecified J06.9 [place] [address] [address] 21 Sep, 2017 Swelling of left eyelid H02. 846 [place] [address] [place] [id number] [place] [address] 07 Sep, 2017 Migraine headache G43.909 an d Migraine without aura and without status migrainosus, not intractable G43.009 [facility] [place] [address] [place] [id number] [place] [address] 18 Aug, 2017 Pharyngitis due to other org anism J02.8 and Oral candidiasis B37.0 [place] [address] [place] [id number] [place] [address] Aug, Sore throat J02.9 and Acute seasonal allergic rhinitis, unspecified trigger J30.2 [place] [address] [address] Jul, Acute upper respiratory infe ction, unspecified J06.9 [place] [address] [address] Jun, Seasonal allergic rhinitis d ue to pollen J30.1 and Dysfunction of left eustachian tube H69.82 [facility] [place] [address] [address] Jun, Strain of right shoulder, in itial encounter S46.911A [place] [address] [address] May, Migraine with aura and witho ut status migrainosus, not intractable G43.109 [facility] [place] [address] [address] Apr, Sunburn L55.9 [facility] [place] [address] [address] Apr, Gastroenteritis K52.9 [place] [address] [address] Apr, Acute left-sided thoracic ba ck pain M54.6 [place] [address] [place] [id number] [place] [address] March, Migraine without aura and wi thout status migrainosus, not intractable G43.009 [place] [address] [address] March, Intractable migraine without aura and with status migrainosus G43.011 [facility] [address] [facility] [id number] [address] [place] [address] Feb, Depressive disorder F32.9 an d Gastroenteritis K52.9 [place] [address] [facility] [id number] [address] [place] [address] Jan, Migraine headache G43.909 [place] [address] [facility] [id number] [address] [place] [address] Jan, Migraine without aura and wi thout status migrainosus, not intractable G43.009 [place] [address] [place] [id number] [place] [address] 07 Dec, 2016 Migraine without aura and wi thout status migrainosus, not intractable G43.009 [place] [address] [place] [address] Nov, Diarrhea, unspecified type R 19.7 [place] [address] [place] [id number] [place] [address] Nov, Asthma with acute exacerbati on in adult J45.901 and Upper respiratory tract infection, unspecified type J06.9 [place] [address] [place] [id number] [place] [address] Nov, [place] [address] [place] [address] Nov, Acute non-recurrent maxillar y sinusitis J01.00 [facility] [address] [place] [id number] [place] [address] Nov, Viral syndrome B34.9 [place] [address] [place] [id number] [place] [address] Nov, Dermatitis L30.9 [facility] [address] 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 [facility] [address] [address] Sep, Seasonal allergic rhinitis d ue to pollen J30.1 and Acute non-recurrent maxillary sinusitis J01.00 [place] [address] [address] Aug, Migraine headache G43.909 [place] [address] [address] Aug, Encounter to establish care Z76.89 ; Migraine without aura and without status migrainosus, not intractable G43.009 and Melanocytic nevus of trunk D22.5 [place] [address] [address] Aug, [place] [address] [address] Jul, Chronic gastritis without bl eeding, unspecified gastritis type K29.50 [place] [address] [place] [id number] [place] [address] Jul, Cough R05 [place] [address] [place] [id number] [place] [address] May, Gastritis without bleeding, unspecified chronicity, unspecified gastritis type K29.70 [facility] [place] [address] [place] [id number] [place] [address] May, Gastroenteritis K52.9 [facility] [place] [address] [address] May, Left acute otitis media H66. 92 [facility] [address] [id number] [address] [place] [address] Apr, Depressive disorder F32.9 [facility] [address] [place] [id number] [place] [address] Apr, Otitis media with effusion, left H65.92 [facility] [address] [id number] [place] [address] Apr, Migraine headache G43.909 [facility] [address] [place] [id number] [place] [address] Apr, Depressive disorder F32.9 an d Adjustment disorder with depressed mood F43.21 [facility] [address] [id number] [place] [address] March, Depressive disorder F32.9 an d Adjustment disorder with depressed mood F43.21 [facility] [address] [id number] [place] [address] March, Adjustment disorder with dep ressed mood F43.21 [facility] [address] [place] [id number] [place] [address] March, Adjustment disorder with dep ressed mood F43.21 [facility] [address] [id number] [place] [address] Dec, Migraine headache G43.909 [facility] [address] [place] [address] Oct, Middle ear effusion H65.90 a nd Migraine headache G43.909 [facility] [address] [place] [address] Oct, Allergic rhinitis J30.9 [facility] [address] [place] [address] Oct, URI (upper respiratory infec tion) J06.9 [facility] [address] [id number] [place] [address] Jul, Major depression 296.20 ; An xiety, generalized 300.02 and No condition on Andrews II V71.09 [facility] [address] [id number] [address] [place] [address] Jun, Routine adult health [facility] raegan V70.0 [facility] [address] [id number] [address] [place] [address] Jun, Major depression 296.20 ; No condition on Andrews II V71.09 and No condition on axis III V71.09 [facility] [address] [id number] [address] [place] [address] May, Major depressive disorder, r ecurrent episode, severe 296.33 [facility] [address] [id number] [address] [place] [id number] Apr, Dental examination V72.2 [facility] [address] [id number] [address] [place] [address] [id number] Apr, Dental examination V72.2 [facility] [address] [id number] [address] [place] [address] Feb, [facility] [address] [id number] [address] [place] [address] Feb, [facility] [address] [id number] [address] [place] [address] Jan, [facility] [address] [id number] [address] [place] [address] Jan, [facility] [address] [id number] [address] [place] [address] Jan, [facility] [address] [id number] [address] [place] [address] Jan, [facility] [address] [id number] [address] [place] [address] Oct, [facility] [address] [id number] [address] [place] [address], [place] [address] Oct, [facility] [address] [id number] [address] [place] [address], [place] [address] Apr, [facility] [address] [id number] [address] [place] [address], [place] [address] Apr, [facility] [address] [id number] [address] [place] [address], [place] [address] March, [facility] [address] [id number] [address] [place] [address], [place] [address] March, [facility] [address] [id number] [address] [place] [address], [place] [address] Feb, [facility] [address] [id number] [address] [place] [address], [place] [address] Feb, [facility] [address] [id number] [address] [place] [address], [place] [address] Feb, [facility] [address] [id number] [address] [place] [address], [place] [address] Feb, [facility] [address] [id number] [address] [place] [address], [place] [address] Feb, [facility] [address] [id number] [address] [place] [address], [place] [address] Jan, [facility] [address] [id number] [address] [place] [address], [place] [address] Jan, [facility] [address] [id number] [address] [place] [address], [place] [address] Dec, [facility] [address] [id number] [address] [place] [address], [place] [address] Dec, [facility] [address] [id number] [address] [place] [address], [place] [address] Nov, [facility] [address] [id number] [address] [place] [address], [place] [address] Nov, [facility] [address] [id number] [address] [place] [address], [place] [address] Nov, [facility] [address] [id number] [address] [place] [address], [place] [address] Nov, [facility] [address] [id number] [address] [place] [address], [place] [address] Nov, [facility] [address] [id number] [address] [place] [address], [place] [address] Nov, [facility] [address] [id number] [address] [place] [address], [place] [address] Oct, [facility] [address] [id number] [address] [place] [address], [place] [address] Oct, [facility] [address] [id number] [address] [place] [address], [place] [address] Sep, [facility] [address] [id number] [address] [place] [address], [place] [address] Sep, [facility] [address] [id number] [address] [place] [address], [place] [address] Sep, [facility] [address] [id number] [address] [place] [address] Sep, [facility] [address] [id number] [address] [place] [address], [place] [address] Jul, [facility] [address] [id number] [address] [place] [address] May, [facility] [address] [id number] [address] [place] [address], [place] [address] May, [facility] [address] [id number] [address] [place] [address], [place] [address] Apr, [facility] [address] [id number] [address] [place] [address] Apr, [facility] [address] [id number] [address] [place] [address] 14 Apr, 2013 [facility] [address] [id number] [address] [place] [address], [place] [address] 10 Apr, 2013 [facility] [address] [id number] [address] [place] [address], [place] [address] March, [facility] [address] [id number] [address] [place] [address], [place] [address] Jan, [facility] [address] [id number] [address] [place] [address], [place] [address] Dec, [facility] [address] [id number] [address] [place] [address], [place] [address] Dec, [facility] [address] [id number] [address] [place] [address], [place] [address] Nov, [facility] [address] [id number] [address] [place] [address], [place] [address] Nov, [facility] [address] [id number] [address] [place] [address], [place] [address] Oct, [facility] [address] [id number] [address] [place] [address], [place] [address] Oct, [facility] [address] [id number] [address] [place] [address], [place] [address] Sep, [facility] [address] [id number] [address] [place] [address], [place] [address] Jan, [facility] [address] [id number] [address] [place] [address], [place] [address] Nov, [facility] [address] [id number] [address] [place] [address], [place] [address] Aug, [facility] [address] [id number] [address] [place] [address], [place] [address] Aug, [facility] [address] [id number] [address] [place] [address], [place] [address] Jul, [facility] [address] [facility] [id number] [address] [place] [address] Sep, IMMUNIZATIONS No Known Immunizations SOCIAL HISTORY Never Assessed REASON FOR VISIT severe sunburn started over the weekend- Right leg is painful [employer] PLAN OF CARE Activity Details Follow Up 1 Week, prn Reason: VITAL SIGNS Height 70 in 2017-05-21 Weight 243.8 lbs 2017-05-21 Temperature 98.0 degrees Fahrenheit 2017-05-21 Heart Rate 62 bpm 2017-05-21 Respiratory Rate 20 2017-05-21 BMI 34.98 kg/m2 2017-05-21 Blood pressure systolic 128 mmHg 2017-05-21 Blood pressure diastolic 78 mmHg 2017-05-21 MEDICATIONS Medication Instructions Dosage Frequency Start Date End Date Duration S tat Proventil HFA 108 (90 Base) MCG/ACT Inhalation every 4 hrs 2 puffs as needed 4h Active Mvmaeqymls-BGWZ-Iapwyfyb 50-325-40 MG Orally every 4 hrs 1 capsule as needed 4h March, Active Zofran ODT 4 MG Orally every 8 hrs 1 tablet on the tongue and al low to dissolve 8h Apr, 5 days Active Cyclobenzaprine HCl 10 mg Orally 2 times a day 1 tablet as needed 1 2h 12 Apr, 2017 Active Propranolol HCl 40 mg Orally Twice a day 1 tablet 12h March, 30 day(s) Active Silvadene 1 % Externally Once a day 1 application to affected area 24h Apr, May, 10 days Active RESULTS No Results PROCEDURES No [...]
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
--- OUTSIDE RECORDS SUMMARY | 2020-05-16 12:04 | XMS REPORT ---
Author Author Juan TREJO Organization [facility] Address [address] [place] [address] Care Team Providers Care Undergraduate Advisor Name Role Phone JANET TREJO Unavailable PROBLEMS Type Condition ICD9-CM Code AZQ48-OM Code Onset Dates Condition S tatus SNOMED Code Problem Migraine headache G43.909 Active 37 755724 Problem Mild intermittent asthma without complication J45. 20 Active 677912257 Problem History of kidney stones Z87.442 Activ e 070939383 Problem Depressive disorder F32.9 Active 84609914 Problem Acute seasonal allergic rhinitis, unspecified trigger J30.2 Active 560322581 Problem Migraine with aura and without status migrainosu s, not intractable G43.109 Active 0449987 Problem Seasonal allergic rhinitis due to pollen J30.1 Active 08617650 Problem Migraine without aura and without status migrain osus, not intractable G43.009 Active 167178506 Problem Intractable migraine without aura and with status migr ainosus G43.011 Active 793896622 Problem Asthma with acute exacerbation in adult J45.901 Active 941881045 ALLERGIES No Known Allergies ENCOUNTERS Encounter Location Date Diagnosis [facility] [address] [facility] [id number] [address] [place] [phone] March, Viral illness B34.9 [facility] [address] [facility] [id number] [address] [place] [phone] Feb, Vomiting, intractability of vomiting not specified, presence of nausea not specified, unspecified vomiting type R11.10 [facility] [address] [facility] [id number] [address] [place] [phone] Jan, Acute nasopharyngitis J00 [facility] [address] [facility] [id number] [address] [place] [id number] Jan, Acute follicular conjunctivi tis of left eye H10.012 [facility] [id number] [place] [id number] Dec, Migraine without aura and wi thout status migrainosus, not intractable G43.009 [facility] [address] [place] [id number] [address] [place] [id number] Nov, Migraine without aura and wi thout status migrainosus, not intractable G43.009 [place] [address] [address] Nov, Otalgia of right ear H92.01 [place] [address] [address] Oct, Migraine headache G43.909 an d Acute non-recurrent maxillary sinusitis J01.00 [place] [address] [address] Sep, Other viral agents as the ca use of diseases classified elsewhere B97.89 and Acute upper respiratory infection, unspecified J06.9 [place] [address] [address] Sep, Swelling of left eyelid H02. 846 [place] [address] [address] Sep, Migraine headache G43.909 an d Migraine without aura and without status migrainosus, not intractable G43.009 [facility] [address] [place] [id number] [address] [place] [id number] Aug, Pharyngitis due to other org anism J02.8 and Oral candidiasis B37.0 [place] [address] [address] 03 Aug, 2017 Sore throat J02.9 and Acute seasonal allergic rhinitis, unspecified trigger J30.2 [place] [address] [address] Jul, Acute upper respiratory infe ction, unspecified J06.9 [facility] [address] [facility] [id number] [address] [place] [phone] Jun, Seasonal allergic rhinitis d ue to pollen J30.1 and Dysfunction of left eustachian tube H69.82 [facility] [address] [id number] [address] [place] [id number] Jun, Strain of right shoulder, in itial encounter S46.911A [place] [address] [facility] [id number] [address] [place] [id number] May, Migraine with aura and witho ut status migrainosus, not intractable G43.109 [facility] [address] [facility] [id number] [address] [place] [id number] Apr, Sunburn L55.9 [facility] [address] [facility] [id number] [address] [place] [phone] Apr, Gastroenteritis K52.9 [place] [address] [place] [id number] [address] [place] [phone] Apr, Acute left-sided thoracic ba ck pain M54.6 [place] [address] [facility] [id number] [address] [place] [id number] March, Migraine without aura and wi thout status migrainosus, not intractable G43.009 [place] [address] [facility] [id number] [address] [place] [id number] March, Intractable migraine without aura and with status migrainosus G43.011 [place] [address] [facility] [id number] [address] [place] [id number] Feb, Depressive disorder F32.9 an d Gastroenteritis K52.9 [place] [address] [facility] [id number] [address] [place] [address] Jan, Migraine headache G43.909 [place] [address] [place] [id number] [address] [place] [id number] 13 Jan, 2017 Migraine without aura and wi thout status migrainosus, not intractable G43.009 [place] [address] [facility] [id number] [address] [place] [id number] 07 Dec, 2016 Migraine without aura and wi thout status migrainosus, not intractable G43.009 [place] [address] [facility] [id number] [address] [place] [id number] 31 Nov, 2016 Diarrhea, unspecified type R 19.7 [place] [address] [facility] [id number] [address] [place] [id number] 18 Nov, 2016 Asthma with acute exacerbati on in adult J45.901 and Upper respiratory tract infection, unspecified type J06.9 [place] [address] [place] [id number] [address] [place] [id number] 11 Nov, 2016 [place] [address] [address] 10 Nov, 2016 Acute non-recurrent maxillar y sinusitis J01.00 [place] [address] [facility] [id number] [address] [place] [id number] 04 Nov, 2016 Viral syndrome B34.9 [place] [address] [place] [id number] [address] [place] [id number] 02 Nov, 2016 Dermatitis L30.9 [facility] [place] [id number] [address] [place] [id number] [address] [place] [phone] Oct, Gastroenteritis K52.9 [place] [address] [facility] [id number] [address] [place] [id number] 07 Oct, 2016 Sore throat (viral) J02.9 an d Migraine without aura and without status migrainosus, not intractable G43.009 [place] [id number] [facility] [id number] [address] [place] [phone] 29 Sep, 2016 Frequent headaches R51 and 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 [address] [place] [id number] [address] [place] [id number] Sep, Seasonal allergic rhinitis d ue to pollen J30.1 and Acute non-recurrent maxillary sinusitis J01.00 [place] [address] [place] [id number] [address] [place] [phone] Aug, Migraine headache G43.909 [place] [address] [place] [id number] [address] [place] [id number] Aug, Encounter to establish care Z76.89 ; Migraine without aura and without status migrainosus, not intractable G43.009 and Melanocytic nevus of trunk D22.5 [place] [address] [place] [id number] [address] [place] [phone] Aug, [place] [address] [place] [id number] [address] [place] [id number] Jul, Chronic gastritis without bl eeding, unspecified gastritis type K29.50 [place] [address] [place] [id number] Jul, Cough R05 [place] [address] [place] [id number] [address] [place] [phone] May, Gastritis without bleeding, unspecified chronicity, unspecified gastritis type K29.70 [facility] [address] [place] [id number] [address] [place] [phone] May, Gastroenteritis K52.9 [facility] [place] [address] [place] [id number] [address] [place] [id number] May, Left acute otitis media H66. 92 [place] [address] [place] [id number] [address] [place] [phone] Apr, Depressive disorder F32.9 [place] [address] [place] [id number] [address] [place] [id number] Apr, Otitis media with effusion, left H65.92 [place] [address] [place] [address] Apr, Migraine headache G43.909 [facility] [address] [facility] [id number] [address] [place] [id number] 09 Apr, 2016 Depressive disorder F32.9 an d Adjustment disorder with depressed mood F43.21 [facility] [address] [facility] [id number] [address] [place] [id number] March, Depressive disorder F32.9 an d Adjustment disorder with depressed mood F43.21 [facility] [address] [facility] [id number] [address] [place] [id number] March, Adjustment disorder with dep ressed mood F43.21 [facility] [address] [place] [id number] [address] [place] [id number] March, Adjustment disorder with dep ressed mood F43.21 [facility] [address] [place] [id number] [address] [place] [id number] Dec, Migraine headache G43.909 [facility] [address] [place] [address] Oct, Middle ear effusion H65.90 a nd Migraine headache G43.909 [facility] [address] [place] [id number] [address] [place] [id number] Oct, Allergic rhinitis J30.9 [facility] [address] [place] [id number] [address] [place] [id number] Oct, URI (upper respiratory infec tion) J06.9 [facility] [address] [place] [id number] [address] [place] [id number] Jul, Major depression 296.20 ; An xiety, generalized 300.02 and No condition on [place] II V71.09 [facility] [address] [place] [id number] [address] [place] [id number] Jun, Routine adult health [facility] ance V70.0 [facility] [address] [place] [id number] [address] [place] [id number] 13 Aug, 2015 Major depression 296.20 ; No condition on [place] II V71.09 and No condition on axis III V71.09 [facility] [address] [id number] [address] [place] [id number] May, Major depressive disorder, r ecurrent episode, severe 296.33 [facility] [address] [id number] [place] [id number] 17 Apr, 2015 Dental examination V72.2 [facility] [address] [id number] [address] [place] [id number] Apr, Dental examination V72.2 [facility] [address] [id number] [address] [place] [id number] 14 Feb, 2015 [facility] [address] [id number] [address] [place] [phone] Feb, [facility] [address] [id number] [address] [place] [id number] Jan, [facility] [address] [id number] [address] [place] [phone] Jan, [facility] [address] [id number] [address] [place] [id number] Jan, [facility] [address] [id number] [address] [place] [phone] Jan, [facility] [address] [id number] [address] [place] [id number] Oct, [facility] [address] [id number] [address] [place] [phone] Oct, [facility] [address] [id number] [address] [place] [phone] Apr, [facility] [address] [id number] [address] [place] [id number] Apr, [facility] [address] [id number] [address] [place] [id number] March, [facility] [address] [id number] [address] [place] [address], [place] [address] March, [facility] [address] [id number] [address] [place] [address], [place] [address] Feb, [facility] [address] [id number] [address] [place] [address], [place] [address] Feb, [facility] [address] [id number] [address] [place] [address], [place] [address] Feb, [facility] [address] [id number] [address] [place] [address], [place] [address] Feb, [facility] [address] [id number] [address] [place] [address], [place] [address] Feb, [facility] [address] [id number] [address] [place] [address], [place] [address] Jan, [facility] [address] [id number] [address] [place] [address], [place] [address] Jan, [facility] [address] [id number] [address] [place] [address], [place] [address] Dec, [facility] [address] [id number] [address] [place] [address], [place] [address] Dec, [facility] [address] [id number] [address] [place] [address], [place] [address] Nov, [facility] [address] [id number] [address] [place] [address], [place] [address] Nov, [facility] [address] [id number] [address] [place] [address], [place] [address] Nov, [facility] [address] [id number] [address] [place] [address], [place] [address] Nov, [facility] [address] [id number] [address] [place] [address], [place] [address] Nov, [facility] [address] [id number] [address] [place] [address], [place] [address] Nov, [facility] [address] [id number] [address] [place] [address], [place] [address] Oct, [facility] [address] [id number] [address] [place] [address], [place] [address] Oct, [facility] [address] [id number] [address] [place] [address], [place] [address] Sep, [facility] [address] [id number] [address] [place] [address], [place] [address] Sep, [facility] [address] [id number] [address] [place] [address], [place] [address] Sep, [facility] [address] [id number] [address] [place] [address], [place] [address] Sep, [facility] [address] [id number] [address] [place] [address], [place] [address] Jul, [facility] [address] [id number] [address] [place] [address], [place] [address] May, [facility] [address] [id number] [address] [place] [address], [place] [address] May, [facility] [address] [id number] [address] [place] [address], [place] [address] Apr, [facility] [address] [id number] [address] [place] [address], [place] [address] Apr, [facility] [address] [id number] [address] [place] [address], [place] [address] Apr, [facility] [address] [id number] [address] [place] [address], [place] [address] Apr, [facility] [address] [id number] [address] [place] [address], [place] [address] March, [facility] [address] [id number] [address] [place] [address], [place] [address] Jan, [facility] [address] [id number] [address] [place] [phone] Dec, [facility] [address] [id number] [address] [place] [phone] Dec, [facility] [address] [id number] [address] [place] [phone] Nov, [facility] [address] [id number] [address] [place] [phone] Nov, [facility] [address] [id number] [address] [place] [phone] Oct, [facility] [address] [id number] [address] [place] [phone] Oct, [facility] [address] [id number] [address] [place] [phone] Sep, [facility] [address] [id number] [address] [place] [phone] Jan, [facility] [address] [id number] [address] [place] [phone] Nov, [facility] [address] [id number] [address] [place] [phone] Aug, [facility] [address] [id number] [address] [place] [id number] Aug, [facility] [address] [id number] [address] [place] [id number] Jul, [facility] [address] [id number] [address] [place] [phone] Sep, IMMUNIZATIONS No Known Immunizations SOCIAL HISTORY Never Assessed REASON FOR VISIT fever, runny nose, headache, sore throat--Wojciech Melendez MA PLAN OF CARE Activity Details Follow Up prn Reason: VITAL SIGNS Height 70 in 2017-10-23 Weight 229.7 lbs 2017-10-23 Temperature 98.8 degrees Fahrenheit 2017-10-23 Heart Rate 88 bpm 2017-10-23 Respiratory Rate 20 2017-10-23 BMI 32.95 kg/m2 2017-10-23 Blood pressure systolic 122 mmHg 2017-10-23 Blood pressure diastolic 86 mmHg 2017-10-23 MEDICATIONS Medication Instructions Dosage Frequency Start Date End Date Duration S tala SudoGest 60 mg Orally every 6 hrs 1 tablet as needed 6h Jun, 7 05 days Active Proventil HFA 108 (90 Base) MCG/ACT Inhalation every 4 hrs 2 puffs as needed 4h Active Propranolol HCl 40 mg Orally Twice a day 1 tablet 12h March, 30 day(s) Active Zyrtec Allergy 10 mg Orally Once a day 1 tablet 24h Aug, 7 1 Nov, 2017 30 day(s) Active RESULTS No Results PROCEDURES [...]
--- OUTSIDE RECORDS SUMMARY | 2020-05-16 12:04 | XMS REPORT ---
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 20 Active 075795695 Problem History of kidney stones Z87.442 Activ e 298520750 Problem Depressive disorder F32.9 Active 39212090 Problem Acute seasonal allergic rhinitis, unspecified trigger J30.2 Active 859277508 Problem Migraine with aura and without status migrainosu s, not intractable G43.109 Active 2444570 Problem Seasonal allergic rhinitis due to pollen J30.1 Active 72890244 Problem Migraine without aura and without status migrain osus, not intractable G43.009 Active 485694320 Problem Intractable migraine without aura and with status migr ainosus G43.011 Active 003662983 Problem Asthma with acute exacerbation in adult J45.901 Active 450318755 ALLERGIES No Known Allergies ENCOUNTERS Encounter Location Date Diagnosis [facility] [address] [place] [id number] [place] [phone] May, [facility] [address] [place] [address] Apr, Hordeolum externum of left l ower eyelid H00.015 [facility] [address] [id number] [place] [phone] Apr, Viral gastroenteritis A08.4 [facility] [address] [id number] [place] [address] March, Viral illness B34.9 [facility] [address] [address] Feb, Vomiting, intractability of vomiting not specified, presence of nausea not specified, unspecified vomiting type R11.10 [place] [address] [address] Jan, Acute nasopharyngitis J00 [facility] [place] [address] [address] Jan, Acute follicular conjunctivi tis of left eye H10.012 [place] [address] [address] Dec, Migraine without aura and wi thout status migrainosus, not intractable G43.009 [facility] [place] [address] [address] Nov, Migraine without aura and wi thout status migrainosus, not intractable G43.009 [place] [address] [address] Nov, Otalgia of right ear H92.01 [place] [address] [address] Oct, Migraine headache G43.909 an d Acute non-recurrent maxillary sinusitis J01.00 [place] [address] [address] Sep, Other viral agents as the ca use of diseases classified elsewhere B97.89 and Acute upper respiratory infection, unspecified J06.9 [place] [address] [address] Sep, Swelling of left eyelid H02. 846 [place] [address] [address] 07 Sep, 2017 Migraine headache G43.909 an d Migraine without aura and without status migrainosus, not intractable G43.009 [facility] [place] [address] [address] Aug, Pharyngitis due to other org anism J02.8 and Oral candidiasis B37.0 [place] [address] [place] [address] Aug, Sore throat J02.9 and Acute seasonal allergic rhinitis, unspecified trigger J30.2 [place] [address] [address] Jul, Acute upper respiratory infe ction, unspecified J06.9 [place] [address] [address] Jun, Seasonal allergic rhinitis d ue to pollen J30.1 and Dysfunction of left eustachian tube H69.82 [facility] [place] [address] [address] Jun, Strain of right shoulder, in itial encounter S46.911A [place] [address] [address] May, Migraine with aura and witho ut status migrainosus, not intractable G43.109 [facility] [place] [address] [address] Apr, Sunburn L55.9 [facility] [place] [address] [address] Apr, Gastroenteritis K52.9 [place] [address] [address] Apr, Acute left-sided thoracic ba ck pain M54.6 [place] [address] [address] March, Migraine without aura and wi thout status migrainosus, not intractable G43.009 [place] [address] [place] [id number] [place] [address] March, Intractable migraine without aura and with status migrainosus G43.011 [facility] [address] [facility] [id number] [address] [place] [address] Feb, Depressive disorder F32.9 an d Gastroenteritis K52.9 [facility] [address] [facility] [id number] [address] [place] [address] 30 Jan, 2017 Migraine headache G43.909 [facility] [address] [facility] [id number] [address] [place] [address] 13 Jan, 2017 Migraine without aura and wi thout status migrainosus, not intractable G43.009 [place] [address] [facility] [id number] [address] [place] [phone] 07 Dec, 2016 Migraine without aura and wi thout status migrainosus, not intractable G43.009 [place] [address] [place] [address] Nov, Diarrhea, unspecified type R 19.7 [facility] [address] [place] [id number] [place] [phone] 18 Nov, 2016 Asthma with acute exacerbati on in adult J45.901 and Upper respiratory tract infection, unspecified type J06.9 [place] [address] [place] [id number] [place] [address] Nov, [place] [address] [place] [id number] [place] [address] Nov, Acute non-recurrent maxillar y sinusitis J01.00 [facility] [address] [facility] [id number] [address] [place] [phone] 04 Nov, 2016 Viral syndrome B34.9 [facility] [address] [place] [id number] [place] [address] Nov, Dermatitis L30.9 [facility] [address] [facility] [id number] [address] [place] [address] Oct, Gastroenteritis K52.9 [facility] [address] [address] [address] Oct, Sore throat (viral) J02.9 an d Migraine without aura and without status migrainosus, not intractable G43.009 [place] [address] [address] Sep, Frequent headaches R51 and 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 [facility] [place] [address] [address] Sep, Seasonal allergic rhinitis d ue to pollen J30.1 and Acute non-recurrent maxillary sinusitis J01.00 [place] [address] [address] Aug, Migraine headache G43.909 [place] [address] [address] Aug, [facility] Z[facility].89 ; Migraine without aura and without status migrainosus, not intractable G43.009 and Melanocytic nevus of trunk D22.5 [place] [address] [address] Aug, [place] [address] [address] Jul, Chronic gastritis without bl eeding, unspecified gastritis type K29.50 [place] [address] [address] Jul, Cough R05 [place] [address] [address] May, Gastritis without bleeding, unspecified chronicity, unspecified gastritis type K29.70 [facility] [place] [address] [address] 14 May, 2016 Gastroenteritis K52.9 [facility] IN [place] [address] [address] 05 May, 2016 Left acute otitis media H66. 92 [facility] [address] [facility] [id number] [address] [place] [id number] 23 Apr, 2016 Depressive disorder F32.9 [facility] [address] [facility] [id number] [address] [place] [phone] 20 Apr, 2016 Otitis media with effusion, left H65.92 [facility] [address] [facility] [id number] [address] [place] [address] 16 Apr, 2016 Migraine headache G43.909 [facility] [address] [facility] [id number] [address] [place] [phone] 09 Apr, 2016 Depressive disorder F32.9 an d Adjustment disorder with depressed mood F43.21 [place] [address] [facility] [id number] [address] [place] [address] March, Depressive disorder F32.9 an d Adjustment disorder with depressed mood F43.21 [facility] [address] [place] [address] March, Adjustment disorder with dep ressed mood F43.21 [place] [address] [facility] [id number] [address] [place] [address] March, Adjustment disorder with dep ressed mood F43.21 [facility] [address] [place] [id number] [place] [address] 10 Dec, 2015 Migraine headache G43.909 [facility] [address] [place] [id number] [place] [address] Oct, Middle ear effusion H65.90 a nd Migraine headache G43.909 [facility] WALK IN [facility] [address] [facility] [id number] [address] [place] [phone] Oct, Allergic rhinitis J30.9 [facility] [address] [facility] [id number] [address] [place] [phone] Oct, URI (upper respiratory infec tion) J06.9 [facility] [address] [facility] [id number] [address] [place] [phone] Jul, Major depression 296.20 ; An xiety, generalized 300.02 and No condition on Chelan II V71.09 [facility] [address] [id number] [address] [place] [phone] Jun, Routine [facility] rajeev V70.0 [facility] [address] [id number] [address] [place] [address] Jun, Major depression 296.20 ; No condition on Chelan II V71.09 and No condition on axis III V71.09 [facility] [address] [id number] [address] [place] [phone] May, Major depressive disorder, r ecurrent episode, severe 296.33 [facility] [address] [id number] [address] [place] [id number] Apr, Dental examination V72.2 [facility] [address] [id number] [address] [place] [id number] Apr, Dental examination V72.2 [facility] [address] [id number] [address] [place] [phone] Feb, [facility] [address] [id number] [address] [place] [phone] Feb, [facility] [address] [id number] [address] [place] [phone] Jan, [facility] [address] [id number] [address] [place] [phone] Jan, [facility] [address] [id number] [address] [place] [phone] Jan, [facility] [address] [id number] [address] [place] [phone] Jan, [facility] [address] [id number] [address] [place] [phone] Oct, [facility] [address] [id number] [address] [place] [phone] Oct, [facility] [address] [id number] [address] [place] [address], [place] [address] Apr, [facility] [address] [id number] [address] [place] [address], [place] [address] Apr, [facility] [address] [id number] [address] [place] [address], [place] [address] March, [facility] [address] [id number] [address] [place] [address], [place] [address] March, [facility] [address] [id number] [address] [place] [address], [place] [address] Feb, [facility] [address] [id number] [address] [place] [address], [place] [address] Feb, [facility] [address] [id number] [address] [place] [address], [place] [address] Feb, [facility] [address] [id number] [address] [place] [address], [place] [address] Feb, [facility] [address] [id number] [address] [place] [address], [place] [address] Feb, [facility] [address] [id number] [address] [place] [address], [place] [address] Jan, [facility] [address] [id number] [address] [place] [address], [place] [address] Jan, [facility] [address] [id number] [address] [place] [address], [place] [address] Dec, [facility] [address] [id number] [address] [place] [address], [place] [address] Dec, [facility] [address] [id number] [address] [place] [address], [place] [address] Nov, [facility] [address] [id number] [address] [place] [address], [place] [address] Nov, [facility] [address] [id number] [address] [place] [address], [place] [address] Nov, [facility] [address] [id number] [address] [place] [address], [place] [address] Nov, [facility] [address] [id number] [address] [place] [address], [place] [address] Nov, [facility] [address] [id number] [address] [place] [address], [place] [address] Nov, [facility] [address] [id number] [address] [place] [address], [place] [address] Oct, [facility] [address] [id number] [address] [place] [address], [place] [address] Oct, [facility] [address] [id number] [address] [place] [address], [place] [address] Sep, [facility] [address] [id number] [address] [place] [address], [place] [address] Sep, [facility] [address] [id number] [address] [place] [address], [place] [address] Sep, [facility] [address] [id number] [address] [place] [address], [place] [address] Sep, [facility] [address] [id number] [address] [place] [address], [place] [address] Jul, [facility] [address] [id number] [address] [place] [address], [place] [address] May, [facility] [address] [id number] [address] [place] [address], [place] [address] May, [facility] [address] [id number] [address] [place] [address], [place] [address] Apr, [facility] [address] [id number] [address] [place] [address], [place] [address] 15 Apr, 2013 [facility] [address] [id number] [address] [place] [address], [place] [address] Apr, [facility] [address] [id number] [address] [place] [address], [place] [address] 10 Apr, 2013 [facility] [address] [id number] [address] [place] [address], [place] [address] March, [facility] [address] [id number] [address] [place] [address], [place] [address] Jan, [facility] [address] [id number] [address] [place] [address], [place] [address] Dec, [facility] [address] [id number] [address] [place] [address], [place] [address] Dec, [facility] [address] [id number] [address] [place] [address], [place] [address] Nov, [facility] [address] [id number] [address] [place] [address], [place] [address] Nov, [facility] [address] [id number] [address] [place] [address], [place] [address] Oct, [facility] [address] [id number] [address] [place] [address], [place] [address] Oct, [facility] [address] [id number] [address] [place] [address], [place] [address] Sep, [facility] [address] [id number] [address] [place] [address], [place] [address] Jan, [facility] [address] [id number] [address] [place] [address], [place] [address] Nov, [facility] [address] [id number] [address] [place] [address], [place] [address] Aug, [facility] [address] [id number] [address] [place] [address], [place] [address] Aug, [facility] [address] [id number] [address] [place] [address], [place] [address] Jul, [facility] [address] [id number] [address] [place] [address] [place] [address] Sep, IMMUNIZATIONS No Known Immunizations SOCIAL HISTORY Never Assessed REASON FOR VISIT Migraine walkin f/u- States has not had anymore migrains just STRAR Pierce RN PLAN OF CARE VITAL SIGNS Height 70 in 2018-01-20 Weight 244 lbs 2018-01-20 Temperature 97.9 degrees Fahrenheit 2018-01-20 Heart Rate 78 bpm 2018-01-20 Respiratory Rate 18 2018-01-20 BMI 35.01 kg/m2 2018-01-20 Blood pressure systolic 128 mmHg 2018-01-20 Blood pressure diastolic 78 mmHg 2018-01-20 MEDICATIONS Medication Instructions Dosage Frequency Start Date End Date Duration S tatus Imitrex 100 mg Orally Once a day 1 tablet as needed 24h Dec, Active Azithromycin 250 MG Orally Once a day 2 tablets on the fi rst day, then 1 tablet daily for 4 days 24h 5 day(s) Not-Taking Proventil HFA 108 (90 Base) MCG/ACT Inhalation every 4 hrs 2 puffs as needed 4h Not-Taking Propranolol HCl 40 mg Orally Twice a day 1 tablet 12h 15 Mar, 2017 30 day(s) Not-Taking Amitriptyline HCl 50 mg Orally Once a day 1 tablet 24h Dec, 30 day(s) Active Flonase 50 MCG/ACT Nasally Once a day 1 spray in each nostril 24h 30 day(s) Not-Taking RESULTS No Results PROCEDURES No Known [...]
--- OUTSIDE RECORDS SUMMARY | 2020-05-16 12:05 | XMS REPORT ---
Author Author Juan DOS SANTOS Organization [facility] Address [address] [place] [address] Care Team Providers Care Family Service Worker Name Role Phone TUYET DOS SANTOS Unavailable PROBLEMS Type Condition ICD9-CM Code GKN05-LA Code Onset Dates Condition S tatus SNOMED Code Problem Migraine headache G43.909 Active 37 201466 Problem Mild intermittent asthma without complication J45. 20 Active 477248633 Problem History of kidney stones Z87.442 Activ e 826668668 Problem Depressive disorder F32.9 Active 02155728 Problem Acute seasonal allergic rhinitis, unspecified trigger J30.2 Active 425506103 Problem Migraine with aura and without status migrainosu s, not intractable G43.109 Active 4487273 Problem Seasonal allergic rhinitis due to pollen J30.1 Active 11270552 Problem Migraine without aura and without status migrain osus, not intractable G43.009 Active 790730132 Problem Intractable migraine without aura and with status migr ainosus G43.011 Active 003970014 Problem Asthma with acute exacerbation in adult J45.901 Active 814252760 ALLERGIES No Known Allergies ENCOUNTERS Encounter Location Date Diagnosis [facility] IN [facility] [address] [facility] [id number] [address] [place] [address] Feb, Vomiting, intractability of vomiting not specified, presence of nausea not specified, unspecified vomiting type R11.10 [facility] [address] [facility] [id number] [address] [place] [address] Jan, Acute nasopharyngitis J00 [facility] IN [facility] [address] [facility] [id number] [address] [place] [address] Jan, Acute follicular conjunctivi tis of left eye H10.012 [facility] [address] [facility] [id number] [address] [place] [address] Dec, Migraine without aura and wi thout status migrainosus, not intractable G43.009 [facility] IN [facility] [address] [address] Nov, Migraine without aura and wi thout status migrainosus, not intractable G43.009 [place] [address] [address] Nov, Otalgia of right ear H92.01 [place] [address] [address] Oct, Migraine headache G43.909 an d Acute non-recurrent maxillary sinusitis J01.00 [place] [address] [address] Sep, Other viral agents as the ca use of diseases classified elsewhere B97.89 and Acute upper respiratory infection, unspecified J06.9 [place] [address] [address] Sep, Swelling of left eyelid H02. 846 [place] [address] [address] Sep, Migraine headache G43.909 an d Migraine without aura and without status migrainosus, not intractable G43.009 [facility] IN [facility] [address] [address] 18 Aug, 2017 Pharyngitis due to other org anism J02.8 and Oral candidiasis B37.0 [place] [address] [address] 03 Aug, 2017 Sore throat J02.9 and Acute seasonal allergic rhinitis, unspecified trigger J30.2 [place] [address] [address] 18 Jul, 2017 Acute upper respiratory infe ction, unspecified J06.9 [place] [address] [address] Jun, Seasonal allergic rhinitis d ue to pollen J30.1 and Dysfunction of left eustachian tube H69.82 [facility] [address] [id number] [address] [place] [address] Jun, Strain of right shoulder, in itial encounter S46.911A [facility] [address] [id number] [address] [place] [address] May, Migraine with aura and witho ut status migrainosus, not intractable G43.109 [facility] [address] [id number] [address] [place] [address] Apr, Sunburn L55.9 [facility] [address] [facility] [id number] [address] [place] [address] Apr, Gastroenteritis K52.9 [place] [address] [address] [place] [id number] [address] [place] [address] Apr, Acute left-sided thoracic ba ck pain M54.6 [place] [address] [facility] [id number] [address] [place] [address] March, Migraine without aura and wi thout status migrainosus, not intractable G43.009 [place] [address] [address] [facility] [id number] [address] [place] [address] March, Intractable migraine without aura and with status migrainosus G43.011 [place] [address] [facility] [id number] [address] [place] [address] Feb, Depressive disorder F32.9 an d Gastroenteritis K52.9 [facility] [address] [facility] [id number] [address] [place] [address] Jan, Migraine headache G43.909 [facility] [address] [facility] [id number] [address] [place] [address] Jan, Migraine without aura and wi thout status migrainosus, not intractable G43.009 [place] [address] [address] 07 Dec, 2016 Migraine without aura and wi thout status migrainosus, not intractable G43.009 [place] [address] [address] 31 Nov, 2016 Diarrhea, unspecified type R 19.7 [place] [address] [address] Nov, Asthma with acute exacerbati on in adult J45.901 and Upper respiratory tract infection, unspecified type J06.9 [place] [address] [address] Nov, [place] [address] [address] Nov, Acute non-recurrent maxillar y sinusitis J01.00 [place] [address] [address] 04 Nov, 2016 Viral syndrome B34.9 [place] [address] [address] Nov, Dermatitis L30.9 [facility] [place] [address] [address] Oct, Gastroenteritis K52.9 [place] [address] [address] Oct, Sore throat (viral) J02.9 an d Migraine without aura and without status migrainosus, not intractable G43.009 [place] [address] [address] Sep, Frequent headaches R51 and 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 [facility] [place] [address] [address] 07 Sep, 2016 Seasonal allergic rhinitis d ue to pollen J30.1 and Acute non-recurrent maxillary sinusitis J01.00 [place] [address] [facility] [id number] [address] [place] [address] Aug, Migraine headache G43.909 [place] [address] [address] [place] [id number] [address] [place] [address] 18 Aug, 2016 Encounter to establish care Z76.89 ; Migraine without aura and without status migrainosus, not intractable G43.009 and Melanocytic nevus of trunk D22.5 [place] [address] [address] [facility] [id number] [address] [place] [address] Aug, [place] [id number] [place] [address] Jul, Chronic gastritis without bl eeding, unspecified gastritis type K29.50 [place] [address] [address] [place] [id number] [address] [place] [address] 06 Jul, 2016 Cough R05 [place] [address] [place] [id number] [place] [address] May, Gastritis without bleeding, unspecified chronicity, unspecified gastritis type K29.70 [facility] [id number] [place] [address] 14 May, 2016 Gastroenteritis K52.9 [facility] [place] [address] [address] [place] [id number] [address] [place] [address] 05 May, 2016 Left acute otitis media H66. 92 [place] [address] [address] [place] [id number] [address] [place] [address] Apr, Depressive disorder F32.9 [place] [address] [address] [place] [id number] [address] [place] [address] Apr, Otitis media with effusion, left H65.92 [place] [address] [address] [place] [id number] [address] [place] [address] 16 Apr, 2016 Migraine headache G43.909 [place] [address] [address] [place] [id number] [address] [place] [address] 09 Apr, 2016 Depressive disorder F32.9 an d Adjustment disorder with depressed mood F43.21 [facility] [address] [facility] [id number] [address] [place] [address] March, Depressive disorder F32.9 an d Adjustment disorder with depressed mood F43.21 [facility] [address] [facility] [id number] [address] [place] [address] March, Adjustment disorder with dep ressed mood F43.21 [facility] [address] [facility] [id number] [address] [place] [address] March, Adjustment disorder with dep ressed mood F43.21 [facility] [address] [facility] [id number] [address] [place] [address] Dec, Migraine headache G43.909 [facility] [address] [place] [id number] [address] [place] [address] Oct, Middle ear effusion H65.90 a nd Migraine headache G43.909 [facility] WALK IN [facility] [address] [facility] [id number] [address] [place] [address] Oct, Allergic rhinitis J30.9 [facility] [address] [place] [id number] [address] [place] [address] Oct, URI (upper respiratory infec tion) J06.9 [facility] [address] [place] [id number] [address] [place] [address] Jul, Major depression 296.20 ; An xiety, generalized 300.02 and No condition on [place] II V71.09 [facility] [address] [facility] [id number] [address] [place] [address] Jun, Routine adult health mainten ance V70.0 [facility] [address] [facility] [id number] [address] [place] [address] Jun, Major depression 296.20 ; No condition on [place] II V71.09 and No condition on axis III V71.09 [facility] [address] [place] [id number] [address] [place] [address] May, Major depressive disorder, r ecurrent episode, severe 296.33 [facility] [address] [id number] [address] [place] [id number] 17 Apr, 2015 Dental examination V72.2 [facility] [address] [id number] [address] [place] [address] [id number] 10 Apr, 2015 Dental examination V72.2 [facility] [address] [id number] [address] [place] [id number] 14 Feb, 2015 [facility] [address] [id number] [address] [place] [address] Feb, [facility] [address] [id number] [address] [place] [id number] 16 Jan, 2015 [facility] [address] [id number] [address] [place] [address] Jan, [facility] [address] [id number] [address] [place] [id number] Jan, [facility] [address] [id number] [address] [place] [address] Jan, [facility] [address] [id number] [address] [place] [id number] Oct, [facility] [address] [id number] [address] [place] [address] Oct, [facility] [address] [id number] [address] [place] [address] Apr, [facility] [address] [id number] [address] [place] [address] Apr, [facility] [address] [id number] [address] [place] [address] March, [facility] [address] [id number] [address] [place] [address] March, [facility] [address] [id number] [address] [place] [address] Feb, [facility] [address] [id number] [address] [place] [address], [place] [address] Feb, [facility] [address] [id number] [address] [place] [address], [place] [address] Feb, [facility] [address] [id number] [address] [place] [address], [place] [address] Feb, [facility] [address] [id number] [address] [place] [address], [place] [address] Feb, [facility] [address] [id number] [address] [place] [address], [place] [address] Jan, [facility] [address] [id number] [address] [place] [address], [place] [address] Jan, [facility] [address] [id number] [address] [place] [address], [place] [address] Dec, [facility] [address] [id number] [address] [place] [address], [place] [address] Dec, [facility] [address] [id number] [address] [place] [address], [place] [address] Nov, [facility] [address] [id number] [address] [place] [address], [place] [address] Nov, [facility] [address] [id number] [address] [place] [address], [place] [address] Nov, [facility] [address] [id number] [address] [place] [address], [place] [address] Nov, [facility] [address] [id number] [address] [place] [address], [place] [address] Nov, [facility] [address] [id number] [address] [place] [address], [place] [address] Nov, [facility] [address] [id number] [address] [place] [address], [place] [address] Oct, [facility] [address] [id number] [address] [place] [address], [place] [address] 02 Oct, 2013 [facility] [address] [id number] [address] [place] [address], [place] [address] Sep, [facility] [address] [id number] [address] [place] [address], [place] [address] Sep, [facility] [address] [id number] [address] [place] [address], [place] [address] Sep, [facility] [address] [id number] [address] [place] [address], [place] [address] Sep, [facility] [address] [id number] [address] [place] [address], [place] [address] 06 Jul, 2013 [facility] [address] [id number] [address] [place] [address], [place] [address] May, [facility] [address] [id number] [address] [place] [address], [place] [address] May, [facility] [address] [id number] [address] [place] [address], [place] [address] Apr, [facility] [address] [id number] [address] [place] [address], [place] [address] Apr, [facility] [address] [id number] [address] [place] [address], [place] [address] Apr, [facility] [address] [id number] [address] [place] [address], [place] [address] Apr, [facility] [address] [id number] [address] [place] [address], [place] [address] March, [facility] [address] [id number] [address] [place] [address], [place] [address] Jan, [facility] [address] [id number] [address] [place] [address], [place] [address] Dec, [facility] [address] [id number] [address] [place] [address], [place] [address] Dec, [facility] [address] [id number] [address] [place] [address] Nov, [facility] [address] [id number] [address] [place] [address] Nov, [facility] [address] [id number] [address] [place] [address] Oct, [facility] [address] [id number] [address] [place] [id number] Oct, [facility] [address] [id number] [address] [place] [address] Sep, [facility] [address] [id number] [address] [place] [address] Jan, [facility] [address] [id number] [address] [place] [address] Nov, [facility] [address] [id number] [address] [place] [id number] Aug, [facility] [address] [id number] [address] [place] [address] Aug, [facility] [address] [id number] [address] [place] [id number] Jul, [facility] [address] [id number] [address] [place] [address] Sep, IMMUNIZATIONS No Known Immunizations SOCIAL HISTORY Never Assessed REASON FOR VISIT Sore throat and Nausea- Karl Pierce RN PLAN OF CARE Activity Details Follow Up prn Reason: VITAL SIGNS Height 70 in 2017-07-23 Weight 237 lbs 2017-07-23 Temperature 98.8 degrees Fahrenheit 2017-07-23 Heart Rate 80 bpm 2017-07-23 Respiratory Rate 18 2017-07-23 BMI 34.00 kg/m2 2017-07-23 Blood pressure systolic 140 mmHg 2017-07-23 Blood pressure diastolic 78 mmHg 2017-07-23 MEDICATIONS Medication Instructions Dosage Frequency Start Date End Date Duration S tala Melendez HFA 108 (90 Base) MCG/ACT Inhalation every 4 hrs 2 puffs as needed 4h Active SudoGest 60 mg Orally every 6 hrs 1 tablet as needed 6h Jun, 7 05 days Active Propranolol HCl 40 mg Orally Twice a day 1 tablet 12h March, 30 day(s) Active RESULTS No Results PROCEDURES [...]
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
--- OUTSIDE RECORDS SUMMARY | 2020-05-16 12:05 | XMS REPORT ---
Author Author Juan PEREZ Organization [facility] Address [address] [place] [address] Care Team Providers Care Kennel Attendant Name Role Phone AUSTIN PEREZ Unavailable PROBLEMS Type Condition ICD9-CM Code SVB05-IF Code Onset Dates Condition S tatus SNOMED Code Problem Migraine headache G43.909 Active 37 666649 Problem Mild intermittent asthma without complication J45. 20 Active 317959267 Problem History of kidney stones Z87.442 Activ e 059429948 Problem Depressive disorder F32.9 Active 32847727 Problem Acute seasonal allergic rhinitis, unspecified trigger J30.2 Active 402498567 Problem Migraine with aura and without status migrainosu s, not intractable G43.109 Active 3969233 Problem Seasonal allergic rhinitis due to pollen J30.1 Active 08527447 Problem Migraine without aura and without status migrain osus, not intractable G43.009 Active 723524828 Problem Intractable migraine without aura and with status migr ainosus G43.011 Active 652878662 Problem Asthma with acute exacerbation in adult J45.901 Active 020111818 ALLERGIES No Known Allergies ENCOUNTERS Encounter Location Date Diagnosis [facility] [address] [facility] [id number] [address] [place] [address] Feb, Vomiting, intractability of vomiting not specified, presence of nausea not specified, unspecified vomiting type R11.10 [facility] [address] [facility] [id number] [address] [place] [address] Jan, Acute nasopharyngitis J00 [facility] IN [facility] [address] [facility] [id number] [address] [place] [address] Jan, Acute follicular conjunctivi tis of left eye H10.012 [facility] [address] [facility] [id number] [address] [place] [address] Dec, Migraine without aura and wi thout status migrainosus, not intractable G43.009 [facility] IN [facility] [address] [address] Nov, Migraine without aura and wi thout status migrainosus, not intractable G43.009 [place] [address] [address] Nov, Otalgia of right ear H92.01 [place] [address] [address] Oct, Migraine headache G43.909 an d Acute non-recurrent maxillary sinusitis J01.00 [place] [address] [address] Sep, Other viral agents as the ca use of diseases classified elsewhere B97.89 and Acute upper respiratory infection, unspecified J06.9 [place] [address] [address] Sep, Swelling of left eyelid H02. 846 [place] [address] [address] Sep, Migraine headache G43.909 an d Migraine without aura and without status migrainosus, not intractable G43.009 [facility] [address] [address] Aug, Pharyngitis due to other org anism J02.8 and Oral candidiasis B37.0 [place] [address] [address] Aug, Sore throat J02.9 and Acute seasonal allergic rhinitis, unspecified trigger J30.2 [place] [address] [address] Jul, Acute upper respiratory infe ction, unspecified J06.9 [place] [address] [address] Jun, Seasonal allergic rhinitis d ue to pollen J30.1 and Dysfunction of left eustachian tube H69.82 [facility] [address] [facility] [id number] [address] [place] [address] Jun, Strain of right shoulder, in itial encounter S46.911A [facility] [address] [facility] [id number] [address] [place] [address] May, Migraine with aura and witho ut status migrainosus, not intractable G43.109 [facility] [address] [facility] [id number] [address] [place] [address] Apr, Sunburn L55.9 [facility] [address] [facility] [id number] [address] [place] [address] Apr, Gastroenteritis K52.9 [place] [address] [address] [place] [id number] [address] [place] [address] Apr, Acute left-sided thoracic ba ck pain M54.6 [place] [address] [address] [place] [id number] [address] [place] [address] March, Migraine without aura and wi thout status migrainosus, not intractable G43.009 [place] [address] [address] [place] [id number] [address] [place] [address] March, Intractable migraine without aura and with status migrainosus G43.011 [place] [address] [address] [facility] [id number] [address] [place] [address] Feb, Depressive disorder F32.9 an d Gastroenteritis K52.9 [place] [address] [facility] [id number] [address] [place] [address] Jan, Migraine headache G43.909 [place] [address] [address] [place] [id number] [address] [place] [address] Jan, Migraine without aura and wi thout status migrainosus, not intractable G43.009 [place] [address] [facility] [id number] [address] [place] [address] 07 Dec, 2016 Migraine without aura and wi thout status migrainosus, not intractable G43.009 [place] [address] [place] [address] 31 Nov, 2016 Diarrhea, unspecified type R 19.7 [place] [address] [address] 18 Nov, 2016 Asthma with acute exacerbati on in adult J45.901 and Upper respiratory tract infection, unspecified type J06.9 [place] [address] [address] Nov, [place] [address] [address] Nov, Acute non-recurrent maxillar y sinusitis J01.00 [place] [address] [address] 04 Nov, 2016 Viral syndrome B34.9 [place] [address] [address] Nov, Dermatitis L30.9 [facility] [place] [address] [address] Oct, Gastroenteritis K52.9 [place] [address] [address] Oct, Sore throat (viral) J02.9 an d Migraine without aura and without status migrainosus, not intractable G43.009 [place] [address] [place] [address] Sep, Frequent headaches R51 and 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 [facility] IN [place] [address] [address] 07 Sep, 2016 Seasonal allergic rhinitis d ue to pollen J30.1 and Acute non-recurrent maxillary sinusitis J01.00 [place] [address] [address] [place] [id number] [address] [place] [address] Aug, Migraine headache G43.909 [place] [address] [address] [place] [id number] [address] [place] [address] 18 Aug, 2016 Encounter to establish care Z76.89 ; Migraine without aura and without status migrainosus, not intractable G43.009 and Melanocytic nevus of trunk D22.5 [place] [address] [address] [facility] [id number] [address] [place] [address] Aug, [place] [address] [address] [place] [id number] [address] [place] [address] Jul, Chronic gastritis without bl eeding, unspecified gastritis type K29.50 [place] [address] [address] [place] [id number] [address] [place] [address] 06 Jul, 2016 Cough R05 [place] [address] [address] [place] [id number] [place] [address] May, Gastritis without bleeding, unspecified chronicity, unspecified gastritis type K29.70 [facility]ARE [facility] N [place] [id number] [address] [place] [address] 14 May, 2016 Gastroenteritis K52.9 [facility] [place] [address] [address] [place] [id number] [address] [place] [address] 05 May, 2016 Left acute otitis media H66. 92 [place] [address] [address] [place] [id number] [address] [place] [address] Apr, Depressive disorder F32.9 [place] [address] [address] [place] [id number] [address] [place] [address] 20 Apr, 2016 Otitis media with effusion, left H65.92 [place] [address] [address] [place] [id number] [address] [place] [address] 16 Apr, 2016 Migraine headache G43.909 [place] [address] [address] [place] [id number] [address] [place] [address] 09 Apr, 2016 Depressive disorder F32.9 an d Adjustment disorder with depressed mood F43.21 [facility] [address] [facility] [id number] [address] [place] [address] March, Depressive disorder F32.9 an d Adjustment disorder with depressed mood F43.21 [facility] [address] [facility] [id number] [address] [place] [address] March, Adjustment disorder with dep ressed mood F43.21 [facility] [address] [place] [id number] [address] [place] [address] March, Adjustment disorder with dep ressed mood F43.21 [facility] [address] [place] [address] Dec, Migraine headache G43.909 [facility] [address] [place] [id number] [address] [place] [address] Oct, Middle ear effusion H65.90 a nd Migraine headache G43.909 [facility] IN [facility] [address] [place] [id number] [address] [place] [address] Oct, Allergic rhinitis J30.9 [facility] [address] [address] Oct, URI (upper respiratory infec tion) J06.9 [facility] [address] [place] [id number] [address] [place] [address] Jul, Major depression 296.20 ; An xiety, generalized 300.02 and No condition on [place] V71.09 [facility] [address] [place] [id number] [address] [place] [address] Jun, Routine adult health mainten ance V70.0 [facility] [address] [place] [id number] [place] [address] Jun, Major depression 296.20 ; No condition on [place] II V71.09 and No condition on axis III V71.09 [facility] [address] [place] [address] May, Major depressive disorder, r ecurrent episode, severe 296.33 [facility] [address] [id number] [address] [place] [id number] 17 Apr, 2015 Dental examination V72.2 [facility] [address] [id number] [address] [place] [id number] 10 Apr, 2015 Dental examination V72.2 [facility] [address] [id number] [address] [place] [address] 14 Feb, 2015 [facility] [address] [id number] [address] [place] [address] Feb, [facility] [address] [id number] [address] [place] [address] Jan, [facility] [address] [id number] [address] [place] [address] Jan, [facility] [address] [id number] [address] [place] [address] Jan, [facility] [address] [id number] [address] [place] [address] Jan, [facility] [address] [id number] [address] [place] [address] Oct, [facility] [address] [id number] [address] [place] [address] Oct, [facility] [address] [id number] [address] [place] [address] Apr, [facility] [address] [id number] [address] [place] [address] Apr, [facility] [address] [id number] [address] [place] [address] March, [facility] [address] [id number] [address] [place] [address] March, [facility] [address] [id number] [address] [place] [address] Feb, [facility] [address] [id number] [address] [place] [address], [place] [address] Feb, [facility] [address] [id number] [address] [place] [address], [place] [address] Feb, [facility] [address] [id number] [address] [place] [address], [place] [address] Feb, [facility] [address] [id number] [address] [place] [address], [place] [address] Feb, [facility] [address] [id number] [address] [place] [address], [place] [address] Jan, [facility] [address] [id number] [address] [place] [address], [place] [address] Jan, [facility] [address] [id number] [address] [place] [address], [place] [address] Dec, [facility] [address] [id number] [address] [place] [address], [place] [address] Dec, [facility] [address] [id number] [address] [place] [address], [place] [address] Nov, [facility] [address] [id number] [address] [place] [address], [place] [address] Nov, [facility] [address] [id number] [address] [place] [address], [place] [address] Nov, [facility] [address] [id number] [address] [place] [address], [place] [address] Nov, [facility] [address] [id number] [address] [place] [address], [place] [address] Nov, [facility] [address] [id number] [address] [place] [address], [place] [address] Nov, [facility] [address] [id number] [address] [place] [address], [place] [address] Oct, [facility] [address] [id number] [address] [place] [address], [place] [address] 02 Oct, 2013 [facility] [address] [id number] [address] [place] [address], [place] [address] Sep, [facility] [address] [id number] [address] [place] [address], [place] [address] Sep, [facility] [address] [id number] [address] [place] [address], [place] [address] Sep, [facility] [address] [id number] [address] [place] [address], [place] [address] Sep, [facility] [address] [id number] [address] [place] [address], [place] [address] Jul, [facility] [address] [id number] [address] [place] [address], [place] [address] May, [facility] [address] [id number] [address] [place] [address], [place] [address] May, [facility] [address] [id number] [address] [place] [address], [place] [address] Apr, [facility] [address] [id number] [address] [place] [address], [place] [address] Apr, [facility] [address] [id number] [address] [place] [address], [place] [address] 14 Apr, 2013 [facility] [address] [id number] [address] [place] [address], [place] [address] Apr, [facility] [address] [id number] [address] [place] [address], [place] [address] March, [facility] [address] [id number] [address] [place] [address], [place] [address] Jan, [facility] [address] [id number] [address] [place] [address], [place] [address] Dec, [facility] [address] [id number] [address] [place] [address], [place] [address] Dec, [facility] [address] [id number] [address] [place] [address] Nov, [facility] [address] [id number] [address] [place] [address] Nov, [facility] [address] [id number] [address] [place] [address] Oct, [facility] [address] [id number] [address] [place] [address] Oct, [facility] [address] [id number] [address] [place] [address] Sep, [facility] [address] [id number] [address] [place] [address] Jan, [facility] [address] [id number] [address] [place] [address] Nov, [facility] [address] [id number] [address] [place] [address] Aug, [facility] [address] [id number] [address] [place] [address] Aug, [facility] [address] [id number] [address] [place] [address] Jul, [facility] [address] [id number] [address] [place] [address] Sep, IMMUNIZATIONS No Known Immunizations SOCIAL HISTORY Never Assessed REASON FOR VISIT Sore throat, headache, runny nose, fever--Wojciech Melendez MA PLAN OF CARE VITAL SIGNS Height 70 in 2017-08-12 Weight 234.7 lbs 2017-08-12 Temperature 98.7 degrees Fahrenheit 2017-08-12 Heart Rate 76 bpm 2017-08-12 Respiratory Rate 20 2017-08-12 BMI 33.67 kg/m2 2017-08-12 Blood pressure systolic 118 mmHg 2017-08-12 Blood pressure diastolic 96 mmHg 2017-08-12 MEDICATIONS Medication Instructions Dosage Frequency Start Date End Date Duration S tala PredniSONE 20 mg Orally Once a day, voucher 2 tablets Jul, Jul, 05 days Active Propranolol HCl 40 mg [...]
--- OUTSIDE RECORDS SUMMARY | 2020-05-16 12:05 | XMS REPORT ---
Author Author Juan PEREZ Organization [facility] [place] Address [address] [place] [address] Care Team Providers Care Airfield Operations Specialist Name Role Phone AUSTIN PEREZ Unavailable PROBLEMS Type Condition ICD9-CM Code AUW20-SR Code Onset Dates Condition S tatus SNOMED Code Problem Migraine headache G43.909 Active 37 166553 Problem Mild intermittent asthma without complication J45. 20 Active 231736539 Problem History of kidney stones Z87.442 Activ e 818458192 Problem Depressive disorder F32.9 Active 73886312 Problem Acute seasonal allergic rhinitis, unspecified trigger J30.2 Active 195013243 Problem Migraine with aura and without status migrainosu s, not intractable G43.109 Active 0227789 Problem Seasonal allergic rhinitis due to pollen J30.1 Active 84633201 Problem Migraine without aura and without status migrain osus, not intractable G43.009 Active 573714720 Problem Intractable migraine without aura and with status migr ainosus G43.011 Active 206364531 Problem Asthma with acute exacerbation in adult J45.901 Active 042058639 ALLERGIES No Known Allergies ENCOUNTERS Encounter Location Date Diagnosis [facility] [address] [place] [id number] [address] [place] [id number] Apr, Viral gastroenteritis A08.4 [facility] [address] [facility] [id number] [address] [place] [address] March, Viral illness B34.9 [facility] [address] [place] [id number] [address] [place] [address] Feb, Vomiting, intractability of vomiting not specified, presence of nausea not specified, unspecified vomiting type R11.10 [facility] [place] [address] [facility] [id number] [address] [place] [address] Jan, Acute nasopharyngitis J00 [facility] [address] [id number] [address] [place] [address] Jan, Acute follicular conjunctivi tis of left eye H10.012 [place] [address] [id number] [address] [place] [address] Dec, Migraine without aura and wi thout status migrainosus, not intractable G43.009 [facility] [address] [address] Nov, Migraine without aura and wi thout status migrainosus, not intractable G43.009 [place] [address] [address] Nov, Otalgia of right ear H92.01 [place] [address] [address] Oct, Migraine headache G43.909 an d Acute non-recurrent maxillary sinusitis J01.00 [place] [address] [address] Sep, Other viral agents as the ca use of diseases classified elsewhere B97.89 and Acute upper respiratory infection, unspecified J06.9 [place] [address] [address] Sep, Swelling of left eyelid H02. 846 [place] [address] [address] Sep, Migraine headache G43.909 an d Migraine without aura and without status migrainosus, not intractable G43.009 [facility] [place] [address] [address] Aug, Pharyngitis due to other org anism J02.8 and Oral candidiasis B37.0 [place] [address] [address] Aug, Sore throat J02.9 and Acute seasonal allergic rhinitis, unspecified trigger J30.2 [facility] [place] [address] [facility] [id number] [address] [place] [address] 18 Jul, 2017 Acute upper respiratory infe ction, unspecified J06.9 [facility] [place] [address] [facility] [id number] [address] [place] [address] Jun, Seasonal allergic rhinitis d ue to pollen J30.1 and Dysfunction of left eustachian tube H69.82 [facility] [address] [id number] [address] [place] [address] 08 Jun, 2017 Strain of right shoulder, in itial encounter S46.911A [place] [address] [place] [id number] [place] [address] May, Migraine with aura and witho ut status migrainosus, not intractable G43.109 [facility] [address] [place] [address] Apr, Sunburn L55.9 [facility] [address] [id number] [address] [place] [address] Apr, Gastroenteritis K52.9 [place] [address] [place] [id number] [address] [place] [address] Apr, Acute left-sided thoracic ba ck pain M54.6 [place] [address] [place] [id number] [address] [place] [address] March, Migraine without aura and wi thout status migrainosus, not intractable G43.009 [place] [address] [place] [id number] [address] [place] [address] 15 Mar, 2017 Intractable migraine without aura and with status migrainosus G43.011 [place] [address] [place] [id number] [address] [place] [address] Feb, Depressive disorder F32.9 an d Gastroenteritis K52.9 [place] [address] [place] [id number] [address] [place] [address] Jan, Migraine headache G43.909 [facility] [place] [address] [facility] [id number] [address] [place] [address] 13 Jan, 2017 Migraine without aura and wi thout status migrainosus, not intractable G43.009 [facility] [place] [address] [facility] [id number] [address] [place] [address] 07 Dec, 2016 Migraine without aura and wi thout status migrainosus, not intractable G43.009 [place] [address] [place] [place] [id number] [address] [place] [address] 31 Nov, 2016 Diarrhea, unspecified type R 19.7 [place] [address] [address] 18 Nov, 2016 Asthma with acute exacerbati on in adult J45.901 and Upper respiratory tract infection, unspecified type J06.9 [facility] [place] [address] [address] Nov, [place] [address] [place] [id number] [place] [address] 10 Nov, 2016 Acute non-recurrent maxillar y sinusitis J01.00 [place] [address] [place] [address] [id number] [address] [place] [address] Nov, Viral syndrome B34.9 [facility] [place] [address] [place] [address] Nov, Dermatitis L30.9 [facility] [address] [id number] [address] [place] [address] Oct, Gastroenteritis K52.9 [facility] [place] [address] [id number] [place] [address] Oct, Sore throat (viral) J02.9 an d Migraine without aura and without status migrainosus, not intractable G43.009 [facility] [place] [address] [id number] [address] [place] [address] 29 Nov, 2016 Frequent headaches R51 and 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 [facility] [address] [place] [address] Sep, Seasonal allergic rhinitis d ue to pollen J30.1 and Acute non-recurrent maxillary sinusitis J01.00 [place] [address] [place] [id number] [address] [place] [address] Aug, Migraine headache G43.909 [place] [address] [address] Aug, Encounter to establish care Z76.89 ; Migraine without aura and without status migrainosus, not intractable G43.009 and Melanocytic nevus of trunk D22.5 [place] [address] [address] Aug, [place] [address] [address] Jul, Chronic gastritis without bl eeding, unspecified gastritis type K29.50 [place] [address] [place] [id number] [address] [place] [address] Jul, Cough R05 [place] [address] [address] May, Gastritis without bleeding, unspecified chronicity, unspecified gastritis type K29.70 [facility] [address] [place] [address] 14 May, 2016 Gastroenteritis K52.9 [facility] [address] [id number] [address] [place] [address] 05 May, 2016 Left acute otitis media H66. 92 [place] [address] [address] Apr, Depressive disorder F32.9 [place] [address] [place] [id number] [address] [place] [address] Apr, Otitis media with effusion, left H65.92 [facility] [place] [address] [facility] [id number] [address] [place] [address] Apr, Migraine headache G43.909 [facility] [place] [address] [facility] [id number] [address] [place] [address] Apr, Depressive disorder F32.9 an d Adjustment disorder with depressed mood F43.21 [facility] [place] [address] [facility] [id number] [address] [place] [address] March, Depressive disorder F32.9 an d Adjustment disorder with depressed mood F43.21 [facility] [place] [address] [facility] [id number] [address] [place] [address] March, Adjustment disorder with dep ressed mood F43.21 [place] [address] [facility] [id number] [address] [place] [address] March, Adjustment disorder with dep ressed mood F43.21 [place] [address] [place] [address] Dec, Migraine headache G43.909 [facility] [place] [address] [id number] [address] [place] [address] Oct, Middle ear effusion H65.90 a nd Migraine headache G43.909 [facility] [address] [facility] [id number] [address] [place] [address] Oct, Allergic rhinitis J30.9 [facility] [place] [address] [id number] [address] [place] [address] Oct, URI (upper respiratory infec tion) J06.9 [facility] [place] [address] [facility] [id number] [address] [place] [address] Jul, Major depression 296.20 ; An xiety, generalized 300.02 and No condition on Metz II V71.09 [facility] [place] [address] [id number] [address] [place] [address] Jun, Routine adult health mainten ance V70.0 [place] [address] [id number] [address] [place] [address] Jun, Major depression 296.20 ; No condition on Metz II V71.09 and No condition on axis III V71.09 [facility] [address] [id number] [address] [place] [address] May, Major depressive disorder, r ecurrent episode, severe 296.33 [facility] [address] [id number] [address] [place] [id number] 17 Apr, 2015 Dental examination V72.2 [facility] [address] [id number] [address] [place] [id number] Apr, Dental examination V72.2 [facility] [place] [address] [id number] [address] [place] [address] Feb, [facility] [place] [address] [id number] [address] [place] [address] Feb, [facility] [address] [id number] [address] [place] [address] Jan, [facility] [address] [id number] [address] [place] [address] Jan, [facility] [address] [id number] [address] [place] [address] Jan, [facility] [place] [address] [id number] [address] [place] [address] Jan, [facility] [address] [id number] [address] [place] [address] Oct, [facility] [address] [id number] [address] [place] [address] Oct, [facility] [address] [id number] [address] [place] [address] Apr, [facility] [address] [id number] [address] [place] [address] Apr, [facility] [address] [id number] [address] [place] [address], [place] [address] March, [facility] [address] [id number] [address] [place] [address], [place] [address] March, [facility] [address] [id number] [address] [place] [address], [place] [address] Feb, [facility] [address] [id number] [address] [place] [address], [place] [address] Feb, [facility] [address] [id number] [address] [place] [address], [place] [address] Feb, [facility] [address] [id number] [address] [place] [address], [place] [address] Feb, [facility] [address] [id number] [address] [place] [address], [place] [address] Feb, [facility] [address] [id number] [address] [place] [address], [place] [address] Jan, [facility] [address] [id number] [address] [place] [address], [place] [address] Jan, [facility] [address] [id number] [address] [place] [address], [place] [address] Dec, [facility] [address] [id number] [address] [place] [address], [place] [address] Dec, [facility] [address] [id number] [address] [place] [address], [place] [address] Nov, [facility] [address] [id number] [address] [place] [address], [place] [address] Nov, [facility] [address] [id number] [address] [place] [address], [place] [address] Nov, [facility] [address] [id number] [address] [place] [address], [place] [address] Nov, [facility] [address] [id number] [address] [place] [address], [place] [address] Nov, [facility] [address] [id number] [address] [place] [address], [place] [address] Nov, [facility] [address] [id number] [address] [place] [address], [place] [address] Oct, [facility] [address] [id number] [address] [place] [address], [place] [address] Oct, [facility] [address] [id number] [address] [place] [address], [place] [address] Sep, [facility] [address] [id number] [address] [place] [address], [place] [address] Sep, [facility] [address] [id number] [address] [place] [address], [place] [address] Sep, [facility] [address] [id number] [address] [place] [address], [place] [address] Sep, [facility] [address] [id number] [address] [place] [address], [place] [address] Jul, [facility] [address] [id number] [address] [place] [address], [place] [address] May, [facility] [address] [id number] [address] [place] [address], [place] [address] May, [facility] [address] [id number] [address] [place] [address], [place] [address] Apr, [facility] [address] [id number] [address] [place] [address], [place] [address] Apr, [facility] [address] [id number] [address] [place] [address], [place] [address] Apr, [facility] [address] [id number] [address] [place] [address], [place] [address] Apr, [facility] [address] [id number] [address] [place] [address], [place] [address] March, [facility] [address] [id number] [address] [place] [address] Jan, [facility] [address] [id number] [address] [place] [address] Dec, [facility] [address] [id number] [address] [place] [address] Dec, [facility] [place] [address] [id number] [address] [place] [address] Nov, [facility] [address] [id number] [address] [place] [address] Nov, [facility] [place] [address] [id number] [address] [place] [address] Oct, [facility] [place] [address] [id number] [address] [place] [address] Oct, [facility] [place] [address] [id number] [address] [place] [address] Sep, [facility] [place] [address] [id number] [address] [place] [address] Jan, [facility] [place] [address] [id number] [address] [place] [address] Nov, [facility] [place] [address] [id number] [address] [place] [address] Aug, [facility] [place] [address] [id number] [address] [place] [address] Aug, [facility] [address] [id number] [address] [place] [address] Jul, [facility] [address] [facility] [id number] [address] [place] [address] Sep, IMMUNIZATIONS No Known Immunizations SOCIAL HISTORY Never Assessed REASON FOR VISIT Cough, sinus congestion----DBennettRN PLAN OF CARE VITAL SIGNS Height 70 in 2017-12-02 Weight 232 lbs 2017-12-02 Temperature 98.5 degrees Fahrenheit 2017-12-02 Heart Rate 60 bpm 2017-12-02 Respiratory Rate 20 2017-12-02 BMI 33.28 kg/m2 2017-12-02 Blood pressure systolic 124 mmHg 2017-12-02 Blood pressure diastolic 80 mmHg 2017-12-02 MEDICATIONS Medication Instructions Dosage Frequency Start Date End Date Duration S tatus Flonase 50 MCG/ACT Nasally Once a day 1 spray in each nostril 24h 30 day(s) Active Propranolol HCl 40 mg Orally Twice a day 1 tablet 12h 15 Mar, 2017 30 day(s) Active Azithromycin 250 MG Orally Once a day 2 tablets on the fi rst day, then 1 tablet daily for 4 days 24h 5 day(s) Not-Taking PredniSONE 20 mg Orally Once a day 2 tablets 24h Nov, Nov, 05 days Active Proventil HFA 108 (90 Base) MCG/ACT Inhalation every 4 hrs 2 puffs as needed 4h Active RESULTS No Results PROCEDURES No Known [...]
--- OUTSIDE RECORDS SUMMARY | 2020-05-16 12:05 | XMS REPORT ---
Author Author Juan DOS SANTOS Organization [facility] Address [address] [place] [address] Care Team Providers Care Hvac Journeyman Name Role Phone TUYET DOS SANTOS Unavailable PROBLEMS Type Condition ICD9-CM Code TXH07-SW Code Onset Dates Condition S tatus SNOMED Code Problem Migraine headache G43.909 Active 37 767329 Problem Mild intermittent asthma without complication J45. 20 Active 191943774 Problem History of kidney stones Z87.442 Activ e 337878625 Problem Depressive disorder F32.9 Active 60005131 Problem Acute seasonal allergic rhinitis, unspecified trigger J30.2 Active 639149168 Problem Migraine with aura and without status migrainosu s, not intractable G43.109 Active 5933781 Problem Seasonal allergic rhinitis due to pollen J30.1 Active 70511005 Problem Migraine without aura and without status migrain osus, not intractable G43.009 Active 627917444 Problem Intractable migraine without aura and with status migr ainosus G43.011 Active 716869250 Problem Asthma with acute exacerbation in adult J45.901 Active 538867096 ALLERGIES No Known Allergies ENCOUNTERS Encounter Location Date Diagnosis [facility] [address] [id number] [address] [place] [phone] March, Viral illness B34.9 [facility] [address] [facility] [id number] [address] [place] [id number] Feb, Vomiting, intractability of vomiting not specified, presence of nausea not specified, unspecified vomiting type R11.10 [facility] [address] [facility] [id number] [address] [place] [id number] Jan, Acute nasopharyngitis J00 [facility] [id number] [address] [place] [id number] Jan, Acute follicular conjunctivi tis of left eye H10.012 [facility] [address] [id number] [address] [place] [id number] Dec, Migraine without aura and wi thout status migrainosus, not intractable G43.009 [facility] [id number] [address] [place] [phone] Nov, Migraine without aura and wi thout status migrainosus, not intractable G43.009 [place] [address] [address] Nov, Otalgia of right ear H92.01 [place] [address] [address] Oct, Migraine headache G43.909 an d Acute non-recurrent maxillary sinusitis J01.00 [place] [address] [address] Sep, Other viral agents as the ca use of diseases classified elsewhere B97.89 and Acute upper respiratory infection, unspecified J06.9 [place] [address] [address] Sep, Swelling of left eyelid H02. 846 [place] [address] [place] [id number] [place] [phone] Sep, Migraine headache G43.909 an d Migraine without aura and without status migrainosus, not intractable G43.009 [facility] [id number] [place] [phone] Aug, Pharyngitis due to other org anism J02.8 and Oral candidiasis B37.0 [place] [address] [place] [id number] [place] [phone] 03 Aug, 2017 Sore throat J02.9 and Acute seasonal allergic rhinitis, unspecified trigger J30.2 [place] [address] [address] Jul, Acute upper respiratory infe ction, unspecified J06.9 [facility] [address] [facility] [id number] [address] [place] [id number] Jun, Seasonal allergic rhinitis d ue to pollen J30.1 and Dysfunction of left eustachian tube H69.82 [facility] [address] [facility] [id number] [address] [place] [id number] Jun, Strain of right shoulder, in itial encounter S46.911A [place] [address] [facility] [id number] [address] [place] [phone] May, Migraine with aura and witho ut status migrainosus, not intractable G43.109 [facility] [address] [id number] [place] [phone] Apr, Sunburn L55.9 [facility] [place] [id number] [place] [id number] Apr, Gastroenteritis K52.9 [place] [address] [facility] [id number] [address] [place] [phone] 12 Apr, 2017 Acute left-sided thoracic ba ck pain M54.6 [place] [address] [place] [id number] [place] [phone] March, Migraine without aura and wi thout status migrainosus, not intractable G43.009 [place] [address] [facility] [id number] [address] [place] [id number] March, Intractable migraine without aura and with status migrainosus G43.011 [place] [address] [facility] [id number] [address] [place] [phone] Feb, Depressive disorder F32.9 an d Gastroenteritis K52.9 [place] [address] [facility] [id number] [address] [place] [id number] 30 Jan, 2017 Migraine headache G43.909 [place] [address] [place] [id number] [place] [id number] 13 Jan, 2017 Migraine without aura and wi thout status migrainosus, not intractable G43.009 [place] [address] [place] [id number] 07 Dec, 2016 Migraine without aura and wi thout status migrainosus, not intractable G43.009 [place] [address] [place] [id number] [place] [phone] 31 Nov, 2016 Diarrhea, unspecified type R 19.7 [place] [address] [place] [id number] [place] [phone] 18 Nov, 2016 Asthma with acute exacerbati on in adult J45.901 and Upper respiratory tract infection, unspecified type J06.9 [place] [address] [address] 11 Nov, 2016 [place] [address] [address] Nov, Acute non-recurrent maxillar y sinusitis J01.00 [place] [address] [address] 04 Nov, 2016 Viral syndrome B34.9 [place] [address] [place] [id number] Nov, Dermatitis L30.9 [facility] [address] [place] [phone] Oct, Gastroenteritis K52.9 [place] [address] [place] [id number] [place] [phone] 07 Oct, 2016 Sore throat (viral) J02.9 an d Migraine without aura and without status migrainosus, not intractable G43.009 [place] [address] [place] [id number] [place] [phone] 29 Sep, 2016 Frequent headaches R51 and 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 [facility] [address] [id number] [place] [phone] Sep, Seasonal allergic rhinitis d ue to pollen J30.1 and Acute non-recurrent maxillary sinusitis J01.00 [place] [address] [place] [id number] [place] [id number] Aug, Migraine headache G43.909 [place] [address] [place] [id number] [place] [id number] Aug, Encounter to establish care Z76.89 ; Migraine without aura and without status migrainosus, not intractable G43.009 and Melanocytic nevus of trunk D22.5 [place] [address] [facility] [id number] [address] [place] [phone] Aug, [place] [address] [place] [id number] [place] [id number] Jul, Chronic gastritis without bl eeding, unspecified gastritis type K29.50 [place] [address] [place] [address] Jul, Cough R05 [place] [address] [place] [id number] [place] [phone] May, Gastritis without bleeding, unspecified chronicity, unspecified gastritis type K29.70 [facility] [id number] [place] [id number] May, Gastroenteritis K52.9 [facility] [place] [id number] [place] [id number] May, Left acute otitis media H66. 92 [place] [address] [place] [id number] [place] [phone] Apr, Depressive disorder F32.9 [place] [address] [place] [id number] [place] [phone] Apr, Otitis media with effusion, left H65.92 [place] [address] [place] [id number] [place] [phone] Apr, Migraine headache G43.909 [facility] [address] [facility] [id number] [address] [place] [id number] 09 Apr, 2016 Depressive disorder F32.9 an d Adjustment disorder with depressed mood F43.21 [facility] [address] [facility] [id number] [address] [place] [phone] March, Depressive disorder F32.9 an d Adjustment disorder with depressed mood F43.21 [facility] [address] [facility] [id number] [address] [place] [phone] March, Adjustment disorder with dep ressed mood F43.21 [facility] [address] [facility] [id number] [address] [place] [phone] March, Adjustment disorder with dep ressed mood F43.21 [facility] [id number] [place] [id number] Dec, Migraine headache G43.909 [facility] [address] [place] [id number] [address] [place] [address] Oct, Middle ear effusion H65.90 a nd Migraine headache G43.909 [facility] [id number] [place] [id number] Oct, Allergic rhinitis J30.9 [facility] [id number] [place] [phone] Oct, URI (upper respiratory infec tion) J06.9 [facility] [id number] [place] [id number] Jul, Major depression 296.20 ; An xiety, generalized 300.02 and No condition on [place] II V71.09 [facility] [id number] [place] [phone] Jun, Routine [facility] ance V70.0 [facility] [id number] [place] [phone] Jun, Major depression 296.20 ; No condition on [place] II V71.09 and No condition on axis III V71.09 [facility] [address] [id number] [address] [place] [phone] May, Major depressive disorder, r ecurrent episode, severe 296.33 [facility] [address] [id number] [address] [place] [id number] 17 Apr, 2015 Dental examination V72.2 [facility] [address] [id number] [address] [place] [id number] Apr, Dental examination V72.2 [facility] [address] [id number] [address] [place] [id number] 14 Feb, 2015 [facility] [address] [id number] [address] [place] [phone] Feb, [facility] [address] [id number] [address] [place] [phone] Jan, [facility] [address] [id number] [address] [place] [id number] Jan, [facility] [address] [id number] [address] [place] [phone] Jan, [facility] [address] [id number] [address] [place] [id number] Jan, [facility] [address] [id number] [address] [place] [id number] Oct, [facility] [address] [id number] [address] [place] [id number] Oct, [facility] [address] [id number] [address] [place] [phone] Apr, [facility] [address] [id number] [address] [place] [phone] Apr, [facility] [address] [id number] [address] [place] [phone] March, [facility] [address] [id number] [address] [place] [address], [place] [phone] March, [facility] [address] [id number] [address] [place] [address], [place] [address] Feb, [facility] [address] [id number] [address] [place] [address], [place] [address] Feb, [facility] [address] [id number] [address] [place] [address], [place] [id number] Feb, [facility] [address] [id number] [address] [place] [address], [place] [id number] Feb, [facility] [address] [id number] [address] [place] [address], [place] [id number] Feb, [facility] [address] [id number] [address] [place] [address], [place] [address] Jan, [facility] [address] [id number] [address] [place] [address], [place] [address] Jan, [facility] [address] [id number] [address] [place] [address], [place] [phone] Dec, [facility] [address] [id number] [address] [place] [address], [place] [phone] Dec, [facility] [address] [id number] [address] [place] [address], [place] [address] Nov, [facility] [address] [id number] [address] [place] [address], [place] [address] Nov, [facility] [address] [id number] [address] [place] [address], [place] [address] Nov, [facility] [address] [id number] [address] [place] [address], [place] [address] Nov, [facility] [address] [id number] [address] [place] [address], [place] [address] Nov, [facility] [address] [id number] [address] [place] [address], [place] [address] Nov, [facility] [address] [id number] [address] [place] [address], [place] [address] Oct, [facility] [address] [id number] [address] [place] [address], [place] [address] Oct, [facility] [address] [id number] [address] [place] [address], [place] [address] Sep, [facility] [address] [id number] [address] [place] [address], [place] [address] Sep, [facility] [address] [id number] [address] [place] [address], [place] [address] Sep, [facility] [address] [id number] [address] [place] [address], [place] [address] Sep, [facility] [address] [id number] [address] [place] [address], [place] [address] Jul, [facility] [address] [id number] [address] [place] [address], [place] [address] May, [facility] [address] [id number] [address] [place] [address], [place] [address] May, [facility] [address] [id number] [address] [place] [address], [place] [address] Apr, [facility] [address] [id number] [address] [place] [address], [place] [address] Apr, [facility] [address] [id number] [address] [place] [phone] Apr, [facility] [address] [id number] [address] [place] [address], [place] [address] Apr, [facility] [address] [id number] [address] [place] [address], [place] [address] March, [facility] [address] [id number] [address] [place] [address], [place] [address] Jan, [facility] [address] [id number] [address] [place] [phone] Dec, [facility] [address] [id number] [address] [place] [phone] Dec, [facility] [address] [id number] [address] [place] [phone] Nov, [facility] [address] [id number] [address] [place] [id number] Nov, [facility] [address] [id number] [address] [place] [phone] Oct, [facility] [address] [id number] [address] [place] [phone] Oct, [facility] [address] [id number] [address] [place] [phone] Sep, [facility] [address] [id number] [address] [place] [phone] Jan, [facility] [address] [id number] [address] [place] [phone] Nov, [facility] [address] [id number] [address] [place] [phone] Aug, [facility] [address] [id number] [address] [place] [phone] Aug, [facility] [address] [id number] [address] [place] [id number] Jul, [facility] [address] [id number] [address] [place] [phone] Sep, IMMUNIZATIONS No Known Immunizations SOCIAL HISTORY Never Assessed REASON FOR VISIT left eye irritation below and above it in the mornings-Malik PRECI[facility]O PLAN OF CARE Activity Details Follow Up prn Reason: VITAL SIGNS Height 70 in 2017-10-15 Weight 230.0 lbs 2017-10-15 Temperature 98.3 degrees Fahrenheit 2017-10-15 Heart Rate 76 bpm 2017-10-15 Respiratory Rate 18 2017-10-15 BMI 33.00 kg/m2 2017-10-15 Blood pressure systolic 118 mmHg 2017-10-15 Blood pressure diastolic 70 mmHg 2017-10-15 MEDICATIONS Medication Instructions Dosage Frequency Start Date End Date Duration S tatus SudoGest 60 mg Orally every 6 hrs 1 tablet as needed 6h Jun, 7 05 days Active Propranolol HCl 40 mg Orally Twice a day 1 tablet 12h March, 30 day(s) Active Zyrtec Allergy 10 mg Orally Once a day 1 tablet 24h Aug, 7 1 Nov, 2017 30 day(s) Active Proventil HFA 108 [...]
[2020-05-16 12:06] LABS: GLUCOSE 97 MG/DL (70-105); TOTAL PROTEIN 7.9 GM/DL (6.4-8.2)
--- OUTSIDE RECORDS SUMMARY | 2020-05-16 12:06 | XMS REPORT ---
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 20 Active 638339639 Problem History of kidney stones Z87.442 Activ e 538763979 Problem Depressive disorder F32.9 Active 87021980 Problem Acute seasonal allergic rhinitis, unspecified trigger J30.2 Active 772584661 Problem Migraine with aura and without status migrainosu s, not intractable G43.109 Active 0632549 Problem Seasonal allergic rhinitis due to pollen J30.1 Active 49259573 Problem Migraine without aura and without status migrain osus, not intractable G43.009 Active 399498943 Problem Intractable migraine without aura and with status migr ainosus G43.011 Active 464328950 Problem Asthma with acute exacerbation in adult J45.901 Active 192338815 ALLERGIES No Known Allergies ENCOUNTERS Encounter Location Date Diagnosis [facility] [address] [id number] [address] [place] [address] Jan, Acute nasopharyngitis J00 [facility] [address] [facility] [id number] [address] [place] [address] Jan, Acute follicular conjunctivi tis of left eye H10.012 [facility] [address] [facility] [id number] [address] [place] [address] Dec, Migraine without aura and wi thout status migrainosus, not intractable G43.009 [facility] [address] [facility] [id number] [address] [place] [address] Nov, Migraine without aura and wi thout status migrainosus, not intractable G43.009 [place] [address] [place] [id number] [address] [place] [address] 08 Nov, 2017 Otalgia of right ear H92.01 [place] [address] [place] [id number] [address] [place] [address] Oct, Migraine headache G43.909 an d Acute non-recurrent maxillary sinusitis J01.00 [place] [address] [address] Sep, Other viral agents as the ca use of diseases classified elsewhere B97.89 and Acute upper respiratory infection, unspecified J06.9 [place] [address] [address] Sep, Swelling of left eyelid H02. 846 [place] [address] [address] Sep, Migraine headache G43.909 an d Migraine without aura and without status migrainosus, not intractable G43.009 [facility] [address] [address] Aug, Pharyngitis due to other org anism J02.8 and Oral candidiasis B37.0 [place] [address] [address] Aug, Sore throat J02.9 and Acute seasonal allergic rhinitis, unspecified trigger J30.2 [place] [address] [place] [id number] [address] [place] [address] Jul, Acute upper respiratory infe ction, unspecified J06.9 [place] [address] [place] [id number] [place] [address] Jun, Seasonal allergic rhinitis d ue to pollen J30.1 and Dysfunction of left eustachian tube H69.82 [facility] [address] [id number] [address] [place] [address] Jun, Strain of right shoulder, in itial encounter S46.911A [facility] [address] [facility] [id number] [address] [place] [address] May, Migraine with aura and witho ut status migrainosus, not intractable G43.109 [facility] [address] [place] [id number] [address] [place] [address] Apr, Sunburn L55.9 [facility] [address] [facility] [id number] [address] [place] [address] Apr, Gastroenteritis K52.9 [facility] [address] [id number] [place] [address] Apr, Acute left-sided thoracic ba ck pain M54.6 [place] [address] [place] [id number] [place] [address] March, Migraine without aura and wi thout status migrainosus, not intractable G43.009 [place] [address] [place] [id number] [address] [place] [address] March, Intractable migraine without aura and with status migrainosus G43.011 [place] [address] [place] [id number] [place] [address] Feb, Depressive disorder F32.9 an d Gastroenteritis K52.9 [facility] [address] [id number] [place] [address] Jan, Migraine headache G43.909 [place] [address] [place] [id number] [place] [address] Jan, Migraine without aura and wi thout status migrainosus, not intractable G43.009 [facility] [address] [id number] [address] [place] [address] Dec, Migraine without aura and wi thout status migrainosus, not intractable G43.009 [place] [address] [place] [id number] [place] [address] Nov, Diarrhea, unspecified type R 19.7 [place] [address] [address] Nov, Asthma with acute exacerbati on in adult J45.901 and Upper respiratory tract infection, unspecified type J06.9 [place] [address] [address] Nov, [place] [address] [address] Nov, Acute non-recurrent maxillar y sinusitis J01.00 [place] [address] [address] Nov, Viral syndrome B34.9 [place] [address] [address] Nov, Dermatitis L30.9 [facility] [place] [address] [address] Oct, Gastroenteritis K52.9 [place] [address] [address] Oct, Sore throat (viral) J02.9 an d Migraine without aura and without status migrainosus, not intractable G43.009 [place] [address] [address] Sep, Frequent headaches R51 and 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 [facility] [address] [address] Sep, Seasonal allergic rhinitis d ue to pollen J30.1 and Acute non-recurrent maxillary sinusitis J01.00 [place] [address] [address] Aug, Migraine headache G43.909 [place] [address] [address] Aug, Encounter to establish care Z76.89 ; Migraine without aura and without status migrainosus, not intractable G43.009 and Melanocytic nevus of trunk D22.5 [place] [address] [facility] [id number] [address] [place] [address] Aug, [place] [address] [place] [id number] [address] [place] [address] Jul, Chronic gastritis without bl eeding, unspecified gastritis type K29.50 [place] [address] [place] [id number] [address] [place] [address] 06 Jul, 2016 Cough R05 [place] [address] [place] [id number] [place] [address] May, Gastritis without bleeding, unspecified chronicity, unspecified gastritis type K29.70 [facility] [address] [place] [id number] [place] [address] May, Gastroenteritis K52.9 [facility] [place] [address] [place] [id number] [place] [address] May, Left acute otitis media H66. 92 [place] [address] [place] [id number] [place] [address] 23 Apr, 2016 Depressive disorder F32.9 [place] [address] [place] [id number] [place] [address] Apr, Otitis media with effusion, left H65.92 [place] [address] [place] [id number] [address] [place] [address] 16 Apr, 2016 Migraine headache G43.909 [place] [id number] [place] [address] 09 Apr, 2016 Depressive disorder F32.9 an d Adjustment disorder with depressed mood F43.21 [place] [address] [place] [id number] [place] [address] March, Depressive disorder F32.9 an d Adjustment disorder with depressed mood F43.21 [facility] [address] [facility] [id number] [address] [place] [address] March, Adjustment disorder with dep ressed mood F43.21 [facility] [address] [address] [id number] [place] [address] March, Adjustment disorder with dep ressed mood F43.21 [facility] [address] [address] Dec, Migraine headache G43.909 [facility] [address] [id number] [place] [address] Oct, Middle ear effusion H65.90 a nd Migraine headache G43.909 [facility] [address] [id number] [place] [address] Oct, Allergic rhinitis J30.9 [facility] [address] [address] Oct, URI (upper respiratory infec tion) J06.9 [facility] [address] [address] Jul, Major depression 296.20 ; An xiety, generalized 300.02 and No condition on [place] II V71.09 [place] [address] [place] [id number] [address] [place] [address] Jun, [facility] V70.0 [facility] [address] [place] [id number] [address] [place] [address] Jun, Major depression 296.20 ; No condition on [place] II V71.09 and No condition on axis III V71.09 [facility] [address] [address] May, Major depressive disorder, r ecurrent episode, severe 296.33 [facility] [address] [id number] [address] [place] [id number] Apr, Dental examination V72.2 [facility] [address] [id number] [address] [place] [id number] 10 Apr, 2015 Dental examination V72.2 [facility] [address] [id number] [address] [place] [address], [place] [address] 14 Feb, 2015 [facility] [address] [id number] [address] [place] [address] 13 Feb, 2015 [facility] [address] [id number] [address] [place] [address], [place] [address] 16 Jan, 2015 [facility] [address] [id number] [address] [place] [address], [place] [address] Jan, [facility] [address] [id number] [address] [place] [address], [place] [address] Jan, [facility] [address] [id number] [address] [place] [address], [place] [address] Jan, [facility] [address] [id number] [address] [place] [address] Oct, [facility] [address] [id number] [address] [place] [address] Oct, [facility] [address] [id number] [address] [place] [address] Apr, [facility] [address] [id number] [address] [place] [address] Apr, [facility] [address] [id number] [address] [place] [address] March, [facility] [address] [id number] [address] [place] [address] March, [facility] [address] [id number] [address] [place] [address] Feb, [facility] [address] [id number] [address] [place] [address] Feb, [facility] [address] [id number] [address] [place] [address] Feb, [facility] [address] [id number] [address] [place] [address], [place] [address] Feb, [facility] [address] [id number] [address] [place] [address], [place] [address] Feb, [facility] [address] [id number] [address] [place] [address], [place] [address] Jan, [facility] [address] [id number] [address] [place] [address], [place] [address] Jan, [facility] [address] [id number] [address] [place] [address], [place] [address] Dec, [facility] [address] [id number] [address] [place] [address], [place] [address] Dec, [facility] [address] [id number] [address] [place] [address], [place] [address] Nov, [facility] [address] [id number] [address] [place] [address], [place] [address] Nov, [facility] [address] [id number] [address] [place] [address], [place] [address] Nov, [facility] [address] [id number] [address] [place] [address], [place] [address] Nov, [facility] [address] [id number] [address] [place] [address], [place] [address] Nov, [facility] [address] [id number] [address] [place] [address], [place] [address] Nov, [facility] [address] [id number] [address] [place] [address], [place] [address] Oct, [facility] [address] [id number] [address] [place] [address], [place] [address] Oct, [facility] [address] [id number] [address] [place] [address], [place] [address] Sep, [facility] [address] [id number] [address] [place] [address], [place] [address] 14 Sep, 2013 [facility] [address] [id number] [address] [place] [address], [place] [address] Sep, [facility] [address] [id number] [address] [place] [address], [place] [address] Sep, [facility] [address] [id number] [address] [place] [address], [place] [address] 06 Jul, 2013 [facility] [address] [id number] [address] [place] [address], [place] [address] May, [facility] [address] [id number] [address] [place] [address], [place] [address] May, [facility] [address] [id number] [address] [place] [address], [place] [address] Apr, [facility] [address] [id number] [address] [place] [address], [place] [address] Apr, [facility] [address] [id number] [address] [place] [address], [place] [address] Apr, [facility] [address] [id number] [address] [place] [address], [place] [address] Apr, [facility] [address] [id number] [address] [place] [address], [place] [address] March, [facility] [address] [id number] [address] [place] [address], [place] [address] Jan, [facility] [address] [id number] [address] [place] [address], [place] [address] Dec, [facility] [address] [id number] [address] [place] [address], [place] [address] Dec, [facility] [address] [id number] [address] [place] [address], [place] [address] Nov, [facility] [address] [id number] [address] [place] [address] Nov, [facility] [address] [id number] [address] [place] [address] Oct, [facility] [address] [id number] [address] [place] [address] Oct, [facility] [address] [id number] [address] [place] [address] Sep, [facility] [address] [id number] [address] [place] [address] Jan, [facility] [address] [id number] [address] [place] [address] Nov, [facility] [address] [id number] [address] [place] [address] Aug, [facility] [address] [id number] [address] [place] [address] Aug, [facility] [address] [id number] [address] [place] [address] Jul, [facility] [address] [id number] [address] [place] [address] Sep, IMMUNIZATIONS No Known Immunizations SOCIAL HISTORY Never Assessed REASON FOR VISIT migraine - Woke at 6 am and felt it coming on by 730 am was a full blown migrain e. Is not going away. - Elisabeth [employer] PLAN OF CARE VITAL SIGNS Height 70 in 2017-06-21 Weight 240.0 lbs 2017-06-21 Temperature 98.3 degrees Fahrenheit 2017-06-21 Heart Rate 80 bpm 2017-06-21 Respiratory Rate 20 2017-06-21 BMI 34.43 kg/m2 2017-06-21 Blood pressure systolic 134 mmHg 2017-06-21 Blood pressure diastolic 84 mmHg 2017-06-21 MEDICATIONS Medication Instructions Dosage Frequency Start Date End Date Duration S tala Cyclobenzaprine HCl 10 mg Orally 2 times a day 1 tablet as needed 1 2h Apr, Active Zofran ODT 4 MG Orally every 8 hrs 1 tablet on the tongue and al low to dissolve 8h Apr, 5 days Active RESULTS No Results PROCEDURES No [...]
--- OUTSIDE RECORDS SUMMARY | 2020-05-16 12:06 | XMS REPORT ---
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 20 Active 878916494 Problem History of kidney stones Z87.442 Activ e 813845482 Problem Depressive disorder F32.9 Active 42809332 Problem Acute seasonal allergic rhinitis, unspecified trigger J30.2 Active 780349434 Problem Migraine with aura and without status migrainosu s, not intractable G43.109 Active 7568100 Problem Seasonal allergic rhinitis due to pollen J30.1 Active 97751227 Problem Migraine without aura and without status migrain osus, not intractable G43.009 Active 944983293 Problem Intractable migraine without aura and with status migr ainosus G43.011 Active 191154724 Problem Asthma with acute exacerbation in adult J45.901 Active 789704914 ALLERGIES No Known Allergies ENCOUNTERS Encounter Location Date Diagnosis [facility] [address] [place] [place] [id number] [address] [place] [address] Sep, Viral URI J06.9 [facility] [address] [place] [address] [id number] [address] [place] [address] May, [facility] [address] [id number] [address] [place] [address] Apr, Hordeolum externum of left l ower eyelid H00.015 [facility] [address] [facility] [id number] [address] [place] [address] Apr, Viral gastroenteritis A08.4 [facility] [address] [address] March, Viral illness B34.9 [facility] [place] [address] [address] Feb, Vomiting, intractability of vomiting not specified, presence of nausea not specified, unspecified vomiting type R11.10 [place] [address] [address] Jan, Acute nasopharyngitis J00 [place] [address] [address] Jan, Acute follicular conjunctivi tis of left eye H10.012 [place] [address] [address] Dec, Migraine without aura and wi thout status migrainosus, not intractable G43.009 [place] [address] [address] Nov, Migraine without aura and wi thout status migrainosus, not intractable G43.009 [place] [address] [address] Nov, Otalgia of right ear H92.01 [place] [address] [address] Oct, Migraine headache G43.909 an d Acute non-recurrent maxillary sinusitis J01.00 [place] [address] [address] Sep, Other viral agents as the ca use of diseases classified elsewhere B97.89 and Acute upper respiratory infection, unspecified J06.9 [place] [address] [address] Sep, Swelling of left eyelid H02. [address] [address] Sep, Migraine headache G43.909 an d Migraine without aura and without status migrainosus, not intractable G43.009 [facility] [address] [place] [id number] [address] [place] [address] Aug, Pharyngitis due to other org anism J02.8 and Oral candidiasis B37.0 [place] [address] [place] [id number] [place] [address] Aug, Sore throat J02.9 and Acute seasonal allergic rhinitis, unspecified trigger J30.2 [place] [address] [address] Jul, Acute upper respiratory infe ction, unspecified J06.9 [place] [address] [address] Jun, Seasonal allergic rhinitis d ue to pollen J30.1 and Dysfunction of left eustachian tube H69.82 [facility] [place] [address] [address] Jun, Strain of right shoulder, in itial encounter S46.911A [place] [address] [address] May, Migraine with aura and witho ut status migrainosus, not intractable G43.109 [facility] [place] [address] [address] Apr, Sunburn L55.9 [facility] [place] [address] [place] [id number] [place] [address] Apr, Gastroenteritis K52.9 [place] [address] [address] Apr, Acute left-sided thoracic ba ck pain M54.6 [place] [address] [place] [id number] [place] [address] March, Migraine without aura and wi thout status migrainosus, not intractable G43.009 [facility] [address] [facility] [id number] [address] [place] [address] March, Intractable migraine without aura and with status migrainosus G43.011 [facility] [address] [facility] [id number] [address] [place] [address] Feb, Depressive disorder F32.9 an d Gastroenteritis K52.9 [facility] [address] [place] [address] 30 Jan, 2017 Migraine headache G43.909 [place] [address] [place] [address] Jan, Migraine without aura and wi thout status migrainosus, not intractable G43.009 [place] [address] [place] [id number] [address] [place] [address] 07 Dec, 2016 Migraine without aura and wi thout status migrainosus, not intractable G43.009 [place] [address] [place] [address] Nov, Diarrhea, unspecified type R 19.7 [place] [address] [address] Nov, Asthma with acute exacerbati on in adult J45.901 and Upper respiratory tract infection, unspecified type J06.9 [place] [address] [place] [address] Nov, [facility] [address] [place] [address] Nov, Acute non-recurrent maxillar y sinusitis J01.00 [place] [address] [place] [address] 04 Nov, 2016 Viral syndrome B34.9 [facility] [address] [place] [id number] [address] [place] [address] Nov, Dermatitis L30.9 [facility] [address] [place] [place] [id number] [place] [address] Oct, Gastroenteritis K52.9 [place] [address] [address] Oct, Sore throat (viral) J02.9 an d Migraine without aura and without status migrainosus, not intractable G43.009 [place] [address] [address] Sep, Frequent headaches R51 and 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 [facility] [address] [address] Sep, Seasonal allergic rhinitis d ue to pollen J30.1 and Acute non-recurrent maxillary sinusitis J01.00 [place] [address] [address] Aug, Migraine headache G43.909 [place] [address] [address] Aug, Encounter to establish care Z76.89 ; Migraine without aura and without status migrainosus, not intractable G43.009 and Melanocytic nevus of trunk D22.5 [place] [address] [address] Aug, [place] [address] [address] Jul, Chronic gastritis without bl eeding, unspecified gastritis type K29.50 [place] [address] [place] [id number] [place] [address] Jul, Cough R05 [place] [address] [address] May, Gastritis without bleeding, unspecified chronicity, unspecified gastritis type K29.70 [facility] [address] [address] May, Gastroenteritis K52.9 [facility] [address] [facility] [id number] [address] [place] [address] May, Left acute otitis media H66. 92 [facility] [address] [facility] [id number] [address] [place] [address] Apr, Depressive disorder F32.9 [facility] [address] [facility] [id number] [address] [place] [address] Apr, Otitis media with effusion, left H65.92 [facility] [address] [facility] [id number] [address] [place] [address] Apr, Migraine headache G43.909 [facility] [address] [facility] [id number] [address] [place] [address] Apr, Depressive disorder F32.9 an d Adjustment disorder with depressed mood F43.21 [facility] [address] [facility] [id number] [address] [place] [address] March, Depressive disorder F32.9 an d Adjustment disorder with depressed mood F43.21 [facility] [address] [facility] [id number] [address] [place] [address] March, Adjustment disorder with dep ressed mood F43.21 [facility] [address] [facility] [id number] [address] [place] [address] March, Adjustment disorder with dep ressed mood F43.21 [facility] [address] [place] [id number] [place] [address] Dec, Migraine headache G43.909 [facility] [address] [facility] [id number] [address] [place] [address] Oct, Middle ear effusion H65.90 a nd Migraine headache G43.909 [facility] [address] [facility] [id number] [address] [place] [address] Oct, Allergic rhinitis J30.9 [facility] [address] [facility] [id number] [address] [place] [address] Oct, URI (upper respiratory infec tion) J06.9 [facility] [address] [id number] [address] [place] [address] Jul, Major depression 296.20 ; An xiety, generalized 300.02 and No condition on [place] V71.09 [facility] [address] [id number] [address] [place] [address] Jun, Routine adult health [facility] V70.0 [facility] [address] [id number] [address] [place] [address] Jun, Major depression 296.20 ; No condition on [place] V71.09 and No condition on axis III V71.09 [facility] [address] [id number] [address] [place] [address] May, Major depressive disorder, r ecurrent episode, severe 296.33 [facility] [address] [id number] [address] [place] [id number] Apr, Dental examination V72.2 [facility] [address] [id number] [address] [place] [id number] Apr, Dental examination V72.2 [facility] [address] [id number] [address] [place] [address] Feb, [facility] [address] [id number] [address] [place] [address] Feb, [facility] [address] [id number] [address] [place] [address] Jan, [facility] [address] [id number] [address] [place] [address] Jan, [facility] [address] [id number] [address] [place] [address] Jan, [facility] [address] [id number] [address] [place] [address] Jan, [facility] [address] [id number] [address] [place] [address] Oct, [facility] [address] [id number] [address] [place] [address], [place] [address] Oct, [facility] [address] [id number] [address] [place] [address], [place] [address] Apr, [facility] [address] [id number] [address] [place] [address], [place] [address] Apr, [facility] [address] [id number] [address] [place] [address], [place] [address] March, [facility] [address] [id number] [address] [place] [address], [place] [address] March, [facility] [address] [id number] [address] [place] [address], [place] [address] Feb, [facility] [address] [id number] [address] [place] [address], [place] [address] Feb, [facility] [address] [id number] [address] [place] [address], [place] [address] Feb, [facility] [address] [id number] [address] [place] [address], [place] [address] Feb, [facility] [address] [id number] [address] [place] [address], [place] [address] Feb, [facility] [address] [id number] [address] [place] [address], [place] [address] Jan, [facility] [address] [id number] [address] [place] [address], [place] [address] Jan, [facility] [address] [id number] [address] [place] [address], [place] [address] Dec, [facility] [address] [id number] [address] [place] [address], [place] [address] Dec, [facility] [address] [id number] [address] [place] [address], [place] [address] Nov, [facility] [address] [id number] [address] [place] [address], [place] [address] Nov, [facility] [address] [id number] [address] [place] [address], [place] [address] Nov, [facility] [address] [id number] [address] [place] [address], [place] [address] Nov, [facility] [address] [id number] [address] [place] [address], [place] [address] Nov, [facility] [address] [id number] [address] [place] [address], [place] [address] Nov, [facility] [address] [id number] [address] [place] [address], [place] [address] Oct, [facility] [address] [id number] [address] [place] [address], [place] [address] Oct, [facility] [address] [id number] [address] [place] [address], [place] [address] Sep, [facility] [address] [id number] [address] [place] [address], [place] [address] Sep, [facility] [address] [id number] [address] [place] [address], [place] [address] Sep, [facility] [address] [id number] [address] [place] [address], [place] [address] Sep, [facility] [address] [id number] [address] [place] [address], [place] [address] Jul, [facility] [address] [id number] [address] [place] [address], [place] [address] May, [facility] [address] [id number] [address] [place] [address], [place] [address] May, [facility] [address] [id number] [address] [place] [address], [place] [address] Apr, [facility] [address] [id number] [address] [place] [address], [place] [address] 15 Apr, 2013 [facility] [address] [id number] [address] [place] [address], [place] [address] 14 Apr, 2013 [facility] [address] [id number] [address] [place] [address], [place] [address] Apr, [facility] [address] [id number] [address] [place] [address], [place] [address] March, [facility] [address] [id number] [address] [place] [address], [place] [address] Jan, [facility] [address] [id number] [address] [place] [address], [place] [address] Dec, [facility] [address] [id number] [address] [place] [address], [place] [address] Dec, [facility] [address] [id number] [address] [place] [address], [place] [address] Nov, [facility] [address] [id number] [address] [place] [address], [place] [address] Nov, [facility] [address] [id number] [address] [place] [address], [place] [address] Oct, [facility] [address] [id number] [address] [place] [address], [place] [address] Oct, [facility] [address] [id number] [address] [place] [address], [place] [address] Sep, [facility] [address] [id number] [address] [place] [address], [place] [address] Jan, [facility] [address] [id number] [address] [place] [address], [place] [address] Nov, [facility] [address] [id number] [address] [place] [address], [place] [address] Aug, [facility] [address] [id number] [address] [place] [address], [place] [address] Aug, [facility] [address] [id number] [address] [address] Jul, [facility] [address] [facility] [id number] [address] [address] Sep, IMMUNIZATIONS No Known Immunizations SOCIAL HISTORY Never Assessed REASON FOR VISIT Headache/Fever, PT states this all began Saturday with some congestion on/off runn y nose, sore throat today and a headache. Denies diarrhea and nausea -Alfredo Romo PLAN OF CARE VITAL SIGNS Height 70 in 2018-10-23 Weight 242.2 lbs 2018-10-23 Temperature 98.1 degrees Fahrenheit 2018-10-23 Heart Rate 90 bpm 2018-10-23 Respiratory Rate 20 2018-10-23 Oximetry 95 % 2018-10-23 BMI 34.75 kg/m2 2018-10-23 Blood pressure systolic 128 mmHg 2018-10-23 Blood pressure diastolic 70 mmHg 2018-10-23 MEDICATIONS Medication Instructions Dosage Frequency Start Date End Date Duration S tatus Gentamicin Sulfate 0.3 % Ophthalmic Twice a day 1 application 12h 25 Apr, 2018 7 days Active Imitrex 100 mg Orally Once a day 1 tablet as needed 24h Dec, Active ZyrTEC Active PredniSONE 20 MG Orally Once a day 2 tablets 24h Sep, 05 days Active Amitriptyline HCl 50 mg Orally Once a day 1 tablet 24h Dec, 30 day(s) Not-Taking RESULTS No Results PROCEDURES [...]
[2020-05-16 12:07] LABS: CARBON DIOXIDE 24 MMOL/L (21-32)
--- OUTSIDE RECORDS SUMMARY | 2020-05-16 12:07 | XMS REPORT | Continuity of Care Document ---
Author Organization Unknown Address Unknown Phone Unavailable Allergies Active Description Code Type Severity Reaction Onset Reported/Identified Relationship to Patient Clinical Status Yes NKANo Known Allergies NKA Miscellaneous Allergy Unknown N/A 07/05/2006 Medications There is no data. Problems Date Dx Coded Attending Type Code Diagnosis Diagnosed By 05/29/2008 528.9 MOUT H PAIN 05/29/2008 528.9 MOUT H PAIN 05/29/2008 528.9 MOUT H PAIN 05/29/2008 528.9 Mout h Pain 05/29/2008 528.9 Mout h Pain 05/29/2008 528.9 Mout h Pain 05/29/2008 528.9 Mout h Pain 05/29/2008 528.9 Mout h Pain 05/29/2008 528.9 Mout h Pain 05/29/2008 528.9 Mout h Pain 05/29/2008 AUSTIN PEREZ APRN 52 8.9 Mouth Pain 05/29/2008 MARYLIN HLIL APRN 528.9 Mouth Pain 05/29/2008 AUSTIN PEREZ APRN 52 8.9 Mouth Pain 05/29/2008 TUYET DOS SANTOS MD 528.9 Mouth Pain 05/29/2008 JAI HEATH MD 528 .9 Mouth Pain 05/29/2008 IGNACIO ALBARADO APRN 528.9 Mouth Pain 05/29/2008 RADHA TINOCO APRN L 528 .9 Mouth Pain 05/29/2008 JANET TREJO APRN S 528.9 Mouth Pain 05/29/2008 MARYLIN HILL APRN 528.9 Mouth Pain 05/29/2008 AUSTIN PEREZ APRN 52 8.9 Mouth Pain 08/12/2008 558.9 DIPTI ROENTERITIS NONINFECTIOUS 08/12/2008 558.9 DIPTI ROENTERITIS NONINFECTIOUS 08/12/2008 558.9 DIPTI ROENTERITIS NONINFECTIOUS 08/12/2008 558.9 Dipti roenteritis Noninfectious 08/12/2008 558.9 Dipti roenteritis Noninfectious 08/12/2008 558.9 Dipti roenteritis Noninfectious 08/12/2008 558.9 Dipti roenteritis Noninfectious 08/12/2008 558.9 Dipti roenteritis Noninfectious 08/12/2008 558.9 Dipti roenteritis Noninfectious 08/12/2008 558.9 Dipti roenteritis Noninfectious 08/12/2008 AUSTIN PEREZ APRN 55 8.9 Gastroenteritis Noninfectious 08/12/2008 MARYLIN HILL APRN R 558.9 Gastroenteritis Noninfectious 08/12/2008 AUSTIN PEREZ APRN 55 8.9 Gastroenteritis Noninfectious 08/12/2008 TUYET DOS SANTOS MD 558.9 Gastroenteritis Noninfectious 08/12/2008 JAI HEATH MD 558 .9 Gastroenteritis Noninfectious 08/12/2008 PER JOHN[place] IGNACIO R 558.9 Gastroenteritis Noninfectious 08/12/2008 EARNEST JOHN[place]ON RADHA L 558 .9 Gastroenteritis Noninfectious 08/12/2008 NEIL [place] JANET S 558.9 Gastroenteritis Noninfectious 08/12/2008 MARYLIN HILL APRN R 558.9 Gastroenteritis Noninfectious 08/12/2008 AUSTIN PEREZ APRN 55 8.9 Gastroenteritis Noninfectious 10/18/2009 465.9 ACUT E UPPER RESPIRATORY INFECTIONS OF UNSPECIFIED SITE 10/18/2009 465.9 ACUT E UPPER RESPIRATORY INFECTIONS OF UNSPECIFIED SITE 10/18/2009 465.9 ACUT E UPPER RESPIRATORY INFECTIONS OF UNSPECIFIED SITE 10/18/2009 465.9 Acut e Upper Respiratory Infections Of Unspecified Site 10/18/2009 465.9 Acut e Upper Respiratory Infections Of Unspecified Site 10/18/2009 465.9 Acut e Upper Respiratory Infections Of Unspecified Site 10/18/2009 465.9 Acut e Upper Respiratory Infections Of Unspecified Site 10/18/2009 465.9 Acut e Upper Respiratory Infections Of Unspecified Site 10/18/2009 465.9 Acut e Upper Respiratory Infections Of Unspecified Site 10/18/2009 465.9 Acut e Upper Respiratory Infections Of Unspecified Site 10/18/2009 CHRIS [employer], AUSTIN T 46 5.9 Acute Upper Respiratory Infections Of Unspecified Site 10/18/2009 MARYLIN HILL APRN R 465.9 Acute Upper Respiratory Infections Of Unspecified Site 10/18/2009 AUSTIN PEREZ APRN T 46 5.9 Acute Upper Respiratory Infections Of Unspecified Site 10/18/2009 TUYET DOS SANTOS MD 465.9 Acute Upper Respiratory Infections Of Unspecified Site 10/18/2009 JAI HEATH MD 465 .9 Acute Upper Respiratory Infections Of Unspecified Site 10/18/2009 PER BALDWINN, IGNACIO R 465.9 Acute Upper Respiratory Infections Of Unspecified Site 10/18/2009 MADL [employer], RADHA L 465 .9 Acute Upper Respiratory Infections Of Unspecified Site 10/18/2009 NEILSUZANNA BALDWINN JANET S 465.9 Acute Upper Respiratory Infections Of Unspecified Site 10/18/2009 MARYLIN HILL APRN R 465.9 Acute Upper Respiratory Infections Of Unspecified Site 10/18/2009 AUSTIN PEREZ APRN 46 5.9 Acute Upper Respiratory Infections Of Unspecified Site 02/22/2010 729.5 PAIN IN LIMB 02/22/2010 729.5 PAIN IN LIMB 02/22/2010 729.5 PAIN IN LIMB 02/22/2010 729.5 Pain In Limb 02/22/2010 729.5 Pain In Limb 02/22/2010 729.5 Pain In Limb 02/22/2010 729.5 Pain In Limb 02/22/2010 729.5 Pain In Limb 02/22/2010 729.5 Pain In Limb 02/22/2010 729.5 Pain In Limb 02/22/2010 AUSTIN PEREZ APRN T 72 9.5 Pain In Limb 02/22/2010 MARYLIN HILL APRN R 729.5 Pain In Limb 02/22/2010 AUSTIN PEREZ APRN T 72 9.5 Pain In Limb 02/22/2010 TUYET DOS SANTOS MD 729.5 Pain In Limb 02/22/2010 JAI HEATH MD 729 .5 Pain In Limb 02/22/2010 PER JOHN[place], IGNACIO R 729.5 Pain In Limb 02/22/2010 EARNEST BALDWINN, RADHA L 729 .5 Pain In Limb 02/22/2010 NEIL [place] JANET S 729.5 Pain In Limb 02/22/2010 MARYLIN HILL APRN 729.5 Pain In Limb 02/22/2010 AUSTIN PEREZ APRN 72 9.5 Pain In Limb 02/12/2011 380.10 JENELLE TIS EXTERNA 02/12/2011 380.10 JENELLE TIS EXTERNA 02/12/2011 380.10 JENELLE TIS EXTERNA 02/12/2011 380.10 Jenelle tis Externa 02/12/2011 380.10 Jenelle tis Externa 02/12/2011 380.10 Jenelle tis Externa 02/12/2011 380.10 Jenelle tis Externa 02/12/2011 380.10 Jenelle tis Externa 02/12/2011 380.10 Jenelle tis Externa 02/12/2011 380.10 Jenelle tis Externa 02/12/2011 AUSTIN PEREZ APRN 380.10 Otitis Externa 02/12/2011 MARYLIN HILL APRN R 380.10 Otitis Externa 02/12/2011 AUSTIN PEREZ APRN 380.10 Otitis Externa 02/12/2011 RAYA LIVINGSTON, TUYET 380.1 0 Otitis Externa 02/12/2011 JAI HEATH MD 380 .10 Otitis Externa 02/12/2011 PER [place] IGNACIO R 380.10 Otitis Externa 02/12/2011 RADHA TINOCO APRN L 380 .10 Otitis Externa 02/12/2011 JANET TREJO APRN S 380.10 Otitis Externa 02/12/2011 MARYLIN HILL APRN R 380.10 Otitis Externa 02/12/2011 AUSTIN PEREZ APRN 380.10 Otitis Externa 03/24/2011 477.9 MARIS RGIC RHINITIS 03/24/2011 477.9 MARIS RGIC RHINITIS 03/24/2011 477.9 MARIS RGIC RHINITIS 03/24/2011 477.9 MARIS RGIC RHINITIS 03/24/2011 477.9 MARIS RGIC RHINITIS 03/24/2011 477.9 MARIS RGIC RHINITIS 03/24/2011 477.9 MARIS RGIC RHINITIS 03/24/2011 477.9 MARIS RGIC RHINITIS 03/24/2011 477.9 MARIS RGIC RHINITIS 03/24/2011 477.9 MARIS RGIC RHINITIS 03/24/2011 AUSTIN PEREZ APRN 47 7.9 ALLERGIC RHINITIS 03/24/2011 MARYLIN HILL APRN R 477.9 ALLERGIC RHINITIS 03/24/2011 AUSTIN PEREZ APRN 47 7.9 ALLERGIC RHINITIS 03/24/2011 TUYET DOS SANTOS MD 477.9 ALLERGIC RHINITIS 03/24/2011 JAI HEATH MD 477 .9 ALLERGIC RHINITIS 03/24/2011 PER [employer], IGNACIO R 477.9 ALLERGIC RHINITIS 03/24/2011 EARNEST [employer], RADHA L 477 .9 ALLERGIC RHINITIS 03/24/2011 NEIL [employer], JANET S 477.9 ALLERGIC RHINITIS 03/24/2011 SERGIO JOHN[place], MARYLIN R 477.9 ALLERGIC RHINITIS 03/24/2011 AUSTIN PEREZ APRN 47 7.9 ALLERGIC RHINITIS 06/02/2011 Ot 493.90 06/02/2011 Ot 786.05 06/02/2011 Ot 786.07 08/13/2011 053.9 HERP ES ZOSTER WITHOUT COMPLICATION 08/13/2011 053.9 HERP ES ZOSTER WITHOUT COMPLICATION 08/13/2011 053.9 HERP ES ZOSTER WITHOUT COMPLICATION 08/13/2011 053.9 HERP ES ZOSTER WITHOUT COMPLICATION 08/13/2011 053.9 HERP ES ZOSTER WITHOUT COMPLICATION 08/13/2011 053.9 HERP ES ZOSTER WITHOUT COMPLICATION 08/13/2011 053.9 HERP ES ZOSTER WITHOUT COMPLICATION 08/13/2011 053.9 HERP ES ZOSTER WITHOUT COMPLICATION 08/13/2011 053.9 HERP ES ZOSTER WITHOUT COMPLICATION 08/13/2011 053.9 HERP ES ZOSTER WITHOUT COMPLICATION 08/13/2011 AUSTIN PEREZ APRN 05 3.9 HERPES ZOSTER WITHOUT COMPLICATION 08/13/2011 MARYLIN HILL APRN R 053.9 HERPES ZOSTER WITHOUT COMPLICATION 08/13/2011 AUSTIN PEREZ APRN 05 3.9 HERPES ZOSTER WITHOUT COMPLICATION 08/13/2011 TUYET DOS SANTOS MD 053.9 HERPES ZOSTER WITHOUT COMPLICATION 08/13/2011 JAI HEATH MD 053 .9 HERPES ZOSTER WITHOUT COMPLICATION 08/13/2011 PER BALDWINN, IGNACIO R 053.9 HERPES ZOSTER WITHOUT COMPLICATION 08/13/2011 EARNEST [employer], RADHA L 053 .9 HERPES ZOSTER WITHOUT COMPLICATION 08/13/2011 NEILJANET ALLEN APRN S 053.9 HERPES ZOSTER WITHOUT COMPLICATION 08/13/2011 MARYLIN HILL APRN R 053.9 HERPES ZOSTER WITHOUT COMPLICATION 08/13/2011 AUSTIN PEREZ APRN 05 3.9 HERPES ZOSTER WITHOUT COMPLICATION 09/05/2011 079.99 UNS PECIFIED VIRAL INFECTION 09/05/2011 079.99 UNS PECIFIED VIRAL INFECTION 09/05/2011 079.99 UNS PECIFIED VIRAL INFECTION 09/05/2011 079.99 Uns pecified Viral Infection 09/05/2011 079.99 Uns pecified Viral Infection 09/05/2011 079.99 Uns pecified Viral Infection 09/05/2011 079.99 Uns pecified Viral Infection 09/05/2011 079.99 Uns pecified Viral Infection 09/05/2011 079.99 Uns pecified Viral Infection 09/05/2011 079.99 Uns pecified Viral Infection 09/05/2011 AUSTIN PEREZ APRN 079.99 Unspecified Viral Infection 09/05/2011 MARYLIN HILL APRN 079.99 Unspecified Viral Infection 09/05/2011 AUSTIN PEREZ APRN 079.99 Unspecified Viral Infection 09/05/2011 RAYA LIVINGSTON, TUYET 079.9 9 Unspecified Viral Infection 09/05/2011 IVANA LIVINGSTON, JAI N 079 .99 Unspecified Viral Infection 09/05/2011 IGNACIO ALBARADO APRN R 079.99 Unspecified Viral Infection 09/05/2011 RADHA TINOCO APRN L 079 .99 Unspecified Viral Infection 09/05/2011 JANET TREJO APRN S 079.99 Unspecified Viral Infection 09/05/2011 MARYLIN [...] 11/27/2011 724.2 LUMBAGO 11/27/2011 AUSTIN PEREZ APRN 72 4.2 LUMBAGO 11/27/2011 MARYLIN HILL APRN R 724.2 LUMBAGO 11/27/2011 AUSTIN PEREZ APRN 72 4.2 LUMBAGO 11/27/2011 RAYA LIVINGSTON, TUYET 724.2 LUMBAGO 11/27/2011 IVANA LIVINGSTON, JAI Anton 724 .2 LUMBAGO 11/27/2011 IGNACIO ALBARADO APRN R 724.2 LUMBAGO 11/27/2011 RADHA TINOCO APRN L 724 .2 LUMBAGO 11/27/2011 NEIL [place] JANET S 724.2 LUMBAGO 11/27/2011 MARYLIN HILL APRN R 724.2 LUMBAGO 11/27/2011 AUSTIN PEREZ APRN 72 4.2 LUMBAGO 12/05/2011 Ot 473.9 12/05/2011 Ot 784.0 02/15/2012 719.46 HARSHAD N IN JOINT INVOLVING LOWER LEG 02/15/2012 719.46 HARSHAD N IN JOINT INVOLVING LOWER LEG 02/15/2012 719.46 HARSHAD N IN JOINT INVOLVING LOWER LEG 02/15/2012 719.46 Harshad n In Joint Involving Lower Leg 02/15/2012 719.46 Harshad n In Joint Involving Lower Leg 02/15/2012 719.46 Harshad n In Joint Involving Lower Leg 02/15/2012 719.46 Harshad n In Joint Involving Lower Leg 02/15/2012 719.46 Harshad n In Joint Involving Lower Leg 02/15/2012 719.46 Harshad n In Joint Involving Lower Leg 02/15/2012 719.46 Harshad n In Joint Involving Lower Leg 02/15/2012 AUSTIN PEREZ APRN 719.46 Pain In Joint Involving Lower Leg 02/15/2012 MARYLIN HILL APRN 719.46 Pain In Joint Involving Lower Leg 02/15/2012 AUSTIN PEREZ APRN 719.46 Pain In Joint Involving Lower Leg 02/15/2012 TUYET DOS SANTOS MD 719.4 6 Pain In Joint Involving Lower Leg 02/15/2012 JAI HEATH MD N 719 .46 Pain In Joint Involving Lower Leg 02/15/2012 IGNACIO ALBARADO APRN R 719.46 Pain In Joint Involving Lower Leg 02/15/2012 RADHA TINOCO APRN L 719 .46 Pain In Joint Involving Lower Leg 02/15/2012 JANET TREJO APRN S 719.46 Pain In Joint Involving Lower Leg 02/15/2012 MARYLIN HILL APRN R 719.46 Pain In Joint Involving Lower Leg 02/15/2012 AUSTIN PEREZ APRN 719.46 Pain In Joint Involving Lower Leg 03/28/2012 Ot 592.1 11/21/2012 462 sore t hroat 11/21/2012 462 sore t hroat 11/21/2012 462 sore t hroat 11/21/2012 462 Sore T hroat 11/21/2012 462 Sore T hroat 11/21/2012 462 Sore T hroat 11/21/2012 462 Sore T hroat 11/21/2012 462 Sore T hroat 11/21/2012 462 Sore T hroat 11/21/2012 462 Sore T hroat 11/21/2012 AUSTIN PEREZ APRN 46 2 Sore Throat 11/21/2012 MARYLIN HILL APRN R 462 Sore Throat 11/21/2012 AUSTIN PEREZ APRN 46 2 Sore Throat 11/21/2012 TUYET DOS SANTOS MD 462 Sore Throat 11/21/2012 JAI HEATH MD 462 Sore Throat 11/21/2012 IGNACIO ALBARADO APRN R 4 62 Sore Throat 11/21/2012 RADHA TINOCO APRN L 462 Sore Throat 11/21/2012 JANET TREJO APRN S 462 Sore Throat 11/21/2012 MARYLIN HILL APRN R 462 Sore Throat 11/21/2012 AUSTIN PEREZ APRN 46 2 Sore Throat 11/28/2012 461.9 SINU SITIS ACUTE 11/28/2012 461.9 SINU SITIS ACUTE 11/28/2012 461.9 SINU SITIS ACUTE 11/28/2012 461.9 SINU SITIS ACUTE 11/28/2012 461.9 SINU SITIS ACUTE 11/28/2012 461.9 SINU SITIS ACUTE 11/28/2012 461.9 SINU SITIS ACUTE 11/28/2012 461.9 SINU SITIS ACUTE 11/28/2012 461.9 SINU SITIS ACUTE 11/28/2012 AUSTIN PEREZ APRN 46 1.9 SINUSITIS ACUTE 11/28/2012 MARYLIN HILL APRN R 461.9 SINUSITIS ACUTE 11/28/2012 AUSTIN PEREZ APRN 46 1.9 SINUSITIS ACUTE 11/28/2012 TUYET DOS SANTOS MD 461.9 SINUSITIS ACUTE 11/28/2012 IVANA LIVINGSTON, JAI Anton 461 .9 SINUSITIS ACUTE 11/28/2012 PER [place] IGNACIO R 461.9 SINUSITIS ACUTE 11/28/2012 MADJessica JOHNSTON, RADHA L 461 .9 SINUSITIS ACUTE 11/28/2012 NEIL JOHNSTON, JANET S 461.9 SINUSITIS ACUTE 11/28/2012 MARYLIN HILL APRN R 461.9 SINUSITIS ACUTE 11/28/2012 AUSTIN PEREZ APRN 46 1.9 SINUSITIS ACUTE 12/16/2012 698.9 UNSP ECIFIED PRURITIC DISORDER 12/16/2012 782.1 RASH 12/16/2012 698.9 UNSP ECIFIED PRURITIC DISORDER 12/16/2012 782.1 RASH 12/16/2012 698.9 UNSP ECIFIED PRURITIC DISORDER 12/16/2012 782.1 RASH 12/16/2012 698.9 UNSP ECIFIED PRURITIC DISORDER 12/16/2012 782.1 RASH 12/16/2012 698.9 UNSP ECIFIED PRURITIC DISORDER 12/16/2012 782.1 RASH 12/16/2012 698.9 UNSP ECIFIED PRURITIC DISORDER 12/16/2012 782.1 RASH 12/16/2012 698.9 UNSP ECIFIED PRURITIC DISORDER 12/16/2012 782.1 RASH 12/16/2012 698.9 UNSP ECIFIED PRURITIC DISORDER 12/16/2012 782.1 RASH 12/16/2012 AUSTIN PEREZ APRN 69 8.9 UNSPECIFIED PRURITIC DISORDER 12/16/2012 AUSTIN PEREZ APRN 78 2.1 RASH 12/16/2012 JAMARCUS HILL APRNIA R 698.9 UNSPECIFIED PRURITIC DISORDER 12/16/2012 JAMARCUS HILL APRNIA R 782.1 RASH 12/16/2012 AUSTIN PEREZ APRN 69 8.9 UNSPECIFIED PRURITIC DISORDER 12/16/2012 AUSTIN PEREZ APRN 78 2.1 RASH 12/16/2012 RAYA LIVINGSTON, TUYET 698.9 UNSPECIFIED PRURITIC DISORDER 12/16/2012 TUYET DOS SANTOS MD 782.1 RASH 12/16/2012 IVANA LIVINGSTON, JAI N 698 .9 UNSPECIFIED PRURITIC DISORDER 12/16/2012 IVANA LIVINGSTON, JAI N 782 .1 RASH 12/16/2012 PER [place], IGNACIO R 698.9 UNSPECIFIED PRURITIC DISORDER 12/16/2012 PER BALDWINN, IGNACIO R 782.1 RASH 12/16/2012 MADJessica BALDWINN, RADHA L 698 .9 UNSPECIFIED PRURITIC DISORDER 12/16/2012 MADL [employer], RADHA L 782 .1 RASH 12/16/2012 NEILSUZANNA JOHN[place]ON, JANET S 698.9 UNSPECIFIED PRURITIC DISORDER 12/16/2012 NEIL JOHN[place], JANET S 782.1 RASH 12/16/2012 SHAN HILL APRNRICIA R 698.9 UNSPECIFIED PRURITIC DISORDER 12/16/2012 JAMARCUS HILL APRNIA R 782.1 RASH 12/16/2012 AUSTIN PEREZ APRN 69 8.9 UNSPECIFIED PRURITIC DISORDER 12/16/2012 AUSTIN PEREZ APRN 78 2.1 RASH 01/05/2013 462 PHARYN GITIS ACUTE 01/05/2013 462 Pharyn gitis Acute 01/05/2013 462 Pharyn gitis Acute 01/05/2013 462 Pharyn gitis Acute 01/05/2013 462 Pharyn gitis Acute 01/05/2013 462 Pharyn gitis Acute 01/05/2013 AUSTIN PEREZ APRN 46 2 Pharyngitis Acute 01/05/2013 SERGIO JOHNSTON, MARYLIN R 462 Pharyngitis Acute 01/05/2013 AUSTIN PEREZ APRN 46 2 Pharyngitis Acute 01/05/2013 TUYET DOS SANTOS MD 462 Pharyngitis Acute 01/05/2013 JAI HEATH MD 462 Pharyngitis Acute 01/05/2013 PER [employer], IGNACIO R 4 62 Pharyngitis Acute 01/05/2013 MADL [employer], RADHA L 462 Pharyngitis Acute 01/05/2013 NEIL [employer], JANET S 462 Pharyngitis Acute 01/05/2013 SERGIO [employer], MARYLIN R 462 Pharyngitis Acute 01/05/2013 AUSTIN PEREZ APRN 46 2 Pharyngitis Acute 02/06/2013 Ot 780.2 03/25/2013 FANNIE LIVINGSTON, GWYN Block Ot 466.0 03/25/2013 FANNIE LIVINGSTON, GWYN T Ot 786.30 04/23/2013 311 DEPRES SIVE DISORDER NOT ELSEWHERE CLASSIFIED 04/23/2013 790.6 ABNO RMAL BLOOD CHEMISTRY 04/23/2013 311 DEPRES SIVE DISORDER NOT ELSEWHERE CLASSIFIED 04/23/2013 790.6 ABNO RMAL BLOOD CHEMISTRY 04/23/2013 311 DEPRES SIVE DISORDER NOT ELSEWHERE CLASSIFIED 04/23/2013 790.6 ABNO RMAL BLOOD CHEMISTRY 04/23/2013 311 DEPRES SIVE DISORDER NOT ELSEWHERE CLASSIFIED 04/23/2013 790.6 ABNO RMAL BLOOD CHEMISTRY 04/23/2013 AUSTIN PEREZ APRN 31 1 DEPRESSIVE DISORDER NOT ELSEWHERE CLASSIFIED 04/23/2013 AUSTIN PEREZ APRN 79 0.6 ABNORMAL BLOOD CHEMISTRY 04/23/2013 MARYLIN HILL APRN R 311 DEPRESSIVE DISORDER NOT ELSEWHERE CLASSIFIED 04/23/2013 MARYLIN HILL APRN 790.6 ABNORMAL BLOOD CHEMISTRY 04/23/2013 AUSTIN PEREZ APRN 31 1 DEPRESSIVE DISORDER NOT ELSEWHERE CLASSIFIED 04/23/2013 AUSTIN PEREZ APRN 79 0.6 ABNORMAL BLOOD CHEMISTRY 04/23/2013 TUYET DOS SANTOS MD 311 DEPRESSIVE DISORDER NOT ELSEWHERE CLASSIFIED 04/23/2013 TUYET DOS SANTOS MD 790.6 ABNORMAL BLOOD CHEMISTRY 04/23/2013 JAI HEATH MD N 311 DEPRESSIVE DISORDER NOT ELSEWHERE CLASSIFIED 04/23/2013 JAI HEATH MD N 790 .6 ABNORMAL BLOOD CHEMISTRY 04/23/2013 PER [place] IGNACIO R 3 11 DEPRESSIVE DISORDER NOT ELSEWHERE CLASSIFIED 04/23/2013 PER [place] IGNACIO R 790.6 ABNORMAL BLOOD CHEMISTRY 04/23/2013 EARNEST [employer], RADHA L 311 DEPRESSIVE DISORDER NOT ELSEWHERE CLASSIFIED 04/23/2013 EANREST JOHNSTON, RADHA L 790 .6 ABNORMAL BLOOD CHEMISTRY 04/23/2013 NEIL [employer], JANET S 311 DEPRESSIVE DISORDER NOT ELSEWHERE CLASSIFIED 04/23/2013 NEIL [place], JANET S 790.6 ABNORMAL BLOOD CHEMISTRY 04/23/2013 JAMARCUS HILL APRNIA R 311 DEPRESSIVE DISORDER NOT ELSEWHERE CLASSIFIED 04/23/2013 JAMARCUS HILL APRNIA R 790.6 ABNORMAL BLOOD CHEMISTRY 04/23/2013 AUSTIN PEREZ APRN 31 1 DEPRESSIVE DISORDER NOT ELSEWHERE CLASSIFIED 04/23/2013 AUSTIN PEREZ APRN 79 0.6 ABNORMAL BLOOD CHEMISTRY 09/28/2013 AUSTIN PEREZ APRN T 383.00 ACUTE MASTOIDITIS WITHOUT COMPLICATIONS 09/28/2013 AUSTIN PEREZ APRN T 719.42 PAIN- ELBOW 09/28/2013 JAMARCUS HILL APRNIA R 383.00 ACUTE MASTOIDITIS WITHOUT COMPLICATIONS 09/28/2013 JAMARCUS HILL APRNIA R 719.42 PAIN- ELBOW 09/28/2013 AUSTIN PEREZ APRN T 383.00 ACUTE MASTOIDITIS WITHOUT COMPLICATIONS 09/28/2013 AUSTIN PEREZ APRN T 719.42 PAIN- ELBOW 09/28/2013 TUYET DOS SANTOS MD 383.0 0 ACUTE MASTOIDITIS WITHOUT COMPLICATIONS 09/28/2013 TUYET DOS SANTOS MD 719.4 2 PAIN- ELBOW 09/28/2013 JAI HEATH MD N 383 .00 ACUTE MASTOIDITIS WITHOUT COMPLICATIONS 09/28/2013 JAI HEATH MD N 719 .42 PAIN- ELBOW 09/28/2013 PER [place] IGNACIO R 383.00 ACUTE MASTOIDITIS WITHOUT COMPLICATIONS 09/28/2013 JANELLE ALBARADO APRNINA R 719.42 PAIN- ELBOW 09/28/2013 RADHA TINOCO APRN L 383 .00 ACUTE MASTOIDITIS WITHOUT COMPLICATIONS 09/28/2013 EARNEST [place] RADHA L 719 .42 PAIN- ELBOW 09/28/2013 NOEMY TREJO APRNA S 383.00 ACUTE MASTOIDITIS WITHOUT COMPLICATIONS 09/28/2013 CARINA TREJO APRNNDA S 719.42 PAIN- ELBOW 09/28/2013 JAMARCUS HILL APRNIA R 383.00 ACUTE MASTOIDITIS WITHOUT COMPLICATIONS 09/28/2013 JAMARCUS HILL APRNIA R 719.42 PAIN- ELBOW 09/28/2013 AUSTIN PEREZ APRN 383.00 ACUTE MASTOIDITIS WITHOUT COMPLICATIONS 09/28/2013 AUSTIN PEREZ APRN 719.42 PAIN- ELBOW 10/08/2013 SHAN HILL APRNRICIA R 380.4 CERUMEN IMPACTION 10/08/2013 JAMARCUS HILL APRNIA R 787.03 VOMITING ALONE 10/08/2013 AUSTIN PEREZ APRN 38 0.4 CERUMEN IMPACTION 10/08/2013 AUSTIN PEREZ APRN 787.03 VOMITING ALONE 10/08/2013 TUYET DOS SANTOS MD 380.4 CERUMEN IMPACTION 10/08/2013 TUYET DOS SANTOS MD 787.0 3 VOMITING ALONE 10/08/2013 JAI HEATH MD N 380 .4 CERUMEN IMPACTION 10/08/2013 JAI HEATH MD N 787 .03 VOMITING ALONE 10/08/2013 PER [place] IGNACIO R 380.4 CERUMEN IMPACTION 10/08/2013 PER [place], IGNACIO R 787.03 VOMITING ALONE 10/08/2013 EARNEST JOHN[place], RADHA L 380 .4 CERUMEN IMPACTION 10/08/2013 EARNEST [place], RADHA L 787 .03 VOMITING ALONE 10/08/2013 NOEMY TREJO APRNA S 380.4 CERUMEN IMPACTION 10/08/2013 NOEMY TERJO APRNA S 787.03 VOMITING ALONE 10/08/2013 SHAN HILL APRNRICIA R 380.4 CERUMEN IMPACTION 10/08/2013 JAMARCUS HILL APRNIA R 787.03 VOMITING ALONE 10/08/2013 AUSTIN PEREZ APRN 38 0.4 CERUMEN IMPACTION 10/08/2013 AUSTIN PEREZ APRN T 787.03 VOMITING ALONE 11/30/2013 RAYA LIVINGSTON, TUYET 079.9 9 VIRAL SYNDROME 11/30/2013 JAI HEATH MD N 079 .99 VIRAL SYNDROME 11/30/2013 PER [place] IGNACIO R 079.99 VIRAL SYNDROME 11/30/2013 EARNEST JOHN[place], RADHA L 079 .99 VIRAL SYNDROME 11/30/2013 NEIL [place] JANET S 079.99 VIRAL SYNDROME 11/30/2013 JAMARCUS HILL APRNIA R 079.99 VIRAL SYNDROME 11/30/2013 AUSTIN PEREZ APRN 079.99 VIRAL SYNDROME 01/08/2014 JAI HEATH MD N 782 .9 OTHER SYMPTOMS INVOLVING SKIN AND INTEGUMENTARY TISSUES 01/08/2014 JAI HEATH MD N 784 .0 HEADACHE 01/08/2014 PER [place] IGNACIO R 782.9 OTHER SYMPTOMS INVOLVING SKIN AND INTEGUMENTARY TISSUE S 01/08/2014 PER [place] IGNACIO R 784.0 HEADACHE 01/08/2014 ROBYN TINOCO APRNA L 782 .9 OTHER SYMPTOMS INVOLVING SKIN AND INTEGUMENTARY TISSUES 01/08/2014 EARNEST [place] RADHA L 784 .0 HEADACHE 01/08/2014 NEILCARINA BRISENO APRNNDA S 782.9 OTHER SYMPTOMS INVOLVING SKIN AND INTEGUMENTARY TISSUE S 01/08/2014 CARINA TREJO APRNNDA S 784.0 HEADACHE 01/08/2014 JAMARCUS HILL APRNIA R 782.9 OTHER SYMPTOMS INVOLVING SKIN AND INTEGUMENTARY TISSUE S 01/08/2014 JAMARCUS HILL APRNIA R 784.0 HEADACHE 01/08/2014 AUSTIN PEREZ APRN 78 2.9 OTHER SYMPTOMS INVOLVING SKIN AND INTEGUMENTARY TISSUES 01/08/2014 AUSTIN PEREZ APRN 78 4.0 HEADACHE 02/05/2014 FLAVIO LIVINGSTON, MOHIT A Ot 724. 5 02/11/2014 JANELLE ALBARADO APRNINA R 847.1 SPRAIN THORACIC REGION 02/11/2014 EARNEST JOHNSTON RADHA L 847 .1 SPRAIN THORACIC REGION 02/11/2014 JANET TREJO APRN S 847.1 SPRAIN THORACIC REGION 02/11/2014 MARYLIN HILL APRN R 847.1 SPRAIN THORACIC REGION 02/11/2014 AUSTIN PEREZ APRN 84 7.1 SPRAIN THORACIC REGION 04/14/2014 EARNEST VICKIERADHA 008 .8 INTESTINAL INFECTION DUE TO OTHER ORGANISM NOT ELSEWHERE CLASSIFIED 04/14/2014 JANET TREJO APRN S 008.8 INTESTINAL INFECTION DUE TO OTHER ORGANISM NOT ELSEWHE RE CLASSIFIED 04/14/2014 MARYLIN HILL APRN R 008.8 INTESTINAL INFECTION DUE TO OTHER ORGANI SM NOT ELSEWHERE CLASSIFIED 04/14/2014 AUSTIN PEREZ APRN 00 8.8 INTESTINAL INFECTION DUE TO OTHER ORGANISM NOT ELSEWHERE CLASSIFIED 05/22/2014 JANET TREJO APRN S 462 ACUTE PHARYNGITIS 05/22/2014 MARYLIN HILL APRN R 462 ACUTE PHARYNGITIS 05/22/2014 AUSTIN PEREZ APRN 46 2 ACUTE PHARYNGITIS 11/22/2014 MARYLIN HILL APRN R 786.2 COUGH 11/22/2014 AUSTIN PEREZ APRN 78 6.2 COUGH 11/25/2014 MOHIT MUNIZ MD Ot 490 11/25/2014 MOHIT MUNIZ MD Ot 786. 2 01/25/2015 Ot 354.2 01/25/2015 Ot 719.41 01/25/2015 Ot 840.9 01/25/2015 Ot E000.8 01/25/2015 Ot E928.9 01/27/2015 AUSTIN PEREZ APRN 46 1.0 SINUSITIS, ACUTE MAXILLARY 02/07/2015 AUSTIN PEREZ APRN 47 3.9 SINUSITIS (CHRONIC) 03/05/2015 CATHIE VALENTIN [employer]ING [employer] Ot 521.00 03/05/2015 CATHIE VALENTIN APRN Ot 525 .9 07/16/2015 Ot 592.1 07/16/2015 Ot 592.9 07/16/2015 IGNACIO ALBARADO APRN Ot 724.1 07/16/2015 IGNACIO ALBARADO APRN Ot 793.7 07/16/2015 LUIZ HAMPTON DO Ot 276.52 07/16/2015 LUIZ HAMPTON DO Ot 780.2 07/16/2015 Ot 592.1 07/16/2015 Ot 592.9 07/16/2015 IGNACIO ALBARADO APRN Ot 724.1 07/16/2015 PERIGNACIO R RECORDING [employer]UDIO INTERNSHIP Ot 793.7 08/24/2015 Ot 592.1 08/24/2015 Ot 592.9 08/24/2015 PERIGNACIO R RECORDING STUDIO INTERNSHIP Ot 724.1 08/24/2015 PERIGNACIO R [employer]ING [employer]NS[employer] Ot 793.7 09/16/2016 GWYN GRECO MD Ot G43.909 MIGRAINE, UNSP, NOT INTRACTABLE, WITHOUT 09/16/2016 GWYN GRECO MD Ot R11.0 NAUSEA 09/16/2016 GWYN GRECO MD Ot R42 DIZZINESS AND GIDDINESS 09/19/2016 GWYN GRECO MD Ot G43.909 MIGRAINE, UNSP, NOT INTRACTABLE, WITHOUT 09/19/2016 GWYN GRECO MD Ot R11.0 NAUSEA 09/19/2016 GWYN GRECO MD Ot R42 DIZZINESS AND GIDDINESS 10/20/2016 CATHIE VALENTIN [employer] Ot R51 HEADACHE 10/20/2016 CATHIE VALENTIN [employer] Ot R55 SYNCOPE AND COLLAPSE 10/25/2016 CATHIE VALENTIN [employer] Ot R51 HEADACHE 10/25/2016 CATHIE VALENTIN [employer] Ot R55 SYNCOPE AND COLLAPSE 10/04/2017 GWYN [...] MD Ot H92.01 OTALGIA, RIGHT EAR 11/24/2017 BONITA NUNN MD Ot J45.909 UNSPECIFIED ASTHMA, UNCOMPLICATED 11/24/2017 BONITA NUNN MD Ot Z87.442 PERSONAL HISTORY OF URINARY CALCULI 11/24/2017 BONITA NUNN MD Ot Z96 .0 PRESENCE OF UROGENITAL IMPLANTS 12/01/2017 BONITA NUNN MD Ot G43.909 MIGRAINE, UNSP, NOT INTRACTABLE, WITHOUT 12/01/2017 BONITA NUNN MD Ot H66.91 OTITIS MEDIA, UNSPECIFIED, RIGHT EAR 12/01/2017 BONITA NUNN MD Ot H92.01 OTALGIA, RIGHT EAR 12/01/2017 BONITA NUNN MD Ot J45.909 UNSPECIFIED ASTHMA, UNCOMPLICATED 12/01/2017 BONITA NUNN MD Ot Z87.442 PERSONAL HISTORY OF URINARY CALCULI 12/01/2017 BONITA NUNN MD Ot Z96 .0 PRESENCE OF UROGENITAL IMPLANTS 01/02/2018 GWYN GRECO MD Ot H61.22 IMPACTED CERUMEN, LEFT EAR 01/02/2018 GWYN GRECO MD Ot J45.909 UNSPECIFIED ASTHMA, UNCOMPLICATED 01/02/2018 GWYN GRECO MD Ot T16.1XXA FOREIGN BODY IN RIGHT EAR, INITIAL ENCOU 01/02/2018 GWYN GRECO MD Ot Z87.442 PERSONAL HISTORY OF URINARY CALCULI 01/02/2018 GWYN GRECO MD Ot Z88.1 ALLERGY STATUS TO OTHER ANTIBIOTIC AGENT 01/02/2018 GWYN GRECO MD Ot Z96.0 PRESENCE OF UROGENITAL IMPLANTS 01/06/2018 GWYN GRECO MD Ot H61.22 IMPACTED CERUMEN, LEFT EAR 01/06/2018 GWYN GRECO MD Ot J45.909 UNSPECIFIED ASTHMA, UNCOMPLICATED 01/06/2018 GWYN GRECO MD Ot T16.1XXA FOREIGN BODY IN RIGHT EAR, INITIAL ENCOU 01/06/2018 GWYN GRECO MD Ot Z87.442 PERSONAL HISTORY OF URINARY CALCULI 01/06/2018 GWYN GRECO MD Ot Z88.1 ALLERGY STATUS TO OTHER ANTIBIOTIC AGENT 01/06/2018 GWYN GRECO MD Ot Z96.0 PRESENCE OF UROGENITAL IMPLANTS 01/08/2018 GWYN GRECO MD Ot H61.22 IMPACTED CERUMEN, LEFT EAR 01/08/2018 GWYN GRECO MD Ot J45.909 UNSPECIFIED ASTHMA, UNCOMPLICATED 01/08/2018 GWYN GRECO MD Ot T16.1XXA FOREIGN BODY IN RIGHT EAR, INITIAL ENCOU 01/08/2018 GWYN GRECO MD Ot Z87.442 PERSONAL HISTORY OF URINARY CALCULI 01/08/2018 GWYN GRECO MD Ot Z88.1 ALLERGY STATUS TO OTHER ANTIBIOTIC AGENT 01/08/2018 GWYN GRECO MD Ot Z96.0 PRESENCE OF UROGENITAL IMPLANTS Procedures Code [place] [id number] STRE P A (IN-HOUSE) 11/21/2012 79233 ROUT INE VENIPUNCTURE 04/23/2013 40732 CMP 04/23/2013 [id number] GF R CALC (RESULT ONLY) 04/23/2013 77990 TSH 04/23/2013 68434 ROUT INE VENIPUNCTURE 05/08/2013 17201 LIPI D PANEL 05/08/2013 12415 HEPA TITIS PROFILE 05/09/2013 41401 ROUT INE VENIPUNCTURE 05/22/2013 09521 LIVE R PANEL (LFT) 05/22/2013 65021 THER APUTIC INJ SQ/IM 01/08/2014 J1885 VESTA DOL PER 15 MG, INJ KETOROLAC TROMETHAMINE 01/08/2014 82772 MRI SPINE (THORACIC) W/O CONTRAST 02/11/2014 73953 MRI SPINE (THORACIC) W/CONTRAST 02/11/2014 71602 INFL UENZA A & B (IN-HOUSE) 11/22/2014 44547 OXIMETRY 11/26/2014 Results Test Result Range Complete blood count (CBC) with automate d white blood cell (WBC) differential - 10/20/16 19:11 Blood leukocytes automated count (number/volume) 7.5 10*3/uL 4.3-11.0 Blood erythrocytes automated count (number/volume) 5.89 10*6/uL 4.35-5.85 Venous blood hemoglobin measurement (mass/volume) 15.8 g/dL 13.3-17.7 Blood hematocrit (volume fraction) 47 % 40-54 Automated erythrocyte mean corpuscular volume 81 [ foz_us] 80-99 Automated erythrocyte mean corpuscular h emoglobin (mass per erythrocyte) 27 pg 25-34 Automated erythrocyte mean corpuscular h emoglobin concentration measurement (mass/volume) 33 g/dL 32-36 Automated erythrocyte distribution width ratio 13. 7 % 10.0- 14.5 Automated blood platelet count (count/volume) 278 10*3/uL [...] 10*3 1.0-4.0 Blood monocytes automated count (number/volume) 0. 7 10*3 0.0-1.0 Automated eosinophil count 0.1 10*3/uL 0 .0-0.3 Automated blood basophil count (count/volume) 0.1 10*3/uL 0.0-0.1 Fibrin D-dimer FEU measurement in platel et poor plasma (mass/volume) - 10/20/16 19:11 Fibrin D-dimer FEU measurement in platelet [...] 5-14 Serum or plasma urea nitrogen measurement (mass/volume ) 12 mg/dL 7-18 Serum or plasma creatinine measurement (mass/volume) 1.04 mg/dL 0.60-1.30 Serum or plasma urea nitrogen/creatinine mass ratio 12 NRG Serum or plasma creatinine measurement w ith calculation of estimated glomerular filtration rate > NRG Serum or plasma glucose measurement (mass/volume) 106 mg/dL 70-105 Serum or plasma calcium measurement (mass/volume) 9.0 mg/dL 8.5-10.1 Serum or plasma total bilirubin measurement (mass/volu me) 0.6 mg/dL 0.1-1.0 Serum or plasma alkaline phosphatase carlos surement (enzymatic activity/volume) 95 U/L 40-136 Serum or plasma aspartate aminotransfera se measurement (enzymatic activity/volume) 42 U/L 5-34 Serum or plasma alanine aminotransferase measurement (enzymatic activity/volume) 52 U/L 0-55 Serum or plasma protein measurement (mass/volume) 6.5 g/dL 6.4-8.2 Serum or plasma albumin measurement (mass/volume) 4.2 g/dL 3.2-4.5 Urine drug screening test - 10/20/16 20: 35 Urine phencyclidine detection by screening method NEGATIVE NEGATIVE Urine benzodiazepines detection by screening method NEGATIVE NEGATIVE Urine cocaine detection NEGATIVE NEGATI VE Urine amphetamines detection by screening method N EGATIVE NEGATIVE Urine methamphetamine detection by screening method NEGATIVE NEGATIVE Urine cannabinoids detection by screening method N EGATIVE NEGATIVE Urine opiates detection by screening method NEGATI VE NEGATIVE Urine barbiturates detection NEGATIVE N EGATIVE Screening urine tricyclic antidepressants detection NEGATIVE NEGATIVE Urine methadone detection by screening method NEGA TIVE NEGATIVE Urine oxycodone detection NEGATIVE NEGA TIVE Urine propoxyphene detection NEGATIVE N EGATIVE Complete urinalysis with reflex to cultu re - 10/20/16 20:35 Urine color determination YELLOW NRG Urine clarity determination CLEAR NR G Urine pH measurement by test strip 8 5-9 Specific gravity of urine by test strip 1.015 1.016-1.022 Urine protein assay by test strip, semi-quantitative NEGATIVE NEGATIVE Urine glucose detection by automated test strip NE GATIVE NEGATIVE Erythrocytes detection in urine sediment by light micr oscopy NEGATIVE NEGATIVE Urine ketones detection by automated test strip NE GATIVE NEGATIVE Urine nitrite detection by test strip NEGATIVE NEGATIVE Urine total bilirubin detection by test strip NEGA TIVE NEGATIVE Urine urobilinogen measurement by automated test strip (mass/volume) NORMAL NORMAL Urine leukocyte esterase detection by dipstick NEG ATIVE NEGATIVE Automated urine sediment erythrocyte cou nt by microscopy (number/high power field) NONE NRG Automated urine sediment leukocyte count by microscopy (number/high power field) RARE NRG Bacteria detection in urine sediment by light microsco py NEGATIVE NRG Crystals detection in urine sediment by light microsco py NONE NRG Casts detection in urine sediment by light microscopy NONE NRG Mucus detection in urine sediment by light microscopy SMALL NRG Complete urinalysis with reflex to culture NO NRG Complete urinalysis with reflex to cultu re - 10/04/17 03:06 Urine color determination YELLOW NRG Urine clarity determination CLEAR NR G Urine pH measurement by test strip 6.5 5-9 Specific gravity of urine by test strip 1.010 1.016-1.022 Urine protein assay by test strip, semi-quantitative 1+ NEGATIVE Urine glucose detection by automated test strip NE GATIVE NEGATIVE Erythrocytes detection in urine sediment by light micr oscopy 2+ NEGATIVE Urine ketones detection by automated test strip NE GATIVE NEGATIVE Urine nitrite detection by test strip NEGATIVE NEGATIVE Urine total bilirubin detection by test strip NEGA TIVE NEGATIVE Urine urobilinogen measurement by automated test strip (mass/volume) NORMAL NORMAL Urine leukocyte esterase detection by dipstick 1+ NEGATIVE Automated urine sediment erythrocyte cou nt by microscopy (number/high power field) [HPF] NRG Automated urine sediment leukocyte count by microscopy (number/high power field) [HPF] NRG Bacteria detection in urine sediment by light microsco py NEGATIVE NRG Squamous epithelial cells detection in u rine sediment by light microscopy RARE NRG Crystals detection in urine sediment by light microsco py NONE NRG Casts detection in urine sediment by light microscopy NONE NRG Mucus detection in urine sediment by light microscopy MODERATE NRG Complete urinalysis with reflex to culture NO NRG Complete blood count (CBC) with automate d white blood cell (WBC) differential - 10/04/17 03:14 Blood leukocytes automated count (number/volume) 9.5 10*3/uL 4.3-11.0 Blood erythrocytes automated count (number/volume) 5.35 10*6/uL 4.35-5.85 Venous blood hemoglobin measurement (mass/volume) 14.6 g/dL 13.3-17.7 Blood hematocrit (volume fraction) 44 % 40-54 Automated erythrocyte mean corpuscular volume 82 [ foz_us] 80-99 Automated erythrocyte mean corpuscular h emoglobin (mass per erythrocyte) 27 pg 25-34 Automated erythrocyte mean corpuscular h emoglobin concentration measurement (mass/volume) 34 g/dL 32-36 Automated erythrocyte distribution width ratio 13. 5 % 10.0- 14.5 Automated blood platelet count (count/volume) 285 10*3/uL [...] 10*3 1.0-4.0 Blood monocytes automated count (number/volume) 1. 0 10*3 0.0-1.0 Automated eosinophil count 0.2 10*3/uL 0 .0-0.3 Automated blood basophil count (count/volume) 0.0 10*3/uL 0.0-0.1 Comprehensive metabolic panel - 10/04/17 03:14 Serum or plasma sodium measurement (moles/volume) 142 mmol/L 135-145 Serum or plasma potassium measurement (moles/volume) 3.5 mmol/L 3.6-5.0 Serum or plasma chloride measurement (moles/volume) 108 mmol/L 98-107 Carbon dioxide 22 mmol/L 21-32 Serum or plasma anion gap determination (moles/volume) 12 mmol/L 5-14 Serum or plasma urea nitrogen measurement (mass/volume ) 10 mg/dL 7-18 Serum or plasma creatinine measurement (mass/volume) 1.17 mg/dL 0.60-1.30 Serum or plasma urea nitrogen/creatinine mass ratio 9 NRG Serum or plasma creatinine measurement w ith calculation of estimated glomerular filtration rate > NRG Serum or plasma glucose measurement (mass/volume) 123 mg/dL 70-105 Serum or plasma calcium measurement (mass/volume) 8.8 mg/dL 8.5-10.1 Serum or plasma total bilirubin measurement (mass/volu me) 0.6 mg/dL 0.1-1.0 Serum or plasma alkaline phosphatase carlos surement (enzymatic activity/volume) 89 U/L 40-136 Serum or plasma aspartate aminotransfera se measurement (enzymatic activity/volume) 22 U/L 5-34 Serum or plasma alanine aminotransferase measurement (enzymatic activity/volume) 33 U/L 0-55 Serum or plasma protein measurement (mass/volume) 6.7 g/dL 6.4-8.2 Serum or plasma albumin measurement (mass/volume) 4.0 g/dL 3.2-4.5 Lipase - 10/04/17 03:14 Lipase 22 U/L 8-78 CULTURE, URINE - 07/06/19 09:30 CULTURE, URINE, ROUTINE SEE NOTE NRG COVID-19 (QUEST) - 04/04/20 18:00 Complete blood count (CBC) with automate d white blood cell (WBC) differential - 05/16/20 11:35 Blood leukocytes automated count (number/volume) 7.2 10*3/uL 4.3-11.0 Blood erythrocytes automated count (number/volume) 5.32 10*6/uL 4.35-5.85 Venous blood hemoglobin measurement (mass/volume) 14.4 g/dL 13.3-17.7 Blood hematocrit (volume fraction) 43 % 40-54 Automated erythrocyte mean corpuscular volume 82 [ foz_us] 80-99 Automated erythrocyte mean corpuscular h emoglobin (mass per erythrocyte) 27 pg 25-34 Automated erythrocyte mean corpuscular h emoglobin concentration measurement (mass/volume) 33 g/dL 32-36 Automated erythrocyte distribution width ratio 14. 1 % 10.0- 14.5 Automated blood platelet count (count/volume) 215 10*3/uL 130-400 Automated blood platelet mean volume measurement 10.1 [foz_us] 7.4-10.4 Automated blood neutrophils/100 leukocytes 57 % 42-75 Automated blood lymphocytes/100 leukocytes 28 % 12-44 Blood monocytes/100 leukocytes 11 % 0-12 Automated blood eosinophils/100 leukocytes 4 % 0-10 Automated blood basophils/100 leukocytes 0 % 0-10 Blood neutrophils automated count (number/volume) 4.1 10*3 1.8-7.8 Blood lymphocytes automated count (number/volume) 2.0 10*3 1.0-4.0 Blood monocytes automated count (number/volume) 0. 8 10*3 0.0-1.0 Automated eosinophil count 0.3 10*3/uL 0 .0-0.3 Automated blood basophil count (count/volume) 0.0 10*3/uL 0.0-0.1 Encounters ACCT No. Visit Date/Time Discharge Status Pt. Type Provider Facility Loc./Unit Complaint [id number] 02/07/2015 15:33:00 02/07/2015 23:59: 59 CLS Outpatient AUSTIN PEREZ APRN [id number] 11/22/2014 15:34:00 11/22/2014 23:59: 59 CLS Outpatient MARYLIN HILL APRN [id number] 05/22/2014 14:01:00 05/22/2014 23:59: 59 CLS Outpatient JANET TREJO APRN [id number] 04/14/2014 14:02:00 04/14/2014 23:59: 59 CLS Outpatient RADHA TINOCO APRN [id number] 02/11/2014 14:34:00 02/11/2014 23:59: 59 CLS Outpatient IGNACIO ALBARADO APRN [id number] 01/08/2014 09:39:00 01/08/2014 23:59: 59 CLS Outpatient JAI HEATH MD [id number] 11/30/2013 13:56:00 11/30/2013 23:59: 59 CLS Outpatient TUYET DOS SANTOS MD [id number] 10/26/2013 11:37:00 10/26/2013 23:59: 59 CLS Outpatient AUSTIN PEREZ APRN [id number] 10/08/2013 12:25:00 10/08/2013 23:59: 59 CLS Outpatient MARYLIN HILL APRN [id number] 09/28/2013 09:20:00 09/28/2013 23:59: 59 CLS Outpatient AUSTIN PEREZ APRN [id number] 01/29/2013 13:46:00 01/29/2013 23:59: 59 CLS Outpatient [id number] 01/05/2013 11:07:00 01/05/2013 23:59: 59 CLS Outpatient [id number] 01/02/2013 10:00:00 01/02/2013 23:59: 59 CLS Outpatient [id number] 12/16/2012 16:50:00 12/16/2012 23:59: 59 CLS Outpatient [id number] 11/28/2012 15:47:00 11/28/2012 23:59: 59 CLS Outpatient [id number] 11/21/2012 13:45:00 11/21/2012 23:59: 59 CLS Outpatient [id number] 07/31/2013 14:34:00 Document Registration [id number] 05/22/2013 13:10:00 Document Registration [id number] 05/08/2013 15:08:00 Document Registration [id number] 04/23/2013 13:15:00 Document Registration [id number] 01/02/2018 02:04:00 018 02:25:00 DIS Emergency GWYN GRECO MD [facility] ER BUG IN EAR [id number] 11/24/2017 07:11:00 017 08:09:00 DIS Emergency BONITA NUNN MD [facility] ER R EAR PAIN [id number] 10/04/2017 02:46:00 017 07:10:00 DIS Emergency GWYN GRECO MD [facility] ER KIDNEY PAIN,VOM ITING,ABD PAIN [id number] 10/20/2016 18:58:00 016 21:00:00 DIS Emergency CATHIE VALENTIN APRN [facility] ER SYNCOPE [id number] 09/16/2016 21:30:00 016 23:02:00 DIS Emergency FANNIE LIVINGSTON, GWYN Block [facility] ER MIGRAINE, NAUSE A, DIZZY [id number] 07/16/2015 18:02:00 015 21:19:00 DIS Emergency LUIZ HAMPTON DO [facility] ER [id number] 03/05/2015 21:22:00 015 22:13:00 DIS Emergency CATHIE VALENTIN APRN [facility] ER [id number] 11/25/2014 18:01:00 015 20:13:00 DIS Emergency MOHIT MUNIZ MD [facility] ER [id number] 02/17/2014 09:10:00 014 23:59:59 CLS Outpatient IGNACIO ALBARADO APRN [facility] [id number] 02/05/2014 20:34:00 014 21:31:00 DIS Emergency MOHIT MUNIZ MD [facility] ER [id number] 03/25/2013 20:11:00 013 21:42:00 DIS Emergency GWYN GRECO MD [facility] ER [id number] 05/16/2020 11:48:00 Document Registration [id number] 07/16/2015 18:01:00 Document Registration [id number] 01/25/2015 20:39:00 Document Registration [id number] 02/06/2013 19:14:00 Document Registration [id number] 04/28/2012 16:12:00 Document Registration [id number] 03/31/2012 13:22:00 Document Registration [id number] 03/27/2012 09:00:00 Document Registration [id number] 12/05/2011 20:52:00 Document Registration [id number] 06/02/2011 01:28:00 Document Registration [id number] 05/11/2020 13:20:00 05/11/2020 23:59:5 9 CLS Outpatient AUSTIN PEREZ APRN [facility] [id number] 04/04/2020 17:30:00 Document Registration [id number] 07/06/2019 09:10:00 Document Registration [id number] 01/27/2020 08:21:00 01/27/2020 23:59 :00 DIS Outpatient NANDA TURCIOS
[2020-05-16 12:08] LABS: BILIRUBIN,TOTAL 0.5 MG/DL (0.1-1.0); INR 0.9 (0.8-1.4); PROTHROMBIN TIME PATIENT 12.9 SEC (12.2-14.7)
[2020-05-16 12:09] LABS: ALKALINE PHOSPHATASE 112 U/L (40-136)
[2020-05-16 12:10] LABS: CREATININE SERUM 1.04 MG/DL (0.60-1.30); GFR ESTIMATED > 60
[2020-05-16 12:11] LABS: BUN/CREATININE RATIO 13
[2020-05-16 12:12] LABS: ALANINE AMINOTRANSFERASE 84 U/L (0-55)
[2020-05-16] MEDS ORDERED: DEXA4TAB PO (12:34)
[2020-05-16] MEDS ORDERED: RT-ALBUINH INH (12:34)
[2020-05-16 12:52] VITALS: BP 136/89
== END 2020-05-16 12:52 | disposition home or self-care (01) ==
LOC: EDUNIT# 10:49 → ER 10:52
DX: J45.901 Unspecified asthma with (acute) exacerbation (principal); Z20.828 Contact with and (suspected) exposure to other viral communicable diseases
CPT/HCPCS: 36415; 71045; 80053; 82728; 83605; 83615; 84484; 85025; 85384; 85610; 85730; 86141; 93005

== ENCOUNTER 2020-07-03 18:16 | Emergency (ER) | payer BC ==
[~2020-07-03] VITALS: Ht 177 cm; Wt 120.0 kg
[~2020-07-03 18:16] MED LIST changes: +DEXA4TAB PO; +KETOROLAC 30 MG/ML VIAL ONE; +RT-ALBUINH INH; +fentaNYL INJECTION 100 MCG/2 ML AMP ONE
[2020-07-03] MEDS ORDERED: LACTATED RINGERS 1,000 ML IV ONE (18:19)
[2020-07-03] MEDS ORDERED: ONDANSETRON 4 MG/2 ML (SDV) Z0FRAN ONE (18:19)
[2020-07-03] MEDS ORDERED: LACTATED RINGERS 1,000 ML IV SCH (18:30)
[2020-07-03] MEDS ORDERED: KETOROLAC 30 MG/ML VIAL IVP ONE (18:30)
[2020-07-03] MEDS ORDERED: ONDANSETRON 4 MG/2 ML (SDV) Z0FRAN IVP ONE (18:30)
[2020-07-03] MEDS ORDERED: fentaNYL INJECTION 100 MCG/2 ML AMP IVP ONE ×2 (18:30→19:30)
--- NOTE | 2020-07-03 18:30 | ED Abdominal Pain ---
General Stated Complaint: ABD / BACK PAIN Source of Information: Patient Exam Limitations: No Limitations History of Present Illness Date Seen by Provider: Jul 03, 2020 Time Seen by Provider: 18:28 Initial Comments To er with sudden onset llq abdominal pain rated 9/10 1 hour ago. hx kidney stones Timing/Duration: 1 Hour Severity/Quality: Severe Location: LLQ Radiation: No Radiation Activities at Onset: None Associated Symptoms: Denies Symptoms Allergies and Home Medications Allergies Coded Allergies: NKANo Known Allergies (Verified Allergy, Unknown, 07/05/06) Home Medications Albuterol Sulfate 1 Puff Puff, 2 PUFF INH Q4H 1 PUFF = 90 MCG Prescribed by: JAN VIGIL on 05/16/20 1234 Dexamethasone 4 Mg Tablet, 10 MG PO ONCE please take on evening of 05/17/2020 Prescribed by: JAN VIGIL on 05/16/20 1234 Patient Home Medication List Home Medication List Reviewed: Yes Review of Systems Review of Systems Constitutional: see HPI, diaphoresis EENTM: No Symptoms Reported Respiratory: No Symptoms Reported Cardiovascular: No Symptoms Reported Gastrointestinal: See HPI, Abdominal Pain, Nausea, Vomiting Genitourinary: No Symptoms Reported Musculoskeletal: no symptoms reported Skin: no symptoms reported Psychiatric/Neurological: No Symptoms Reported Endocrine: No Symptoms Reported Past Aqfeugi-Tkwgtb-Jtoqbt Hx Patient Social History Recent Foreign Travel: No Contact w/Someone Who Travel: No Recent Hopitalizations: No Immunizations Up To Date Tetanus Booster (TDap): Unknown Seasonal Allergies Seasonal Allergies: No Past Medical History Surgeries: Yes (INGROWN TOENAIL REMOVAL; KIDNEY STONE REMOVAL W/ URETERAL STENT & REMOVAL) Renal Respiratory: Yes Asthma Cardiac: No Neurological: Yes Headaches /Migraines Reproductive Disorders: No Sexually Transmitted Disease: No HIV/AIDS: No Genitourinary: Yes Kidney Stones Gastrointestinal: No Musculoskeletal: No Endocrine: No HEENT: No Cancer: No Psychosocial: No Integumentary: No Blood Disorders: No Adverse Reaction/Blood Tranf: No Family Medical History Diabetes, Psychiatric Problems Physical Exam Vital Signs Vital Signs - First Documented 07/03/20 18:20 Temp 36.0 Pulse 72 Resp 18 B/P (MAP) 149/85 (106) Pulse Ox 96 Capillary Refill : Height/Weight/BMI Height: 5'10.00" Weight: 238lbs. 0oz. 107.698227vr; 37.00 BMI Method:Stated General Appearance: WD/WN, no apparent distress Respiratory: no respiratory distress, no accessory muscle use Cardiovascular: no murmur, tachycardia Gastrointestinal: normal bowel sounds, soft, tenderness Extremities: normal range of motion, non-tender Neurologic/Psychiatric: alert, normal mood/affect, oriented x 3 Skin: normal color, warm/dry Progress/Results/Core Measures Results/Orders Lab Results Laboratory Tests Test 07/03/20 18:21 07/03/20 19:25 Range/Units White Blood Count 10.6 4.3-11.0 10^3/uL Red Blood Count 5.24 4.35-5.85 10^6/uL Hemoglobin 14.3 13.3-17.7 G/DL Hematocrit 43 40-54 % Mean Corpuscular Volume 82 80-99 FL Mean Corpuscular Hemoglobin 27 25-34 PG Mean Corpuscular Hemoglobin Concent 33 32-36 G/DL Red Cell Distribution Width 14.3 10.0-14.5 % Platelet Count 271 130-400 10^3/uL Mean Platelet Volume 10.3 7.4-10.4 FL Neutrophils (%) (Auto) 58 42-75 % Lymphocytes (%) (Auto) 27 12-44 % Monocytes (%) (Auto) 12 0-12 % Eosinophils (%) (Auto) 3 0-10 % Basophils (%) (Auto) 1 0-10 % Neutrophils # (Auto) 6.1 1.8-7.8 X 10^3 Lymphocytes # (Auto) 2.9 1.0-4.0 X 10^3 Monocytes # (Auto) 1.2 H 0.0-1.0 X 10^3 Eosinophils # (Auto) 0.3 0.0-0.3 10^3/uL Basophils # (Auto) 0.1 0.0-0.1 10^3/uL Sodium Level 141 135-145 MMOL/L Potassium Level 3.9 3.6-5.0 MMOL/L Chloride Level 110 H 98-107 MMOL/L Carbon Dioxide Level 20 L 21-32 MMOL/L Anion Gap 11 5-14 MMOL/L Blood Urea Nitrogen 14 7-18 MG/DL Creatinine 1.22 0.60-1.30 MG/DL Estimat Glomerular Filtration Rate > 60 BUN/Creatinine Ratio 11 Glucose Level 101 70-105 MG/DL Calcium Level 8.8 8.5-10.1 MG/DL Corrected Calcium 8.4 L 8.5-10.1 MG/DL Total Bilirubin 0.8 0.1-1.0 MG/DL Aspartate Amino Transf (AST/SGOT) 57 H 5-34 U/L Alanine Aminotransferase (ALT/SGPT) 95 H 0-55 U/L Alkaline Phosphatase 96 40-136 U/L Total Protein 7.8 6.4-8.2 GM/DL Albumin 4.5 3.2-4.5 GM/DL Urine Color DARK YELLOW Urine Clarity CLOUDY Urine pH 5.5 5-9 Urine Specific [place] >=1.030 1.016-1.022 Urine Protein 1+ H NEGATIVE Urine Glucose (UA) NEGATIVE NEGATIVE Urine Ketones NEGATIVE NEGATIVE Urine Nitrite NEGATIVE NEGATIVE Urine Bilirubin 1+ H NEGATIVE Urine Urobilinogen 0.2 < = 1.0 MG/DL Urine Leukocyte Esterase NEGATIVE NEGATIVE Urine RBC (Auto) 3+ H NEGATIVE Urine RBC >100 H /HPF Urine WBC 2-5 /HPF Urine Squamous Epithelial Cells RARE /HPF Urine Crystals NONE /LPF Urine Bacteria TRACE /HPF Urine Casts NONE /LPF Urine Mucus NEGATIVE /LPF Urine Culture Indicated YES My Orders Orders - CATHIE VALENTIN APRN Lactated Ringers (Lr 1000 Ml Iv Solution (07/03/20 18:30) Ondansetron Injection (Zofran Injectio (07/03/20 18:30) Ketorolac Injection (Toradol Injection) (07/03/20 18:30) Fentanyl Injection (Sublimaze Injection (07/03/20 18:30) Abdomen/Kub 1view (07/03/20 18:25) Ct Abd/Pelvis Wo(Kidney Stone) (07/03/20 18:25) Cbc With Automated Diff (07/03/20 18:25) Comprehensive Metabolic Panel (07/03/20 18:25) Ed Iv/Invasive Line Start (07/03/20 18:25) Ua Culture If Indicated (07/03/20 18:34) Fentanyl Injection (Sublimaze Injection (07/03/20 19:30) Rx-Hydrocodone/Apap 5-325 Mg (Rx-Vicodin (07/03/20 19:30) Levofloxacin Tablet (Levaquin Tablet) (07/03/20 19:30) Levofloxacin Tablet (Levaquin Tablet) (07/03/20 19:30) Levofloxacin Tablet (Levaquin Tablet) (07/03/20 19:28) Promethazine Injection (Phenergan Injec (07/03/20 19:45) Promethazine Injection (Phenergan Injec (07/03/20 19:35) Urine Culture (07/03/20 19:25) Medications Given in ED Current Medications Medications Dose Ordered Sig/Kalpesh Route Start Time Stop Time Status Last Admin Dose Admin Acetaminophen/ Hydrocodone Bitart 1 ea Q4H PRN PO 07/03/20 19:30 07/03/20 19:41 1 EA Fentanyl Citrate 50 mcg ONCE ONCE IVP 07/03/20 19:30 07/03/20 19:31 DC 07/03/20 19:40 50 MCG Fentanyl Citrate 75 mcg ONCE ONCE IVP 07/03/20 18:30 07/03/20 18:31 DC 07/03/20 18:30 75 MCG Ketorolac Tromethamine 30 mg ONCE ONCE IVP 07/03/20 18:30 07/03/20 18:31 DC 07/03/20 18:30 30 MG Levofloxacin 500 mg ONCE ONCE PO 07/03/20 19:30 07/03/20 19:31 DC 07/03/20 19:41 500 MG Ondansetron HCl 8 mg ONCE ONCE IVP 07/03/20 18:30 07/03/20 18:31 DC 07/03/20 18:30 8 MG Promethazine HCl 12.5 mg ONCE ONCE IVP 07/03/20 19:45 07/03/20 19:46 07/03/20 19:41 12.5 MG Vital Signs/I&O 07/03/20 18:20 Temp 36.0 Pulse 72 Resp 18 B/P (MAP) 149/85 (106) Pulse Ox 96 Departure Impression Primary Impression: Left ureteral stone Disposition: HOME, SELF-CARE Condition: Stable Departure-Patient Inst. Decision time for Depature: 19:44 Referrals: [facility] (PCP/Family) Primary Care Physician Patient Instructions: Kidney Stones (DC) Add. Discharge Instructions: 1. pain medication as directed 2. FOllow up with your doctor next week 3. REturn to eR for any intolerable pain or fevers Scripts Cephalexin (Keflex) 500 Mg Capsule 500 MG PO TID, #15 CAP Prov: VALENTIN,PETER J PICK UP AND DELIVERY DRIVER 07/03/20 Ondansetron (Ondansetron Odt) 8 Mg Tab.rapdis 8 MG PO Q6H PRN for NAUSEA-1ST LINE, #10 TAB Prov: CATHIE VALENTIN APRN 07/03/20 Ibuprofen (Ibuprofen) 800 Mg Tablet 800 MG PO Q8H PRN for PAIN, #30 TAB 0 Refills Prov: CATHIE VALENTIN APRN 07/03/20 CATHIE VALENTIN APRN Jul 03, 2020 18:30
[2020-07-03 18:32] LABS: BASOPHILS # (AUTO) 0.1 10^3/uL (0.0-0.1); BASOPHILS % (AUTO) 1 % (0-10); EOSINOPHILS # (AUTO) 0.3 10^3/uL (0.0-0.3); EOSINOPHILS % (AUTO) 3 % (0-10); HEMATOCRIT 43 % (40-54); HEMOGLOBIN 14.3 G/DL (13.3-17.7); LYMPHOCYTES # (AUTO) 2.9 X 10^3 (1.0-4.0); LYMPHOCYTES % (AUTO) 27 % (12-44); MEAN CORPUSCULAR HEMOGLOBIN 27 PG (25-34); MEAN CORPUSCULAR HGB CONC 33 G/DL (32-36); MEAN CORPUSCULAR VOLUME 82 FL (80-99); MEAN PLATELET VOLUME 10.3 FL (7.4-10.4); MONOCYTES # (AUTO) 1.2 X 10^3 (0.0-1.0); MONOCYTES % (AUTO) 12 % (0-12); NEUTROPHILS # (AUTO) 6.1 X 10^3 (1.8-7.8); NEUTROPHILS % (AUTO) 58 % (42-75); PLATELET COUNT 271 10^3/uL (130-400); RED CELL DISTRIBUTION WIDTH 14.3 % (10.0-14.5); WHITE BLOOD COUNT 10.6 10^3/uL (4.3-11.0)
[2020-07-03 18:55] LABS: ALANINE AMINOTRANSFERASE 95 U/L (0-55); ALBUMIN 4.5 GM/DL (3.2-4.5); ALKALINE PHOSPHATASE 96 U/L (40-136); BILIRUBIN,TOTAL 0.8 MG/DL (0.1-1.0); BUN/CREATININE RATIO 11; CALCIUM 8.8 MG/DL (8.5-10.1); CARBON DIOXIDE 20 MMOL/L (21-32); CHLORIDE 110 MMOL/L (98-107); CREATININE SERUM 1.22 MG/DL (0.60-1.30); GFR ESTIMATED > 60; GLUCOSE 101 MG/DL (70-105); POTASSIUM 3.9 MMOL/L (3.6-5.0); SODIUM 141 MMOL/L (135-145); TOTAL PROTEIN 7.8 GM/DL (6.4-8.2)
--- NOTE | 2020-07-03 18:55 | NUR ---
Report received from RHODA Robison at this time.
--- NOTE | 2020-07-03 19:11 | Diagnostic Imaging Report ---
INDICATION: Abdominal pain COMPARISON: None FINDINGS: Two views of the abdomen demonstrate nondistended bowel gas pattern. There is no significant constipation. No large pocket of free air or abnormal calcification is seen. IMPRESSION: Negative KUB Dictated by: Dictated on workstation # [id number]
[2020-07-03] MEDS ORDERED: LEVOFLOXACIN 500 MG TAB (LEVAQUIN) ONE (19:28)
[2020-07-03] MEDS ORDERED: RX-HYDROCODONE/APAP 5/325 MG #4 TAB PK PO PRN (19:30)
[2020-07-03] MEDS ORDERED: LEVOFLOXACIN 500 MG TAB (LEVAQUIN) PO ONE (19:30)
[2020-07-03] MEDS ORDERED: LEVOFLOXACIN 750 MG TAB (LEVAQUIN) PO ONE (19:30)
[2020-07-03 19:34] LABS: CLARITY,URINE CLOUDY; COLOR,URINE DARK YELLOW; GLUCOSE, URINE (UA) NEGATIVE (NEGATIVE); KETONES,URINE NEGATIVE (NEGATIVE); LEUKOCYTE ESTERASE ,URINE NEGATIVE (NEGATIVE); NITRITE,URINE NEGATIVE (NEGATIVE); PH,URINE 5.5 (5-9); PROTEIN,URINE 1+ (NEGATIVE)
[2020-07-03] MEDS ORDERED: PROMETHAZINE INJ 25 MG/ML (PHENERGAN) AMP ONE (19:35)
[2020-07-03 19:41] LABS: BACTERIA,URINE TRACE /HPF; BILIRUBIN,URINE 1+ (NEGATIVE); RBC,URINE >100 /HPF; SQUAMOUS EPITHELIAL CELL,UR RARE /HPF
[2020-07-03] MEDS ORDERED: PROMETHAZINE INJ 25 MG/ML (PHENERGAN) AMP IVP ONE (19:45)
[2020-07-03] MEDS ORDERED: IBUP-1780 PO (19:50)
[2020-07-03] MEDS ORDERED: ONDA8TAB13 PO (19:50)
[2020-07-03] MEDS ORDERED: CEPH-507 PO (19:50)
[2020-07-03] MEDS ORDERED: HYDR-3870 PO (19:50)
--- NOTE | 2020-07-03 20:20 | Diagnostic Imaging Report ---
PROCEDURE: CT urinary tract, rule out kidney stone. TECHNIQUE: Multiple contiguous axial images were obtained through the abdomen and pelvis without the use of intravenous contrast. Auto Exposure Controls were utilized during the CT exam to meet ALARA standards for radiation dose reduction. INDICATION: Back pain, kidney stone. COMPARISON: 10/04/2017 FINDINGS: The lung bases are clear. There is a 3 mm obstructive stone in the mid aspect of the right kidney. There is trace left-sided hydronephrosis secondary to an obstructive 3 mm stone in the distal left ureter. There is no inflammation. The remainder of the solid organs, gallbladder, bowel and urinary bladder are unremarkable. Osseous structures normal. IMPRESSION: Obstructive 3 mm stone distal left ureter with resultant trace left-sided hydronephrosis. Called and faxed to Parag Alejandro APRN at 8:15 p.m. by coby. Dictated by: Dictated on workstation # [id number]
[2020-07-03 20:29] VITALS: BP 140/88
[2020-07-05] MEDS ORDERED: OXYC1TAB87 PO (18:28)
== END 2020-07-03 20:28 | disposition home or self-care (01) ==
LOC: ER 18:16 → EDUNIT# 18:16 → ER 20:28
DX: N13.2 Hydronephrosis with renal and ureteral calculous obstruction (principal); J45.909 Unspecified asthma, uncomplicated
CPT/HCPCS: 36415; 74018; 74176; 80053; 81000; 85025; 87088

== ENCOUNTER 2020-07-04 00:35 | Emergency (ER) | payer BC ==
[~2020-07-04] VITALS: Ht 177 cm; Wt 98.0 kg
[~2020-07-04 00:35] MED LIST changes: +CEPH-507 PO; +HYDR-3870 PO; +IBUP-1780 PO; -KETOROLAC 30 MG/ML VIAL ONE; +ONDA8TAB13 PO; -fentaNYL INJECTION 100 MCG/2 ML AMP ONE
[2020-07-04 00:43] VITALS: BP 157/100
[2020-07-04] MEDS ORDERED: oxyCODONE/APAP 5/325MG (PERCOCET 5) TABLET PO ONE (00:45)
[2020-07-04] MEDS ORDERED: PROMETHAZINE INJ 25 MG/ML (PHENERGAN) AMP IM ONE (00:45)
[2020-07-04] MEDS ORDERED: KETOROLAC 60 MG/2 ML VIAL IM ONE (00:45)
[2020-07-04] MEDS ORDERED: RX-ONDANSETRON 4 MG ODT (ZOFRAN) PPK #4 PO STA (00:52)
--- NOTE | 2020-07-04 00:52 | ED Back Pain ---
General Chief Complaint: General Problems/Pain Stated Complaint: KIDNEY STONE Nursing Triage Note: Pt to [facility] 5 with c/o nausea after being Dx with a kidney stone earlier today. Pt states he is trying to hydrate and can't keep anything down. Nursing Sepsis Screen: No Definite Risk Source of Information: Patient Exam Limitations: No Limitations History of Present Illness Date Seen by Provider: Jul 04, 2020 Time Seen by Provider: 00:35 Initial Comments The patient presents to the ER by private conveyance with chief complaint that about 6-7 hours ago he presented to the ER for back pain consistent with a kidney stone. At that time he was treated and allowed to go home. Since then he has had continual nausea, inability to tolerate fluids and pain that is moderately controlled by his medicines. He has a take-home pack of hydrocodone which is working for his pain however is not able to get to sleep because of the nausea. He did not receive anything to take home for nausea medicines and cannot pick it up from the pharmacy until the morning. He is not having any fevers chills just wants some help with his symptom management. Allergies and Home Medications Allergies Coded Allergies: NKANo Known Allergies (Verified Allergy, Unknown, 07/05/06) Home Medications Albuterol Sulfate 1 Puff Puff, 2 PUFF INH Q4H 1 PUFF = 90 MCG Prescribed by: JAN VIGIL on 05/16/20 1234 Cephalexin 500 Mg Capsule, 500 MG PO TID Prescribed by: CATHIE VALENTIN on 07/03/201949 Dexamethasone 4 Mg Tablet, 10 MG PO ONCE please take on evening of 05/17/2020 Prescribed by: JAN VIGIL on 05/16/20 1234 Hydrocodone/Acetaminophen 1 Each Tablet, 1 EACH PO Q4-6HR PRN for PAIN-MODERATE Prescribed by: CATHIE VALENTIN on 07/03/201950 Ibuprofen 800 Mg Tablet, 800 MG PO Q8H PRN for PAIN Prescribed by: CATHIE VALENTIN on 07/03/201949 Ondansetron 8 Mg Tab.rapdis, 8 MG PO Q6H PRN for NAUSEA-1ST LINE Prescribed by: CATHIE VALENTIN on 07/03/201949 Patient Home Medication List Home Medication List Reviewed: Yes Review of Systems Constitutional: No chills, No fever, No malaise EENTM: No ear discharge, No hearing loss, No ear pain Respiratory: No cough, No short of breath Cardiovascular: No chest pain, No edema, No syncope Gastrointestinal: No abdominal pain, No constipation, No diarrhea; nausea, vomiting Genitourinary: No see HPI, No discharge Musculoskeletal: see HPI, back pain All Other Systems Reviewed Negative Unless Noted: Yes Past Nipzvqd-Rtnqxs-Dgokiq Hx Patient Social History Alcohol Use: Rarely Uses Recreational Drug Use: No Smoking Status: Never a Smoker 2nd Hand Smoke Exposure: Yes Recent Foreign Travel: No Contact w/Someone Who Travel: No Recent Infectious Disease Expo: No Recent Hopitalizations: No Immunizations Up To Date Tetanus Booster (TDap): Unknown Seasonal Allergies Seasonal Allergies: No Past Medical History Surgeries: Yes (INGROWN TOENAIL REMOVAL; KIDNEY STONE REMOVAL W/ URETERAL STENT & REMOVAL) Renal Respiratory: Yes Asthma Cardiac: No Neurological: Yes Headaches /Migraines Reproductive Disorders: No Sexually Transmitted Disease: No HIV/AIDS: No Genitourinary: Yes Kidney Stones Gastrointestinal: No Musculoskeletal: No Endocrine: No HEENT: No Cancer: No Psychosocial: No Integumentary: No Blood Disorders: No Adverse Reaction/Blood Tranf: No Family Medical History Diabetes, Psychiatric Problems Physical Exam Vital Signs Vital Signs - First Documented 07/04/20 00:43 Temp 36.9 Pulse 87 Resp 19 B/P (MAP) 157/100 (119) Pulse Ox 95 O2 Delivery Room Air Capillary Refill : Less Than 3 Seconds Height, Weight, BMI Height: 5'10.00" Weight: 238lbs. 0oz. [id number]; 31.00 BMI Method:Stated General Appearance: No Apparent Distress, WD/WN HEENT: Pharynx Normal, Moist Mucous Membranes Neck: Full Range of Motion, Normal Inspection Respiratory: No Accessory Muscle Use, No Respiratory Distress Back: Normal Inspection Extremity: Normal Capillary Refill, Normal Inspection, No Pedal Edema Neurologic/Psychiatric: Alert, Oriented x3, No Motor/Sensory Deficits Skin: Normal Color, Warm/Dry Progress/Results/Core Measures Results/Orders My Orders Orders - EBEN TSANG Promethazine Injection (Phenergan Injec (07/04/20 00:45) Ketorolac Injection (Toradol Injection) (07/04/20 00:45) Oxycodone/Apap 5/325mg Tablet (Percocet (07/04/20 00:45) Ondansetron Oral Dissolve Tab (Zofran (8/10/20 01:00) Vital Signs/I&O 07/04/20 00:43 Temp 36.9 Pulse 87 Resp 19 B/P (MAP) 157/100 (119) Pulse Ox 95 O2 Delivery Room Air Blood Pressure Mean: 119 Progress Progress Note : Time: 00:50 Progress Note It has been over 6 hours since his previous dosing. Plan to give him another round of Toradol, Phenergan, Zofran and a dose of Percocet. We'll have him take home a take-home pack of ondansetron. Reinforced instructions and teaching. Patient is okay with this plan. Departure Impression Primary Impression: Ureteral calculi Disposition: HOME, SELF-CARE Condition: Stable Departure-Patient Inst. Decision time for Depature: 00:52 Referrals: [facility] (PCP/Family) Primary Care Physician Patient Instructions: Kidney Stones (DC) Add. Discharge Instructions: Get some sleep and pickling operator your medications in the morning at the pharmacy. You may take another tablet of Zofran under the tongue every 4 hours as needed tonight to control your nausea. All discharge instructions reviewed with patient and/or family. Voiced understanding. EBEN TSANG Jul 04, 2020 00:52
[2020-07-04] MEDS ORDERED: ONDANSETRON 4 MG (ZOFRAN) ORAL DISSOLVE TAB PO ONE (01:00)
[2020-07-05] MEDS ORDERED: OXYC1TAB87 PO (18:28)
== END 2020-07-04 01:08 | disposition home or self-care (01) ==
LOC: EDUNIT# 00:35 → ER 00:36
DX: N13.2 Hydronephrosis with renal and ureteral calculous obstruction (principal); J45.909 Unspecified asthma, uncomplicated; G43.909 Migraine, unspecified, not intractable, without status migrainosus; Z77.22 Contact with and (suspected) exposure to environmental tobacco smoke (acute) (chronic)
CPT/HCPCS: 99284

== ENCOUNTER → 2020-07-07 | Day surgery (SDC) | payer BC ==
[2020-07-07] VITALS (12 sets, daily range): BP systolic 120–155; BP diastolic 75–97
[~2020-07-07] VITALS: Ht 177.8 cm; Wt 121.4 kg
[~2020-07-07] MED LIST changes: +GLYCOPYRROLATE 0.2 MG/ML (ROBINUL) 2 ML VIAL ONE; +HYDROmorphone 2 MG/ML VIAL (DILAUDID) IV ONE; +IOPAMIDOL 61% 30 ML (ISOVUE 300) VIAL ONE; +LACTATED RINGERS 1,000 ML IV PRN; +LEVO500T2 PO; +LIDOCAINE PF 2% 5 ML (XYLOCAINE) VIAL ONE; +MIDAZOLAM 2 MG/2 ML (VERSED) VIAL IV ONE; +MIDAZOLAM 2 MG/2 ML (VERSED) VIAL ONE; +NEOSTIGMINE 3 MG/3 ML VIAL ONE; +ONDANSETRON 4 MG/2 ML (SDV) Z0FRAN IVP PRN; +PHEN-640 PO; +ROCURONIUM 10 MG/ML 5 ML SYRINGE IV ONE; +SEVOFLURANE (ULTANE) 15 ML INHAL SOLN ONE; +TMSL.4C PO; +TRAM50TA3 PO; +cefTRIAXone FOR IV USE 1,000 MG in WATER (STERILE) FOR INJECTION 10 ML IV ONE; +fentaNYL INJECTION 100 MCG/2 ML AMP ONE; +proPOfol 200 MG/20 ML (DIPRIVAN) VIAL IV ONE
--- NOTE | 2020-07-07 08:48 | Diagnostic Imaging Report ---
Indication: Left ureteral calculus KUB There is a 2 mm calculus at left ureterovesical junction. There is unchanged from the previous day. IMPRESSION: Small calcifications in the region of left ureterovesical junction could be distal ureteral calculus. Dictated by: Dictated on workstation # [id number]
--- NOTE | 2020-07-07 09:42 | Progress Note-Pre Operative ---
Pre-Operative Progress Note H&P Reviewed The H&P was reviewed, patient examined and no changes noted. Date Seen by Provider: Jul 07, 2020 Time Seen by Provider: 09:41 Date H&P Reviewed: Jul 07, 2020 Time H&P Reviewed: 09:41 Pre-Operative Diagnosis: LT DISTAL URETERAL STONE SUSY VAUGHN MD Jul 07, 2020 09:42
--- NOTE | 2020-07-07 09:51 | Progress Note-Post Operative ---
Post-Operative Progess Note Surgeon (s)/Mechanical Systems Designer (s) Surgeon SUSY VAUGHN MD Mechanical Systems Designer: NONE Pre-Operative Diagnosis LT DISTAL URETERAL STONE Post-Operative Diagnosis SAME Procedure & Operative Findings Date of Procedure 07/07/20 Procedure Performed/Findings CYSTOSCOPY, LT URETERAL STONE MANIPULATION, ATTEMPTED LT URETEROSCOPY, LT RETROGRADE UROGRAM, AND INSERTION OF LT URETERAL STENT Anesthesia Type GENERAL Estimated Blood Loss Estimated blood loss (mL): NONE Specimens/Packing Specimens Removed NONE Packing: NONE SUSY VAUGHN MD Jul 07, 2020 09:51
--- NOTE | 2020-07-07 10:50 | Discharge Inst-Urology ---
Discharge Inst-Urology Reconcile Patient Problems Problems Reviewed?: Yes Final Diagnosis LT DISTAL URETERAL STONE Patient Instructions/Follow Up Plan/Assessment/Instructions Please make appointment to been seen in office in 1 week Strain all urine, save any stone passed and bring to office appointment No KUB'S Continue Keflex along with Levaquin Increase oral fluids for 48 hours and then as needed. Diet and Activity as tolerated. If questions or concerns contact your physician Or seek help at emergency department. SUSY VAUGHN MD Jul 07, 2020 10:50
--- NOTE | 2020-07-07 12:14 | Anesthesia-General Post-Op ---
General Patient Condition Mental Status/LOC: Same as Preop Cardiovascular: Satisfactory Nausea/Vomiting: Absent Respiratory: Satisfactory Pain: Controlled Complications: Absent Post Op Complications Complications None Follow Up Care/Instructions Patient Instructions None needed. Anesthesia/Patient Condition Patient Condition Patient is doing well, no complaints, stable vital signs, no apparent adverse anesthesia problems. No complications reported per nursing. D/C home per [facility] Criteria: Yes GABRIELA CÁRDENAS CRNA Jul 07, 2020 12:14
--- NOTE | 2020-07-07 20:24 | OPERATIVE REPORT ---
DATE OF SERVICE: 07/07/2020 PREOPERATIVE DIAGNOSIS: Left distal ureteral stone. POSTOPERATIVE DIAGNOSIS: Left distal ureteral stone. OPERATION PERFORMED: Cystoscopy, left ureteral stone manipulation, attempted left ureteroscopy, left retrograde urogram and insertion of left ureteral stent. SURGEON: Derek Vaughn MD ANESTHESIA: General. COMPLICATIONS: None. DESCRIPTION OF PROCEDURE: Under satisfactory general anesthesia, the patient in lithotomy position, genitalia were prepped and draped in the usual sterile fashion. A cystoscope was introduced under vision. There was a relative meatal stenosis responding to the 25-Chinese scope. The anterior urethra otherwise was normal. The prostate was not enlarged. Bladder neck was open. The bladder was inspected, essentially normal except for a very very sluggish efflux on the left side. Using the foroblique lens, I was able to pass 5 and 6-Chinese ureteral catheter abutted against the stone that seems to be impacted in the ureter. I could not fully dilate the ureter to pass a 6.9 Chinese semi-rigid ureteroscope, so I discontinued attempting the ureteroscopy. All along I was doing the retrograde images to confirm the integrity of the ureter, no extravasation and the position of the stone. I went ahead and reinserted the cystoscope. I passed a 6-Chinese 26 cm double-J stent and with some manipulation, I was able to ease or bypass or disimpact the stone. When I felt . I was guided of course by the contrast from the retrograde urogram, passed the stone all the way up to the renal pelvis guided fluoroscopically, removed the guidewire and the stent was seen jetting nicely proximally fluoroscopically and distally endoscopically. I could see a pretty cloudy and brownish urine coming out from the wall of the stent, evacuated the bladder, removed the cystoscope. The patient tolerated the procedure and anesthesia well and was sent to recovery room in stable condition. PLAN: We will cover with antibiotic. We hope that the stone will pass around the stent or at least the stent was threaded up and dilated the ureter, so we can go back with ureteroscope with back up on the ESWL machine here in couple of weeks. All this was explained to the patient preoperatively. Job ID: [id number] DocumentID: [id number] Dictated Date: 07/07/2020 10:46:09 Timber Killer Date: 07/07/2020 20:23:45 Dictated By: DEREK VAUGHN MD
== END ==
LOC: SDC 08:06
PROVIDERS: ATTEND Urology
DX: N20.1 Calculus of ureter (principal); J45.909 Unspecified asthma, uncomplicated; Z79.899 Other long term (current) drug therapy; E66.01 Morbid (severe) obesity due to excess calories; Z68.38 Body mass index [BMI] 38.0-38.9, adult; Z11.2 Encounter for screening for other bacterial diseases
CPT/HCPCS: 52332; 74018; 76000; 87081; C2625

== ENCOUNTER → 2020-07-25 | Outpatient (CLI) | payer BC ==
[~2020-07-25] MED LIST changes: -GLYCOPYRROLATE 0.2 MG/ML (ROBINUL) 2 ML VIAL ONE; -HYDROmorphone 2 MG/ML VIAL (DILAUDID) IV ONE; -IOPAMIDOL 61% 30 ML (ISOVUE 300) VIAL ONE; -LACTATED RINGERS 1,000 ML IV PRN; -LIDOCAINE PF 2% 5 ML (XYLOCAINE) VIAL ONE; -MIDAZOLAM 2 MG/2 ML (VERSED) VIAL IV ONE; -MIDAZOLAM 2 MG/2 ML (VERSED) VIAL ONE; -NEOSTIGMINE 3 MG/3 ML VIAL ONE; -ONDANSETRON 4 MG/2 ML (SDV) Z0FRAN IVP PRN; -ROCURONIUM 10 MG/ML 5 ML SYRINGE IV ONE; -SEVOFLURANE (ULTANE) 15 ML INHAL SOLN ONE; -cefTRIAXone FOR IV USE 1,000 MG in WATER (STERILE) FOR INJECTION 10 ML IV ONE; -fentaNYL INJECTION 100 MCG/2 ML AMP ONE; -proPOfol 200 MG/20 ML (DIPRIVAN) VIAL IV ONE
== END ==
LOC: LAB 16:45
PROVIDERS: ATTEND Urology
DX: N20.1 Calculus of ureter (principal)

== ENCOUNTER 2020-11-15 14:11 | Emergency (ER) | payer BC ==
[~2020-11-15] VITALS: Ht 177.8 cm; Wt 117.9 kg
--- NOTE | 2020-11-15 14:34 | ED Fall/Injury ---
General Stated Complaint: PASSED OUT- FELL OUT OF CHAIR Source: patient Exam Limitations: no limitations History of Present Illness Date Seen by Provider: Nov 15, 2020 Time Seen by Provider: 14:20 Initial Comments This is a healthy-appearing 34-year-old male who presents to the ER for loss of consciousness after hitting his head. States he was leaning back in his chair when his chair broke and he fell back hitting his head. States he passed out, but does not know how long he was out for. Denies headache, neck pain, nausea, vomiting, or Photophobia. Does not take any medications daily, no zntt-sgt-zjuehxf medications other than occasional Tylenol. Allergies and Home Medications Allergies Coded Allergies: PETERANo Known Allergies (Verified Allergy, Unknown, 07/05/06) Home Medications Albuterol Sulfate 1 Puff Puff, 2 PUFF INH Q4H 1 PUFF = 90 MCG Prescribed by: JAN VIGIL on 05/16/20 1234 Cephalexin 500 Mg Capsule, 500 MG PO TID Prescribed by: CATHIE VALENTIN on 07/03/201949 Ibuprofen 800 Mg Tablet, 800 MG PO Q8H PRN for PAIN Prescribed by: CATHIE VALENTIN on 07/03/201949 Levofloxacin 500 Mg Tablet, 500 MG PO DAILY Prescribed by: JANET LUIS on 07/07/201109 Ondansetron 8 Mg Tab.rapdis, 8 MG PO Q6H PRN for NAUSEA-1ST LINE Prescribed by: CATHIE VALENTIN on 07/03/201949 Oxycodone HCl/Acetaminophen 1 Each Tablet, 1 TAB PO Q4H Prescribed by: CATHIE VALENTIN on 07/05/20 182 Phenazopyridine HCl 200 Mg Tablet, 1 TAB PO TID Prescribed by: JANET LUIS on 07/07/201109 Tamsulosin HCl 0.4 Mg Cap, 0.4 MG PO DAILY Prescribed by: JANET LUIS on 07/07/201109 Tramadol HCl 50 Mg Tablet, 50-100 MG PO Q4H Prescribed by: JANET LUIS on 07/07/20 111 Patient Home Medication List Home Medication List Reviewed: Yes Review of Systems Review of Systems Constitutional: no symptoms reported Eyes: No Symptoms Reported Ears, Nose, Mouth, Throat: no symptoms reported Respiratory: no symptoms reported Cardiovascular: no symptoms reported Gastrointestinal: no symptoms reported Genitourinary: no symptoms reported Musculoskeletal: no symptoms reported Skin: no symptoms reported Psychiatric/Neurological: No Symptoms Reported Past Eaeasjz-Bybcnw-Nbsbrq Hx Patient Social History Alcohol Beverage of Choice: Wine 2nd Hand Smoke Exposure: Yes Recent Foreign Travel: No Contact w/Someone Who Travel: No Recent Hopitalizations: No Immunizations Up To Date Tetanus Booster (TDap): Unknown Seasonal Allergies Seasonal Allergies: No Past Medical History Surgeries: Yes (INGROWN TOENAIL REMOVAL; KIDNEY STONE REMOVAL W/ URETERAL STENT & REMOVAL) Renal Respiratory: Yes Asthma Currently Using CPAP: No Currently Using BIPAP: No Cardiac: No Neurological: Yes Headaches /Migraines Reproductive Disorders: No Sexually Transmitted Disease: No HIV/AIDS: No Genitourinary: Yes Kidney Stones Gastrointestinal: No Musculoskeletal: No Endocrine: No HEENT: No Cancer: No Psychosocial: No Integumentary: No Blood Disorders: No Adverse Reaction/Blood Tranf: No Family Medical History Diabetes, Psychiatric Problems Physical Exam Vital Signs Vital Signs - First Documented 11/15/20 11/15/20 14:19 15:40 Temp 35.6 Pulse 82 Resp 20 B/P (MAP) 155/97 (116) Pulse Ox 96 O2 Delivery Room Air Capillary Refill : Height, Weight, BMI Height: 5'10.00" Weight: 238lbs. 0oz. [id number]; 38.40 BMI Method:Stated General Appearance: WD/WN, no apparent distress HEENT: PERRL/EOMI, normal ENT inspection, pharynx normal, other (no depressions, or deformities of head.) Neck: non-tender, full range of motion, supple, normal inspection Cardiovascular: regular rate, rhythm, no murmur Respiratory: lungs clear, normal breath sounds, no respiratory distress Gastrointestinal: normal bowel sounds, non tender, soft Extremities: normal range of motion, non-tender, normal inspection Neurologic/Psychiatric: no motor/sensory deficits, alert, normal mood/affect, oriented x 3 Skin: normal color, warm/dry [place] Coma Score Best Eye Response: (4) Open Spontaneously Best Verbal Response: (5) Oriented Best Motor Response: (6) Obeys Commands Progress/Results/Core Measures Results/Orders My Orders Orders - CHANDRIKA NUNEZ APRN Ekg Tracing (11/15/20 14:13) Ct Head Wo (11/15/20 14:38) Vital Signs/I&O 11/15/20 11/15/20 14:19 15:40 Temp 35.6 35.6 Pulse 82 80 Resp 20 20 B/P (MAP) 155/97 (116) 121/83 (116) Pulse Ox 96 96 O2 Delivery Room Air Progress Progress Note : Progress Note Mechanism of injury is low for serious injuries. Will obtain head CT due to LOC. Noncontrast head CT shows no acute process. Reviewed discharge instructions with him and he is agreeable with plan. Diagnostic Imaging Diagonstic Imaging: CT Plain Films/CT/US/NM/MRI: head Comments NAME: [facility] REC#: [id number] PT STATUS: REG ER : 1985 PHYSICIAN: CHANDRIKA NUNEZ INSEAM TRIMMING MACHINE OPERATOR ADMIT DATE: 11/15/20/ER Draft Date of Exam:11/15/20 CT HEAD WO PROCEDURE: CT head without contrast. TECHNIQUE: Multiple contiguous axial images were obtained through the brain without the use of intravenous contrast. Auto Exposure Controls were utilized during the CT exam to meet ALARA standards for radiation dose reduction. INDICATION: Fall hitting the back of the head. COMPARISON: Comparison is made with prior CT from 10/20/2016. FINDINGS: Ventricles and sulci are within normal limits. No sulcal effacement or midline shift is identified. No acute intra-axial or extra-axial hemorrhage is detected. Cisterns are patent. Visualized paranasal sinuses are clear. IMPRESSION: No acute intracranial process is detected. Dictated on workstation # [id number] Dict: 11/15/20 1522 Trans: 11/15/20 1525 [id number] Interpreted by: RIKKI RUELAS MD Electronically signed by: Departure Impression Primary Impression: Fall Disposition: 01 HOME, SELF-CARE Condition: Stable/Unchanged Departure-Patient Inst. Decision time for Depature: 15:41 Referrals: [facility] (PCP/Family) Primary Care Physician Patient Instructions: Preventing Falls Add. Discharge Instructions: Plan: 1. Discharge home. 2. May take Tylenol or Ibuprofen as needed for pain per package instructions. 3. Follow up with your primary care provider if your symptoms persist. 4. Return for any new or concerning symptoms such as changes in behavior, vomiting more than 3x in 12 hours, severe unrelenting headache. CHANDRIKA NUNEZ INSEAM TRIMMING MACHINE OPERATOR Nov 15, 2020 14:34
--- NOTE | 2020-11-15 14:59 | NUR ---
EKG not required per Stormy.
--- NOTE | 2020-11-15 15:26 | Diagnostic Imaging Report ---
PROCEDURE: CT head without contrast. TECHNIQUE: Multiple contiguous axial images were obtained through the brain without the use of intravenous contrast. Auto Exposure Controls were utilized during the CT exam to meet ALARA standards for radiation dose reduction. INDICATION: Fall hitting the back of the head. COMPARISON: Comparison is made with prior CT from 10/20/2016. FINDINGS: Ventricles and sulci are within normal limits. No sulcal effacement or midline shift is identified. No acute intra-axial or extra-axial hemorrhage is detected. Cisterns are patent. Visualized paranasal sinuses are clear. IMPRESSION: No acute intracranial process is detected. Dictated by: Dictated on workstation # [id number]
[2020-11-15 15:40] VITALS: BP 121/83
== END 2020-11-15 15:40 | disposition home or self-care (01) ==
LOC: EDUNIT# 14:11 → ER 14:13
DX: S06.9X9A Unspecified intracranial injury with loss of consciousness of unspecified duration, initial encounter (principal); J45.909 Unspecified asthma, uncomplicated; Z83.3 Family history of diabetes mellitus; Z77.22 Contact with and (suspected) exposure to environmental tobacco smoke (acute) (chronic); W07.XXXA Fall from chair, initial encounter; W22.8XXA Striking against or struck by other objects, initial encounter
CPT/HCPCS: 70450

== ENCOUNTER 2021-04-04 20:36 | Emergency (ER) | payer BC ==
[~2021-04-04] VITALS: Ht 178 cm; Wt 118.0 kg
[2021-04-04] MEDS ORDERED: LACTATED RINGERS 1,000 ML IV ONE (21:00)
[2021-04-04 21:02] LABS: BILIRUBIN,URINE NEGATIVE (NEGATIVE); CLARITY,URINE CLEAR; COLOR,URINE YELLOW; GLUCOSE, URINE (UA) NEGATIVE (NEGATIVE); KETONES,URINE NEGATIVE (NEGATIVE); LEUKOCYTE ESTERASE ,URINE NEGATIVE (NEGATIVE); NITRITE,URINE NEGATIVE (NEGATIVE); PROTEIN,URINE NEGATIVE (NEGATIVE)
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
[2021-04-04 21:16] LABS: BASOPHILS # (AUTO) 0.1 10^3/uL (0.0-0.1); BASOPHILS % (AUTO) 1 % (0-10); EOSINOPHILS # (AUTO) 0.4 10^3/uL (0.0-0.3); EOSINOPHILS % (AUTO) 4 % (0-10); HEMATOCRIT 45 % (40-54); HEMOGLOBIN 14.6 g/dL (13.3-17.7); LYMPHOCYTES # (AUTO) 2.2 10^3/uL (1.0-4.0); LYMPHOCYTES % (AUTO) 26 % (12-44); MEAN CORPUSCULAR HEMOGLOBIN 27 pg (25-34); MEAN CORPUSCULAR HGB CONC 33 g/dL (32-36); MEAN CORPUSCULAR VOLUME 83 fL (80-99); MEAN PLATELET VOLUME 10.2 fL (9.0-12.2); MONOCYTES # (AUTO) 0.8 10^3/uL (0.0-1.0); MONOCYTES % (AUTO) 10 % (0-12); NEUTROPHILS # (AUTO) 5.2 10^3/uL (1.8-7.8); NEUTROPHILS % (AUTO) 60 % (42-75); PLATELET COUNT 239 10^3/uL (130-400); WHITE BLOOD COUNT 8.7 10^3/uL (4.3-11.0)
[2021-04-04 21:19] LABS: ALBUMIN 4.3 GM/DL (3.2-4.5)
[2021-04-04 21:20] LABS: CHLORIDE 106 MMOL/L (98-107); POTASSIUM 4.3 MMOL/L (3.6-5.0); SODIUM 139 MMOL/L (135-145)
[2021-04-04 21:21] LABS: CALCIUM 9.3 MG/DL (8.5-10.1)
[2021-04-04 21:22] LABS: GLUCOSE 96 MG/DL (70-105); TOTAL PROTEIN 8.1 GM/DL (6.4-8.2)
[2021-04-04 21:23] LABS: CARBON DIOXIDE 21 MMOL/L (21-32)
[2021-04-04 21:24] LABS: BILIRUBIN,TOTAL 0.5 MG/DL (0.1-1.0)
[2021-04-04 21:25] LABS: ALKALINE PHOSPHATASE 110 U/L (40-136)
[2021-04-04 21:26] LABS: CREATININE SERUM 0.98 MG/DL (0.60-1.30); GFR ESTIMATED > 60
[2021-04-04 21:27] LABS: BUN/CREATININE RATIO 13
[2021-04-04 21:28] LABS: ALANINE AMINOTRANSFERASE 64 U/L (0-55)
[2021-04-04 21:29] LABS: CREATINE KINASE 117 U/L (30-200); MAGNESIUM 1.9 MG/DL (1.6-2.4)
[2021-04-04 21:31] LABS: AMORPHOUS SEDIMENT,UR RARE AMOR URATES /LPF; BACTERIA,URINE NEGATIVE /HPF; WBC,URINE 0-2 /HPF
[2021-04-04 21:36] LABS: CREATINE KINASE MB 0.8 NG/ML (<6.6)
[2021-04-04 21:41] VITALS: BP 125/84
== END 2021-04-04 21:44 | disposition home or self-care (01) ==
LOC: EDUNIT# 20:36 → ER 20:39
DX: M79.644 Pain in right finger(s) (principal); M79.645 Pain in left finger(s); J45.909 Unspecified asthma, uncomplicated; E66.9 Obesity, unspecified; Z68.37 Body mass index [BMI] 37.0-37.9, adult; Z79.899 Other long term (current) drug therapy; W86.0XXA Exposure to domestic wiring and appliances, initial encounter
CPT/HCPCS: 36415; 80053; 81000; 82550; 82553; 83735; 83874; 84484; 85025; 93005; 93041

== ENCOUNTER 2021-09-25 02:30 | Emergency (ER) | payer BC ==
[~2021-09-25] VITALS: Ht 175.2 cm; Wt 122.3 kg
--- NOTE | 2021-09-25 03:16 | ED EENT ---
History of Present Illness General Chief Complaint: Ear Problems Stated Complaint: POSS A BUG INSIDE EAR/EAR PAIN Nursing Triage Note: PATIENT STATES THAT AT 0200 HE WOKE UP AND "FELT SOMETHING MOVING IN HIS RIGHT EAR". HE ALSO C/O A HEADACHE AND FULLNESS IN HIS RIGHT EAR. Source: patient Exam Limitations: no limitations History of Present Illness Date Seen by Provider: Sep 25, 2021 Time Seen by Provider: 02:59 Initial Comments Patient presents ER by private conveyance with chief complaint that he was awoken with a scratching sensation in his right ear and feeling of fullness. He thought maybe he had a bug in his ear. Nursing reports they could not see anything in his ear. No fevers chills discharge. No history of surgeries on his ear. Allergies and Home Medications Allergies Coded Allergies: Prema Known Allergies (Verified Allergy, Unknown, 07/05/06) Patient Home Medication List Home Medication List Reviewed: Yes Albuterol Sulfate (Ventolin Hfa) 1 Puff Puff, 2 PUFF INH Q4H Prescribed by: JAN VIGIL on 05/16/20 1234 Cephalexin (Keflex) 500 Mg Capsule, 500 MG PO TID Prescribed by: CATHIE VALENTIN on 07/03/201949 Ibuprofen (Ibuprofen) 800 Mg Tablet, 800 MG PO Q8H PRN for PAIN Prescribed by: CATHIE VALENTIN on 07/03/201949 Levofloxacin (Levaquin) 500 Mg Tablet, 500 MG PO DAILY Prescribed by: JANET LUIS on 07/07/20 111 Ondansetron (Ondansetron Odt) 8 Mg Tab.rapdis, 8 MG PO Q6H PRN for NAUSEA-1ST LINE Prescribed by: CATHIE VALENTIN on 07/03/201949 Oxycodone HCl/Acetaminophen (Percocet 5-325 mg Tablet) 1 Each Tablet, 1 TAB PO Q4H Prescribed by: CATHIE VALENTIN on 07/05/20 182 Phenazopyridine HCl (Pyridium) 200 Mg Tablet, 1 TAB PO TID Prescribed by: JANET LUIS on 07/07/20 111 Tamsulosin HCl (Flomax) 0.4 Mg Cap, 0.4 MG PO DAILY Prescribed by: JANET LUIS on 07/07/20 111 Tramadol HCl (Tramadol HCl) 50 Mg Tablet, 50-100 MG PO Q4H Prescribed by: JANET LUIS on 07/07/20 1110 Review of Systems Review of Systems Constitutional: No chills, No diaphoresis Eyes: Denies Blindness, Denies Blurred Vision Ears: See HPI; Denies Dizziness, Denies Pain Nose: denies clots, denies congestion Mouth: denies clots, denies pain Throat: denies pain, denies swelling All Other Systems Reviewed Negative Unless Noted: Yes Past Zzcitzq-Kiueqm-Wldart Hx Patient Social History Tobacco Use?: No Substance use?: No Alcohol Use?: No Pt feels they are or have been: No Immunizations Up To Date Tetanus Booster (TDap): Unknown Influenza Vaccine Up-to-Date: No; Not Current First/Initial COVID19 Vaccinat: APRIL 2021 Second COVID19 Vaccination Kendall: APRIL 2021 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[employer] Seasonal Allergies Seasonal Allergies: No Past Medical History Surgeries: Yes (INGROWN TOENAIL REMOVAL;KIDNEY STONE REMOVALS W/ URETERAL STENTS/REMOVALS) Renal Respiratory: Yes Asthma Currently Using CPAP: No Currently Using BIPAP: No Cardiac: No Neurological: Yes Headaches /Migraines Reproductive Disorders: No Sexually Transmitted Disease: No HIV/AIDS: No Genitourinary: Yes Kidney Stones Gastrointestinal: No Musculoskeletal: No Endocrine: No HEENT: No Cancer: No Psychosocial: No Integumentary: No Blood Disorders: No Adverse Reaction/Blood Tranf: No Family Medical History Diabetes, Psychiatric Problems Physical Exam Vital Signs Vital Signs - First Documented 09/25/21 02:48 Temp 35.9 Pulse 73 Resp 18 B/P (MAP) 131/85 (100) Pulse Ox 96 O2 Delivery Room Air Height, Weight, BMI Height: 5'10.00" Weight: 238lbs. 0oz. 107.410953ly; 39.00 BMI Method:Stated General Appearance: WD/WN, no apparent distress Eyes: bilateral eye normal inspection, bilateral eye PERRL, bilateral eye EOMI Ears: bilateral ear auricle normal, bilateral ear canal normal, bilateral ear TM normal Nose: normal inspection; No active bleeding Mouth/Throat: normal mouth inspection, pharynx normal Respiratory: no respiratory distress, no accessory muscle use Neurologic/Psychiatric: alert, normal mood/affect, oriented x 3 Progress/Results/Core Measures Results/Orders Vital Signs/I&O 09/25/21 02:48 Temp 35.9 Pulse 73 Resp 18 B/P (MAP) 131/85 (100) Pulse Ox 96 O2 Delivery Room Air Blood Pressure Mean: 100 Departure Impression Primary Impression: Ear problem Qualified Codes: H93.91 - Unspecified disorder of right ear Additional Impression: Right otitis media with effusion Disposition: HOME, SELF-CARE Condition: Stable Departure-Patient Inst. Decision time for Depature: 03:15 Referrals: [facility] (PCP/Family) Primary Care Physician Patient Instructions: Serous Otitis Media Add. Discharge Instructions: You could reacidify your ear with swimmer's ear if you are having itching sensation. If you are having fullness then I recommend fluticasone or similar nasal steroid spray once or twice a day each nostril to help open up the eustachian tube so that they will drain your middle ear. All discharge instructions reviewed with patient and/or family. Voiced understanding. EBEN TSANG Sep 25, 2021 03:16
[2021-09-25 03:18] VITALS: BP 142/78
== END 2021-09-25 03:19 | disposition home or self-care (01) ==
LOC: EDUNIT# 02:30 → ER 02:34
DX: H65.91 Unspecified nonsuppurative otitis media, right ear (principal); J45.909 Unspecified asthma, uncomplicated
CPT/HCPCS: 99281

== ENCOUNTER 2021-11-17 16:19 | Emergency (ER) | payer BC ==
[~2021-11-17] VITALS: Ht 177 cm; Wt 120.0 kg
--- NOTE | 2021-11-17 16:46 | ED Upper Extremity ---
General Chief Complaint: Upper Extremity Stated Complaint: DISLOCTED L SHOULDER Nursing Triage Note: ARRIVED VIA AMB WITH COMPLAINTS OF LEFT SHOULDER PAIN AFTER PICKING UP HIS BACKPACK AT WORK TO LEAVE. 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 Pt states he was picking up his backpack and felt a sharp pain in his left shoulder. States he has dislocated his shoulder twice in the past and this feels the same. Notes pain with movement of the shoulder and some tingling in his fingertips. No other injury. Onset: just prior to arrival Pain/Injury Location: left shoulder Modifying Factors: Worse With Movement Allergies and Home Medications Allergies Coded Allergies: NKANo Known Allergies (Verified Allergy, Unknown, 07/05/06) Patient Home Medication List Discontinued Medications Albuterol Sulfate (Ventolin Hfa) 1 Puff Puff, 2 PUFF INH Q4H Discontinued Reason: No Longer Taking Prescribed by: JAN VIGIL on 05/16/20 1234 Last Action: Discontinued Cephalexin (Keflex) 500 Mg Capsule, 500 MG PO TID Discontinued Reason: No Longer Taking Prescribed by: CATHIE VALENTIN on 07/03/201949 Last Action: Discontinued Ibuprofen (Ibuprofen) 800 Mg Tablet, 800 MG PO Q8H PRN for PAIN Discontinued Reason: No Longer Taking Prescribed by: CATHIE VALENTIN on 07/03/201949 Last Action: Discontinued Levofloxacin (Levaquin) 500 Mg Tablet, 500 MG PO DAILY Discontinued Reason: No Longer Taking Prescribed by: JANET LUIS on 07/07/20 1110 Last Action: Discontinued Ondansetron (Ondansetron Odt) 8 Mg Tab.rapdis, 8 MG PO Q6H PRN for NAUSEA-1ST LINE Discontinued Reason: No Longer Taking Prescribed by: CATHIE VALENTIN on 07/03/201949 Last Action: Discontinued Oxycodone HCl/Acetaminophen (Percocet 5-325 mg Tablet) 1 Each Tablet, 1 TAB PO Q4H Discontinued Reason: No Longer Taking Prescribed by: CATHIE VALENTIN on 07/05/20 1829 Last Action: Discontinued Phenazopyridine HCl (Pyridium) 200 Mg Tablet, 1 TAB PO TID Discontinued Reason: No Longer Taking Prescribed by: JANET LUIS on 07/07/201109 Last Action: Discontinued Tamsulosin HCl (Flomax) 0.4 Mg Cap, 0.4 MG PO DAILY Discontinued Reason: No Longer Taking Prescribed by: JANET LUIS on 07/07/201109 Last Action: Discontinued Tramadol HCl (Tramadol HCl) 50 Mg Tablet, 50-100 MG PO Q4H Discontinued Reason: No Longer Taking Prescribed by: JANET LUIS on 07/07/201109 Last Action: Discontinued Review of Systems Constitutional: No chills, No fever EENTM: No blurred vision, No double vision Respiratory: No cough, No dyspnea on exertion Cardiovascular: No chest pain, No edema Gastrointestinal: No abdominal pain, No vomiting Genitourinary: No decreased output, No discharge Musculoskeletal: see HPI Skin: no symptoms reported Psychiatric/Neurological: Denies Headache; Paresthesia All Other Systems Reviewed Negative Unless Noted: Yes (Negative excepted noted.) Past Mpxdtnq-[place]uk-Tmktjm Hx Patient Social History Tobacco Use?: No Substance use?: No Alcohol Use?: No Immunizations Up To Date Tetanus Booster (TDap): Unknown First/Initial COVID19 Vaccinat: APRIL 2021 Second COVID19 Vaccination [place]: 02/12 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[employer] Seasonal Allergies Seasonal Allergies: No Past Medical History Surgeries: Yes (INGROWN TOENAIL REMOVAL;KIDNEY STONE REMOVALS W/ URETERAL STENTS/REMOVALS) Renal Respiratory: Yes Asthma Currently Using CPAP: No Currently Using BIPAP: No Cardiac: No Neurological: Yes Headaches /Migraines Reproductive Disorders: No Sexually Transmitted Disease: No HIV/AIDS: No Genitourinary: Yes Kidney Stones Gastrointestinal: No Musculoskeletal: No Endocrine: No HEENT: No Cancer: No Psychosocial: No Integumentary: No Blood Disorders: No Adverse Reaction/Blood Tranf: No Family Medical History Diabetes, Psychiatric Problems Physical Exam Vital Signs Vital Signs - First Documented 11/17/21 16:30 Temp 36.3 Pulse 94 Resp 16 B/P (MAP) 142/98 (113) Pulse Ox 96 O2 Delivery Room Air Capillary Refill : Less Than 3 Seconds Height, Weight, BMI Height: 5'10.00" Weight: 238lbs. 0oz. 107.358341ot; 38.00 BMI Method:Stated General Appearance: WD/WN, no apparent distress, obese HEENT: PERRL/EOMI; No scleral icterus (R), No scleral icterus (L) Neck: supple, normal inspection Cardiovascular: regular rate, rhythm, no edema, no murmur Respiratory: lungs clear, normal breath sounds, no respiratory distress, no accessory muscle use Gastrointestinal: non tender, soft; No distended Shoulder: limited ROM (secondary to pain), soft tissue tenderness (diffusely over the left shoulder; radial pulses intact, capillary refill <2 seconds; sensation intact distally) Elbow/Forearm: normal inspection, non-tender, no evidence of injury Wrist: Yes normal inspection, Yes non-tender, Yes no evidence of injury Hand: normal inspection, non-tender, no evidence of injury Neurologic/Psychiatric: alert, normal mood/affect, oriented x 3 Skin: normal color, warm/dry Progress/Results/Core Measures Results/Orders Vital Signs/I&O 11/17/21 11/17/21 16:30 17:32 Temp 36.3 Pulse 94 94 Resp 16 16 B/P (MAP) 142/98 (113) 142/98 Pulse Ox 96 96 O2 Delivery Room Air Room Air Blood Pressure Mean: 113 Departure Departure-Patient Inst. Referrals: [facility] (PCP/Family) Primary Care Physician ЕКАТЕРИНА PHELPS MED STUDENT Nov 17, 2021 16:46
--- NOTE | 2021-11-17 17:14 | Diagnostic Imaging Report ---
EXAM: Left shoulder radiograph. EXAM DATE: 11/17/2021. COMPARISON: None. HISTORY: Left shoulder pain. TECHNIQUE: Three views of the left shoulder. FINDINGS: There is no acute fracture, dislocation or destructive osseous process. Joint spaces are normal. The soft tissues are normal. IMPRESSION: No acute osseous abnormality of the left shoulder. Dictated by: Dictated on workstation # [id number]
[2021-11-17 17:32] VITALS: BP 142/98
== END 2021-11-17 17:34 | disposition home or self-care (01) ==
LOC: EDUNIT# 16:19 → ER 16:21
DX: M25.512 Pain in left shoulder (principal); J45.909 Unspecified asthma, uncomplicated; E66.9 Obesity, unspecified; Z68.38 Body mass index [BMI] 38.0-38.9, adult
CPT/HCPCS: 73030

== ENCOUNTER 2021-11-28 22:35 | Emergency (ER) | payer BC ==
[~2021-11-28] VITALS: Ht 177 cm; Wt 120.0 kg
[2021-11-28] MEDS ORDERED: ONDANSETRON 4 MG (ZOFRAN) ORAL DISSOLVE TAB PO ONE (23:00)
--- NOTE | 2021-11-28 23:03 | ED Cough/URI ---
General Chief Complaint: Cough/Cold/Flu Symptoms Stated Complaint: FEVER/TROUBLE BREATHING/HAS ASTHMA Nursing Triage Note: aguilera/fever, soa, body aches since 1800 Source: patient Exam Limitations: no limitations History of Present Illness Date Seen by Provider: Nov 28, 2021 Time Seen by Provider: 22:51 Initial Comments Patient ER by private conveyance from home with chief complaint that he work went home took some Tylenol which sleeps he did not feel well. He woke up feeling like he was burning up having subjective fevers little bit of nausea and malaise body aches. Congestion. No known sick contacts. He did get 2 doses of COVID-19 vaccination for [place]. No influenza vaccine. No diarrhea vomiting or constipation. No antipyretics. He does not smoke he has a history of asthma. Allergies and Home Medications Allergies Coded Allergies: Prema Known Allergies (Verified Allergy, Unknown, 07/05/06) Patient Home Medication List Home Medication List Reviewed: Yes Review of Systems Review of Systems Constitutional: No chills, No diaphoresis EENTM: No ear discharge, No ear pain Respiratory: cough; No short of breath Cardiovascular: No chest pain, No palpitations Gastrointestinal: No abdominal pain, No nausea, No vomiting Genitourinary: No discharge, No dysuria Musculoskeletal: No back pain, No joint pain Skin: No pruritus, No rash All Other Systems Reviewed Negative Unless Noted: Yes Past Oilnawx-Wduvgc-Nggxva Hx Patient Social History Tobacco Use?: No Use of E-Cig and/or Vaping dev: No Substance use?: No Alcohol Use?: No Pt feels they are or have been: No Immunizations Up To Date Tetanus Booster (TDap): Unknown First/Initial COVID19 Vaccinat: 02/12 Second COVID19 Vaccination Kendall: 05/15 COVID19 Vaccine Product Developer: moderna Seasonal Allergies Seasonal Allergies: No Past Medical History Surgery/Hospitalization HX: renal stones, aguilera, asthma, dislocated shoulder Surgeries: Yes (INGROWN TOENAIL REMOVAL;KIDNEY STONE REMOVALS W/ URETERAL STENTS/REMOVALS) Renal Respiratory: Yes Asthma Currently Using CPAP: No Currently Using BIPAP: No Cardiac: No Neurological: Yes Headaches /Migraines Reproductive Disorders: No Sexually Transmitted Disease: No HIV/AIDS: No Genitourinary: Yes Kidney Stones Gastrointestinal: No Musculoskeletal: No Endocrine: No HEENT: No Cancer: No Psychosocial: No Integumentary: No Blood Disorders: No Adverse Reaction/Blood Tranf: No Family Medical History Diabetes, Psychiatric Problems Physical Exam Vital Signs - First Documented 11/28/21 22:48 Temp 37.6 Pulse 107 Resp 18 B/P (MAP) 129/85 (100) Pulse Ox 96 O2 Delivery Room Air Capillary Refill : Less Than 3 Seconds Height: 5'10.00" Weight: 238lbs. 0oz. 107.341411gx; 38.00 BMI Method:Stated General Appearance: WD/WN, mild distress Eyes: Bilateral Eye Normal Inspection, Bilateral Eye PERRL, Bilateral Eye EOMI HEENT: PERRL/EOMI, normal ENT inspection, pharynx normal Neck: full range of motion, supple, normal inspection Respiratory: lungs clear, normal breath sounds, no respiratory distress, no accessory muscle use Cardiovascular: normal peripheral pulses, regular rate, rhythm Gastrointestinal: non tender, soft Extremities: normal range of motion, normal capillary refill Neurologic/Psychiatric: alert, normal mood/affect, oriented x 3 Progress/Results/Core Measures Suspected Sepsis SIRS Temperature: Pulse: 107 Respiratory Rate: 18 Blood Pressure 129 /85 Mean: 100 Results/Orders Lab Results Laboratory Tests Test 11/28/21 23:20 Range/Units Influenza Type A Antigen NEGATIVE NEGATIVE Influenza Type B Antigen NEGATIVE NEGATIVE SARS-CoV-2 RNA (RT-PCR) Negative Negative My Orders Orders - EBEN TSANG Ondansetron Oral Dissolve Tab (Zofran (11/28/21 23:00) Covid 19 Inhouse Test (11/28/21 22:59) Influenza A & B Antigens (11/28/21 22:59) Coronavirus Sars-Cov-2 So 2019 (11/28/21 23:52) Medications Given in ED Current Medications Medications Dose Ordered Sig/Kalpesh Route Start Time Stop Time Status Last Admin Dose Admin Ondansetron HCl 4 mg ONCE ONCE PO 11/28/21 23:00 11/28/21 23:01 DC 11/28/21 23:22 4 MG Vital Signs/I&O 11/28/21 11/28/21 22:48 22:48 Temp 37.6 Pulse 107 Resp 18 B/P (MAP) 129/85 (100) Pulse Ox 96 O2 Delivery Room Air Room Air Capillary Refill : Less Than 3 Seconds Blood Pressure Mean: 100 Progress Note : Time: 23:03 Progress Note Zofran tablet x1, Covid and influenza swabs. Departure Impression Primary Impression: Viral upper respiratory tract infection with cough Disposition: HOME, SELF-CARE Condition: Stable Departure-Patient Inst. Decision time for Depature: 00:34 Referrals: [facility] (PCP/Family) Primary Care Physician Patient Instructions: Viral Upper Respiratory Infection, Adult (DC) Add. Discharge Instructions: Drink plenty of fluids. Vapor rubs or Mentholatum. Humidifiers. Cough suppressants eatn-ymn-ebfnxwi such as guaifenesin, Robitussin, DayQuil/NyQuil etc. Tessalon Perles 1 capsule every 6 hours as necessary for cough. Zofran/ondansetron 1 tablet under the tongue every 6 hours as necessary for naus ea and/or vomiting. Return to the ER for oxygen saturations consistently below 90% while at rest. All discharge instructions reviewed with patient and/or family. Voiced understanding. Scripts Benzonatate (TESSALON PERLES) 100 Mg Capsule 100 MG PO Q6H PRN for COUGH, #20 CAP 0 Refills Prov: EBEN TSANG 11/29/21 Ondansetron (Ondansetron Odt) 4 Mg Tab.rapdis 4 MG PO Q6H PRN for NAUSEA/VOMITING, #8 TAB 0 Refills Prov: EBEN TSANG 11/29/21 Work/School Note: Work Release Form Date Seen in the Emergency Department: Nov 29, 2021 Return to Work: Dec 01, 2021 Restrictions: Return-No Fever (24hrs) EBEN TSANG Nov 28, 2021 23:03
[2021-11-29] MEDS ORDERED: BENZ100C18 PO (00:35)
[2021-11-29] MEDS ORDERED: ONDA4TAB11 PO (00:35)
[2021-11-29 00:37] VITALS: BP 129/85
== END 2021-11-29 00:38 | disposition home or self-care (01) ==
LOC: EDUNIT# 22:35 → ER 22:37
DX: J06.9 Acute upper respiratory infection, unspecified (principal); J45.909 Unspecified asthma, uncomplicated; Z20.822 Contact with and (suspected) exposure to COVID-19
CPT/HCPCS: 87635; 87636; 87804

== ENCOUNTER 2021-12-02 04:03 | Emergency (ER) | payer BC ==
[~2021-12-02] VITALS: Ht 177 cm; Wt 120.0 kg
[~2021-12-02 04:03] MED LIST changes: +BENZ100C18 PO; +ONDA4TAB11 PO
--- NOTE | 2021-12-02 04:27 | ED EENT ---
History of Present Illness General Chief Complaint: Ear Problems Stated Complaint: LEFT EAR PAIN Source: patient Exam Limitations: no limitations History of Present Illness Date Seen by Provider: Dec 02, 2021 Time Seen by Provider: 04:15 Initial Comments Here with report of left ear pain that started at about 1 AM. He is been suffering with an upper respiratory viral infection over the last few days. Pain not better despite DayQuil at about 1 AM and ibuprofen 400 mg last night at 10 PM. 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 Seen a few days ago and was tested for Covid as well as influenza and those were negative. Complains of nasal congestion as well as mild cough but no fevers. Timing/Duration: this morning Severity: moderate Location: ear (L) Prearrival Treatment: over the counter meds Associated Symptoms: cough; No ear drainage, No fever; nasal congestion/drainage; No sore throat Allergies and Home Medications Allergies Coded Allergies: NKANo Known Allergies (Verified Allergy, Unknown, 07/05/06) Patient Home Medication List Home Medication List Reviewed: Yes Benzonatate (Tessalon Perles) 100 Mg Capsule, 100 MG PO Q6H PRN for COUGH Prescribed by: EBEN TSANG on 11/29/2134 Ondansetron (Ondansetron Odt) 4 Mg Tab.rapdis, 4 MG PO Q6H PRN for NAUSEA/VOMITING Prescribed by: EBEN TSANG on 11/29/2134 Review of Systems Review of Systems Constitutional: see HPI; No chills, No fever Eyes: No Symptoms Reported Ears: Pain; Denies Tinnitus, Denies Purulent Discharge Nose: congestion; denies epistaxis Mouth: no symptoms reported Throat: no symptoms reported Respiratory: see HPI Cardiovascular: no symptoms reported Gastrointestinal: No nausea, No vomiting Skin: no symptoms reported Past Apqscre-Uxuuqx-Cqyqcc Hx Patient Social History Tobacco Use?: No Substance use?: No Alcohol Use?: No Immunizations Up To Date Tetanus Booster (TDap): Unknown Influenza Vaccine Up-to-Date: No; Not Current First/Initial COVID19 Vaccinat: 02/12 Second COVID19 Vaccination Kendall: 05/15 Seasonal Allergies Seasonal Allergies: No Past Medical History Surgery/Hospitalization HX: renal stones, aguilera, asthma, dislocated shoulder Surgeries: Yes (INGROWN TOENAIL REMOVAL;KIDNEY STONE REMOVALS W/ URETERAL STENTS/REMOVALS) Renal Respiratory: Yes Asthma Currently Using CPAP: No Currently Using BIPAP: No Cardiac: No Neurological: Yes Headaches /Migraines Reproductive Disorders: No Sexually Transmitted Disease: No HIV/AIDS: No Genitourinary: Yes Kidney Stones Gastrointestinal: No Musculoskeletal: No Endocrine: No HEENT: No Cancer: No Psychosocial: No Integumentary: No Blood Disorders: No Adverse Reaction/Blood Tranf: No Family Medical History Reviewed Nursing Family Hx No Pertinent Family Hx, Diabetes, Psychiatric Problems Physical Exam Height, Weight, BMI Height: 5'10.00" Weight: 238lbs. 0oz. 107.315965td; 38.00 BMI Method:Stated General Appearance: WD/WN, no apparent distress Eyes: bilateral eye normal inspection, bilateral eye PERRL, bilateral eye EOMI Ears: bilateral ear TM bulging (Left greater than right), bilateral ear other (No obvious erythema or other findings consistent with otitis media.) Nose: other (Bilateral nasal congestion with clear rhinorrhea and mild to moderate erythema) Mouth/Throat: pharynx normal; No pharynx swelling, No trismus Neck: full range of motion, supple; No lymphadenopathy (R), No lymphadenopathy (L) Cardiovascular: regular rate, rhythm, no murmur Respiratory: lungs clear, normal breath sounds Neurologic/Psychiatric: alert, oriented x 3 Skin: normal color, warm/dry Progress/Results/Core Measures Results/Orders My Orders Orders - TROY CLARKE MD Dexamethasone Injection (Decadron Inje (12/02/21 04:30) Progress Progress Note : Progress Note Seen and evaluated. Decadron 10 mg IM. Offered Toradol injection but patient declined. Does have ibuprofen and Tylenol at home. Discharged home with return precautions. Patient verbalized understanding of instructions and agreement with plan. Departure Impression Primary Impression: Left ear pain Additional Impression: Viral upper respiratory infection Disposition: HOME, SELF-CARE Condition: Stable Departure-Patient Inst. Decision time for Depature: 04:26 Referrals: [facility] (PCP/Family) Primary Care Physician Patient Instructions: Viral Upper Respiratory Infection, Adult (DC) Add. Discharge Instructions: All discharge instructions reviewed with patient and/or family. Voiced understanding. You may take Tylenol/acetaminophen 1000 mg every 8 hours as needed for fever or pain. You may take ibuprofen 600 mg every 8 hours as needed for fever or pain. You may use Afrin nasal spray or the generic, 12 hour relief, 2 sprays to each nostril twice daily for 3 days only and then stop. Do not use more than 3 days. Follow-up with your Dr. in a few days for recheck. Drink plenty of fluids. Return for worse pain, fever, vomiting, weakness, breathing problems or other concerns as needed. TROY CLARKE MD Dec 02, 2021 04:26
[2021-12-02 04:32] VITALS: BP 10/238
== END 2021-12-02 04:32 | disposition home or self-care (01) ==
LOC: EDUNIT# 04:03 → ER 04:06
DX: H92.02 Otalgia, left ear (principal); J06.9 Acute upper respiratory infection, unspecified; J45.909 Unspecified asthma, uncomplicated
CPT/HCPCS: 99284

== ENCOUNTER 2021-12-06 23:08 | Emergency (ER) | payer BC ==
--- NOTE | 2021-12-06 23:50 | ED Cough/URI ---
General Chief Complaint: Oral/Throat Problems Stated Complaint: NO VOICE,SORE THROAT,EAR PAIN BOTH EARS Nursing Triage Note: Pt arrives via POV from home for c/o sore throat; onset one week ago. Pt reports testing negative for COVID three days ago. Pt also reports having two COVID vaccinations. Source: patient (PT CAN'T/WON'T TALK-ALLEGES THAT HE LOST HIS VOICE AND WILL NOT ATTEMPT TO TALK--ALL COMMUNICATION IS BY PT TYPING QUESTIONS/ANSWERS ON HIS PHONE), old records History of Present Illness Date Seen by Provider: Dec 06, 2021 Time Seen by Provider: 23:37 Initial Comments PT ARRIVES VIA POV FROM HOME PT HAS BEEN ILL WITH COLD SYMPTOMS FOR OVER A WEEK SYMPTOMS BEGAN LAST Saturday08/28/22 HAS HAD NASAL CONGESTION AND COUGH, FEVER UP TO 101 ( FROM SATURDAY UNTIL SATURDAY, NO FEVER SINCE THEN) AND CHILLS, MALAISE, BODY ACHES, SORE THROAT, NAUSEA, SPITTING UP CLEAR TO YELLOW MUCOUS WAS SEEN HERE 11/28/21 FOR THESE SYMPTOMS AND TESTED NEGATIVE FOR COVID AND FLU, AND WAS GIVEN RX FOR ZOFRAN AND TESSALON WAS SEEN HERE AGAIN ON 12/02/21 FOR SAME SYMPTOMS ALONG WITH LEFT EAR PAIN. TESTED NEGATIVE AGAIN FOR COVID AND FLU AND WAS GIVEN DECADRON IM AND NO RX'S GIVEN WENT TO [facility] ON Saturday12/04/21 AND WAS GIVEN RX'S FOR ZITHROMAX, FLONASE, CIPRODEX OTIC AND CORTISPORIN EYE DROPS PRESENTS AGAIN TONIGHT FOR SAME SYMPTOMS, AND NOW HAS LOST HIS VOICE NO DIFFICULTY SWALLOWING OR HANDLING SECRETIONS. NO SHORTNESS OF BREATH OR WHEEZING NO LOSS OF TASTE/SMELL NO VOMITING OR DIARRHEA NO HEADACHE HAS NOT TAKEN ANY TYLENOL OR MOTRIN PT HAS HAD MODERNA COVID-19 VACCINE X 2, BUT HAS NOT HAD BOOSTER HAS NOT HAD FLU VACCINE PT HAS HISTORY OF ASTHMA,BUT HAS NOT NEEDED TO USE INHALER RECENTLY PT DOES NOT SMOKE Allergies and Home Medications Allergies Coded Allergies: NKANo Known Allergies (Verified Allergy, Unknown, 07/05/06) Patient Home Medication List Home Medication List Reviewed: Yes Benzonatate (Tessalon Perles) 100 Mg Capsule, 100 MG PO Q6H PRN for COUGH Prescribed by: EBEN TSANG on 11/29/21 0035 Cefdinir (Cefdinir) 300 Mg Capsule, 300 MG PO BID Prescribed by: LUIZ HAMPTON on 12/07/2128 Loratadine/Pseudoephedrine (Claritin-D 12 Hour Tablet) 1 Each Tab.er.12h, 1 EACH PO BID Prescribed by: LUIZ HAMPTON on 12/07/2128 Methylprednisolone (Medrol) 4 Mg Tab.ds.pk, 4 MG PO UD Prescribed by: LUIZ HAMPTON on 12/07/2128 Ondansetron (Ondansetron Odt) 4 Mg Tab.rapdis, 4 MG PO Q6H PRN for NAUSEA/VOMITING Prescribed by: EBEN TSANG on 11/29/2134 Review of Systems Review of Systems Constitutional: see HPI EENTM: see HPI Respiratory: see HPI Cardiovascular: no symptoms reported Gastrointestinal: no symptoms reported Genitourinary: no symptoms reported Musculoskeletal: see HPI Skin: no symptoms reported Psychiatric/Neurological: No Symptoms Reported Hematologic/Lymphatic: No Symptoms Reported Immunological/Allergic: no symptoms reported Past Urhexxe-Putngo-Hfmfhi Hx Patient Social History Tobacco Use?: No Use of E-Cig and/or Vaping dev: No Substance use?: No Alcohol Use?: No Immunizations Up To Date Tetanus Booster (TDap): Unknown Influenza Vaccine Up-to-Date: No; Not Current First/Initial COVID19 Vaccinat: 02/12 Second COVID19 Vaccination Kendall: 05/15 COVID19 Vaccine Pattern Puncher: Nadeem Seasonal Allergies Seasonal Allergies: No Past Medical History Surgery/Hospitalization HX: renal stones, aguilera, asthma, dislocated shoulder Surgeries: Yes (INGROWN TOENAIL REMOVAL;KIDNEY STONE REMOVALS W/ URETERAL STENTS/REMOVALS) Renal Respiratory: Yes Asthma Currently Using CPAP: No Currently Using BIPAP: No Cardiac: No Neurological: Yes Headaches /Migraines Reproductive Disorders: No Sexually Transmitted Disease: No HIV/AIDS: No Genitourinary: Yes Kidney Stones Gastrointestinal: No Musculoskeletal: Yes (SHOULDER DISLOCATION 10/2021) Endocrine: No HEENT: No Cancer: No Psychosocial: No Integumentary: No Blood Disorders: No Adverse Reaction/Blood Tranf: No Family Medical History No Pertinent Family Hx, Diabetes, Psychiatric Problems Physical Exam Vital Signs - First Documented Capillary Refill : Height: 5'10.00" Weight: 238lbs. 0oz. 107.582136ft; 38.00 BMI Method:Stated General Appearance: WD/WN, no apparent distress, other (DOES NOT APPEAR ILL OR TO BE IN ANY DISCOMFORT OR DISTRESS) HEENT: PERRL/EOMI, normal ENT inspection, TMs normal, pharynx normal, other (EXCEPT FOR MILD NASAL CONGESTION, AND PT NOT TALKING, HEENT EXAM IS NORMAL) Neck: normal inspection Respiratory: normal breath sounds, no respiratory distress, no accessory muscle use Cardiovascular: regular rate, rhythm, no edema, no JVD, no murmur Neurologic/Psychiatric: line cleaner II-XII nml as tested, no motor/sensory deficits, al ert, normal mood/affect, oriented x 3 Skin: normal color, warm/dry; No rash Progress/Results/Core Measures Suspected Sepsis SIRS Temperature: Pulse: 85 Respiratory Rate: 18 Blood Pressure 145 /107 Mean: 120 Results/Orders Lab Results Laboratory Tests Test 12/06/21 23:35 Range/Units Influenza Type A (RT-PCR) Not Detected Not Detecte Influenza Type B (RT-PCR) Not Detected Not Detecte SARS-CoV-2 RNA (RT-PCR) Not Detected Not Detecte Group A Streptococcus Screen NEGATIVE NEGATIVE My Orders Orders - LUIZ HAMPTON DO Rapid Strep A Screen (12/06/21 23:35) Covid 19 Inhouse Test (12/06/21 23:35) Influenza A And B By Pcr (12/06/21 23:35) Isolation Central Supply Req (12/06/21 23:35) Vital Signs/I&O 12/06/21 12/06/21 23:30 23:30 Pulse 85 Resp 18 B/P (MAP) 145/107 (120) Pulse Ox 96 O2 Delivery Room Air Room Air Capillary Refill : Blood Pressure Mean: 120 Progress Note : Progress Note PLACED IN ISOLATION ROOM PPE WORN COVID-19, STREP AND FLU TESTING DONE NO COUGH NO DYSPNEA NO HYPOXIA NO FEVER UNEVENTFUL ER STAY Departure Impression Primary Impression: Laryngitis Additional Impressions: Upper respiratory infection Acute pain of both ears Disposition: 01 HOME, SELF-CARE Condition: Stable Departure-Patient Inst. Decision time for Depature: 00:25 Referrals: [facility] (PCP/Family) Primary Care Physician Patient Instructions: Ear Infection ED, Laryngitis (DC), Upper Respiratory Infection ED Add. Discharge Instructions: TYLENOL 1 GRAM PLUS MOTRIN 800 MG 4 TIMES A DAY FOR PAIN OR FEVER LOTS OF CLEAR LIQUIDS CONTINUE ZITHROMAX ANTIBIOTIC PRESCRIBED CONTINUE EAR DROPS AND EYE DROPS PRESCRIBED CONTINUE FLONASE PRESCRIBED FOLLOW UP WITH [facility] IN 5-7 DAYS IF NO BETTER All discharge instructions reviewed with patient and/or family. Voiced understanding. Scripts Loratadine/Pseudoephedrine (Claritin-D 12 Hour Tablet) 1 Each Tab.er.12h 1 EACH PO BID, #20 TAB Prov: LUIZ HAMPTON DO 12/07/21 Methylprednisolone (Medrol) 4 Mg Tab.ds.pk 4 MG PO UD for 6 Days, #21 PKG PER DOSE PACK INSTRUCTIONS Prov: LUIZ HAMPTON DO 12/07/21 Cefdinir (Cefdinir) 300 Mg Capsule 300 MG PO BID, #20 CAP Prov: LUIZ HAMPTON DO 12/07/21 LUIZ HAMPTON DO Dec 06, 2021 23:50
[2021-12-07] MEDS ORDERED: CEFD300C3 PO (00:29)
[2021-12-07] MEDS ORDERED: METH4TAB PO (00:29)
[2021-12-07] MEDS ORDERED: LORA1TAB59 PO (00:29)
[2021-12-07 00:34] VITALS: BP 145/107
== END 2021-12-07 00:35 | disposition home or self-care (01) ==
LOC: EDUNIT# 23:08 → ER 23:11
DX: J04.0 Acute laryngitis (principal); J06.9 Acute upper respiratory infection, unspecified; H92.03 Otalgia, bilateral; J45.909 Unspecified asthma, uncomplicated; Z20.822 Contact with and (suspected) exposure to COVID-19
CPT/HCPCS: 87430; 87636; 99283

== ENCOUNTER → 2022-01-25 | Outpatient (CLI) | payer BC ==
[~2022-01-25] MED LIST changes: +CEFD300C3 PO; +LORA1TAB59 PO
--- NOTE | 2022-01-25 17:35 | Diagnostic Imaging Report ---
EXAMINATION: Abdomen 1 view HISTORY: Kidney stones COMPARISON: 07/07/2020 FINDINGS: No calcifications are seen projecting over the kidneys or ureters. No dilated bowel. No free air. IMPRESSION: 1. No calcifications seen projecting over the kidneys or ureters. Dictated by: Dictated on workstation # [id number]
== END ==
LOC: RAD 17:13
PROVIDERS: ATTEND Urology
DX: N20.0 Calculus of kidney (principal)
CPT/HCPCS: 74018

== ENCOUNTER 2022-06-11 22:49 | Emergency (ER) | payer BC ==
[~2022-06-11] VITALS: Ht 177.8 cm; Wt 113.4 kg
[2022-06-11 23:00] VITALS: BP 130/69
[2022-06-12] MEDS ORDERED: ONDANSETRON 4 MG (ZOFRAN) ORAL DISSOLVE TAB PO STA (00:08)
[2022-06-12] MEDS ORDERED: IBUPROFEN 600 MG (MOTRIN) TAB PO ONE (00:15)
--- NOTE | 2022-06-12 00:20 | ED Cough/URI ---
General Chief Complaint: COVID19 Suspect/Confirmed Stated Complaint: COVID POSITIVE,FEVER,BODY ACHES Nursing Triage Note: PT AMBULATORY TO ROOM. PT STATES HE WOKE UP WITH COVID SYMPTOMS THIS AM AT 5AM. PT STATES HE TESTED POSITIVE TODAY AT [facility]. PT COMPLAINS OF FEVER, RACING HEART, 1 EPISODE OF VOMITING, COUGH AND SOB. PT STATES HE TOOK DAYQUIL THIS AM AND ATTEMPTED TO TAKE TYLENOL AROUND 1400 BUT VOMITED IT UP Source: patient Exam Limitations: no limitations History of Present Illness Date Seen by Provider: Jun 12, 2022 Time Seen by Provider: 00:00 Initial Comments 36-year-old male with no pertinent past medical history coming in due to 1 day of fever, cough, feel like his heart is racing and 1 episode of nonbloody nonbilious vomiting. States he now feels mildly short of breath, worse with exertion, better with rest. Took DayQuil this morning but vomited up Tylenol later on. Tested positive for COVID this morning. He has never had COVID before. He has had Moderna shot x3. He is otherwise denying any chest pain, abdominal pain, diarrhea, rash, weakness, numbness, vision changes, neck stiffness, or any other concerns. Allergies and Home Medications Allergies Coded Allergies: NKANo Known Allergies (Verified Allergy, Unknown, 07/05/06) Patient Home Medication List Home Medication List Reviewed: Yes Benzonatate (Tessalon Perles) 100 Mg Capsule, 100 MG PO Q6H PRN for COUGH Prescribed by: EBEN TSANG on 11/29/21 003 Benzonatate (Tessalon Perles) 100 Mg Capsule, 100 MG PO Q6H PRN for COUGH Prescribed by: EDWIN PALMER on 06/12/2223 Cefdinir (Cefdinir) 300 Mg Capsule, 300 MG PO BID Prescribed by: LUIZ HAMPTON on 12/07/2128 Loratadine/Pseudoephedrine (Claritin-D 12 Hour Tablet) 1 Each Tab.er.12h, 1 EACH PO BID Prescribed by: LUIZ HAMPTON on 12/07/2128 Methylprednisolone (Medrol) 4 Mg Tab.ds.pk, 4 MG PO UD Prescribed by: LUIZ HAMPTON on 12/07/2128 Ondansetron (Ondansetron Odt) 4 Mg Tab.rapdis, 4 MG PO Q6H PRN for NAUSEA/VOMITING Prescribed by: EBEN TSANG on 11/29/21 0035 Ondansetron (Ondansetron Odt) 4 Mg Tab.rapdis, 4 MG PO Q6H PRN for NAUSEA/VOMITING-1ST LINE Prescribed by: EDWIN PALMER on 06/12/22 0024 Review of Systems Review of Systems Constitutional: fever EENTM: No blurred vision Respiratory: cough, short of breath Cardiovascular: No chest pain Gastrointestinal: No abdominal pain, No diarrhea; nausea, vomiting Genitourinary: no symptoms reported Musculoskeletal: no symptoms reported Skin: no symptoms reported Psychiatric/Neurological: No Symptoms Reported Hematologic/Lymphatic: No Symptoms Reported Immunological/Allergic: no symptoms reported All Other Systems Reviewed Negative Unless Noted: Yes Past Yvytade-Jsdfzc-Cvsmxz Hx Patient Social History Tobacco Use?: No Use of E-Cig and/or Vaping dev: No Substance use?: No Alcohol Use?: No Immunizations Up To Date Tetanus Booster (TDap): Unknown Influenza Vaccine Up-to-Date: Yes; Up-to-Date First/Initial COVID19 Vaccinat: 02/12 Second COVID19 Vaccination Kendall: 05/15 Seasonal Allergies Seasonal Allergies: No Past Medical History Surgery/Hospitalization HX: renal stones, aguilera, asthma, dislocated shoulder Surgeries: Yes (INGROWN TOENAIL REMOVAL;KIDNEY STONE REMOVALS W/ URETERAL STENTS/REMOVALS) Renal Respiratory: Yes Asthma Currently Using CPAP: No Currently Using BIPAP: No Cardiac: No Neurological: Yes Headaches /Migraines Reproductive Disorders: No Sexually Transmitted Disease: No HIV/AIDS: No Genitourinary: Yes Kidney Stones Gastrointestinal: No Musculoskeletal: Yes (SHOULDER DISLOCATION 10/2021) Endocrine: No HEENT: No Cancer: No Psychosocial: No Integumentary: No Blood Disorders: No Adverse Reaction/Blood Tranf: No Family Medical History No Pertinent Family Hx, Diabetes, Psychiatric Problems Physical Exam Vital Signs - First Documented 06/11/22 23:00 Temp 37.8 Pulse 89 Resp 24 B/P (MAP) 130/69 (89) Pulse Ox 96 Capillary Refill : Height: 5'10.00" Weight: 238lbs. 0oz. 107.666079ss; 35.00 BMI Method:Stated General Appearance: WD/WN, no apparent distress Eyes: Bilateral Eye Normal Inspection HEENT: PERRL/EOMI, normal ENT inspection, pharynx normal Neck: non-tender, full range of motion, supple, normal inspection Respiratory: chest non-tender, lungs clear, normal breath sounds, no respiratory distress, no accessory muscle use Cardiovascular: regular rate, rhythm, no edema, no murmur Gastrointestinal: normal bowel sounds, non tender, soft; No distended, No guarding, No rebound Extremities: normal range of motion, non-tender, normal inspection, no pedal edema, no calf tenderness, normal capillary refill Neurologic/Psychiatric: no motor/sensory deficits, alert, normal mood/affect Skin: normal color, warm/dry Lymphatic: no adenopathy Progress/Results/Core Measures Suspected Sepsis SIRS Temperature: Pulse: 89 Respiratory Rate: 24 Blood Pressure 130 /69 Mean: 89 Results/Orders My Orders Orders - EDWIN PALMER MD Ibuprofen Tablet (Motrin Tablet) (06/12/22 00:15) Ondansetron Oral Dissolve Tab (Zofran (06/12/22 00:08) Chest 1 View, Ap/Pa Only (06/12/22 00:08) Medications Given in ED Current Medications Medications Dose Ordered Sig/Kalpesh Route Start Time Stop Time Status Last Admin Dose Admin Ibuprofen 600 mg ONCE ONCE PO 06/12/22 00:15 06/12/22 00:16 DC 06/12/22 00:15 600 MG Vital Signs/I&O 06/11/22 23:00 Temp 37.8 Pulse 89 Resp 24 B/P (MAP) 130/69 (89) Pulse Ox 96 Capillary Refill : Blood Pressure Mean: 89 Progress Note : Progress Note 36-year-old male with above history coming in due to cough, fever, mild shortness of breath while being COVID-positive. ABCs were intact and vitals were stable on presentation. Specifically, the patient is satting 98%, lungs are clear, and he looks comfortable. He was given ibuprofen for his elevated temperature, Zofran for nausea. Chest x-ray ordered due to his shortness of breath with cough. I do not see any evidence of pneumonia. I believe the patient is stable for discharge with outpatient follow-up. He was sent home with strict return precautions. Of note, prior to discharge patient states he has a history of asthma. We will send Medrol Dosepak given his shortness of breath to see if that helps. Does not have any wheezing and I do not believe he needs any type of albuterol at this time. Departure Impression Primary Impression: COVID-19 Disposition: 01 HOME, SELF-CARE Condition: Stable Departure-Patient Inst. Decision time for Depature: 00:35 Referrals: [facility] (PCP/Family) Primary Care Physician Patient Instructions: COVID-19 (DC) Add. Discharge Instructions: I suspect he will feel ill for roughly 5 to 7 days. Take ibuprofen and/or Tylenol as needed for fever. Zofran was sent to your pharmacy for nausea ([facility]) as well as cough medicine. Follow-up with [facility] if things are not feeling better. I also recommend buying a pulse oximeter either at the pharmacy or online. If your oxygen is 89% or below, will not come up above 90, then I recommend calling 911 [address] you to the ER. Scripts Methylprednisolone (Medrol) 4 Mg Tab.ds.pk 4 MG PO UD for 6 Days, #21 PKG PER DOSE PACK INSTRUCTIONS Prov: EDWIN PALMER MD 06/12/22 Benzonatate (TESSALON PERLES) 100 Mg Capsule 100 MG PO Q6H PRN for COUGH for 5 Days, #20 CAP Prov: EDWIN PALMER MD 06/12/22 Ondansetron (Ondansetron Odt) 4 Mg Tab.rapdis 4 MG PO Q6H PRN for NAUSEA/VOMITING-1ST LINE for 5 Days, #20 TAB Prov: EDWIN PALMER MD 06/12/22 Work/School Note: Work Release Form Date Seen in the Emergency Department: Jun 12, 2022 Return to Work: Jun 18, 2022 Restrictions: Return-No Fever (24hrs), Return-No Vomiting(24hrs) EDWIN PALMER MD Jun 12, 2022 00:20
[2022-06-12] MEDS ORDERED: BENZ100C18 PO (00:24)
[2022-06-12] MEDS ORDERED: ONDA4TAB11 PO (00:24)
[2022-06-12] MEDS ORDERED: METH4TAB PO (00:31)
--- NOTE | 2022-06-12 07:38 | Diagnostic Imaging Report ---
EXAMINATION: Chest 1 view HISTORY: Shortness of breath. COVID positive. COMPARISON: 05/16/2020. FINDINGS: The lung volumes are normal. No focal consolidation is seen. No large pleural effusion or pneumothorax is seen. The cardiomediastinal silhouette is normal in size and contour. No acute osseous abnormality is seen. IMPRESSION: 1. No acute pleuroparenchymal process. Dictated by: Dictated on workstation # [id number]
== END 2022-06-12 00:35 | disposition home or self-care (01) ==
LOC: EDUNIT# 22:49 → ER 22:50
DX: U07.1 COVID-19 (principal); Z73.0 Burn-out
CPT/HCPCS: 71045

== ENCOUNTER 2022-07-16 13:03 | Emergency (ER) | payer BC ==
[2022-07-16] MEDS ORDERED: KETOROLAC 30 MG/ML VIAL IVP ONE (13:15)
[2022-07-16] MEDS ORDERED: fentaNYL INJ 100 MCG/2 ML AMP ONE (13:19)
--- NOTE | 2022-07-16 13:23 | ED GU-Male ---
General Stated Complaint: KIDNEY PAIN ON RT SIDE Source: patient Exam Limitations: no limitations History of Present Illness Date Seen by Provider: Jul 16, 2022 Time Seen by Provider: 13:22 Initial Comments To ER with sudden onset of right flank pain 30 minutes ago. This is severe and associated with nausea. History of kidney stones and this feels similar. Timing/Duration: just prior to arrival Severity/Quality: severe Location: right flank Radiation: none Activities at Onset: none Prior Genitourinary Problems: none Associated Symptoms: denies symptoms Allergies and Home Medications Allergies Coded Allergies: NKANo Known Allergies (Verified Allergy, Unknown, 07/05/06) Patient Home Medication List Home Medication List Reviewed: Yes Benzonatate (Tessalon Perles) 100 Mg Capsule, 100 MG PO Q6H PRN for COUGH Prescribed by: EBEN TSANG on 11/29/2134 Benzonatate (Tessalon Perles) 100 Mg Capsule, 100 MG PO Q6H PRN for COUGH Prescribed by: EDWIN PALMER on 06/12/22 002 Cefdinir (Cefdinir) 300 Mg Capsule, 300 MG PO BID Prescribed by: LUIZ HAMPTON on 12/07/2128 Ketorolac Tromethamine (Ketorolac Tromethamine) 10 Mg Tablet, 10 MG PO TID PRN for PAIN-MODERATE (5-7) Prescribed by: CATHIE VALENTIN on 07/16/22 1345 Loratadine/Pseudoephedrine (Claritin-D 12 Hour Tablet) 1 Each Tab.er.12h, 1 EACH PO BID Prescribed by: LUIZ HAMPTON on 12/07/2128 Methylprednisolone (Medrol) 4 Mg Tab.ds.pk, 4 MG PO UD Prescribed by: EDWIN PALMER on 06/12/22 003 Ondansetron (Ondansetron Odt) 4 Mg Tab.rapdis, 4 MG PO Q6H PRN for NAUSEA/VOMITING Prescribed by: EBEN TSANG on 11/29/2134 Ondansetron (Ondansetron Odt) 4 Mg Tab.rapdis, 4 MG PO Q6H PRN for NAUSEA/VOMITING-1ST LINE Prescribed by: EDWIN PALMER on 06/12/22 002 Ondansetron (Ondansetron Odt) 8 Mg Tab.rapdis, 8 MG PO Q4H PRN for NAUSEA/VOMITING Prescribed by: CATHIE VALENTIN on 07/16/22 134 Oxycodone HCl/Acetaminophen (Percocet 5-325 mg Tablet) 1 Each Tablet, 1 TAB PO Q4H Prescribed by: CATHIE VALENTIN on 07/16/22 134 Tamsulosin HCl (Flomax) 0.4 Mg Cap, 0.4 MG PO DAILY Prescribed by: CATHIE VALENTIN on 07/16/22 134 Review of Systems Review of Systems Constitutional: see HPI EENTM: see HPI Respiratory: no symptoms reported Cardiovascular: no symptoms reported Genitourinary: see HPI Musculoskeletal: no symptoms reported Skin: no symptoms reported Psychiatric/Neurological: No Symptoms Reported Endocrine: No Symptoms Reported Hematologic/Lymphatic: No Symptoms Reported Past Bgsvltk-Occxcy-Yrwkbe Hx Immunizations Up To Date Tetanus Booster (TDap): Unknown First/Initial COVID19 Vaccinat: 02/12 Second COVID19 Vaccination Kendall: 05/15 Seasonal Allergies Seasonal Allergies: No Past Medical History Surgery/Hospitalization HX: renal stones, aguilera, asthma, dislocated shoulder Surgeries: Yes (INGROWN TOENAIL REMOVAL;KIDNEY STONE REMOVALS W/ URETERAL STENTS/REMOVALS) Renal Respiratory: Yes Asthma Currently Using CPAP: No Currently Using BIPAP: No Cardiac: No Neurological: Yes Headaches /Migraines Reproductive Disorders: No Sexually Transmitted Disease: No HIV/AIDS: No Genitourinary: Yes Kidney Stones Gastrointestinal: No Musculoskeletal: Yes (SHOULDER DISLOCATION 10/2021) Endocrine: No HEENT: No Cancer: No Psychosocial: No Integumentary: No Blood Disorders: No Adverse Reaction/Blood Tranf: No Family Medical History No Pertinent Family Hx, Diabetes, Psychiatric Problems Physical Exam Vital Signs Capillary Refill : Height, Weight, BMI Height: 5'10.00" Weight: 238lbs. 0oz. 107.117067il; 35.00 BMI Method:Stated General Appearance: WD/WN, moderate distress, obese HEENT: PERRL/EOMI, normal ENT inspection Neck: non-tender, full range of motion Respiratory: no respiratory distress, no accessory muscle use Gastrointestinal: normal bowel sounds, non tender, soft Back: CVA tenderness (R) Extremities: normal range of motion, non-tender Neurologic/Psychiatric: alert, normal mood/affect, oriented x 3 Skin: normal color, warm/dry Progress/Results/Core Measures Suspected Sepsis SIRS Temperature: Pulse: Respiratory Rate: Laboratory Tests 07/16/22 13:19: White Blood Count 9.3 Blood Pressure / Mean: Laboratory Tests 07/16/22 13:19: Platelet Count 257, Total Bilirubin 0.6 Results/Orders Lab Results Laboratory Tests Test 07/16/22 13:19 Range/Units White Blood Count 9.3 4.3-11.0 10^3/uL Red Blood Count 5.56 H 4.30-5.52 10^6/uL Hemoglobin 14.8 13.3-17.7 g/dL Hematocrit 45 40-54 % Mean Corpuscular Volume 82 80-99 fL Mean Corpuscular Hemoglobin 27 25-34 pg Mean Corpuscular Hemoglobin Concent 33 32-36 g/dL Red Cell Distribution Width 13.7 10.0-14.5 % Platelet Count 257 130-400 10^3/uL Mean Platelet Volume 10.3 9.0-12.2 fL Immature Granulocyte % (Auto) 1 % Neutrophils (%) (Auto) 56 42-75 % Lymphocytes (%) (Auto) 31 12-44 % Monocytes (%) (Auto) 9 0-12 % Eosinophils (%) (Auto) 3 0-10 % Basophils (%) (Auto) 1 0-10 % Neutrophils # (Auto) 5.2 1.8-7.8 10^3/uL Lymphocytes # (Auto) 2.9 1.0-4.0 10^3/uL Monocytes # (Auto) 0.9 0.0-1.0 10^3/uL Eosinophils # (Auto) 0.3 0.0-0.3 10^3/uL Basophils # (Auto) 0.1 0.0-0.1 10^3/uL Immature Granulocyte # (Auto) 0.1 0.0-0.1 10^3/uL Sodium Level 138 135-145 MMOL/L Potassium Level 4.1 3.6-5.0 MMOL/L Chloride Level 105 98-107 MMOL/L Carbon Dioxide Level 22 21-32 MMOL/L Anion Gap 11 5-14 MMOL/L Glucose Level 106 H 70-105 MG/DL Calcium Level 8.9 8.5-10.1 MG/DL Corrected Calcium 8.7 8.5-10.1 MG/DL Total Bilirubin 0.6 0.1-1.0 MG/DL Total Protein 8.0 6.4-8.2 GM/DL Albumin 4.3 3.2-4.5 GM/DL My Orders Orders - CATHIE VALENTIN APRN Cbc With Automated Diff (07/16/22 13:08) Comprehensive Metabolic Panel (07/16/22 13:08) Ua Culture If Indicated (07/16/22 13:08) Ed Iv/Invasive Line Start (07/16/22 13:08) Ct Abd/Pelvis Wo(Kidney Stone) (07/16/22 13:08) Abdomen/Kub 1view (07/16/22 13:08) Ketorolac Injection (Toradol Injection) (07/16/22 13:15) Fentanyl Inj (Sublimaze Injection) (07/16/22 13:19) Medications Given in ED Current Medications Medications Dose Ordered Sig/Kalpesh Route Start Time Stop Time Status Last Admin Dose Admin Fentanyl Citrate 100 mcg STK-MED ONCE .ROUTE 07/16/22 13:19 07/16/22 13:21 DC 07/16/22 13:23 50 MCG Ketorolac Tromethamine 15 mg ONCE ONCE IVP 07/16/22 13:15 07/16/22 13:16 DC 07/16/22 13:21 15 MG Vital Signs/I&O Capillary Refill : Departure Communication (Admissions) NAME: LATRELL LA[place] DANIAL REC#: [id number] PT STATUS: REG ER : 1985 PHYSICIAN: CATHIE VALENTIN APRN ADMIT DATE: 07/16/22/ER Draft Date of Exam:07/16/22 CT ABD/PELVIS WO(KIDNEY STONE) PROCEDURE: CT urinary tract, rule out kidney stone. TECHNIQUE: Multiple contiguous axial images were obtained through the abdomen and pelvis without the use of intravenous contrast. Auto Exposure Controls were utilized during the CT exam to meet ALARA standards for radiation dose reduction. INDICATION: Right kidney pain with history of kidney stones. COMPARISON: Comparison is made with prior CT from 07/03/2020. FINDINGS: Lung bases are clear. The liver and gallbladder are unremarkable. No biliary ductal dilatation is seen. The pancreas and spleen are unremarkable. No adrenal mass is detected. No renal calculi are identified. There is a 3 mm calculus in the proximal right ureter producing mild hydroureteronephrosis. Remainder of the right ureter is unremarkable. Left ureter is unremarkable. No bladder calculi are detected. Aorta is nonaneurysmal. Small and large bowel loops are normal in caliber. There is moderate stool in the right colon. There is no free fluid or fluid collection. No inflammatory changes are seen. Prostate is unremarkable. Bony structures are nonacute. IMPRESSION: 3 mm proximal right ureteric calculus, producing mild hydroureteronephrosis. Dictated on workstation # [id number] Dict: 07/16/22 1338 Trans: 07/16/22 1343 [id number] Interpreted by: RIKKI RUELAS MD Electronically signed by: Impression Primary Impression: Right ureteral stone Disposition: HOME, SELF-CARE Condition: Stable Departure-Patient Inst. Decision time for Depature: 13:43 Ref[place]: [facility] [place] Primary Care Physician SUSY HOOD MD Patient Instructions: Kidney Stone, Adult ED Add. Discharge Instructions: 1. Drink plenty of fluids. Return to ER for any fevers uncontrollable pain or uncontrollable nausea and vomiting. Call Dr. Hood from urology today to make an appointment to be seen for follow-up. Scripts Oxycodone HCl/Acetaminophen (Percocet 5-325 mg Tablet) 1 Each Tablet 1 TAB PO Q4H for PAIN-MODERATE MDD 6 TABS for 7 Days, #20 TAB Prov: CATHIE VALENTIN APRN 07/16/22 Ketorolac Tromethamine (Ketorolac Tromethamine) 10 Mg Tablet 10 MG PO TID PRN for PAIN-MODERATE (5-7), #9 TAB Prov: CATHIE VALENTIN APRN 07/16/22 Ondansetron (Ondansetron Odt) 8 Mg Tab.rapdis 8 MG PO Q4H PRN for NAUSEA/VOMITING, #10 TAB Prov: CATHIE VALENTIN APRN 07/16/22 Tamsulosin HCl (Flomax) 0.4 Mg Cap 0.4 MG PO DAILY, #10 CAP Prov: CATHIE VALENTIN APRN 07/16/22 Work/School Note: Work Release Form Date Seen in the Emergency Department: Jul 16, 2022 Return to Work: Jul 19, 2022 Copy Copies To 1: SUSY HOOD MD, PETER J APRN Jul 16, 2022 13:23
[2022-07-16 13:35] LABS: BASOPHILS # (AUTO) 0.1 10^3/uL (0.0-0.1); BASOPHILS % (AUTO) 1 % (0-10); EOSINOPHILS # (AUTO) 0.3 10^3/uL (0.0-0.3); EOSINOPHILS % (AUTO) 3 % (0-10); HEMATOCRIT 45 % (40-54); HEMOGLOBIN 14.8 g/dL (13.3-17.7); LYMPHOCYTES # (AUTO) 2.9 10^3/uL (1.0-4.0); LYMPHOCYTES % (AUTO) 31 % (12-44); MEAN CORPUSCULAR HEMOGLOBIN 27 pg (25-34); MEAN CORPUSCULAR HGB CONC 33 g/dL (32-36); MEAN CORPUSCULAR VOLUME 82 fL (80-99); MEAN PLATELET VOLUME 10.3 fL (9.0-12.2); MONOCYTES # (AUTO) 0.9 10^3/uL (0.0-1.0); MONOCYTES % (AUTO) 9 % (0-12); NEUTROPHILS # (AUTO) 5.2 10^3/uL (1.8-7.8); NEUTROPHILS % (AUTO) 56 % (42-75); PLATELET COUNT 257 10^3/uL (130-400); WHITE BLOOD COUNT 9.3 10^3/uL (4.3-11.0)
[2022-07-16 13:41] LABS: ALBUMIN 4.3 GM/DL (3.2-4.5); POTASSIUM 4.1 MMOL/L (3.6-5.0)
[2022-07-16 13:42] LABS: CALCIUM 8.9 MG/DL (8.5-10.1)
--- NOTE | 2022-07-16 13:44 | Diagnostic Imaging Report ---
PROCEDURE: CT urinary tract, rule out kidney stone. TECHNIQUE: Multiple contiguous axial images were obtained through the abdomen and pelvis without the use of intravenous contrast. Auto Exposure Controls were utilized during the CT exam to meet ALARA standards for radiation dose reduction. INDICATION: Right kidney pain with history of kidney stones. COMPARISON: Comparison is made with prior CT from 07/03/2020. FINDINGS: Lung bases are clear. The liver and gallbladder are unremarkable. No biliary ductal dilatation is seen. The pancreas and spleen are unremarkable. No adrenal mass is detected. No renal calculi are identified. There is a 3 mm calculus in the proximal right ureter producing mild hydroureteronephrosis. Remainder of the right ureter is unremarkable. Left ureter is unremarkable. No bladder calculi are detected. Aorta is nonaneurysmal. Small and large bowel loops are normal in caliber. There is moderate stool in the right colon. There is no free fluid or fluid collection. No inflammatory changes are seen. Prostate is unremarkable. Bony structures are nonacute. IMPRESSION: 3 mm proximal right ureteric calculus, producing mild hydroureteronephrosis. Dictated by: Dictated on workstation # [id number]
[2022-07-16 13:45] LABS: BILIRUBIN,TOTAL 0.6 MG/DL (0.1-1.0)
[2022-07-16] MEDS ORDERED: ONDA8TAB13 PO (13:45)
[2022-07-16] MEDS ORDERED: KETO10TA PO (13:45)
[2022-07-16] MEDS ORDERED: OXYC1TAB87 PO (13:45)
[2022-07-16] MEDS ORDERED: TMSL.4C PO (13:45)
--- NOTE | 2022-07-16 13:45 | Diagnostic Imaging Report ---
INDICATION: Kidney stone. TIME OF EXAM: 1:40 p.m. FINDINGS: Approximately 3 mm calculus projects just along the inferior margin of the right L2 transverse process. No other urinary tract calculi are detected. The bowel gas pattern is unremarkable. IMPRESSION: Right proximal ureteric calculus, level of L2. Dictated by: Dictated on workstation # [id number]
[2022-07-16 13:47] LABS: CREATININE SERUM 1.08 MG/DL (0.60-1.30)
[2022-07-16 14:11] LABS: BILIRUBIN,URINE NEGATIVE (NEGATIVE); CLARITY,URINE CLOUDY; COLOR,URINE YELLOW; GLUCOSE, URINE (UA) NEGATIVE (NEGATIVE); KETONES,URINE NEGATIVE (NEGATIVE); LEUKOCYTE ESTERASE ,URINE NEGATIVE (NEGATIVE); NITRITE,URINE NEGATIVE (NEGATIVE); PH,URINE 5.5 (5-9); PROTEIN,URINE TRACE (NEGATIVE)
[2022-07-16 14:18] LABS: BACTERIA,URINE NEGATIVE /HPF; RBC,URINE >100 /HPF; SQUAMOUS EPITHELIAL CELL,UR 0-2 /HPF; WBC,URINE RARE /HPF
[2022-07-16 14:30] VITALS: BP 130/84
== END 2022-07-16 14:31 | disposition home or self-care (01) ==
LOC: EDUNIT# 13:03 → ER 13:06
DX: N13.2 Hydronephrosis with renal and ureteral calculous obstruction (principal); E66.9 Obesity, unspecified; Z68.35 Body mass index [BMI] 35.0-35.9, adult
CPT/HCPCS: 36415; 74018; 74176; 80053; 81000; 85025

== ENCOUNTER 2022-07-16 17:46 | Day surgery (SDC) | payer BC ==
[~2022-07-16] VITALS: Ht 177 cm; Wt 123.7 kg
[~2022-07-16 17:46] MED LIST changes: +KETO10TA PO
[2022-07-16 18:51] LABS: BILIRUBIN,URINE NEGATIVE (NEGATIVE); CLARITY,URINE CLOUDY; COLOR,URINE BROWN; GLUCOSE, URINE (UA) NEGATIVE (NEGATIVE); KETONES,URINE NEGATIVE (NEGATIVE); LEUKOCYTE ESTERASE ,URINE TRACE (NEGATIVE); NITRITE,URINE POSITIVE (NEGATIVE); PH,URINE 6.5 (5-9); PROTEIN,URINE 2+ (NEGATIVE)
[2022-07-16 18:59] LABS: BACTERIA,URINE NEGATIVE /HPF; RBC,URINE >100 /HPF
--- NOTE | 2022-07-16 19:25 | ED GU-Male ---
General Chief Complaint: Abdominal/GI Problems Stated Complaint: KIDNEY STONES Nursing Triage Note: PT WAS SEEN HERE TODAY AND DX WITH KIDNEY STONES. PT CONTINUES TO COMPLAIN OF INCREASED PAIN AND NAUSEA. Source: patient Exam Limitations: no limitations History of Present Illness Date Seen by Provider: Jul 16, 2022 Time Seen by Provider: 19:24 Initial Comments to ER with intolerable right flank pain and nausea. I saw him earlier today for the same which started 20 minutes prior to that arrival. He was found to have a 3 mm stone proximal right ureter at the level of L2 on KUB. He has had these before. He has had to follow with Dr. Hood before for stent placement. Timing/Duration: this afternoon Severity/Quality: severe Location: right flank Radiation: none Activities at Onset: none Prior Genitourinary Problems: none Associated Symptoms: nausea/vomiting Allergies and Home Medications Allergies Coded Allergies: NKANo Known Allergies (Verified Allergy, Unknown, 07/05/06) Patient Home Medication List Home Medication List Reviewed: Yes Benzonatate (Tessalon Perles) 100 Mg Capsule, 100 MG PO Q6H PRN for COUGH Prescribed by: EBEN TSANG on 11/29/21 003 Benzonatate (Tessalon Perles) 100 Mg Capsule, 100 MG PO Q6H PRN for COUGH Prescribed by: EDWIN PALMER on 06/12/22 002 Cefdinir (Cefdinir) 300 Mg Capsule, 300 MG PO BID Prescribed by: LUIZ HAMPTON on 12/07/21 0029 Ketorolac Tromethamine (Ketorolac Tromethamine) 10 Mg Tablet, 10 MG PO TID PRN for PAIN-MODERATE (5-7) Prescribed by: CATHIE VALENTIN on 07/16/22 1345 Loratadine/Pseudoephedrine (Claritin-D 12 Hour Tablet) 1 Each Tab.er.12h, 1 EACH PO BID Prescribed by: LUIZ HAMPTON on 12/07/21 002 Methylprednisolone (Medrol) 4 Mg Tab.ds.pk, 4 MG PO UD Prescribed by: EDWIN PALMER on 06/12/22 003 Ondansetron (Ondansetron Odt) 4 Mg Tab.rapdis, 4 MG PO Q6H PRN for NAUSEA/VOMITING Prescribed by: EBEN TSANG on 11/29/21 0035 Ondansetron (Ondansetron Odt) 4 Mg Tab.rapdis, 4 MG PO Q6H PRN for NAUSEA/VOMITING-1ST LINE Prescribed by: EDWIN PALMER on 06/12/22 0024 Ondansetron (Ondansetron Odt) 8 Mg Tab.rapdis, 8 MG PO Q4H PRN for NAUSEA/VOMITING Prescribed by: CATHIE VALENTIN on 07/16/22 1345 Oxycodone HCl/Acetaminophen (Percocet 5-325 mg Tablet) 1 Each Tablet, 1 TAB PO Q4H Prescribed by: CATHIE VALENTIN on 07/16/22 134 Tamsulosin HCl (Flomax) 0.4 Mg Cap, 0.4 MG PO DAILY Prescribed by: CATHIE VALENTIN on 07/16/22 134 Review of Systems Review of Systems Constitutional: see HPI; No chills, No fever EENTM: see HPI Respiratory: no symptoms reported Cardiovascular: no symptoms reported Genitourinary: see HPI, flank pain Musculoskeletal: no symptoms reported Skin: no symptoms reported Psychiatric/Neurological: No Symptoms Reported Endocrine: No Symptoms Reported Hematologic/Lymphatic: No Symptoms Reported Past Wsmtsvy-Owsojb-Dtfstj Hx Patient Social History Tobacco Use?: No Substance use?: No Alcohol Use?: No Immunizations Up To Date Tetanus Booster (TDap): Unknown First/Initial COVID19 Vaccinat: 02/12 Second COVID19 Vaccination Kendall: 05/15 COVID19 Vaccine Lens Shaper Grinder: AdmittorClarissa Seasonal Allergies Seasonal Allergies: No Past Medical History Surgery/Hospitalization HX: renal stones, aguilera, asthma, dislocated shoulder Surgeries: Yes (INGROWN TOENAIL REMOVAL;KIDNEY STONE REMOVALS W/ URETERAL STENTS/REMOVALS) Renal Respiratory: Yes Asthma Currently Using CPAP: No Currently Using BIPAP: No Cardiac: No Neurological: Yes Headaches /Migraines Reproductive Disorders: No Sexually Transmitted Disease: No HIV/AIDS: No Genitourinary: Yes Kidney Stones Gastrointestinal: No Musculoskeletal: Yes (SHOULDER DISLOCATION 10/2021) Endocrine: No HEENT: No Cancer: No Psychosocial: No Integumentary: No Blood Disorders: No Adverse Reaction/Blood Tranf: No Family Medical History No Pertinent Family Hx, Diabetes, Psychiatric Problems Physical Exam Vital Signs Vital Signs - First Documented 07/16/22 18:11 Temp 37.3 Pulse 87 Resp 16 B/P (MAP) 168/108 (128) Pulse Ox 95 O2 Delivery Room Air Capillary Refill : Less Than 3 Seconds Height, Weight, BMI Height: 5'10.00" Weight: 238lbs. 0oz. 107.539501fm; 39.00 BMI Method:Stated General Appearance: WD/WN, mild distress, obese HEENT: PERRL/EOMI Neck: non-tender, full range of motion Cardiovascular: regular rate, rhythm, no murmur Respiratory: normal breath sounds, no respiratory distress, no accessory muscle use Gastrointestinal: normal bowel sounds, non tender Extremities: normal range of motion, non-tender Neurologic/Psychiatric: alert, normal mood/affect, oriented x 3 Skin: normal color, warm/dry Progress/Results/Core Measures Suspected Sepsis SIRS Temperature: Pulse: 87 Respiratory Rate: 16 Blood Pressure 168 /108 Mean: 128 Results/Orders Lab Results Laboratory Tests Test 07/16/22 18:47 Range/Units Urine Color BROWN H Urine Clarity CLOUDY Urine pH 6.5 5-9 Urine Specific [place] >=1.030 1.016-1.022 Urine Protein 2+ H NEGATIVE Urine Glucose (UA) NEGATIVE NEGATIVE Urine Ketones NEGATIVE NEGATIVE Urine Nitrite POSITIVE H NEGATIVE Urine Bilirubin NEGATIVE NEGATIVE Urine Urobilinogen 1.0 < = 1.0 MG/DL Urine Leukocyte Esterase TRACE H NEGATIVE Urine RBC (Auto) 3+ H NEGATIVE Urine RBC >100 H /HPF Urine WBC NONE /HPF Urine Squamous Epithelial Cells NONE /HPF Urine Renal Epithelial Cells NONE /HPF Urine Crystals NONE /LPF Urine Bacteria NEGATIVE /HPF Urine Casts NONE /LPF Urine Mucus NEGATIVE /LPF Urine Culture Indicated YES My Orders Orders - CATHIE VALENTIN APRN Ceftriaxone 1 Gm Pre-Mix (Rocephin 1 Gm (07/16/22 19:30) Fentanyl Inj (Sublimaze Injection) (07/16/22 19:30) Ceftriaxone 1 Gm Pre-Mix (Rocephin 1 Gm (07/16/22 19:30) Vital Signs/I&O 07/16/22 18:11 Temp 37.3 Pulse 87 Resp 16 B/P (MAP) 168/108 (128) Pulse Ox 95 O2 Delivery Room Air Capillary Refill : Less Than 3 Seconds Blood Pressure Mean: 128 Departure Communication (Admissions) 1915-I spoke with Dr. Hood we will admit to hospitalist service, n.p.o. after midnight, KUB in the morning, tentative plans for ESWL tomorrow morning. Spoke with Dr. Wloff, agrees with this plan. Impression Primary Impression: Intractable abdominal pain Additional Impression: Right ureteral stone Disposition: ADMITTED INPATIENT Condition: Stable Admissions Decision to Admit Reason: Admit from ER (General) Decision to Admit/Date: Jul 16, 2022 Time/Decision to Admit Time: 19:32 Departure-Patient Inst. Referrals: [facility] [place] (PCP/Family) Primary Care Physician CATHIE VALENTIN APRN Jul 16, 2022 19:25
[2022-07-16] MEDS ORDERED: cefTRIAXone 1 GM PRE-MIX 50 ML IV ONE ×2 (19:30)
[2022-07-16] MEDS ORDERED: fentaNYL INJ 100 MCG/2 ML AMP IVP ONE (19:30)
[2022-07-16] MEDS ORDERED: ONDANSETRON 4 MG/2 ML (SDV) Z0FRAN IVP ONE (19:45)
[2022-07-16] MEDS: LACTATED RINGERS 1,000 ML IV SCH (20:22)
[2022-07-16] MEDS ORDERED: diphenhydrAMINE 50 MG/ML INJ (BENADRYL) IVP PRN (20:30)
[2022-07-16] MEDS ORDERED: polyethylene glycoL POWDER 17 GM (MIRALAX) PACK PO PRN (20:30)
[2022-07-16] MEDS ORDERED: ONDANSETRON 4 MG (ZOFRAN) ORAL DISSOLVE TAB PO PRN (20:30)
[2022-07-16] MEDS ORDERED: morphine IMMEDIATE RELEASE 15 MG TABLET PO PRN (20:30)
[2022-07-16] MEDS ORDERED: ONDANSETRON 4 MG/2 ML (SDV) Z0FRAN IV PRN ×2 (20:30→22:00)
[2022-07-16] MEDS ORDERED: LACTULOSE SYRUP 10GM/15ML (ENULOSE) 30ML UDC PO PRN (20:30)
[2022-07-16] MEDS ORDERED: KETOROLAC 15 MG/ML VIAL IV PRN (20:30)
[2022-07-16] MEDS ORDERED: MELATONIN 3 MG TABLET PO PRN (20:30)
[2022-07-16] MEDS ORDERED: cefTRIAXone 1 GM PRE-MIX 50 ML IV SCH (20:30)
[2022-07-16] MEDS ORDERED: CALCIUM CARBONATE 500 MG (TUMS) TAB.CHEW PO PRN (20:30)
[2022-07-16] MEDS ORDERED: ANTACID SUSP 30 ML UDC (MYLANTA) PO PRN (20:30)
[2022-07-16] MEDS ORDERED: cloNIDine 0.1 MG (CATAPRES) TAB PO PRN (20:30)
[2022-07-16] MEDS ORDERED: HYDROmorphone 2 MG/ML VIAL (DILAUDID) IV PRN (20:30)
[2022-07-16] MEDS ORDERED: BISACODYL 10 MG SUPP (DULCOLAX) PR PRN (20:30)
[2022-07-16] MEDS ORDERED: diphenhydrAMINE 25 MG TAB (BENADRYL) PO PRN (20:30)
[2022-07-16] MEDS ORDERED: MILK OF MAGNESIA 400 MG/5 ML 30 ML UDC PO PRN (20:30)
[2022-07-16] MEDS ORDERED: ACETAMINOPHEN 325 MG TABLET PO PRN (20:30)
[2022-07-16] MEDS ORDERED: SENNOSIDES 8.6 MG (SENOKOT) TAB PO SCH (21:00)
[2022-07-16] MEDS ORDERED: DOCUSATE SODIUM 100 MG (COLACE) CAP PO SCH (21:00)
[2022-07-16] MEDS ORDERED: NS IV 1000 ML 1,000 ML ONE (21:08)
[2022-07-16] MEDS: NS IV 1000 ML 1,000 ML IV SCH (21:12)
[2022-07-16] MEDS ORDERED: SENNOSIDES 8.6 MG (SENOKOT) TAB ONE (21:16)
[2022-07-16] MEDS ORDERED: DOCUSATE SODIUM 100 MG (COLACE) CAP PO ONE (21:16)
[2022-07-16 21:39] VITALS: BP 150/70
[2022-07-16] MEDS ORDERED: ONDANSETRON 4 MG/2 ML (SDV) Z0FRAN ONE (21:49)
[2022-07-16] MEDS ORDERED: KETOROLAC 15 MG/ML VIAL ONE (21:50)
[2022-07-16 23:39] VITALS: BP 134/85
[2022-07-17] VITALS (12 sets, daily range): BP systolic 90–129; BP diastolic 59–86
[2022-07-17] MEDS: NS IV 1000 ML 1,000 ML IV SCH (05:03)
[2022-07-17 05:52] LABS: BASOPHILS % (AUTO) 0 % (0-10); EOSINOPHILS # (AUTO) 0.1 10^3/uL (0.0-0.3); EOSINOPHILS % (AUTO) 1 % (0-10); HEMATOCRIT 41 % (40-54); HEMOGLOBIN 13.2 g/dL (13.3-17.7); LYMPHOCYTES # (AUTO) 1.9 10^3/uL (1.0-4.0); LYMPHOCYTES % (AUTO) 18 % (12-44); MEAN CORPUSCULAR HEMOGLOBIN 27 pg (25-34); MEAN CORPUSCULAR HGB CONC 32 g/dL (32-36); MEAN CORPUSCULAR VOLUME 83 fL (80-99); MEAN PLATELET VOLUME 10.5 fL (9.0-12.2); MONOCYTES # (AUTO) 0.9 10^3/uL (0.0-1.0); MONOCYTES % (AUTO) 8 % (0-12); NEUTROPHILS # (AUTO) 7.8 10^3/uL (1.8-7.8); NEUTROPHILS % (AUTO) 73 % (42-75); PLATELET COUNT 225 10^3/uL (130-400); WHITE BLOOD COUNT 10.8 10^3/uL (4.3-11.0)
[2022-07-17 06:08] LABS: ALBUMIN 3.9 GM/DL (3.2-4.5)
[2022-07-17 06:09] LABS: POTASSIUM 3.9 MMOL/L (3.6-5.0)
[2022-07-17 06:10] LABS: CALCIUM 8.6 MG/DL (8.5-10.1)
[2022-07-17 06:13] LABS: BILIRUBIN,TOTAL 0.7 MG/DL (0.1-1.0)
[2022-07-17 06:15] LABS: CREATININE SERUM 1.19 MG/DL (0.60-1.30)
--- NOTE | 2022-07-17 06:58 | Progress Note-Pre Operative ---
Pre-Operative Progress Note Date of Available H&P: Jul 17, 2022 Date H&P Reviewed: Jul 17, 2022 Time H&P Reviewed: 06:58 Changes from last HP NONE Pre-Operative Diagnosis: RT PROXIMAL URETERAL STONE SUSY VAUGHN MD Jul 17, 2022 06:58
[2022-07-17] MEDS ORDERED: MIDAZOLAM 2 MG/2 ML (VERSED) VIAL ONE (07:11)
[2022-07-17] MEDS ORDERED: ONDANSETRON 4 MG/2 ML (SDV) Z0FRAN ONE (07:11)
[2022-07-17] MEDS ORDERED: LIDOCAINE PF 2% 5 ML (XYLOCAINE) VIAL ONE (07:11)
[2022-07-17] MEDS ORDERED: proPOfol 200 MG/20 ML (DIPRIVAN) VIAL IV ONE (07:11)
[2022-07-17] MEDS ORDERED: fentaNYL INJ 100 MCG/2 ML AMP ONE (07:11)
[2022-07-17] MEDS ORDERED: LACTATED RINGERS 1,000 ML IV PRN (07:15)
--- NOTE | 2022-07-17 07:16 | CONSULTATION REPORT ---
DATE OF SERVICE: 07/16/2022 ATTENDING PHYSICIAN: Dr. Wolff. SUMMARY: After reviewing the patient's record in the hospital and in the office, this is a 36-year-old white man known to me with kidney stones, who presented to the emergency room for the second time the same day with intractable pain, nausea and vomiting. He was subsequently admitted to the hospital for control of the above, as well as definitive measure tomorrow with the ESWL. ALLERGIES: The patient has no known drug allergies. HOME MEDICATIONS: Essentially not much and reviewed. REVIEW OF SYSTEMS: None besides the pain, nausea and vomiting. SOCIAL HISTORY: No alcohol, no drugs. No smoking. No seasonal allergies. PAST SURGICAL HISTORY: Stones, dislocated shoulder and ingrowing toenail. PAST MEDICAL HISTORY: He has history of asthma and some headaches and migraines. FAMILY HISTORY: Stones. PHYSICAL EXAMINATION: VITAL SIGNS: Per chart. GENERAL: Well-nourished, well-developed, in moderate distress. HEENT: Head is normocephalic. HEENT: Unremarkable. NECK: Supple, no bruits. CHEST: Clear, nontender. HEART: Regular rate and rhythm, no murmur. ABDOMEN: Soft with right CVA tenderness. EXTREMITIES: Lower extremity, no edema or cyanosis. NEUROLOGIC: Grossly intact. Oriented x3. IMPRESSION: Right proximal ureteral stone with intractable pain, nausea, vomiting and obstruction. PLAN: Admit for control of the above and ESWL in the morning when the machine is going to be here. We will get a KUB in the morning to see where the stone is at that time and manage accordingly. Procedure was fully explained to the patient with alternative, risk, expectation complication. They fully understand and want the procedure done. CC: Dr. Wolff - requested, unable to deliver. CC: Parag Alejandro -requested, unable to deliver. Job ID: [id number] DocumentID: [id number] Dictated Date: 07/17/2022 07:02:59 Commercial Light Fixture Assembler Date: 07/17/2022 07:16:01 Dictated By: SUSY VAUGHN MD
[2022-07-17] MEDS: LACTATED RINGERS 1,000 ML IV SCH (07:25)
[2022-07-17] MEDS ORDERED: FUROSEMIDE 40 MG/4 ML INJ (LASIX) ONE (07:53)
[2022-07-17] MEDS ORDERED: KETOROLAC 30 MG/ML VIAL ONE (07:53)
--- NOTE | 2022-07-17 08:04 | Progress Note-Post Operative ---
Post-Operative Progess Note Surgeon (s)/Track Equipment Operator (s) Surgeon SUSY VAUGHN MD Track Equipment Operator: NONE Pre-Operative Diagnosis RT PROXIMAL URETERAL STONE Post-Operative Diagnosis SAME Procedure & Operative Findings Date of Procedure 07/17/22 Procedure Performed/Findings RT ESWL Anesthesia Type GENERAL Estimated Blood Loss Estimated blood loss (mL): NONE Specimens/Packing Specimens Removed NONE Packing: NONE SUSY VAUGHN MD Jul 17, 2022 08:04
--- NOTE | 2022-07-17 08:17 | Discharge Inst-Urology ---
Discharge Inst-Urology Reconcile Patient Problems Problems Reviewed?: Yes Final Diagnosis RT PROXIMAL URETERAL STONE Patient Instructions/Follow Up Plan/Assessment/Instructions Please make appointment to been seen in office 07/26, KUB prior to it. KUB on way home Post ESWL instructions No Rx Increase oral fluids for 48 hours and then as needed. Diet and Activity as tolerated. If questions or concerns contact your physician Or seek help at emergency department. SUSY VAUGHN MD Jul 17, 2022 08:17
--- NOTE | 2022-07-17 08:50 | Anesthesia-General Post-Op ---
General Patient Condition Mental Status/LOC: Same as Preop Cardiovascular: Satisfactory Nausea/Vomiting: Absent Respiratory: Satisfactory Pain: Controlled Complications: Absent Post Op Complications Complications None Follow Up Care/Instructions Patient Instructions None needed. Anesthesia/Patient Condition Patient Condition Patient is doing well, no complaints, stable vital signs, no apparent adverse anesthesia problems. No complications reported per nursing. MONICA GEORGE CRNA Jul 17, 2022 08:50
[2022-07-17] MEDS ORDERED: MEPERIDINE (DEMEROL) INJ 50 MG/ML IVP ONE (09:00)
[2022-07-17] MEDS ORDERED: PROMETHAZINE INJ 25 MG/ML (PHENERGAN) AMP IVP ONE (09:00)
[2022-07-17] MEDS ORDERED: morphine INJ 10 MG/ML 1ML (SYR OR VIAL) IVP ONE (09:00)
[2022-07-17] MEDS ORDERED: ONDANSETRON 4 MG/2 ML (SDV) Z0FRAN IVP PRN (09:00)
--- NOTE | 2022-07-17 11:08 | Diagnostic Imaging Report ---
INDICATION: Lithotripsy, renal stones. COMPARISON: 07/16/2022. TECHNIQUE: Two radiographs of the abdomen are obtained dated July 17, 2022. FINDINGS: Nonobstructed bowel gas pattern. No free air. Previously noted calcification adjacent to the right L2 transverse process is no longer visualized. No new calcifications along the expected course of the ureters. Phleboliths within the left pelvis again seen. No acute osseous abnormality. IMPRESSION: Previously noted suspected calculus adjacent to the right L2 transverse process is no longer visualized. Nonobstructed bowel gas pattern. Dictated by: Dictated on workstation # [id number]
--- NOTE | 2022-07-17 11:16 | OPERATIVE REPORT ---
DATE OF SERVICE: 07/17/2022 PREOPERATIVE DIAGNOSIS: Right proximal ureteral stone. POSTOPERATIVE DIAGNOSIS: Right proximal ureteral stone. OPERATION PERFORMED: Right ESWL. SURGEON: Derek Vaughn MD. ANESTHESIA: General. COMPLICATIONS: None. DESCRIPTION OF PROCEDURE: Under satisfactory general anesthesia, the patient in a supine position on the ESWL table, the right proximal ureteral stone was localized. Shocks were delivered at kV of 6, a total of 2500 shocks, we could not see the stone anymore. The patient received 40 mg of Lasix and 30 mg of Toradol IV at the end of the procedure. He tolerated the procedure and anesthesia well and was sent to recovery room in a stable condition. CC: Parag Alejandro - requested, unable to deliver. CC: [facility] - requested, unable to deliver. Job ID: [id number] DocumentID: [id number] Dictated Date: 07/17/2022 08:32:13 Government Auditor Date: 07/17/2022 11:15:48 Dictated By: DEREK VAUGHN MD
--- NOTE | 2022-07-17 11:48 | Short Stay Summary-Hospitalist ---
NINI GUIDO 07/17/22 1148: History of Present Illness HPI/Chief Complaint CC: Abdominal pain HPI: Juan is a 36yo Male that presented to the ED yesterday with severe abdominal pain. A KUB was obtained and the patient was informed they had a kidney stone, the patient was then discharged from the ED. He returned to the ED later in the day with complains of increased pain with associated nausea. UA showed evidence of a UTI as well, he was admitted to 4th floor and urology was consulted. On 07/17 the patient underwent ESWL to break up the stone and should be discharged the same day. Source: RN notes reviewed, EMS notes reviewed Date Seen 07/17/22 Time Seen by a Provider: 11:00 Attending Physician [facility] PCP Admitting Physician: Mariposa Riojas DO Attending Physician: Mariposa Riojas DO Referring Physician Date of Admission Jul 16, 2022 at 19:37 Home Medications & Allergies Home Medications Reviewed patient Home Medication Reconciliation performed by pharmacy medication reconciliations pharmacy laboratory technician and/or nursing. Patients Allergies have been reviewed. Allergies Allergies Coded Allergies NKANo Known Allergies (Verified Allergy, Unknown, 07/05/06) Past Medical/Social/Family Hx Patient Social History Tobacco Use?: No Use of E-Cig and/or Vaping dev: No Substance use?: No Alcohol Use?: Yes Alcohol Frequency: Rarely Pt stated abuse/neglect: No Immunizations Up To Date Influenza Vaccine Up-to-Date: Yes; Up-to-Date First/Initial COVID19 Vaccinat: 02/12 Second COVID19 Vaccination Kendall: 05/15 Tetanus Booster (TDap): Unknown Current Status Advance Directives: No Communicates: Verbally Primary Language: Burundian Preferred Spoken Language: Burundian Sensory deficits: Other Implanted or Applied Medical D: None Past Medical History Kidney stones Asthma YEBOAH-Migraines Shoulder dislocation Family Medical History Family Hx: Denied family history of diabetes and psychiatric problems Review of Systems Constitutional: no symptoms reported Respiratory: no symptoms reported Cardiovascular: no symptoms reported Gastrointestinal: no symptoms reported Physical Exam Physical Exam Vital Signs Vital Signs - First Documented 07/16/22 18:11 Temp 37.3 Pulse 87 Resp 16 B/P (MAP) 168/108 (128) Pulse Ox 95 O2 Delivery Room Air Capillary Refill : Less Than 3 Seconds Height, Weight, BMI Height: 5'10.00" Weight: 238lbs. 0oz. 107.117666zg; 39.48 BMI Method:Stated General Appearance: No Apparent Distress Respiratory: Chest Non Tender, Lungs Clear, Normal Breath Sounds, No Accessory Muscle Use, No Respiratory Distress Cardiovascular: Regular Rate, Rhythm, No Edema, No Gallop, No Murmur Gastrointestinal: Non Tender Results Results/Procedures Labs Laboratory Tests 07/17/22 05:13 Patient resulted labs reviewed. Short Stay Diagnosis Conclusion Plan ASSESSMENT AND PLAN Kidney stone Urology consulted Pain control with toradol ESWL done today KUB prior to discharge Aggressive oral hydration UTI Ceftriaxone 50ml @100ml/hr Discharge today Follow up with Sana on 07/26 KUB prior to appointment Clinical Quality Measures DVT/VTE Risk/Contraindication: Contraindications-Pharm: Other *list below* Other: or MARIPOSA RIOJAS DO 07/17/222113: History of Present Illness HPI/Chief Complaint CC: Renal colic HPI: This is a 36 yr old male who presented to the ER for the second time of the day with intractable abdominal pain, nausea and vomiting. He was found to have a kidney stone with hydronephrosis. He underwent lithotripsy and treatment by Dr. Hood and is now pain free. He will go home. Short Stay Diagnosis Discharge Diagnosis-Short Stay Admission Diagnosis renal colic Final Discharge Diagnosis renal colic Conclusion Plan DC home Supervisory-Addendum Brief Verification & Attestation Participated in pt care: history, MDM, physical Personally performed: exam, history, MDM, supervision of care Care discussed with: Medical Student Procedures: n/a Results interpretation: Verified all documentation Verification and Attestation of Medical Student E/M Service A medical student performed and documented this service in my presence. I re viewed and verified all information documented by the medical student and made modifications to such information, when appropriate. I personally performed the physical exam and medical decision making. Mariposa Riojas Jul 17, 2022,21:14 NINI GUIDO Jul 17, 2022 11:48 MARIPOSA RIOJAS DO Jul 17, 2022 21:14
--- NOTE | 2022-07-17 18:14 | Diagnostic Imaging Report ---
INDICATION: Nephrolithiasis. EXAMINATION: KUB, 2:25 p.m. FINDINGS: Bowel gas pattern is normal. There are no pathologic masses or calcifications. IMPRESSION: Unremarkable abdomen. Dictated by: Dictated on workstation # [id number]
[2022-07-17] MEDS ORDERED: cefTRIAXone 1 GM PRE-MIX 50 ML IV SCH (21:00)
== END 2022-07-17 14:30 | disposition home or self-care (01) ==
LOC: EDUNIT# 17:46 → ER 17:47 → 4TH 19:37 → UNDOADMOB 19:37 → SDC 21:03 → 4TH 21:03 → UNDODISOB 07-17 14:30 → SDC 07-17 14:30
PROVIDERS: ATTEND Internal Medicine
DX: N20.1 Calculus of ureter (principal); Z79.899 Other long term (current) drug therapy; N39.0 Urinary tract infection, site not specified; E66.01 Morbid (severe) obesity due to excess calories; Z68.39 Body mass index [BMI] 39.0-39.9, adult
CPT/HCPCS: 50590; 74018; 80053; 81000; 85025; 87081; 87088; 96374; 96375; 99284; G0378; 36415

== ENCOUNTER → 2022-07-26 | Outpatient (CLI) | payer BC ==
--- NOTE | 2022-07-26 15:49 | Diagnostic Imaging Report ---
CLINICAL INDICATION: Follow-up stone removal on right-sided last week. EXAM: X-ray of the abdomen, supine views. COMPARISON: X-ray of the abdomen dated 07/17/2022. CT scan of the abdomen and pelvis without contrast dated 07/16/2022. FINDINGS: There are no abnormal calcifications overlying the expected regions of both kidneys or ureters. There is stable 3 mm calcification overlying the left side of the bladder/pelvis region which represents a phlebolith seen on the comparison CT scan. The previously seen stone in the right ureter on the prior CT scan is not seen on this exam. There is no intestinal obstruction. There is no intra-abdominal free air. Bones show no significant abnormality. IMPRESSION: 1: There is no definite stone overlying the expected regions of both kidneys, ureters, or bladder. 2: Previously seen stone in the right ureter is not visualized on this exam and may possibly be resolved. If there is continued concern, then CT scan would better evaluate. 3: Stable phlebolith is seen in the left pelvis. Dictated by: Dictated on workstation # [id number]
== END ==
LOC: LAB 12:27
PROVIDERS: ATTEND Urology
DX: N20.1 Calculus of ureter (principal)
CPT/HCPCS: 74018

== ENCOUNTER 2023-07-20 01:20 | Emergency (ER) | payer BC ==
[~2023-07-20] VITALS: Ht 177.8 cm; Wt 123.0 kg
--- NOTE | 2023-07-20 01:41 | ED GI ---
General Stated Complaint: YEBOAH,NAUSEA,SWELLING BEHIND RT EAR Source of Information: Patient Exam Limitations: No Limitations History of Present Illness Date Seen by Provider: Jul 20, 2023 Timing/Duration: Other (2 weeks; worse in the last24 hours) Severity/Quality: Severe ("10" at its worst. "5" currently), Aching Location: RUQ, Epigastric Radiation: No Radiation Activities at Onset: None Modifying Factors: Improves With Other ("all the time") Associated Symptoms: Back Pain (right mid thoracic) Allergies and Home Medications Allergies Coded Allergies: NKANo Known Allergies (Verified Allergy, Unknown, 07/05/06) Patient Home Medication List Home Medication List Reviewed: Yes Ondansetron (Ondansetron Odt) 8 Mg Tab.rapdis, 8 MG PO Q4H PRN for NAUSEA/VOMITING Prescribed by: CATHIE VALENTIN on 07/16/22 134 Oxycodone HCl/Acetaminophen (Percocet 5-325 mg Tablet) 1 Each Tablet, 1 TAB PO Q4H Prescribed by: CATHIE VALENTIN on 07/16/22 134 Tamsulosin HCl (Flomax) 0.4 Mg Cap, 0.4 MG PO DAILY Prescribed by: CATHIE VALENTIN on 07/16/22 1345 Review of Systems Review of Systems Constitutional: see HPI EENTM: No Symptoms Reported Respiratory: No Symptoms Reported Cardiovascular: No Symptoms Reported Gastrointestinal: Abdominal Pain Genitourinary: No Symptoms Reported Musculoskeletal: back pain Skin: no symptoms reported Psychiatric/Neurological: No Symptoms Reported All Other Systems Reviewed Negative Unless Noted: Yes Past Faspczg-Evdurv-Ukemes Hx Immunizations Up To Date Tetanus Booster (TDap): Unknown First/Initial COVID19 Vaccinat: 02/12 Second COVID19 Vaccination Kendall: 05/15 Seasonal Allergies Seasonal Allergies: No Past Medical History Surgery/Hospitalization HX: renal stones, yeboah, asthma, dislocated shoulder Surgeries: Yes (INGROWN TOENAIL REMOVAL;KIDNEY STONE REMOVALS W/ URETERAL ST ENTS/REMOVALS) Renal Respiratory: Yes Asthma Currently Using CPAP: No Currently Using BIPAP: No Cardiac: No Neurological: Yes Headaches /Migraines Reproductive Disorders: No Sexually Transmitted Disease: No HIV/AIDS: No Genitourinary: Yes Kidney Stones Gastrointestinal: No Musculoskeletal: Yes (SHOULDER DISLOCATION 10/2021) Endocrine: No HEENT: No Cancer: No Psychosocial: No Integumentary: No Blood Disorders: No Adverse Reaction/Blood Tranf: No Family Medical History No Pertinent Family Hx, Diabetes, Psychiatric Problems Denied family history of diabetes and psychiatric problems Physical Exam Vital Signs Capillary Refill : Height/Weight/BMI Height: 5'10.00" Weight: 238lbs. 0oz. 107.103940pw; 39.48 BMI Method:Stated General Appearance: WD/WN, no apparent distress HEENT: PERRL/EOMI Neck: normal inspection Respiratory: lungs clear, normal breath sounds, no respiratory distress, no accessory muscle use Cardiovascular: regular rate, rhythm Gastrointestinal: soft, tenderness (minimal tenderness in the right upper abdomen. Neg Nichols's (GB surgically absent); no rebound. Normal quiet bowel sounds; no involuntary guarding.) Extremities: normal range of motion, non-tender, normal inspection, no pedal edema Neurologic/Psychiatric: alert, normal mood/affect, oriented x 3 Skin: normal color, warm/dry Departure Departure-Patient Inst. Referrals: DEUCE ACOSTA APRN (PCP) Primary Care Physician [facility] (Family) Primary Care Physician MARTHA MONTGOMERY MD Jul 20, 2023 01:41
[2023-07-20 01:44] VITALS: BP 170/102
--- NOTE | 2023-07-20 01:47 | ED General ---
General Chief Complaint: Head/Cervical Problems Stated Complaint: YEBOAH,NAUSEA,SWELLING BEHIND RT EAR Source of Information: Patient Exam Limitations: No Limitations History of Present Illness Date Seen by Provider: Jul 20, 2023 Time Seen by Provider: 01:46 Initial Comments Patient is a 37-year-old male who presents to the emergency department with a chief complaint of global headache, nausea, pain behind his right ear. Patient states that he developed symptoms starting this morning and has taken a couple of rounds of extra strength Tylenol without any relief of symptoms. He states that his head hurts when he wears his glasses as the arm of his glasses rubs against the sore spot behind his right ear. He states that tends to make him more nauseated. He has a history of migraines which this is unlike. He states his migraines are normally debilitating and resolved with sumatriptan hand. He denies any vision changes, speech difficulties, unilateral weakness numbness or tingling. No other complaints of illness. He does suffer with "allergies" and has been off of Zyrtec for about a year. He denies any significant congestion, cough or runny nose. Not a smoker. Timing/Duration: Other (8 hours) Severity: Moderate Associated Systoms: Nausea/Vomiting Allergies and Home Medications Allergies Coded Allergies: NKANo Known Allergies (Verified Allergy, Unknown, 07/05/06) Patient Home Medication List Home Medication List Reviewed: Yes Ondansetron (Ondansetron Odt) 8 Mg Tab.rapdis, 8 MG PO Q4H PRN for NAUSEA/VOMITING Prescribed by: CATHIE VALENTIN on 07/16/22 1345 Oxycodone HCl/Acetaminophen (Percocet 5-325 mg Tablet) 1 Each Tablet, 1 TAB PO Q4H Prescribed by: CATHIE VALENTIN on 07/16/22 1345 Tamsulosin HCl (Flomax) 0.4 Mg Cap, 0.4 MG PO DAILY Prescribed by: CATHIE VALENTIN on 07/16/22 1345 Review of Systems Review of Systems Constitutional: see HPI EENTM: other (pain behind right ear) Respiratory: no symptoms reported Cardiovascular: no symptoms reported Gastrointestinal: nausea Genitourinary: no symptoms reported Musculoskeletal: no symptoms reported Skin: no symptoms reported Psychiatric/Neurological: Headache Past Emicoqi-Vlmanx-Cmzohw Hx Immunizations Up To Date Tetanus Booster (TDap): Unknown First/Initial COVID19 Vaccinat: 02/12 Second COVID19 Vaccination Kendall: 05/15 Seasonal Allergies Seasonal Allergies: No Past Medical History Surgery/Hospitalization HX: renal stones, yeboah, asthma, dislocated shoulder Surgeries: Yes (INGROWN TOENAIL REMOVAL;KIDNEY STONE REMOVALS W/ URETERAL STENTS/REMOVALS) Renal Respiratory: Yes Asthma Currently Using CPAP: No Currently Using BIPAP: No Cardiac: No Neurological: Yes Headaches /Migraines Reproductive Disorders: No Sexually Transmitted Disease: No HIV/AIDS: No Genitourinary: Yes Kidney Stones Gastrointestinal: No Musculoskeletal: Yes (SHOULDER DISLOCATION 10/2021) Endocrine: No HEENT: No Cancer: No Psychosocial: No Integumentary: No Blood Disorders: No Adverse Reaction/Blood Tranf: No Family Medical History No Pertinent Family Hx, Diabetes, Psychiatric Problems Denied family history of diabetes and psychiatric problems Physical Exam Vital Signs Vital Signs - First Documented 07/20/23 01:44 Temp 36.2 Pulse 90 Resp 16 B/P (MAP) 170/102 (124) Capillary Refill : Height, Weight, BMI Height: 5'10.00" Weight: 238lbs. 0oz. [id number]; 39.48 BMI Method:Stated General Appearance: No Apparent Distress, WD/WN Eyes: Bilateral Eye Normal Inspection, Bilateral Eye PERRL, Bilateral Eye EOMI HEENT: PERRL/EOMI, TMs Normal, Normal ENT Inspection, Pharynx Normal, Moist Mucous Membranes, Other (tenderness to palpation right mastoid - no significant erythema, swelling or displacement of the pinna. 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 Skin: Normal Color, Warm/Dry Progress/Results/Core Measures Suspected Sepsis SIRS Temperature: Pulse: Respiratory Rate: Blood Pressure / Mean: Results/Orders My Orders Orders - MARTHA MONTGOMERY MD Ketorolac Injection (Ketorolac Injection (07/20/23 02:00) Ondansetron Oral Dissolve Tab (Ondanset (07/20/23 01:58) Medications Given in ED Current Medications Medications Dose Ordered Sig/Kalpesh Route Start Time Stop Time Status Last Admin Dose Admin Ketorolac Tromethamine 30 mg ONCE ONCE IM 07/20/23 02:00 07/20/23 02:01 DC 07/20/23 02:05 30 MG Vital Signs/I&O 07/20/23 01:44 Temp 36.2 Pulse 90 Resp 16 B/P (MAP) 170/102 (124) Capillary Refill : Progress Note : Time: 02:04 Progress Note Patient seen and evaluated by me. Evaluation today includes physical exam. Pertinent physical exam findings are well-developed well-nourished male in no acute distress, smiling, pleasant and affable. Tenderness to the right mastoid without swelling or fluctuance. Patient is afebrile with stable vital signs. No focal neurologic deficits. Rest of his HEENT exam is benign. Differential diagnosis based on history and physical exam sinus congestion, sinus headache, tension headache/SAH, mastoiditis Patient is treated in the emergency department with 30 mg of Toradol IM as well as 8 mg of p.o. ondansetron. 0231 Reevaluated after medications and states his headache is diminished but he still has tenderness over the area of the right mastoid. No concerning findings to suggest SAH or acute infectious process (mastoiditis). CT considered however, H&P do not support the need. Patient has no clinical or objective findings to support mastoiditis other than mild pain in the area. I encouraged him to start the Tracy and to apply either a little warm compress or ice pack to the area. I advised return precautions to include fever, vomiting or worsening headache to return to the emergency department he is comfortable with this plan of care. All questions are sought and answered. Patient is improved at discharge. Return precautions provided in both verbal and written format. Departure Impression Primary Impression: Headache Qualified Codes: R51.9 - Headache, unspecified Additional Impression: Mastoid pain Qualified Codes: H92.01 - Otalgia, right ear Disposition: HOME, SELF-CARE Condition: Improved Departure-Patient Inst. Decision time for Depature: 02:33 Referrals: DEUCE ACOSTA APRN (PCP) Primary Care Physician [facility] (Family) Primary Care Physician Patient Instructions: Headache, Adult (DC) Add. Discharge Instructions: You can take [id number] ibuprofen 3 tablets which is 600 mg every 6-8 hours with food as needed for pain. Apply a cool compress or warm compress to the area behind your right ear for d iscomfort. If you develop a fever, worsening pain, vomiting, earache or any other emergent, concerning symptoms please return to the emergency department for reevaluation. You can start some tvco-lck-[id number] Tracy which may help relieve any congestion or fluid behind the right ear. Please follow-up with your primary care provider. Copy Copies To 1: PAULETTE ASHRAF KATHRYN M MD Jul 20, 2023 01:47
[2023-07-20] MEDS ORDERED: ONDANSETRON 4 MG ORAL DISSOLVE TABLET PO STA (01:58)
[2023-07-20] MEDS ORDERED: KETOROLAC INJ 30 MG/ML VIAL IM ONE (02:00)
[2023-07-21] MEDS ORDERED: IBUP-2482 PO (06:21)
[2023-07-21] MEDS ORDERED: PSEU120T16 PO (06:22)
== END 2023-07-20 02:48 | disposition home or self-care (01) ==
LOC: EDUNIT# 01:20 → ER 01:23
DX: R51.9 Headache, unspecified (principal); H92.01 Otalgia, right ear; Z86.69 Personal history of other diseases of the nervous system and sense organs

== ENCOUNTER 2023-07-21 05:55 | Emergency (ER) | payer BC ==
[~2023-07-21] VITALS: Ht 177.8 cm; Wt 123.0 kg
[2023-07-21 06:05] VITALS: BP 128/88
[2023-07-21] MEDS ORDERED: IBUP-2482 PO (06:21)
[2023-07-21] MEDS ORDERED: PSEU120T16 PO (06:22)
--- NOTE | 2023-07-21 06:24 | ED General ---
General Chief Complaint: General Problems/Pain Stated Complaint: PAIN BEHIND RT EAR,EAR PX LEFT EAR,DIARRHEA Nursing Triage Note: c/o headache x2 days, left ear pain, diarrhea, lethargy x1 day. last dose apap 10am 07/20/03 Source of Information: Patient Exam Limitations: No Limitations History of Present Illness Date Seen by Provider: Jul 21, 2023 Time Seen by Provider: 06:10 Initial Comments 37-year-old male presents to the emergency department today for "pain in my right mastoid region, left ear pain and diarrhea." He was seen here yesterday for pain in the right posterior auricular region and headache. He states since that time he has gotten pain in his left ear and has had 3-4 loose stools that are nonbloody. Also states he has significant sinus pressure which she relates to a headache. He points to his anterior maxillary sinuses as the source of this pain, pressure. He has had no fevers or chills. No ear drainage. He does state that he slept most of the day yesterday feeling unwell. Use Tylenol at 10 AM but outside of this has not used any medications to treat his symptoms. All other systems reviewed and negative except documented per HPI. Voice recognition software was used to help create this chart Allergies and Home Medications Allergies Coded Allergies: NKANo Known Allergies (Verified Allergy, Unknown, 07/05/06) Patient Home Medication List Home Medication List Reviewed: Yes No Active Prescriptions or Reported Meds Review of Systems Review of Systems Constitutional: see HPI Past Mkhjbcz-Orpneb-Tgguyw Hx Patient Social History Tobacco Use?: No Substance use?: No Alcohol Use?: No Pt feels they are or have been: No Immunizations Up To Date Tetanus Booster (TDap): Unknown First/Initial COVID19 Vaccinat: 02/12 Second COVID19 Vaccination Kendall: 05/15 Third COVID19 Vaccination Date: UNKNOWN DATE Seasonal Allergies Seasonal Allergies: No Past Medical History Surgery/Hospitalization HX: renal stones, aguilera, asthma, dislocated shoulder, t/a, ingrown toenail Surgeries: Yes (INGROWN TOENAIL REMOVAL;KIDNEY STONE REMOVALS W/ URETERAL STENTS/REMOVALS) Renal Respiratory: Yes Asthma Currently Using CPAP: No Currently Using BIPAP: No Cardiac: No Neurological: Yes Headaches /Migraines Reproductive Disorders: No Sexually Transmitted Disease: No HIV/AIDS: No Genitourinary: Yes Kidney Stones Gastrointestinal: No Musculoskeletal: Yes (SHOULDER DISLOCATION 10/2021) Endocrine: No HEENT: No Cancer: No Psychosocial: No Integumentary: No Blood Disorders: No Adverse Reaction/Blood Tranf: No Family Medical History No Pertinent Family Hx, Diabetes, Psychiatric Problems Denied family history of diabetes and psychiatric problems Physical Exam Vital Signs Vital Signs - First Documented 07/21/23 06:05 Temp 36.8 Pulse 79 Resp 16 B/P (MAP) 128/88 (101) Pulse Ox 93 O2 Delivery Room Air Capillary Refill : Less Than 3 Seconds Height, Weight, BMI Height: 5'10.00" Weight: 238lbs. 0oz. 107.672990zj; 38.00 BMI Method:Stated General Appearance: No Apparent Distress, WD/WN Eyes: Bilateral Eye Normal Inspection, Bilateral Eye PERRL, Bilateral Eye EOMI HEENT: Pharynx Normal, Other (Mild serous effusion left TM, right TM is normal. Mild tenderness palpation posterior to the right ear. No swelling, skin changes.) Neck: Full Range of Motion, Normal Inspection, Non Tender, Supple Respiratory: Chest Non Tender, Lungs Clear, Normal Breath Sounds, No Accessory Muscle Use, No Respiratory Distress Cardiovascular: Regular Rate, Rhythm, No Murmur, Normal Peripheral Pulses Gastrointestinal: Normal Bowel Sounds, No Organomegaly, Non Tender, Soft Back: Normal Inspection Extremity: Normal Capillary Refill, Normal Inspection, Normal Range of Motion, No Calf Tenderness Neurologic/Psychiatric: Alert, Oriented x3, No Motor/Sensory Deficits Skin: Normal Color, Warm/Dry Progress/Results/Core Measures Suspected Sepsis SIRS Temperature: Pulse: 79 Respiratory Rate: 16 Blood Pressure 128 /88 Mean: 101 Results/Orders Vital Signs/I&O 07/21/23 06:05 Temp 36.8 Pulse 79 Resp 16 B/P (MAP) 128/88 (101) Pulse Ox 93 O2 Delivery Room Air Capillary Refill : Less Than 3 Seconds Blood Pressure Mean: 101 Departure Communication (Admissions) Patient is hemodynamically stable. He has a "right mastoid pain" with left ear pain. There is no drainage on either side of the skin is normal. Exam is fairly benign outside of some very mild tenderness. He does have serous effusions bilaterally with some sinus tenderness. I think he likely has sinusitis from congestion. Recommend conservative care with Flonase, Sudafed increasing fluids. There is no indication for antibiotics at this time. Consideration for CT scan rule out mastoiditis however exam does not support this. Regarding his diarrhea, recommended the use Imodium if his symptoms last more than the next 24 hours. This appears mild at this time. He has no abdominal tenderness. He is nontoxic in appearance exam is otherwise reassuring. Impression Primary Impression: Sinusitis Qualified Codes: J01.00 - Acute maxillary sinusitis, unspecified Disposition: HOME, SELF-CARE Condition: Stable Departure-Patient Inst. Referrals: DEUCE ACOSTA APRN (PCP) Primary Care Physician [facility] (Family) Primary Care Physician Patient Instructions: Sinusitis, Adult (DC) Add. Discharge Instructions: As discussed I recommend you give fluticasone nasal spray and use it twice a day with 2 sprays in each nostril in the morning and in the evening. I have prescribed you Sudafed which should help with your sinus and ear congestion as w ell. Increase your fluids at home and rest. If your diarrhea lasts more than the next 24 hours I recommend you get Imodium [id number] and take it as directed on the package insert. Follow-up with your primary doctor for any nonemergent needs. Return to the emergency department for any severe concerns. All discharge instructions reviewed with patient and/or family. Voiced understanding. Scripts Pseudoephedrine HCl (Sudafed 12-Hour) 120 Mg Tablet.er 120 MG PO BID for Congestion for 3 Days, #6 TAB Prov: RACHEL MCDONALD DO 07/21/23 RACHEL MCDONLAD DO Jul 21, 2023 06:24
== END 2023-07-21 06:30 | disposition home or self-care (01) ==
LOC: EDUNIT# 05:55 → ER 06:00
DX: J32.0 Chronic maxillary sinusitis (principal)
CPT/HCPCS: 99281